=== PATIENT | male | born 1945 | race Caucasian/White ===

== ENCOUNTER → 2017-08-03 14:21 | Outpatient (CLI) | payer MEDICARE, OTHER, SELFPAY ==
[2017-08-03 15:30] LABS: Absolute Neutrophil Count 2.5 X10^3/uL (2.0-7.7); Basophil# 0.05 X10^3/uL; Basophil% 1.2 % (0-1); Eosinophil# 0.18 X10^3/uL; Eosinophils% 4.2 % (0-5); Hematocrit 42.7 % (40-54); Hemoglobin 15.3 g/dl (13.0-16.5); Lymphocyte % 27.8 % (19-41); Mean Corp Hgb Conc 35.8 g/gl (32-36); Mean Corpuscular Hgb 36.3 pg (27.0-32.0); Mean Corpuscular Volume 101.4 fL (80-94); Mean Platelet Vol. 11.6 fl (6.2-12.0); Monocyte# 0.39 X10^3/uL; Neutrophil # 2.49 X10^3/uL (2.7-7.7); Neutrophil % 57.6 % (47-70); POSITIVE COUNT NO; POSITIVE DIFFERENTIAL NO; POSITIVE MORPHOLOGY NO; Platelet Count 93 K/mm3 (150-450); Protein, Urine (Random) 135.6 mg/dL (<11.9); Protein:Creat Ratio 775 mg/g CRE (0-200); RBC Distribution Width SD 55.2 fl (35.1-43.9); Red Blood Count 4.21 M/mm3 (4.6-6.2); White Blood Count 4.3 K/mm3 (4.4-11.0)
[2017-08-03 15:36] LABS: Albumin, Serum 4.1 g/dL (3.2-5.0); BUN 21 mg/dL (7-18); BUN/Creat Ratio 15.2 RATIO (10-20); Calcium,Total 8.9 mg/dL (8.5-10.1); Chloride 104 mmol/L (98-107); Creatinine, Serum 1.38 mg/dL (0.70-1.30); EST Glomerular Filtration Rate 54 mL/min (>60); Est Glom Filt Rate - Afr Amer 65 mL/min (>60); Glucose 87 mg/dL (74-106); Magnesium 2.1 mg/dL (1.6-2.6); Phosphorus 3.9 mg/dL (2.5-4.9); Potassium 3.4 mmol/L (3.5-5.1); Sodium Level 144 mmol/L (136-145)
[2017-08-04 08:52] LABS: PTHIN 70.4 pg/mL (18.4-80.1)
[2017-08-04 08:53] LABS: Vitamin D,25 Hydroxy 26.4 ng/mL (19.95-100.01)
== END ==
PROVIDERS: Family Provider Family Medicine; PCP Family Medicine; Visit Provider Internal Medicine Nephrology
DX: N18.3 Chronic kidney disease, stage 3 (moderate) (principal); E83.42 Hypomagnesemia; E55.9 Vitamin D deficiency, unspecified; Z13.0 Encounter for screening for diseases of the blood and blood-forming organs and certain disorders involving the immune mechanism
CPT/HCPCS: 36415; 80069; 82306; 82570; 83735; 83970; 84156; 85025

== ENCOUNTER → 2018-01-20 08:11 | Outpatient (CLI) | payer MEDICARE, OTHER, SELFPAY ==
[2018-01-20 08:47] LABS: Hematocrit 40.4 % (40-54); Hemoglobin 13.9 g/dl (13.0-16.5); Mean Corp Hgb Conc 34.4 g/gl (32-36); Mean Corpuscular Hgb 35.3 pg (27.0-32.0); Mean Corpuscular Volume 102.5 fL (80-94); Mean Platelet Vol. 11.6 fl (6.2-12.0); Platelet Count 74 K/mm3 (150-450); RBC Distribution Width CV 14.4 % (11.6-14.6); RBC Distribution Width SD 53.5 fl (35.1-43.9); Red Blood Count 3.94 M/mm3 (4.6-6.2); White Blood Count 3.7 K/mm3 (4.4-11.0)
[2018-01-20 08:48] LABS: Scan Indicated on CBC? Y/N NO
[2018-01-20 09:17] LABS: Albumin, Serum 3.7 g/dL (3.2-5.0); BUN 18 mg/dL (7-18); BUN/Creat Ratio 13.5 RATIO (10-20); Calcium,Total 8.9 mg/dL (8.5-10.1); Chloride 105 mmol/L (98-107); Cholesterol 172 mg/dL (200); Creatinine, Serum 1.33 mg/dL (0.70-1.30); EST Glomerular Filtration Rate 56 mL/min (>60); Est Glom Filt Rate - Afr Amer 68 mL/min (>60); Glucose 91 mg/dL (74-106); High Density Lipoprotein 36 mg/dL; Magnesium 2.2 mg/dL (1.6-2.6); PSA,Total - Annual Screen 0.11 ng/mL (0.00-4.00); Phosphorus 3.1 mg/dL (2.5-4.9); Potassium 3.3 mmol/L (3.5-5.1); Sodium Level 142 mmol/L (136-145); Triglycerides 119 mg/dL; Very Low Density Lipoprotein 24 mg/dL (5-40)
[2018-01-20 09:28] LABS: Microalbumin:Creatinine Ratio 277.4 mg/g CRE (<30 mg/g CRE)
[2018-01-21 09:51] LABS: PTHIN 66.5 pg/mL (18.4-80.1)
[2018-01-21 10:10] LABS: Vitamin D,25 Hydroxy 44.1 ng/mL (29.95-100.01)
== END ==
PROVIDERS: Family Provider Family Medicine; PCP Family Medicine; Visit Provider Internal Medicine Nephrology
DX: E83.42 Hypomagnesemia (principal); E55.9 Vitamin D deficiency, unspecified; I12.9 Hypertensive chronic kidney disease with stage 1 through stage 4 chronic kidney disease, or unspecified chronic kidney disease; N18.3 Chronic kidney disease, stage 3 (moderate); E79.0 Hyperuricemia without signs of inflammatory arthritis and tophaceous disease; Z12.5 Encounter for screening for malignant neoplasm of prostate; Z13.0 Encounter for screening for diseases of the blood and blood-forming organs and certain disorders involving the immune mechanism
CPT/HCPCS: 36415; 80061; 80069; 82043; 82306; 82570; 83735; 83970; 84153; 85027; G0103

== ENCOUNTER → 2018-07-25 08:31 | Outpatient (CLI) | payer MEDICARE, OTHER, SELFPAY ==
[2018-04-11 13:14] VITALS: BMI 34.1
[2018-07-25 09:41] LABS: Hematocrit 45.1 % (40-54); Hemoglobin 15.4 g/dl (13.0-16.5); Mean Corp Hgb Conc 34.1 g/gl (32-36); Mean Corpuscular Hgb 35.3 pg (27.0-32.0); Mean Corpuscular Volume 103.4 fL (80-94); Platelet Count 67 K/mm3 (150-450); RBC Distribution Width CV 14.3 % (11.6-14.6); Red Blood Count 4.36 M/mm3 (4.6-6.2); Scan Indicated on CBC? Y/N NO; White Blood Count 3.8 K/mm3 (4.4-11.0)
[2018-07-25 09:46] LABS: Protein, Urine (Random) 130.7 mg/dL (<11.9); Protein:Creat Ratio 1580 mg/g CRE (0-200)
[2018-07-25 09:56] LABS: Albumin, Serum 3.9 g/dL (3.2-5.0); BUN 20 mg/dL (7-18); Calcium,Total 8.8 mg/dL (8.5-10.1); Chloride 105 mmol/L (98-107); Creatinine, Serum 1.43 mg/dL (0.70-1.30); EST Glomerular Filtration Rate 52 mL/min (>60); Est Glom Filt Rate - Afr Amer 62 mL/min (>60); Glucose 196 mg/dL (74-106); Phosphorus 2.6 mg/dL (2.5-4.9); Potassium 3.1 mmol/L (3.5-5.1); Sodium Level 143 mmol/L (136-145)
[2018-07-25 10:09] LABS: PTHIN 73.6 pg/mL (18.4-80.1); Vitamin D,25 Hydroxy 40.1 ng/mL (29.95-100.01)
== END ==
PROVIDERS: Family Provider Family Medicine; PCP Family Medicine; Referring Provider Internal Medicine Nephrology; Visit Provider Internal Medicine Nephrology
DX: N18.3 Chronic kidney disease, stage 3 (moderate) (principal); E55.9 Vitamin D deficiency, unspecified; Z13.0 Encounter for screening for diseases of the blood and blood-forming organs and certain disorders involving the immune mechanism
CPT/HCPCS: 36415; 80069; 82306; 82570; 83970; 84156; 85027

== ENCOUNTER → 2019-01-19 | Outpatient (CLI) | payer MEDICARE, OTHER, SELFPAY ==
[2018-10-10 12:56] VITALS: BMI 34.8
[2019-01-19 07:26] LABS: Hematocrit 40.9 % (40-54); Hemoglobin 14.8 g/dL (13.0-16.5); Mean Corp Hgb Conc 36.2 g/dL (32-36); Mean Corpuscular Volume 102.3 fL (80-94); Mean Platelet Vol. 11.7 fl (6.2-12.0); Platelet Count 70 K/mm3 (150-450); RBC Distribution Width CV 13.9 % (11.6-14.6); White Blood Count 4.1 K/mm3 (4.4-11.0)
[2019-01-19 07:28] LABS: Protein, Urine (Random) 87.3 mg/dL (<11.9); Protein:Creat Ratio 766 mg/g CRE (0-200)
[2019-01-19 07:43] LABS: Albumin, Serum 3.9 g/dL (3.2-5.0); BUN 16 mg/dL (7-18); BUN/Creat Ratio 12.9 RATIO (10-20); Calcium,Total 8.7 mg/dL (8.5-10.1); Chloride 105 mmol/L (98-107); Creatinine, Serum 1.24 mg/dL (0.70-1.30); EST Glomerular Filtration Rate 61 mL/min (>60); Est Glom Filt Rate - Afr Amer 73 mL/min (>60); Glucose 105 mg/dL (74-106); Potassium 3.1 mmol/L (3.5-5.1); Sodium Level 140 mmol/L (136-145)
[2019-01-19 08:45] LABS: PTHIN 99.1 pg/mL (18.4-80.1); Vitamin D,25 Hydroxy 38.2 ng/mL (29.95-100.01)
== END | disposition home or self-care (01) ==
LOC: LAB 06:34
PROVIDERS: Family Provider Family Medicine; PCP Family Medicine; Referring Provider Internal Medicine Nephrology; Visit Provider Internal Medicine Nephrology
DX: N18.3 Chronic kidney disease, stage 3 (moderate) (principal)
CPT/HCPCS: 36415; 80069; 82306; 82570; 83970; 84156; 85027

== ENCOUNTER 2019-06-02 21:16 | Emergency (ER) | payer MEDICARE, OTHER, SELFPAY ==
[2019-04-03 14:01] VITALS: BMI 34.0
[2019-06-02 21:17] VITALS: BP 204/101; PULSE 95; RESP 20; TEMP 36.2; O2SAT 97; BMI 33.7
[2019-06-02 22:12] VITALS: BP 204/101; PULSE 95; RESP 20; TEMP 36.2; O2SAT 97
[2019-06-02 22:14] LABS: Absolute Lymphocyte Count 0.53 X10^3/uL (0.83-4.51); Absolute Neutrophil Count 5.5 X10^3/uL (2.0-7.7); Basophil# 0.04 X10^3/uL; Basophil% 0.6 % (0-1); Eosinophil# 0.08 X10^3/uL; Eosinophils% 1.2 % (0-5); Hematocrit 40.1 % (40-54); Hemoglobin 14.1 g/dL (13.0-16.5); Lymphocyte # 0.53 X10^3/ul (4.0); Lymphocyte % 7.9 % (19-41); Mean Corp Hgb Conc 35.2 g/dL (32-36); Mean Corpuscular Hgb 34.9 pg (27.0-32.0); Mean Corpuscular Volume 99.3 fL (80-94); Mean Platelet Vol. 10.8 fl (6.2-12.0); Monocyte# 0.49 X10^3/uL; Monocyte% 7.3 % (0-10); NRBC Flagged by Analyzer 0 % (0-5); Neutrophil # 5.51 X10^3/uL (2.7-7.7); Neutrophil % 82.1 % (47-70); POSITIVE DIFFERENTIAL YES; Platelet Count 100 K/mm3 (150-450); RBC Distribution Width CV 13.4 % (11.6-14.6); RBC Distribution Width SD 49.1 fl (35.1-43.9); Red Blood Count 4.04 M/mm3 (4.6-6.2); White Blood Count 6.7 K/mm3 (4.4-11.0)
[2019-06-02 22:31] LABS: Differential Indicated SCAN CRITERIA MET
[2019-06-02 22:44] VITALS: BP 143/79; PULSE 81; RESP 18; O2SAT 97
[2019-06-02 22:51] LABS: Differential Comment SCANNED; Erythrocyte Sedimentation Rate 20 mm/hr (0-20)
--- NOTE | 2019-06-02 22:52 | ED.VISSUMM ---
- ER Visit Summary Date of Service: 06/02/19 Chief Complaint: Left knee injury/swelling History of Present Illness: The patient is a 73 M who sustained a left knee injury about a month ago. He had pain and swelling on the anterior portion of the knee. He followed up with [facility] a couple of weeks ago and was given prednisone but it did not help. He followed up with him earlier this week and was placed on antibiotics for presumed prepatellar bursitis. He states the swelling increased today so he came in to get it checked. He has pain is worse with walking. He denies any fevers. He is currently on doxycycline and clindamycin. He had a total knee replacement performed 9 years ago on that side. Physical Examination: Vital signs are reviewed. Left leg exam reveals some erythema noted to the anterior knee. He has full range of motion of the knee with pain at the extremes. There is a line that was drawn on the knee that was demarcated at [facility]. The erythema does not extend beyond this. There is some inferior fluctuance noted around this area. Test Results: White blood cell count 6.7. CRP 24 Emergency Department Course and Treatment: Patient's white count is normal. He has good range of motion. I doubt that this is an intra-articular infection. He likely has a prepatellar bursitis. I did anesthetize the area with 1% lidocaine after scrubbing it with chlorhexidine. I then used an 18-gauge needle and aspirated the inferior portion and had return of some clear serous fluid. This was then mixed with blood. He believes the swelling is now improved since he has been here. I feel he can continue the antibiotics he was given. He will continue to ice this at home. He will call [facility] on Wednesday Treatment Plan: [] Disposition: Discharge Impression: Left prepatellar bursitis This note was generated with ZEFR dictation software. It may contain incorrect words, spelling, and punctuation that were not noted in review of the chart prior to signing ED Disposition - Plan for ED Patient: Referrals: Brad Forrest DO [Primary Care Provider] -
--- NOTE | 2019-06-02 22:55 | ED.DEP ---
ED Disposition - Plan for ED Patient: Disposition: Home or Assisted Living Instructions: Bursitis Referrals: Brad Forrest DO [Primary Care Provider] -
[2019-06-02 23:30] VITALS: BP 139/84; PULSE 74; RESP 16; O2SAT 94
== END 2019-06-02 23:31 | disposition home or self-care (01) ==
PROVIDERS: Emergency Provider Emergency Medicine; Family Provider Family Medicine; PCP Family Medicine
DX: M70.42 Prepatellar bursitis, left knee (principal); Z96.652 Presence of left artificial knee joint
CPT/HCPCS: 20610; 85025; 85652; 86140; 99283

== ENCOUNTER 2019-06-12 08:56 | Emergency (ER) | payer MEDICARE, OTHER, SELFPAY ==
[2019-06-12 08:57] VITALS: BP 171/86; PULSE 60; RESP 17; TEMP 36.8; O2SAT 94; BMI 32.5
--- NOTE | 2019-06-12 09:16 | EKG12_ITS ---
Test Reason : N/V Blood Pressure : / mmHG Vent. Rate : 055 BPM Atrial Rate : 055 BPM P-R Int : 148 ms QRS Dur : 110 ms QT Int : 468 ms P-R-T Axes : 015 -22 -27 degrees QTc Int : 447 ms Sinus bradycardia Incomplete right bundle branch block Minimal voltage criteria for LVH, may be normal variant Nonspecific ST abnormality Abnormal ECG Confirmed by LORI RODRÍGUEZ, LACI ([id number]), associate editor KENTON MAXWELL ([id number]) on 06/14/2019 11:55:22 AM Referred By: FREDO Confirmed By:LACI SANDOVAL MD
--- NOTE | 2019-06-12 09:18 | ED.VIS.GEN ---
History of Present Illness Chief Complaint: Abd Pain Informant: Patient Onset: Yesterday Context: Gradual Onset Timing: Intermittent Narrative: Patient is a 73-year-old man with history of Gout, BPH and hypertension who is currently on both doxycycline and clindamycin for concern for left prepatellar bursitis presenting with increased urinary frequency and abdominal discomfort. Patient states he is been on antibiotics for 20 days now. He is on a second course of it. He notes that last night his stomach started to feel upset. He had nausea and dry heaves. He also notes since yesterday he has been urinating every 15 minutes or so. He denies any painful urination and he feels like he is emptying his bladder completely. He states his stomach feels slightly upset and cramping. He denies any sharp pains. He denies associated chest pain, shortness of breath, fever or chills. He also feels lightheaded which he says is been going on since yesterday. He denies any increased thirst. He does note that he has had loose stools since being on antibiotics and whenever he has to pass gas he tends to pass a small amount of stool as well. He denies any black or bloody stools. He denies any other complaints at this time. Patient follows with [facility] for his knee. He does have a history of bilateral TKA. Past Medical History - Allergies and Home Meds Allergies/Adverse Reactions: Allergies No Known Allergies Allergy (Verified 06/12/19 08:57) Primary Care Physician: Brad Forrest DO [Primary Care Provider] - Past Medical History: - - Gout, HTN, BPH Surgical History: arthroscopy, knee Smoking Status: Smoker, status unknown Review of Systems General: Reports: - - lightheaded. Denies: Chills, Fever, Malaise, Sweats Eyes: Denies: Visual changes - bilaterally, Diplopia ENT: Denies: Rhinorrhea, Sore throat Cardiovascular: Denies: Chest pain, Palpitations Respiratory: Denies: Dyspnea, Cough, Dyspnea on exertion Gastrointestinal: Reports: Abdominal pain, Nausea, Diarrhea. Denies: Vomiting, Melena, Hematochezia Genitourinary: Reports: Frequency. Denies: Dysuria, Hematuria Musculoskeletal: Reports: Swelling - left knee. Denies: Back pain, Extremity Pain Skin: Reports: Rash - left knee , Wounds - draining wound left knee from recent aspiration, draining stopped 2 days ago Neurological: Denies: Headache, Weakness, Numbness Physical Exam Vital Signs/Narrative: Vital Signs Temp Pulse Resp BP Pulse Ox 06/12/19 08:57 98.2 F 60 17 171/86 H 94 Inital Vital Signs reviewed: Yes General: Well nourished, Well developed, No Acute Distress Head: Normocephalic, Atraumatic Eyes: Perrl, EOMI ENT: Moist mucous membranes, No rhinorrhea, TM's clear Neck: Supple, Nontender Cardiovascular: Regular rate, Regular rhythm, No murmurs Respiratory: No distress, CTA bilaterally, Chest nontender Abdomen: Soft, Nontender, Nondistended, Normal bowel sounds Back: Nontender, Normal Inspection. Negative for: CVA tenderness Extremities: Nontender, No edema Skin: Normal color, - - Erythema and warmth over left knee, inferior aspect, mild associated swelling consistent with a prepatellar bursitis Neurological: Alert, Oriented x3, Cranial nerves II-XII grossly intact, Normal Strength, Normal Sensation Psychological: Normal affect, Normal Mood Diagnostic/Tx/Re-eval Laboratory Data 06/12/19 06/12/19 06/12/19 09:10 09:10 10:45 WBC 4.5 RBC 3.79 L Hgb 13.2 Hct 37.1 L MCV 97.9 H MCH 34.8 H MCHC 35.6 RDW Std Deviation 47.9 H RDW Coeff of Naomie 13.7 Plt Count 79 L MPV 9.6 Immature Gran % (Auto) 0.700 Neut % (Auto) 84.8 H Lymph % (Auto) 7.3 L [place] % (Auto) 6.6 Eos % (Auto) 0.4 Baso % (Auto) 0.2 Absolute Neuts (auto) 3.8 Absolute Lymphs (auto) 0.33 L Nucleated RBC % 0 Platelet Estimate MOD DEC Sodium 138 Potassium 3.1 L Chloride 102 Carbon Dioxide 31.0 Anion Gap 5 BUN 14 Creatinine 1.30 Estim Creat Clear Calc 50.61 Est GFR (MDRD) Af Amer 69 Est GFR (MDRD) Non-Af 57 L BUN/Creatinine Ratio 10.8 Glucose 115 H Calcium 8.9 Total Bilirubin 1.10 H AST 27 ALT 32 Alkaline Phosphatase 109 Troponin I < 0.015 C-React Prot Ext Range 11.10 H Total Protein 6.9 Albumin 3.5 Globulin 3.4 Albumin/Globulin Ratio 1.0 Lipase 115 Urine Color Yellow Urine Clarity Clear Urine pH 7.0 Ur Specific [place] 1.010 Urine Protein 30 H Urine Glucose (UA) Normal Urine Ketones Negative Urine Occult Blood 10 H Urine Nitrite Negative Urine Bilirubin Negative Urine Urobilinogen Normal Ur Leukocyte Esterase Negative Urine RBC 0 SEEN Urine WBC 0 SEEN Ur Squamous Epith Cells 0 SEEN Urine Bacteria RARE Urine Mucus 0 SEEN - Rhythm Strip Rhythm Strip: Sinus Rhythm Rate: 55 Ectopy: None - EKG Initial EKG Interpretation: Sinus Bradycardia, - - Sinus bradycardia at a rate of 55 Incomplete right bundle branch block QRS 110 QTc 447 Left axis deviation T wave inversions in 3 and aVF Compared to prior EKG on 10/27/2012 patient now has a right bundle branch block but T wave inversions are unchanged - Medical Decision Making Patient is evaluated for abdominal discomfort, urinary frequency and nausea. He appears nontoxic in no acute distress. His lab work is significant for thrombocytopenia which appears to be chronic as well as hyperkalemia which is also chronic. Patient's abdomen is soft and nontender. He does not have a significant leukocytosis and abdominal exam is benign. He is well-appearing. I do not suspect an acute abdomen or obstruction. I do not think imaging of his abdomen is indicated at this time. His CRP is still elevated but it is downtrending. He does not look like he has a septic joint of his knee but he does still have some associated bursitis. Patient is following with orthopedics for that. While he is in the emergency room he does go to the bathroom multiple times. He denies any urinary symptoms associated with this frequency. I did check a postvoid residual volume which showed 127 mL's of fluid. Likely patient has some mild urinary retention which is causing this symptom. Patient is offered a Kaur catheter but declines. He will be referred to urology for outpatient follow-up of this. He is given prescription for Zofran for his nausea. He might have some mild gastric irritation from his prolonged antibiotic use. With a normal white blood cell count I do a lower suspicion for C. difficile however I did send off a stool sample while he is in the emergency room. Patient is counseled on signs and symptoms requiring return to the emergency room. Patient verbalizes agreement and understand this plan. Patient discharged home in stable and improved condition. ED Disposition - Plan for ED Patient: Disposition: Home or Assisted Living Diagnosis: Thrombocytopenia, Urinary frequency, Hypokalemia, Diarrhea Instructions: ABDOMINAL PAIN, Unknown Cause, (Female), VOMITING AND DIARRHEA, Nonspecific (Adult), URINARY RETENTION, Male Prescriptions: Ondansetron [Zofran Odt] 4 mg PO Q8H PRN PRN #10 tab PRN Reason: Nausea Prescription Printed Referrals: Brda Forrest DO [Primary Care Provider] - Héctor Moody MD [STAFF PHYSICIAN] - Additional Instructions: You have been prescribed Zofran to help with your nausea and abdominal discomfort. You may also take an [id number] Pepcid as this might help. Do not take any Imodium for your diarrhea until your stool culture comes back. He may take Pepto-Bismol as this might help with your diarrhea. You have been referred to a urologist for further evaluation of your urinary frequency. Your potassium is mildly low as well as your platelets but this appears to be chronic. Please follow-up with your primary care doctor for this. Return to the emergency room if you have any worsening symptoms. Continue to take the antibiotics as instructed by your orthopedist.
[2019-06-12 09:51] LABS: Absolute Lymphocyte Count 0.33 X10^3/uL (0.83-4.51); Absolute Neutrophil Count 3.8 X10^3/uL (2.0-7.7); Basophil# 0.01 X10^3/uL; Basophil% 0.2 % (0-1); Eosinophil# 0.02 X10^3/uL; Eosinophils% 0.4 % (0-5); Hematocrit 37.1 % (40-54); Hemoglobin 13.2 g/dL (13.0-16.5); Lymphocyte # 0.33 X10^3/ul (4.0); Lymphocyte % 7.3 % (19-41); Mean Corp Hgb Conc 35.6 g/dL (32-36); Mean Corpuscular Hgb 34.8 pg (27.0-32.0); Mean Corpuscular Volume 97.9 fL (80-94); Mean Platelet Vol. 9.6 fl (6.2-12.0); Monocyte% 6.6 % (0-10); NRBC Flagged by Analyzer 0 % (0-5); Neutrophil # 3.84 X10^3/uL (2.7-7.7); Neutrophil % 84.8 % (47-70); POSITIVE COUNT YES; POSITIVE DIFFERENTIAL YES; Platelet Count 79 K/mm3 (150-450); RBC Distribution Width CV 13.7 % (11.6-14.6); RBC Distribution Width SD 47.9 fl (35.1-43.9); Red Blood Count 3.79 M/mm3 (4.6-6.2); White Blood Count 4.5 K/mm3 (4.4-11.0)
[2019-06-12 09:53] LABS: Differential Indicated SCAN CRITERIA MET
[2019-06-12] MEDS: Ondansetron 4 MG/2 ML Vial IV (10:00)
[2019-06-12] MEDS: 0.9% Normal Saline 1,000 ML 1000 ML IV (10:00)
[2019-06-12 10:11] LABS: Platelet Estimate MOD DEC (ADEQ)
[2019-06-12 10:38] LABS: AST(SGOT) 27 U/L (15-37); Alanine Aminotransfer ALT/SGPT 32 U/L (16-61); Albumin, Serum 3.5 g/dL (3.2-5.0); Alkaline Phosphatase 109 U/L (45-117); Anion Gap 5 (5-15); BUN 14 mg/dL (7-18); BUN/Creat Ratio 10.8 RATIO (10-20); Calcium,Total 8.9 mg/dL (8.5-10.1); Chloride 102 mmol/L (98-107); EST Glomerular Filtration Rate 57 mL/min (>60); Est Glom Filt Rate - Afr Amer 69 mL/min (>60); Estimated Creatinine Clearance 50.61 ml/min; Globulin 3.4 g/dL (2.2-4.2); Glucose 115 mg/dL (74-106); Lipase 115 U/L (73-393); Potassium 3.1 mmol/L (3.5-5.1); Protein, Total 6.9 g/dL (6.4-8.2); Sodium Level 138 mmol/L (136-145)
[2019-06-12 10:52] LABS: Mucous, Urine 0 SEEN /hpf (<or=2+); Red Blood Cells-Urine 0 SEEN /hpf (0-5); Squamous Epithelial Cells - UA 0 SEEN /hpf (0-5); White Blood Cells 0 SEEN /hpf (0-5)
[2019-06-12 10:53] LABS: Color, Urine Yellow (Yellow); Glucose, Dipstick Normal (Normal); Ketone-Dipstick Negative (Negative); Leukocyte Esterase-Dipstick Negative /ul (Negative); Nitrite-Dipstick Negative (Negative); Occult Blood-Urine 10 /ul (Negative); Protein-Dipstick 30 mg/dl (Negative); Urine Bilirubin Dipstick Negative (Negative); Urine Clarity Clear (Clear); Urine Urobilinogen Normal (Normal)
[2019-06-12 10:59] LABS: Bacteria RARE /hpf (None Seen)
== END 2019-06-12 12:19 | disposition home or self-care (01) ==
PROVIDERS: Emergency Provider Emergency Medicine; Family Provider Family Medicine; PCP Family Medicine
DX: R19.7 Diarrhea, unspecified (principal); R35.0 Frequency of micturition; E87.6 Hypokalemia; D69.6 Thrombocytopenia, unspecified; I10 Essential (primary) hypertension; Z79.2 Long term (current) use of antibiotics
CPT/HCPCS: 80053; 81001; 83690; 84484; 85025; 86140; 87506; 93005; 96361; 96374; 99283; J7030; A4216; J2405

== ENCOUNTER → 2019-06-19 09:34 | Outpatient (CLI) | payer MEDICARE, OTHER, SELFPAY ==
[2019-06-12 08:57] VITALS: BMI 32.5
[2019-07-14 10:12] LABS: PSA,Total- Diagnostic 0.17 ng/mL (0.0-4.0)
== END ==
PROVIDERS: Family Provider Family Medicine; PCP Family Medicine
DX: N40.1 Benign prostatic hyperplasia with lower urinary tract symptoms (principal)
CPT/HCPCS: 84153; G0103

== ENCOUNTER → 2019-06-30 09:46 | Outpatient (CLI) | payer MEDICARE, OTHER, SELFPAY ==
[2019-06-12 08:57] VITALS: BMI 32.5
[2019-06-30 10:40] LABS: Absolute Lymphocyte Count 1.13 X10^3/uL (0.83-4.51); Absolute Neutrophil Count 2.9 X10^3/uL (2.0-7.7); Basophil# 0.04 X10^3/uL; Basophil% 0.9 % (0-1); Eosinophil# 0.14 X10^3/uL; Eosinophils% 3.1 % (0-5); Hematocrit 36.6 % (40-54); Hemoglobin 12.6 g/dL (13.0-16.5); Lymphocyte # 1.13 X10^3/ul (4.0); Lymphocyte % 24.6 % (19-41); Mean Corp Hgb Conc 34.4 g/dL (32-36); Mean Corpuscular Hgb 34.2 pg (27.0-32.0); Mean Corpuscular Volume 99.5 fL (80-94); Mean Platelet Vol. 11.1 fl (6.2-12.0); Monocyte# 0.37 X10^3/uL; Monocyte% 8.1 % (0-10); NRBC Flagged by Analyzer 0 % (0-5); Neutrophil # 2.87 X10^3/uL (2.7-7.7); Neutrophil % 62.4 % (47-70); POSITIVE COUNT YES; Platelet Count 97 K/mm3 (150-450); RBC Distribution Width CV 14.6 % (11.6-14.6); RBC Distribution Width SD 52.2 fl (35.1-43.9); Red Blood Count 3.68 M/mm3 (4.6-6.2); White Blood Count 4.6 K/mm3 (4.4-11.0)
[2019-06-30 11:08] LABS: Albumin, Serum 3.6 g/dL (3.2-5.0); BUN 13 mg/dL (7-18); BUN/Creat Ratio 10.7 RATIO (10-20); Calcium,Total 8.7 mg/dL (8.5-10.1); Chloride 102 mmol/L (98-107); Creatinine, Serum 1.22 mg/dL (0.70-1.30); EST Glomerular Filtration Rate 62 mL/min (>60); Est Glom Filt Rate - Afr Amer 75 mL/min (>60); Glucose 64 mg/dL (74-106); Phosphorus 3.4 mg/dL (2.5-4.9); Sodium Level 139 mmol/L (136-145)
== END ==
PROVIDERS: Family Provider Family Medicine; PCP Family Medicine; Referring Provider Internal Medicine Rheumatology; Visit Provider Internal Medicine Rheumatology
DX: D64.9 Anemia, unspecified (principal); R79.89 Other specified abnormal findings of blood chemistry
CPT/HCPCS: 36415; 80069; 85025

== ENCOUNTER → 2019-08-07 | Outpatient (CLI) | payer MEDICARE, OTHER, SELFPAY ==
[2019-08-07 15:21] LABS: Absolute Lymphocyte Count 1.05 X10^3/uL (0.83-4.51); Absolute Neutrophil Count 3.7 X10^3/uL (2.0-7.7); Basophil# 0.03 X10^3/uL; Basophil% 0.6 % (0-1); Eosinophil# 0.12 X10^3/uL; Eosinophils% 2.3 % (0-5); Hematocrit 43.4 % (40-54); Hemoglobin 15.1 g/dL (13.0-16.5); Lymphocyte # 1.05 X10^3/ul (4.0); Lymphocyte % 19.9 % (19-41); Mean Corp Hgb Conc 34.8 g/dL (32-36); Mean Corpuscular Hgb 34.8 pg (27.0-32.0); Mean Platelet Vol. 10.6 fl (6.2-12.0); Monocyte# 0.41 X10^3/uL; Monocyte% 7.8 % (0-10); NRBC Flagged by Analyzer 0 % (0-5); Neutrophil # 3.65 X10^3/uL (2.7-7.7); POSITIVE COUNT YES; Platelet Count 86 K/mm3 (150-450); RBC Distribution Width CV 15.4 % (11.6-14.6); RBC Distribution Width SD 55.4 fl (35.1-43.9); Red Blood Count 4.34 M/mm3 (4.6-6.2); White Blood Count 5.3 K/mm3 (4.4-11.0)
[2019-08-07 15:26] LABS: Differential Indicated SCAN CRITERIA MET
[2019-08-07 16:11] LABS: Vitamin B12 295 pg/mL (211-911)
[2019-08-07 16:36] LABS: Ferritin 144 ng/mL (26-388); Iron 225 ug/dL (65-175); LDH 279 U/L (87-241)
[2019-08-07 16:39] LABS: Differential Comment SCANNED; Platelet Estimate MOD DEC (ADEQ)
== END | disposition home or self-care (01) ==
LOC: LAB 14:36
PROVIDERS: PCP Family Medicine; Referring Provider Family Medicine; Visit Provider Family Medicine
DX: D64.9 Anemia, unspecified (principal)
CPT/HCPCS: 36415; 82607; 82728; 82746; 83540; 83615; 85025

== ENCOUNTER → 2020-01-18 | Outpatient (CLI) | payer MEDICARE, OTHER, SELFPAY ==
[2020-01-18 08:40] LABS: Hemoglobin 13.8 g/dL (13.0-16.5); Mean Corp Hgb Conc 35.4 g/dL (32-36); Mean Corpuscular Hgb 35.6 pg (27.0-32.0); Mean Corpuscular Volume 100.5 fL (80-94); Mean Platelet Vol. 11.7 fl (6.2-12.0); POSITIVE COUNT YES; Platelet Count 71 K/mm3 (150-450); RBC Distribution Width CV 14.2 % (11.6-14.6); RBC Distribution Width SD 51.7 fl (35.1-43.9); Red Blood Count 3.88 M/mm3 (4.6-6.2)
[2020-01-18 08:50] LABS: Protein, Urine (Random) 81.9 mg/dL (<11.9); Protein:Creat Ratio 565 mg/g CRE (0-200)
[2020-01-18 09:07] LABS: Albumin, Serum 3.8 g/dL (3.2-5.0); BUN 22 mg/dL (7-18); BUN/Creat Ratio 17.6 RATIO (10-20); Calcium,Total 8.8 mg/dL (8.5-10.1); Chloride 108 mmol/L (98-107); Creatinine, Serum 1.25 mg/dL (0.70-1.30); EST Glomerular Filtration Rate 60 mL/min (>60); Est Glom Filt Rate - Afr Amer 73 mL/min (>60); Glucose 123 mg/dL (74-106); Phosphorus 2.7 mg/dL (2.5-4.9); Sodium Level 141 mmol/L (136-145)
[2020-01-18 09:31] LABS: PTHIN 64.7 pg/mL (18.4-80.1)
[2020-01-18 09:37] LABS: Vitamin D,25 Hydroxy 64.4 ng/mL
== END | disposition home or self-care (01) ==
LOC: LAB 08:06
PROVIDERS: PCP Family Medicine; Referring Provider Internal Medicine Nephrology; Visit Provider Internal Medicine Nephrology
DX: E55.9 Vitamin D deficiency, unspecified (principal); N18.3 Chronic kidney disease, stage 3 (moderate); Z13.0 Encounter for screening for diseases of the blood and blood-forming organs and certain disorders involving the immune mechanism
CPT/HCPCS: 36415; 80069; 82306; 82570; 83970; 84156; 85027

== ENCOUNTER → 2020-06-19 14:49 | Outpatient (CLI) | payer MEDICARE, OTHER, SELFPAY | PROVIDERS: PCP Family Medicine; Visit Provider Internal Medicine Rheumatology | DX: R74.8 Abnormal levels of other serum enzymes (principal) ==

== ENCOUNTER → 2020-07-22 10:23 | Outpatient (CLI) | payer MEDICARE, OTHER, SELFPAY ==
[2020-07-01 14:14] VITALS: BMI 34.7
[2020-07-22 10:51] LABS: Protein, Urine (Random) 148.6 mg/dL (<11.9); Protein:Creat Ratio 2141 mg/g CRE (0-200)
[2020-07-22 11:16] LABS: Anion Gap 6 (5-15); BUN 18 mg/dL (7-18); BUN/Creat Ratio 13.5 RATIO (10-20); Calcium,Total 8.9 mg/dL (8.5-10.1); Chloride 106 mmol/L (98-107); Creatinine, Serum 1.33 mg/dL (0.70-1.30); EST Glomerular Filtration Rate 56 mL/min (>60); Est Glom Filt Rate - Afr Amer 67 mL/min (>60); Glucose 107 mg/dL (74-106); Potassium 3.2 mmol/L (3.5-5.1); Sodium Level 143 mmol/L (136-145)
[2020-12-31 14:04] VITALS: BMI 34.9
== END ==
PROVIDERS: PCP Family Medicine; Referring Provider Internal Medicine Nephrology; Visit Provider Internal Medicine Nephrology
DX: N18.30 Chronic kidney disease, stage 3 unspecified (principal)
CPT/HCPCS: 36415; 80048; 82570; 84156

== ENCOUNTER 2020-09-06 17:00 | Outpatient (RCR) | payer MEDICARE, OTHER, SELFPAY ==
[2020-07-01 14:14] VITALS: BMI 34.7
[2020-09-06] MEDS: COVID-19 VACC, MRNA(PFIZER)/PF 30 MCG/0.3 ML SYRINGE IM (14:15)
[2020-09-27] MEDS: COVID-19 VACC, MRNA(PFIZER)/PF 30 MCG/0.3 ML SYRINGE IM (14:05)
== END 2020-12-03 23:59 ==
LOC: IMMUN 17:00
PROVIDERS: PCP Family Medicine; Visit Provider Family Medicine
DX: Z23 Encounter for immunization (principal)
CPT/HCPCS: 0001A; 0002A; 91300

== ENCOUNTER → 2020-10-17 09:47 | Outpatient (CLI) | payer MEDICARE, OTHER, SELFPAY ==
[2020-07-01 14:14] VITALS: BMI 34.7
[2020-10-17 11:06] LABS: Hematocrit 45.5 % (40-54); Hemoglobin 15.5 g/dL (13.0-16.5); Mean Corp Hgb Conc 34.1 g/dL (32-36); Mean Corpuscular Hgb 34.6 pg (27.0-32.0); Mean Corpuscular Volume 101.6 fL (80-94); Mean Platelet Vol. 12.6 fl (6.2-12.0); POSITIVE COUNT YES; Platelet Count 66 K/mm3 (150-450); RBC Distribution Width CV 14.5 % (11.6-14.6); RBC Distribution Width SD 54.2 fl (35.1-43.9); Red Blood Count 4.48 M/mm3 (4.6-6.2)
[2020-10-17 11:07] LABS: Scan Indicated on CBC? Y/N YES- FLAGS NOTED
[2020-10-17 11:15] LABS: Protein, Urine (Random) 64.5 mg/dL (<11.9); Protein:Creat Ratio 603 mg/g CRE (0-200)
[2020-10-17 11:30] LABS: PTHIN 48.9 pg/mL (18.4-80.1)
[2020-10-17 11:31] LABS: Vitamin D,25 Hydroxy 43.4 ng/mL
[2020-10-17 11:37] LABS: Albumin, Serum 3.9 g/dL (3.2-5.0); BUN 29 mg/dL (7-18); BUN/Creat Ratio 17.7 RATIO (10-20); Calcium,Total 9.2 mg/dL (8.5-10.1); Chloride 107 mmol/L (98-107); Creatinine, Serum 1.64 mg/dL (0.70-1.30); EST Glomerular Filtration Rate 44 mL/min (>60); Est Glom Filt Rate - Afr Amer 53 mL/min (>60); Glucose 81 mg/dL (74-106); Phosphorus 3.2 mg/dL (2.5-4.9); Potassium 4.1 mmol/L (3.5-5.1); Sodium Level 141 mmol/L (136-145)
== END ==
PROVIDERS: PCP Family Medicine; Referring Provider Internal Medicine Nephrology; Visit Provider Internal Medicine Nephrology
DX: E55.9 Vitamin D deficiency, unspecified (principal); N18.31 Chronic kidney disease, stage 3a; Z13.0 Encounter for screening for diseases of the blood and blood-forming organs and certain disorders involving the immune mechanism
CPT/HCPCS: 36415; 80069; 82306; 82570; 83970; 84156; 85027

== ENCOUNTER → 2021-02-18 14:18 | Outpatient (CLI) | payer MEDICARE, OTHER, SELFPAY ==
[2020-12-31 14:04] VITALS: BMI 34.9
--- NOTE | 2021-02-18 14:21 | BI_ITS ---
MAMMOGRAPHY - BILATERAL DIAGNOSTIC REASON FOR EXAM: Male, 75 years old. Tender right breast lump. The patient is on SPIRONOLACTONE. PERTINENT HISTORY: TECHNIQUE: Digital bilateral breast dana (3D mammographic acquisition) in the CC and MLO projections. 2-D mediolateral oblique (MLO) and craniocaudad (CC) views of both breasts were obtained. CAD: Full Field Digital Mammography with Computer Added Detection was performed. COMPARISON: None. Baseline examination. FINDINGS: Breast Composition: The breasts are almost entirely fatty. The palpable abnormality corresponds to a 1.7 cm x 1.3 cm irregular nodular density in the retroareolar region of the right breast. Correlation with ultrasound is recommended. No other significant abnormalities are identified. BI/DIAG MAMM W/CAD, BILAT IMPRESSION: The palpable abnormality corresponds to a 1.7 cm x 1.3 cm irregular nodular density in the retroareolar region of the right breast. Correlation with ultrasound is recommended. ASSESSMENT CATEGORY: BIRADS Category 0: Incomplete. Need additional imaging evaluation. A letter regarding these results will be sent to the patient by the facility within 30 days. Approximately 10% of breast cancers are not detected by mammography. A normal mammogram should not delay biopsy of a clinically suspicious abnormality. Electronically Signed: Dylan Florez MD at 15:23 EDT , Service support ,
--- NOTE | 2021-02-18 14:21 | US_ITS ---
STUDY: ULTRASOUND BREAST - RIGHT REASON FOR EXAM: Male, 75 years old. Palpable lump in the right breast. TECHNIQUE: Axial and longitudinal images of the RIGHT breast were performed with a high resolution ultrasound transducer. # OF IMAGES: 41 COMPARISON: Comparison is made with prior mammogram done earlier today. FINDINGS: RIGHT Breast: The palpable abnormality corresponds to a 1.7 cm x 2.3 cm x 0.9 cm spiculated hypoechoic nodular density. Biopsy is recommended. US/Breast Limited Unilateral IMPRESSION: The palpable abnormality corresponds to a 1.7 cm x 2.3 cm x 0.9 cm spiculated hypoechoic nodular density. Biopsy recommended. ASSESSMENT CATEGORY: BIRADS Category 4: Suspicious - Biopsy Should Be Considered. A letter regarding these results will be sent to the patient by the facility within 30 days. Electronically Signed: Dylan Florez MD at 12:11 EDT , Service support ,
== END ==
PROVIDERS: PCP Family Medicine; Referring Provider Family Medicine; Visit Provider Family Medicine
DX: R92.8 Other abnormal and inconclusive findings on diagnostic imaging of breast (principal); N63.10 Unspecified lump in the right breast, unspecified quadrant
CPT/HCPCS: 76642; 77062; 77066; G0279

== ENCOUNTER → 2021-03-05 | Outpatient (CLI) | payer MEDICARE, OTHER, SELFPAY ==
--- NOTE | 2021-03-05 | BRBX_PTH ---
PATIENT: ANTONIO MARADIAGA LOC: [facility] U#:[id number] AGE/SX: 75/M ROOM: RE03/05/[address]: Dr. Chon Woods MD : 1945 BED: DIS: 03/05/2021 SPEC #: [id number] RECD: 03/05/21 09:40 STATUS: ALONDRA REMichelle #: [id number] LAY: 03/05/21 00:[address]: Chon Woods DEPT: SURGICAL PATHOLOGY RECD BY: Adi Anders ENTERED: 03/05/21 09:40 SP TYPE: BREAST BX OTHR DR: Dr. Brad Forrest, DO Tissues: Right breast, NOS Procedures: Surgery Specimen Level IV HEADER OPERATION: Right breast biopsy PRE-OP DIAGNOSIS: Abnormal breast US, right TISSUE SUBMITTED: Right breast tissue MICROSCOPIC DIAGNOSIS Right breast, core biopsy: Consistent with gynecomastia. AM:am 03/06/21 MICROSCOPIC DESCRIPTION Slides are reviewed. GROSS DESCRIPTION Received in fixative is one container labeled with the patient name and designated right breast. The specimen consists of multiple elongated fragments of soft tissue measuring in aggregate 1.0 x .02 x .01cm. The specimen is totally submitted in one cassette. / AM:am 03/05/21 TC:5 CPT:61174
== END | disposition home or self-care (01) ==
LOC: LABSPEC 09:08
PROVIDERS: PCP Family Medicine; Visit Provider Surgery
DX: R92.8 Other abnormal and inconclusive findings on diagnostic imaging of breast (principal)
CPT/HCPCS: 88305

== ENCOUNTER → 2021-03-10 09:00 | Outpatient (CLI) | payer MEDICARE, OTHER, SELFPAY | PROVIDERS: PCP Family Medicine; Visit Provider Family Medicine | DX: R69 Illness, unspecified (principal) ==

== ENCOUNTER → 2021-03-26 20:00 | Outpatient (CLI) | payer MEDICARE, OTHER, SELFPAY | PROVIDERS: PCP Family Medicine; Visit Provider Family Medicine | DX: G47.10 Hypersomnia, unspecified (principal); G47.33 Obstructive sleep apnea (adult) (pediatric) | CPT/HCPCS: 95811 ==

== ENCOUNTER → 2021-04-17 09:37 | Outpatient (CLI) | payer MEDICARE, OTHER, SELFPAY ==
[2021-04-17 12:19] LABS: Protein, Urine (Random) 55.2 mg/dL (<11.9); Protein:Creat Ratio 272 mg/g CRE (0-200)
[2021-04-17 12:46] LABS: Anion Gap 8 (5-15); BUN 30 mg/dL (7-18); Calcium,Total 9.4 mg/dL (8.5-10.1); Chloride 107 mmol/L (98-107); Creatinine, Serum 1.88 mg/dL (0.70-1.30); EST Glomerular Filtration Rate 37 mL/min (>60); Est Glom Filt Rate - Afr Amer 45 mL/min (>60); Glucose 145 mg/dL (74-106); Potassium 4.2 mmol/L (3.5-5.1); Sodium Level 140 mmol/L (136-145)
== END ==
PROVIDERS: PCP Family Medicine; Referring Provider Internal Medicine Nephrology; Visit Provider Internal Medicine Nephrology
DX: N18.31 Chronic kidney disease, stage 3a (principal)
CPT/HCPCS: 36415; 80048; 82570; 84156

== ENCOUNTER 2021-07-23 09:26 | Outpatient (CLI) | payer MEDICARE, OTHER, SELFPAY ==
[2021-07-23 10:01] LABS: Hematocrit 40.2 % (40-54); Hemoglobin 13.7 g/dL (13.0-16.5); Mean Corp Hgb Conc 34.1 g/dL (32-36); Mean Corpuscular Hgb 35.5 pg (27.0-32.0); Mean Corpuscular Volume 104.1 fL (80-94); Mean Platelet Vol. 11.6 fl (6.2-12.0); POSITIVE COUNT YES; Platelet Count 84 K/mm3 (150-450); RBC Distribution Width CV 14.6 % (11.6-14.6); Red Blood Count 3.86 M/mm3 (4.6-6.2); White Blood Count 5.7 K/mm3 (4.4-11.0)
[2021-07-23 10:05] LABS: ERROR RESULT FLAG YES
[2021-07-23 10:25] LABS: Albumin, Serum 3.8 g/dL (3.2-5.0); BUN 28 mg/dL (7-18); BUN/Creat Ratio 14.6 RATIO (10-20); Calcium,Total 8.9 mg/dL (8.5-10.1); Chloride 107 mmol/L (98-107); Creatinine, Serum 1.92 mg/dL (0.70-1.30); EST Glomerular Filtration Rate 36 mL/min (>60); Est Glom Filt Rate - Afr Amer 44 mL/min (>60); Glucose 88 mg/dL (74-106); Phosphorus 3.3 mg/dL (2.5-4.9); Potassium 4.3 mmol/L (3.5-5.1); Sodium Level 139 mmol/L (136-145)
[2021-07-23 10:33] LABS: PTHIN 81.8 pg/mL (18.4-80.1)
[2021-07-23 10:39] LABS: Vitamin D,25 Hydroxy 63.6 ng/mL
[2021-07-23 11:12] LABS: Protein, Urine (Random) 31.7 mg/dL (<11.9); Protein:Creat Ratio 164 mg/g CRE (0-200)
== END 2021-07-23 23:59 | disposition short-term general hospital (02) ==
LOC: LAB 09:28
PROVIDERS: PCP Family Medicine; Referring Provider Nurse Practitioner Adult Health; Visit Provider Nurse Practitioner Adult Health
DX: N18.31 Chronic kidney disease, stage 3a (principal); E55.9 Vitamin D deficiency, unspecified
CPT/HCPCS: 36415; 80069; 82306; 82570; 83970; 84156; 85027

== ENCOUNTER 2021-08-06 10:51 | Inpatient (IN) | payer MEDICARE, OTHER, SELFPAY ==
[2021-08-06 10:52] VITALS: BP 106/43; PULSE 104; RESP 18; TEMP 36.6; O2SAT 98; BMI 34.8
[2021-08-06 11:53] LABS: Absolute Lymphocyte Count 0.39 X10^3/uL (0.83-4.51); Absolute Neutrophil Count 2.9 X10^3/uL (2.0-7.7); Basophil# 0.01 X10^3/uL; Basophil% 0.3 % (0-1); Hematocrit 41.5 % (40-54); Hemoglobin 14.9 g/dL (13.0-16.5); Lymphocyte # 0.39 X10^3/ul (0.83-4.51); Lymphocyte % 10.9 % (19-41); Mean Corp Hgb Conc 35.9 g/dL (32-36); Mean Corpuscular Hgb 36.7 pg (27.0-32.0); Mean Corpuscular Volume 102.2 fL (80-94); Mean Platelet Vol. 13.5 fl (6.2-12.0); Monocyte# 0.27 X10^3/uL; Monocyte% 7.5 % (0-10); NRBC Flagged by Analyzer 0 % (0-5); Neutrophil # 2.88 X10^3/uL (2.7-7.7); Neutrophil % 80.5 % (47-70); POSITIVE COUNT YES; POSITIVE DIFFERENTIAL YES; Platelet Count 55 K/mm3 (150-450); RBC Distribution Width CV 14.1 % (11.6-14.6); RBC Distribution Width SD 53.6 fl (35.1-43.9); Red Blood Count 4.06 M/mm3 (4.6-6.2); White Blood Count 3.6 K/mm3 (4.4-11.0)
[2021-08-06 11:55] LABS: Differential Indicated SCAN CRITERIA MET
[2021-08-06 12:16] LABS: Platelet Estimate MKD DEC (ADEQ)
[2021-08-06] MEDS: Ondansetron 4 MG/2 ML Vial IV (12:21)
[2021-08-06] MEDS: Famotidine 200 MG/20 ML MDV 20 MG in 0.9% Normal Saline (Pres. free 8 ML 300 MG IV (12:21)
[2021-08-06 12:23] VITALS: BP 154/93; PULSE 96; RESP 20; TEMP 36.2; O2SAT 96
[2021-08-06 12:35] LABS: ALB/GLOB Ratio 0.9 RATIO (0.9-2.4); AST(SGOT) 41 U/L (15-37); Alanine Aminotransfer ALT/SGPT 27 U/L (16-61); Albumin, Serum 3.5 g/dL (3.2-5.0); Alkaline Phosphatase 89 U/L (45-117); Anion Gap 7 (5-15); BUN 72 mg/dL (7-18); BUN/Creat Ratio 23.1 RATIO (10-20); Calcium,Total 8.7 mg/dL (8.5-10.1); Chloride 107 mmol/L (98-107); Creatinine, Serum 3.12 mg/dL (0.70-1.30); EST Glomerular Filtration Rate 21 mL/min (>60); Est Glom Filt Rate - Afr Amer 25 mL/min (>60); Estimated Creatinine Clearance 20.14 ml/min; Globulin 3.7 g/dL (2.2-4.2); Glucose 123 mg/dL (74-106); Potassium 4.5 mmol/L (3.5-5.1); Protein, Total 7.2 g/dL (6.4-8.2); Sodium Level 137 mmol/L (136-145)
--- NOTE | 2021-08-06 12:51 | HP.PCM.HOS_ITS ---
HPI - General General Date of Admission: 08/06/21 HPI Narrative ANTONIO MARADIAGA, is a 76 M with an extensive PMH as outlined who presents via the ED on 08/06/21 with a complaint of abnormal labs. He has chronic thrombocytopenia and splenomegaly for many years, and follows hematology for th is. He is 2 weeks out from covid infection. He has been very weak at home, and hasnt eaten or drank anything in 2 weeks. He denied nausea, but admitted to [facility]. He denied fever, chills, nausea or vomiting or diarrhea. REview of systems was otherwise negative. Vitals in the ED were blood pressure 150/93 with pulse rate of 96, respiratory rate of 20 and temperature of 97.2 Fahrenheit. He was saturating at 96% on room air. CBC showed hemoglobin of 14.9 and WBC of 3.6 with platelets of 55. He does have chronic number cytopenia as mentioned. Chemistry showed creatinine of 3.12 with BUN of 72. Baseline creatinine is around 1.6-1.7. He has been admitted to be managed for debility and weakness due to dehydration and CONCHIS on CKD likely due to dehydration and decreased intake post Covid. [facility] Medical History (Updated 08/06/21 @ 14:41 by Rach Montgomery) BPH (benign prostatic hyperplasia) COVID CPAP (continuous positive airway pressure) dependence Facial basal cell cancer HTN (hypertension) Sleep apnea Splenomegaly Home Medications allopurinol 100 mg PO BID 01/11/17 [History Last Taken 08/05/21] amlodipine 5 mg PO DAILY 01/11/17 [History Last Taken 08/05/21] atenolol 50 mg PO DAILY 01/11/17 [History Last Taken 08/05/21] clonidine HCl 0.1 mg PO 4X/DAY 01/11/17 [History Last Taken 08/05/21] dicyclomine 10 mg PO DAILY PRN 01/11/17 [History Last Taken 08/05/21] diphenoxylate-atropine [Lomotil 2.5-0.025 mg Tablet] 1 ea PO DAILY PRN 01/11/17 [History Last Taken 08/05/21] finasteride 5 mg PO DAILY 01/11/17 [History Last Taken 08/05/21] folic acid 1 mg PO DAILY 01/11/17 [History Last Taken 08/05/21] gabapentin [Neurontin] 300 mg PO DAILY 01/11/17 [History Last Taken 08/05/21] hydrochlorothiazide 12.5 mg PO DAILY 01/11/17 [History Last Taken 08/05/21] lisinopril 40 mg PO BID 01/11/17 [History Last Taken 08/05/21] loratadine [Claritin] 10 mg PO DAILY 01/11/17 [History Last Taken 08/05/21] methotrexate sodium 15 mg PO Q7D 01/11/17 [History Last Taken 08/03/21] terazosin 10 mg PO DAILY MDD urinary 01/11/17 [History Last Taken 08/05/21] cholecalciferol (vitamin D3) [Vitamin D3] 2,000 unit PO DAILY 07/12/17 [History Last Taken 08/05/21] spironolactone 25 mg PO DAILY 08/06/21 [History Last Taken 08/05/21] Allergy/AdvReac Type Severity Reaction Status Date / Time No Known Allergies Allergy Verified 08/06/21 10:55 Family History Father Heart disease Surgical History History of ear surgery S/P carpal tunnel release S/P Mohs surgery for basal cell carcinoma Status post bilateral knee replacements Social History Smoking Status: Never smoker alcohol intake: never ROS Constitutional Constitutional: Reports anorexia, change in weight, fatigue, malaise and weakness; Denies chills or fever(s) Eyes Eyes: Denies change in vision ENT HEENT: Reports hearing loss; Denies abnormal hearing, dysphagia or ear pain Cardiovascular Cardiovascular: Denies chest pain, dyspnea on exertion, edema, lightheadedness, orthopnea, palpitations, paroxysmal nocturnal dyspnea or rapid heart rate Respiratory/Chest Respiratory/Chest: Denies cough, dyspnea, productive cough, shortness of breath at rest or shortness of breath with exertion Gastrointestinal Gastrointestinal: Denies abdominal pain, constipation, diarrhea, dyspepsia, melena, nausea or vomiting Genitourinary Genitourinary: Denies burning urination, dysuria or urinary frequency Musculoskeletal Musculoskeletal: Denies back pain, joint stiffness, joint swelling or myalgias Neurologic Neurologic: Denies confusion, dizziness, focal weakness, numbness, seizures, syncope or tingling Psychiatric Psychiatric: Denies anxiety Hematologic/Lymphatic Hematologic/Lymphatic: Denies anemia Allergic/Immunologic Allergic/Immunologic: Denies asthma Vital Signs Vital Signs Vital Signs: 08/06/21 10:52 08/06/21 11:34 08/06/21 12:23 Temperature 98 F 97.2 F L Temperature Source Temporal Temporal Pulse Rate 104 H 96 Respiratory Rate 18 20 H Respiratory Effort Normal Non-Labored Respiratory Pattern Tachypnea Blood Pressure 106/43 L 154/93 H Blood Pressure Mean 64 113 Pulse Ox 98 96 Oxygen Delivery Method Room Air Room Air Weight Weight: 236 lb Body Mass Index (BMI) 34.8 Physical Exam Const alert, oriented x3 and no apparent distress General Appearance: cooperative HEENT normocephalic, head/scalp atraumatic and hearing grossly normal bilaterally HEENT Narrative: dry oral mucosa. Very hard of hearing Eyes PERRL, EOMs intact bilaterally and conjunctivae normal Neck no lymphadenopathy, supple and no JVD Resp normal respiratory effort, no retractions, no use of accessory muscles and clear to auscultation bilaterally Cardio regular rate, regular rhythm, S1 normal heart sound, S2 normal heart sound and no murmurs GI normal to inspection, nondistended, normoactive bowel sounds, soft to palpation, non-tender and non-distended Extremity normal to inspection, full ROM and no clubbing, cyanosis or edema Peripheral Pulses: Yes pulses 2+ throughout Skin no rashes or lesions noted Neuro oriented x3, CN's II-XII intact bilaterally and moves all extremities Sensorium / Orientation: awake and alert Psych affect normal Results Lab / Micro Data Result Diagrams: 08/07/21 05:03 08/07/21 05:03 Labs: Laboratory Results - last 24 hr 08/06/21 11:30: WBC 3.6 L, RBC 4.06 L, Hgb 14.9, Hct 41.5, MCV 102.2 H, MCH 36.7 H, MCHC 35.9, RDW Std Deviation 53.6 H, RDW Coeff of Naomie 14.1, Plt Count 55 L, MPV 13.5 H, Immature Gran % (Auto) 0.800, Neut % (Auto) 80.5 H, Lymph % (Auto) 10.9 L, [place] % (Auto) 7.5, Eos % (Auto) 0.0, Baso % (Auto) 0.3, Absolute Neuts (auto) 2.9, Absolute Lymphs (auto) 0.39 L, Nucleated RBC % 0, Diff Path Review October foll, Platelet Estimate MKD 08/06/21 11:30: Sodium 137, Potassium 4.5, Chloride 107, Carbon Dioxide 23.0, Anion Gap 7, BUN 72 H, Creatinine 3.12 H, Estim Creat Clear Calc 20.14, Est GFR (MDRD) Af Amer 25 L, Est GFR (MDRD) Non-Af 21 L, BUN/Creatinine Ratio 23.1 H, Glucose 123 H, Calcium 8.7, Total Bilirubin 0.60, AST 41 H, ALT 27, Alkaline Phosphatase 89, Total Protein 7.2, Albumin 3.5, Globulin 3.7, Albumin/Globulin Ratio 0.9 Assessment & Plan Assessment/Plan (1) CONCHIS (acute kidney injury): (2) Dehydration: PLAN: #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 He has not been eating or drinking since he recovered from covid ~ 2 weeks ago * baseline Cr is ~ 1.6-1.7 * hydrate gently with IVF * check urine for electrolytes to check FeNa/FeUrea * I believe this is a prerenal CONCHIS due to dehydration. * Hold all nephrotoxic medications. * #Debility likely due to covid and decreased intake * Patient says he has not been able to eat or drink too much since he had Covid. He was diangnosed wi covid about 10 days prior to admission * Repeat PCR test done was positive. * Consult PT OT. * Fall precautions. * #COVID 19 infection * patient no room air. Denies any cough. Largely asymptomatic apart from weakness and lethargy. * hold off on decadron as he is on room air. * #Hypertension: * On amlodipine and atenolol. * Hold lisinopril and hydrochlorothiazide as well as spironolactone on account of CONCHIS on CKD. * #Chronic thrombocytopenia and splenomegaly: Follows up with oncology on outpatient basis. On methotrexate #BPH: On Flomax DVT prophylaxis: Lovenox renally dosed Code status: * Patient and daughter were counseled about CODE STATUS. * Patient does not want to be intubated or have CPR if needed but would want everything else done for him. Patient therefore elects to be DNR CCA no intubation * Total face to face time: 17 mins Charges/Coding Visit Charges OBSV E&M: 38481 Initial observation care L3 Procedures Hospitalists Procedures: 99771 Advncd Care Plan 30 Min
[2021-08-06 12:56] VITALS: BP 154/93; PULSE 96; RESP 20; TEMP 36.2; O2SAT 96
--- NOTE | 2021-08-06 12:59 | NURSING ---
MED SURG OBS KORAM DEHYDRATION
--- NOTE | 2021-08-06 13:26 | EDS_ITS ---
HPI HPI - GI History of Present Illness Chief Complaint: Abn Labs Narrative Narrative: 76-year-old male presenting with increased creatinine. Apparently he is 2 weeks after his initial symptoms of Covid and tested positive a week ago. He is not complaining of cough, fever, chills but is still having nausea. The patient himself actually states he is not nauseous but he does admit to dry heaving when he eats. This has caused him not to eat and drink as much and he has steadily increased his creatinine from a baseline of 1.9-2.9. Patient was sent to the ED for IV fluids. He is not having chest pain or shortness of breath. He denies urinary complaints. He did state that he had diarrhea which had resolved. [facility] Medical History BPH (benign prostatic hyperplasia) COVID Facial basal cell cancer HTN (hypertension) Splenomegaly Home Medications allopurinol 100 mg PO BID 01/11/17 [History Last Taken Unknown] amlodipine 5 mg PO DAILY 01/11/17 [History Last Taken Unknown] atenolol 50 mg PO DAILY 01/11/17 [History Last Taken Unknown] clonidine HCl 0.1 mg PO 4X/DAY 01/11/17 [History Last Taken Unknown] dicyclomine 10 mg PO DAILY PRN 01/11/17 [History Last Taken Unknown] diphenoxylate-atropine [Lomotil 2.5-0.025 mg Tablet] 1 ea PO DAILY PRN 01/11/17 [History Last Taken Unknown] finasteride 5 mg PO DAILY 01/11/17 [History Last Taken Unknown] folic acid 1 mg PO DAILY 01/11/17 [History Last Taken Unknown] gabapentin [Neurontin] 300 mg PO DAILY 01/11/17 [History Last Taken Unknown] hydrochlorothiazide 12.5 mg PO DAILY 01/11/17 [History Last Taken Unknown] lisinopril 40 mg PO BID 01/11/17 [History Last Taken Unknown] loratadine [Claritin] 10 mg PO DAILY 01/11/17 [History Last Taken Unknown] methotrexate sodium 15 mg PO Q7D 01/11/17 [History Last Taken Unknown] terazosin 10 mg PO DAILY 01/11/17 [History Last Taken Unknown] cholecalciferol (vitamin D3) [Vitamin D3] 2,000 unit PO DAILY 07/12/17 [History Last Taken Unknown] spironolactone 25 mg PO DAILY 08/06/21 [History Last Taken Unknown] Allergy/AdvReac Type Severity Reaction Status Date / Time No Known Allergies Allergy Verified 08/06/21 10:55 Family History Father Heart disease Surgical History History of ear surgery S/P carpal tunnel release S/P Mohs surgery for basal cell carcinoma Status post bilateral knee replacements Social History Smoking Status: Never smoker alcohol intake: never ROS ROS ED Constitutional Constitutional ED: Denies chills or fever(s) ENT ENT ED: Denies rhinorrhea or sore throat Cardiovascular Cardiovascular: Denies chest pain or palpitations Respiratory/Chest Respiratory/Chest: Denies cough or dyspnea Gastrointestinal Gastrointestinal: Reports diarrhea and nausea Genitourinary Genitourinary ED: Denies dysuria or hematuria Musculoskeletal Musculoskeletal: Denies arthralgias or myalgias Integumentary Denies rash Neurologic Neurologic: Denies headache(s) or weakness EXAM Physical Exam Const Vital Signs: 08/06/21 10:52 08/06/21 11:34 08/06/21 12:23 Temperature 98 F 97.2 F L Temperature Source Temporal Temporal Pulse Rate 104 H 96 Respiratory Rate 18 20 H Respiratory Effort Normal Non-Labored Respiratory Pattern Tachypnea Blood Pressure 106/43 L 154/93 H Blood Pressure Mean 64 113 Pulse Ox 98 96 Oxygen Delivery Method Room Air Room Air 08/06/21 12:56 Temperature 97.2 F L Temperature Source Temporal Pulse Rate 96 Respiratory Rate 20 H Respiratory Effort Respiratory Pattern Blood Pressure 154/93 H Blood Pressure Mean 113 Pulse Ox 96 Oxygen Delivery Method Room Air Positive well nourished General Appearance ED: NAD; Negative for pallor HEENT Reports dry mucous membranes normocephalic and atraumatic Mouth ED: Yes dry mucous membranes Mouth: dry mucous membranes Eyes PERRL and EOMs intact bilaterally General Eye ED: Negative for pale conjunctiva or scleral icterus Resp normal respiratory effort and clear to auscultation bilaterally Cardio regular rate and regular rhythm GI non-tender and non-distended Palpation: soft Neuro CN's II-XII intact bilaterally and moves all extremities Sensorium / Orientation: alert, oriented to person, oriented to place and oriented to time Psych mental status grossly normal Skin General Skin Exam: Negative for jaundice or pallor MDM MDM MDM Narrative Medical decision making narrative: Patient's main complaint is that he dry heaves when he eats. This is caused with decreased p.o. intake to the point that now his creatinine is up to 3.12 and his GFR is 21. Patient does have chronic kidney disease but this is a significant change. He was given IV fluids. His CBC does not show any leukocytosis or anemia. Platelets are low at 55. These are usually low but this is lower than his baseline. Patient was given Zofran and Pepcid in the ED. I do believe he will need to be admitted for hydration. Discussed with hospitalist. Impression: 1. Dehydration 2. Acute kidney injury Lab Data Attestation: I reviewed the patient's lab results. Labs: Laboratory Results - last 24 hr 08/06/21 08/06/21 11:30 11:30 WBC 3.6 L RBC 4.06 L Hgb 14.9 Hct 41.5 MCV 102.2 H MCH 36.7 H MCHC 35.9 RDW Std Deviation 53.6 H RDW Coeff of Naomie 14.1 Plt Count 55 L MPV 13.5 H Immature Gran % (Auto) 0.800 Neut % (Auto) 80.5 H Lymph % (Auto) 10.9 L [place] % (Auto) 7.5 Eos % (Auto) 0.0 Baso % (Auto) 0.3 Absolute Neuts (auto) 2.9 Absolute Lymphs (auto) 0.39 L Nucleated RBC % 0 Diff Path Review May foll Platelet Estimate MKD DEC Sodium 137 Potassium 4.5 Chloride 107 Carbon Dioxide 23.0 Anion Gap 7 BUN 72 H Creatinine 3.12 H Estim Creat Clear Calc 20.14 Est GFR (MDRD) Af Amer 25 L Est GFR (MDRD) Non-Af 21 L BUN/Creatinine Ratio 23.1 H Glucose 123 H Calcium 8.7 Total Bilirubin 0.60 AST 41 H ALT 27 Alkaline Phosphatase 89 Total Protein 7.2 Albumin 3.5 Globulin 3.7 Albumin/Globulin Ratio 0.9 Discharge Plan Triage Chief Complaint: Abn Labs ED Provider: Esau Moore Dx/Rx/DC Orders Primary Care Provider: Brad Forrest
[2021-08-06 14:04] LABS: Pathologist Review Reviewed
[2021-08-06 14:28] VITALS: BMI 31.9
[2021-08-06 14:54] VITALS: BP 134/80; PULSE 89; RESP 16; TEMP 36.4; O2SAT 97
[2021-08-06] MEDS: 0.9% Normal Saline 1,000 ML 125 ML IV ×2 (15:03→22:22)
[2021-08-06] MEDS: cloNIDine HCl 0.1 MG Tablet PO ×2 (15:34→22:35)
[2021-08-06] MEDS: Doxazosin 4 MG Tablet 8 MG PO (17:52)
[2021-08-06] MEDS: Folic Acid 1 MG Tablet PO (17:52)
[2021-08-06] MEDS: amLODIPine 5 MG Tablet PO (17:53)
[2021-08-06] MEDS: Gabapentin 300 MG Capsule PO (17:53)
[2021-08-06] MEDS: Loratadine 10 MG Tablet PO (17:53)
[2021-08-06] MEDS: Enoxaparin 30 MG/0.3 ML Syringe SC (17:53)
[2021-08-06] MEDS: Atenolol 50 MG Tablet PO (17:54)
[2021-08-06] MEDS: Finasteride 5 MG Tablet PO (17:54)
[2021-08-06] MEDS: Allopurinol 100 MG Tablet PO (22:21)
[2021-08-06] MEDS: Acetaminophen 325 MG Tablet 650 MG PO (22:21)
[2021-08-06 22:49] VITALS: BP 116/80; PULSE 84; RESP 16; TEMP 36.4; O2SAT 96
[2021-08-06 23:45] VITALS: PULSE 85
[2021-08-07] VITALS (9 sets, daily range): BP systolic 117–135; BP diastolic 75–85; PULSE 78–102; RESP 16–18; TEMP 36.6–36.9; O2SAT 94–97
--- NOTE | 2021-08-07 00:20 | EKG12_ITS ---
Test Reason : Blood Pressure : / mmHG Vent. Rate : 073 BPM Atrial Rate : 063 BPM P-R Int : 000 ms QRS Dur : 152 ms QT Int : 422 ms P-R-T Axes : 000 -27 -35 degrees QTc Int : 464 ms Atrial fibrillation Right bundle branch block Abnormal ECG When compared with ECG of 12-JUN-2019 09:30, Atrial fibrillation has replaced Sinus rhythm Right bundle branch block has replaced Incomplete right bundle branch block Confirmed by KARINE RODRÍGUEZ, SHARITA ([id number]), staff editor KENTON MAXWELL ([id number]) on 08/07/2021 2:32:29 PM Referred By: STEWART Confirmed By:SHARITA MILTON MD
--- NOTE | 2021-08-07 00:50 | PCM.HOSP.N ---
Hospitalist Note Patient with appearance PAF on monitor, rate controlled, requesting EKG. Also some occasional pause appearance, all asymptomatic. If concern for lengthened pauses will plan to d/c his BB therapy. Given notable thrombocytopenia, will hold on anticoagulation, continued currently on lovenox SC 30 mg.
[2021-08-07 05:30] LABS: Absolute Lymphocyte Count 0.71 X10^3/uL (0.83-4.51); Absolute Neutrophil Count 1.8 X10^3/uL (2.0-7.7); Eosinophil# 0.02 X10^3/uL; Eosinophils% 0.7 % (0-5); Hematocrit 38.2 % (40-54); Hemoglobin 13.3 g/dL (13.0-16.5); Lymphocyte # 0.71 X10^3/ul (0.83-4.51); Lymphocyte % 25.4 % (19-41); Mean Corp Hgb Conc 34.8 g/dL (32-36); Mean Corpuscular Hgb 36.3 pg (27.0-32.0); Mean Corpuscular Volume 104.4 fL (80-94); Mean Platelet Vol. 12.9 fl (6.2-12.0); Monocyte# 0.23 X10^3/uL; Monocyte% 8.2 % (0-10); NRBC Flagged by Analyzer 0 % (0-5); Neutrophil # 1.82 X10^3/uL (2.7-7.7); POSITIVE COUNT YES; Platelet Count 50 K/mm3 (150-450); RBC Distribution Width SD 54.6 fl (35.1-43.9); Red Blood Count 3.66 M/mm3 (4.6-6.2); White Blood Count 2.8 K/mm3 (4.4-11.0)
[2021-08-07 05:53] LABS: AST(SGOT) 32 U/L (15-37); Alanine Aminotransfer ALT/SGPT 25 U/L (16-61); Albumin, Serum 3.1 g/dL (3.2-5.0); Alkaline Phosphatase 82 U/L (45-117); Anion Gap 6 (5-15); BUN 57 mg/dL (7-18); BUN/Creat Ratio 27.7 RATIO (10-20); Calcium,Total 8.1 mg/dL (8.5-10.1); Chloride 111 mmol/L (98-107); Creatinine, Serum 2.06 mg/dL (0.70-1.30); EST Glomerular Filtration Rate 34 mL/min (>60); Est Glom Filt Rate - Afr Amer 41 mL/min (>60); Estimated Creatinine Clearance 30.51 ml/min; Globulin 3.1 g/dL (2.2-4.2); Glucose 81 mg/dL (74-106); Potassium 4.1 mmol/L (3.5-5.1); Protein, Total 6.2 g/dL (6.4-8.2); Sodium Level 141 mmol/L (136-145)
[2021-08-07] MEDS: 0.9% Normal Saline 1,000 ML 125 ML IV ×2 (09:45→19:13)
[2021-08-07] MEDS: Doxazosin 4 MG Tablet 8 MG PO (09:57)
[2021-08-07] MEDS: Atenolol 50 MG Tablet PO (09:58)
[2021-08-07] MEDS: cloNIDine HCl 0.1 MG Tablet PO ×4 (09:58→21:49)
[2021-08-07] MEDS: Folic Acid 1 MG Tablet PO (09:58)
[2021-08-07] MEDS: Gabapentin 300 MG Capsule PO (09:58)
[2021-08-07] MEDS: Cholecalciferol (VIT D3) 25 MCG TABLET (1,000 UNITS) 50 MCG PO (09:58)
[2021-08-07] MEDS: amLODIPine 5 MG Tablet PO (09:58)
[2021-08-07] MEDS: Allopurinol 100 MG Tablet PO ×2 (09:58→21:49)
[2021-08-07] MEDS: Finasteride 5 MG Tablet PO (10:03)
[2021-08-07] MEDS: Loratadine 10 MG Tablet PO (10:03)
--- NOTE | 2021-08-07 12:26 | PN.HOSP_ITS ---
Subjective Subjective Patient seen and examined. He had no complaints this morning and felt well. He denied any fever, chills, cough or chest pain, nausea vomiting or diarrhea. Review of systems otherwise negative. He did test positive for Covid yesterday. His symptoms started about 10 days ago. He remains on room air. Review of systems otherwise negative. Objective Data Objective Data Vital Signs: Vital Signs Temp Pulse Resp BP Pulse Ox 98.5 F 97 18 118/78 97 08/07/21 09:55 08/07/21 09:55 08/07/21 09:55 08/07/21 09:55 08/07/21 09:55 Oxygen Flow Rate (L/min) 93 Oxygen Delivery Method Room Air Weight: 216 lb 4.8 oz Body Mass Index (BMI) 31.9 Intake & Output: Intake and Output for Last 24 Hours 08/05/21 08/06/21 08/07/21 23:59 23:59 23:59 Intake Total 1664.58 / 1664.58 1000.00 / 1000.00 Output Total 300 / 300 Balance 1664.58 / 1664.58 700.00 / 700.00 Medical Nutrition Assessment Dietitian: Malnutrition Criteria Met Start: 08/06/21 16:01 Freq: Status: Active Protocol: Document 08/06/21 16:01 MARISELA (Rec: 08/06/21 16:01 [facility] [id number]) Nutrition Malnutrition Evidence of Malnutrition Exists Yes Malnutrition (severe): Acute Illness/Injury Evidenced By Suboptimal Energy Intake ( Severe),Weight Loss (Severe) Clinical Problem Acute Disease or Injury Related Malnutrition Etiology related to acute illness and issues w/ diarrhea/dry heaves making it difficult for pt to consume adequate nutrition to meet est nutritional needs Signs/Symptoms as evidenced by <75% of usual po intake and 6% wt loss in past 2 wks Status Active Problem Recommendation Dietitian Recommendations/Changes Will liberalize diet to Regular d/t s/s of malnutrition. Will provide 8 oz ensure clear tid w/ meals for increased nutrition if consumed. Pt at risk of refeeding syndrome, will monitor electrolytes, wts as available and po intake and make additional rec as indicated. Lab / Micro Data Result Diagrams: 08/07/21 05:03 08/07/21 05:03 Labs: Laboratory Results - last 24 hr 08/06/21 11:30: Diff Path Review Reviewed 08/06/21 11:30: Sodium 137, Potassium 4.5, Chloride 107, Carbon Dioxide 23.0, Anion Gap 7, BUN 72 H, Creatinine 3.12 H, Estim Creat Clear Calc 20.14, Est GFR (MDRD) Af Amer 25 L, Est GFR (MDRD) Non-Af 21 L, BUN/Creatinine Ratio 23.1 H, Glucose 123 H, Calcium 8.7, Total Bilirubin 0.60, AST 41 H, ALT 27, Alkaline Phosphatase 89, Total Protein 7.2, Albumin 3.5, Globulin 3.7, Albumin/Globulin Ratio 0.9 08/06/21 14:10: COVID-19 (KYLE) Detected 08/07/21 05:03: WBC 2.8 L, RBC 3.66 L, Hgb 13.3, Hct 38.2 L, MCV 104.4 H, MCH 36.3 H, MCHC 34.8, RDW Std Deviation 54.6 H, RDW Coeff of Naomie 14.0, Plt Count 50 L*, MPV 12.9 H, Immature Gran % (Auto) 0.700, Neut % (Auto) 65.0, Lymph % (Auto) 25.4, [place] % (Auto) 8.2, Eos % (Auto) 0.7, Baso % (Auto) 0.0, Absolute Neuts (auto) 1.8 L, Absolute Lymphs (auto) 0.71 L, Nucleated RBC % 0 08/07/21 05:03: Sodium 141, Potassium 4.1, Chloride 111 H, Carbon Dioxide 24.0, Anion Gap 6, BUN 57 H, Creatinine 2.06 H, Estim Creat Clear Calc 30.51, Est GFR (MDRD) Af Amer 41 L, Est GFR (MDRD) Non-Af 34 L, BUN/Creatinine Ratio 27.7 H, Glucose 81, Calcium 8.1 L, Total Bilirubin 0.50, AST 32, ALT 25, Alkaline Phosphatase 82, Total Protein 6.2 L, Albumin 3.1 L, Globulin 3.1, Albumin/Globulin Ratio 1.0 Physical Exam Const alert, oriented x3 and no apparent distress General Appearance: cooperative HEENT normocephalic, head/scalp atraumatic and hearing grossly normal bilaterally Head and Scalp: normocephalic Eyes PERRL, EOMs intact bilaterally and conjunctivae normal Neck no lymphadenopathy, supple and no JVD Resp normal respiratory effort, no retractions, no use of accessory muscles and clear to auscultation bilaterally Resp Narrative: on room air. Cardio regular rate, regular rhythm, S1 normal heart sound, S2 normal heart sound and no murmurs GI normal to inspection, nondistended, normoactive bowel sounds, soft to palpation, non-tender and non-distended Extremity normal to inspection, full ROM and no clubbing, cyanosis or edema Peripheral Pulses: Yes pulses 2+ throughout Skin no rashes or lesions noted Neuro oriented x3, CN's II-XII intact bilaterally and moves all extremities Sensorium / Orientation: awake and alert Psych affect normal Assessment & Plan Assessment/Plan (1) CONCHIS (acute kidney injury): (2) Dehydration: PLAN: #Conchis on CKD stage 3B due to dehydration and decreased intake * Cr is down to 2.06. He has not been eating or drinking since he got covid ~ 2 weeks ago * baseline Cr is ~ 1.6-1.7 * continue gentle hydration with IVF * likely pre-renal due to decreased intake * #COVID 19 infection * symptoms started ~ 10 days ago, at end of June 2021. * currently asymptomatic, has been on room air throughout. * #Paroxysmal afib * patient noted to be in afib overnight. * Now appears to be in sinus rhythm. Not on anticoagulation due to thrombocy topenia. Will monitor * #Debility * likely due to covid * Patient says he has not been able to eat or drink too much since he had Covid. * PT OT on board. * Fall precautions. * #Hypertension: * On amlodipine and atenolol. * Hold lisinopril and hydrochlorothiazide as well as spironolactone on account of CONCHIS on CKD. * #Chronic thrombocytopenia and splenomegaly: Follows up with oncology on outpatient basis. On methotrexate #BPH: On Flomax DVT prophylaxis: SCDs. Platelets held o/a of thrombocytopenia Charges/Coding Visit Charges Inpatient E&M: 24126 Subs Hosp L2
--- NOTE | 2021-08-07 12:50 | CASEMGMT ---
SHELLY METCALF Assessment: Face to Face with pt for initial transition planning/care coordination assessment. RN DIXON introduced self and role at [facility], pt voices understanding and consents to assessment. Pt is A/O x4 and answers all questions appropriately at this time. Pt sitting up in bed in no distress. Pt TUNUNAK. Care providers, pharmacy, and demographics verified/updated. Admitting Dx: CONCHIS on CKD, debility PCP: Lon Specialists: Julio Cesar nephkyree; arthritis physician in [place] Preferred Pharmacy: [facility] Insurance: [facility], [employer] Prescription Benefit: yes LW/HPOA: Pt reports he has a LW/DPOA and his DPOA is his dtr, Mary Cruz. He is aware this is not on file at [facility] and he may bring in to be scanned into the chart. LNOK: Mary Cruz, dtr Living Arrangements: Pt lives alone in a ground level apt with no steps to enter. Pt reports he is I in ADL's and denies concerns at home. Transportation: Pt drives self and denies concerns with transportation. DME/HHC/SNF: Pt has a cane that he usually uses. He also has a walker that he started using recently. Pt denies hx of HHC or SNF stays. Pt states no concerns with going home at time of dc. Pt [facility] like to [facility] for therapy post hospitalization pending if he is still in isolation. Pt would be agreeable to [facility] if he cannot go to [facility]. Patient was provided a list of [facility] providers including quality and resource use data and consistent with the patient?s preferred geographic region, medical needs, and insurance network. Pt states no further concerns/needs. CM to follow. Advised pt to ask CM if any further question/concerns/needs arise, voices understanding. Pt first test positive for COVID at home. Pt was tested at [facility]. Pt has family who can provide groceries and supplies while in quarantine. Pt Goal: Home with [facility] or [facility] Plan: Home with [facility] if pt is in quarantine upon dc or [facility] if pt is out of quarantine for therapy. Pt states he has had sx for 10 days of COVID.
[2021-08-07] MEDS: Acetaminophen 325 MG Tablet 650 MG PO (21:49)
[2021-08-08] VITALS (11 sets, daily range): BP systolic 106–135; BP diastolic 60–90; PULSE 74–104; RESP 16–18; TEMP 36.3–36.9; O2SAT 95–96
[2021-08-08 07:03] LABS: Absolute Lymphocyte Count 0.78 X10^3/uL (0.83-4.51); Absolute Neutrophil Count 1.8 X10^3/uL (2.0-7.7); Basophil# 0.01 X10^3/uL; Basophil% 0.3 % (0-1); Eosinophil# 0.04 X10^3/uL; Eosinophils% 1.4 % (0-5); Hematocrit 39.5 % (40-54); Hemoglobin 13.6 g/dL (13.0-16.5); Lymphocyte # 0.78 X10^3/ul (0.83-4.51); Lymphocyte % 27.1 % (19-41); Mean Corp Hgb Conc 34.4 g/dL (32-36); Mean Corpuscular Hgb 35.9 pg (27.0-32.0); Mean Corpuscular Volume 104.2 fL (80-94); Mean Platelet Vol. 12.9 fl (6.2-12.0); Monocyte# 0.22 X10^3/uL; Monocyte% 7.6 % (0-10); NRBC Flagged by Analyzer 0 % (0-5); Neutrophil # 1.82 X10^3/uL (2.7-7.7); Neutrophil % 63.3 % (47-70); POSITIVE COUNT YES; Platelet Count 50 K/mm3 (150-450); Red Blood Count 3.79 M/mm3 (4.6-6.2); White Blood Count 2.9 K/mm3 (4.4-11.0)
[2021-08-08 07:26] LABS: ALB/GLOB Ratio 0.9 RATIO (0.9-2.4); AST(SGOT) 31 U/L (15-37); Alanine Aminotransfer ALT/SGPT 24 U/L (16-61); Alkaline Phosphatase 90 U/L (45-117); Anion Gap 5 (5-15); BUN 40 mg/dL (7-18); BUN/Creat Ratio 27.4 RATIO (10-20); Chloride 113 mmol/L (98-107); Creatinine, Serum 1.46 mg/dL (0.70-1.30); EST Glomerular Filtration Rate 50 mL/min (>60); Est Glom Filt Rate - Afr Amer 60 mL/min (>60); Estimated Creatinine Clearance 43.04 ml/min; Globulin 3.3 g/dL (2.2-4.2); Glucose 85 mg/dL (74-106); Protein, Total 6.3 g/dL (6.4-8.2); Sodium Level 140 mmol/L (136-145)
[2021-08-08] MEDS: Cholecalciferol (VIT D3) 25 MCG TABLET (1,000 UNITS) 50 MCG PO (09:56)
[2021-08-08] MEDS: Gabapentin 300 MG Capsule PO (09:57)
[2021-08-08] MEDS: cloNIDine HCl 0.1 MG Tablet PO ×3 (09:57→21:15)
[2021-08-08] MEDS: amLODIPine 5 MG Tablet PO (09:57)
[2021-08-08] MEDS: Folic Acid 1 MG Tablet PO (09:57)
[2021-08-08] MEDS: Allopurinol 100 MG Tablet PO ×2 (09:57→21:15)
[2021-08-08] MEDS: Loratadine 10 MG Tablet PO (09:57)
[2021-08-08] MEDS: Atenolol 50 MG Tablet PO (09:57)
[2021-08-08] MEDS: Doxazosin 4 MG Tablet 8 MG PO (09:57)
[2021-08-08] MEDS: Finasteride 5 MG Tablet PO (09:58)
--- NOTE | 2021-08-08 10:39 | CASEMGMT ---
Addendum entered by Brandy Marshall 08/08/21 11:05: Pt asked this RN CM to set up an appt with , hospitalist agreed. TC to Dr. Moody's office, office closed on Wednesday. Notified pt. Original Note: RN CM in to pt room to make aware to pt that he will not be in quarantine upon dc from the hospital. Green sheet on chart for outpt therapy script. Pt is aware and states he will go to [facility]. He does not want this RN CM to set up his appt.
--- NOTE | 2021-08-08 11:27 | PN.HOSP_ITS ---
Subjective Subjective Patient seen and examined. He feels better today and has no active complaints. Review of systems is otherwise negative. Platelets are down to 50 today. Objective Data Objective Data Vital Signs: Vital Signs Temp Pulse Resp BP Pulse Ox 98.2 F 104 H 18 135/84 H 96 08/08/21 09:10 08/08/21 09:10 08/08/21 09:10 08/08/21 09:10 08/08/21 09:10 Oxygen Flow Rate (L/min) 93 Oxygen Delivery Method Room Air Weight: 216 lb 4.8 oz Body Mass Index (BMI) 31.9 Intake & Output: Intake and Output for Last 24 Hours 08/06/21 08/07/21 08/08/21 23:59 23:59 23:59 Intake Total 1664.58 / 1664.58 2000.00 / 2000.00 1000 / 1000 Output Total 1700 / 1700 500 / 500 Balance 1664.58 / 1664.58 300.00 / 300.00 500 / 500 Medical Nutrition Assessment Dietitian: Malnutrition Criteria Met Start: 08/06/21 16:01 Freq: Status: Active Protocol: Document 08/06/21 16:01 MARISELA (Rec: 08/06/21 16:01 [facility] [id number]) Nutrition Malnutrition Evidence of Malnutrition Exists Yes Malnutrition (severe): Acute Illness/Injury Evidenced By Suboptimal Energy Intake ( Severe),Weight Loss (Severe) Clinical Problem Acute Disease or Injury Related Malnutrition Etiology related to acute illness and issues w/ diarrhea/dry heaves making it difficult for pt to consume adequate nutrition to meet est nutritional needs Signs/Symptoms as evidenced by <75% of usual po intake and 6% wt loss in past 2 wks Status Active Problem Recommendation Dietitian Recommendations/Changes Will liberalize diet to Regular d/t s/s of malnutrition. Will provide 8 oz ensure clear tid w/ meals for increased nutrition if consumed. Pt at risk of refeeding syndrome, will monitor electrolytes, wts as available and po intake and make additional rec as indicated. Lab / Micro Data Result Diagrams: 08/08/21 06:40 08/08/21 06:40 Labs: Laboratory Results - last 24 hr 08/08/21 06:40: WBC 2.9 L, RBC 3.79 L, Hgb 13.6, Hct 39.5 L, MCV 104.2 H, MCH 35.9 H, MCHC 34.4, RDW Std Deviation 54.0 H, RDW Coeff of Naomie 14.0, Plt Count 50 L*, MPV 12.9 H, Immature Gran % (Auto) 0.300, Neut % (Auto) 63.3, Lymph % (Auto) 27.1, [place] % (Auto) 7.6, Eos % (Auto) 1.4, Baso % (Auto) 0.3, Absolute Neuts (auto) 1.8 L, Absolute Lymphs (auto) 0.78 L, Nucleated RBC % 0 08/08/21 06:40: Sodium 140, Potassium 4.0, Chloride 113 H, Carbon Dioxide 22.0, Anion Gap 5, BUN 40 H, Creatinine 1.46 H, Estim Creat Clear Calc 43.04, Est GFR (MDRD) Af Amer 60, Est GFR (MDRD) Non-Af 50 L, BUN/Creatinine Ratio 27.4 H, Glucose 85, Calcium 8.0 L, Total Bilirubin 0.50, AST 31, ALT 24, Alkaline Phosphatase 90, Total Protein 6.3 L, Albumin 3.0 L, Globulin 3.3, Albumin/Globulin Ratio 0.9 Physical Exam Const alert, oriented x3 and no apparent distress General Appearance: cooperative Exam Limitations: no limitations HEENT normocephalic, head/scalp atraumatic and hearing grossly normal bilaterally Head and Scalp: normocephalic Mouth: dry mucous membranes Eyes PERRL, EOMs intact bilaterally and conjunctivae normal Neck no lymphadenopathy, supple and no JVD Resp normal respiratory effort, no retractions, no use of accessory muscles and clear to auscultation bilaterally Resp Narrative: on room air. Cardio regular rate, regular rhythm, S1 normal heart sound, S2 normal heart sound and no murmurs GI normal to inspection, nondistended, normoactive bowel sounds, soft to palpation, non-tender and non-distended Extremity normal to inspection, full ROM and no clubbing, cyanosis or edema Peripheral Pulses: Yes pulses 2+ throughout Skin no rashes or lesions noted Neuro oriented x3, CN's II-XII intact bilaterally and moves all extremities Sensorium / Orientation: awake and alert Psych affect normal Charges/Coding Addendum Addendum: Assessment and plan #Margie on CKD stage 3B due to dehydration and decreased intake * Cr is down to 1.46. * DC IVF and encourage oral hydration. * #Paroxysmal afib * in normal sinus rhythm. * not on anticoagulation due to thrombocytopenia * #COVID 19 infection * symptoms started ~ 10 days ago, at end of June 2021. * on room air. * has been on room air throughout. * will take out of isolation * #Debility: due to covid. PT/OT on board. Fall precautions. #Hypertension: * on amlodipine and metoprolol. * lisinopril and HCTZ as well as spironolactone due to MARGIE on CKD * #Chronic thrombocytopenia and splenomegaly * platelets are down to 50. * follow up with oncology on outpatient basis. * on methotrexate #BPH: On Flomax DVT prophylaxis: SCDs. Visit Charges Inpatient E&M: 15983 Subs Hosp L2
[2021-08-09] VITALS (12 sets, daily range): BP systolic 124–149; BP diastolic 88–98; PULSE 78–101; RESP 16–18; TEMP 36.6–37.1; O2SAT 94–97
[2021-08-09 05:47] LABS: Absolute Lymphocyte Count 0.69 X10^3/uL (0.83-4.51); Absolute Neutrophil Count 2.2 X10^3/uL (2.0-7.7); Basophil# 0.01 X10^3/uL; Basophil% 0.3 % (0-1); Eosinophil# 0.06 X10^3/uL; Eosinophils% 1.8 % (0-5); Hematocrit 39.5 % (40-54); Hemoglobin 13.9 g/dL (13.0-16.5); Lymphocyte # 0.69 X10^3/ul (0.83-4.51); Lymphocyte % 21.2 % (19-41); Mean Corp Hgb Conc 35.2 g/dL (32-36); Mean Corpuscular Hgb 35.8 pg (27.0-32.0); Mean Corpuscular Volume 101.8 fL (80-94); Mean Platelet Vol. 11.7 fl (6.2-12.0); Monocyte# 0.26 X10^3/uL; NRBC Flagged by Analyzer 0 % (0-5); Neutrophil # 2.22 X10^3/uL (2.7-7.7); Neutrophil % 68.1 % (47-70); POSITIVE COUNT YES; Platelet Count 57 K/mm3 (150-450); RBC Distribution Width SD 52.5 fl (35.1-43.9); Red Blood Count 3.88 M/mm3 (4.6-6.2); White Blood Count 3.3 K/mm3 (4.4-11.0)
[2021-08-09 05:49] LABS: Differential Indicated SCAN CRITERIA MET
[2021-08-09 06:45] LABS: Differential Comment SCANNED
[2021-08-09 07:06] LABS: AST(SGOT) 35 U/L (15-37); Alanine Aminotransfer ALT/SGPT 28 U/L (16-61); Albumin, Serum 3.3 g/dL (3.2-5.0); Alkaline Phosphatase 94 U/L (45-117); Anion Gap 7 (5-15); BUN 32 mg/dL (7-18); BUN/Creat Ratio 24.6 RATIO (10-20); Calcium,Total 8.6 mg/dL (8.5-10.1); Chloride 111 mmol/L (98-107); EST Glomerular Filtration Rate 57 mL/min (>60); Est Glom Filt Rate - Afr Amer 69 mL/min (>60); Estimated Creatinine Clearance 48.34 ml/min; Globulin 3.4 g/dL (2.2-4.2); Glucose 88 mg/dL (74-106); Potassium 3.9 mmol/L (3.5-5.1); Protein, Total 6.7 g/dL (6.4-8.2); Sodium Level 140 mmol/L (136-145)
[2021-08-09] MEDS: Doxazosin 4 MG Tablet 8 MG PO (10:14)
[2021-08-09] MEDS: cloNIDine HCl 0.1 MG Tablet PO ×4 (10:14→21:12)
[2021-08-09] MEDS: Folic Acid 1 MG Tablet PO (10:15)
[2021-08-09] MEDS: Loratadine 10 MG Tablet PO (10:15)
[2021-08-09] MEDS: amLODIPine 5 MG Tablet PO (10:15)
[2021-08-09] MEDS: Allopurinol 100 MG Tablet PO ×2 (10:16→21:12)
[2021-08-09] MEDS: Atenolol 50 MG Tablet PO (10:16)
[2021-08-09] MEDS: Finasteride 5 MG Tablet PO (10:16)
[2021-08-09] MEDS: Cholecalciferol (VIT D3) 25 MCG TABLET (1,000 UNITS) 50 MCG PO (10:16)
--- NOTE | 2021-08-09 11:02 | CT_ITS ---
STUDY: CTA CHEST REASON FOR EXAM: Male, 76 years old. Shortness of breath, concern for pulmonary embolism. RADIATION DOSAGE (If Supplied By Facility): CTDIvol = ( 16.14 ) mGy, DLP = ( 470.57 ) mGycm TECHNIQUE: The examination was performed with the intravenous administration of 100 cc of Isovue-370. Post-processing of the angiographic images was performed, with multiplanar reformation and 3D reconstruction. Individualized dose optimization techniques were used for this CT. COMPARISON: None. FINDINGS: Normal enhancement of the main pulmonary artery and right and left pulmonary arteries. Normal enhancement of the bilateral peripheral pulmonary arteries. There is no demonstrated pulmonary embolism. There is atherosclerotic calcification of the aortic arch with tortuosity. Suboptimal enhancement of the aorta. No definite aortic dissection. Cardiomegaly. No evidence of pericardial effusion. Normal mediastinum. Normal hilar regions. Normal visualized trachea and bronchi. Significant motion artifacts. Patchy infiltrates predominantly in the upper lobes. Atelectatic changes in the lower lungs. There are no pleural effusions. Normal chest wall structures. There are degenerative changes of thoracic spine. The visualized portions of the upper abdomen demonstrate splenomegaly. Partially visualized bilateral veins in the splenic hilum. CT/CTA Chest W/WO Contrast IMPRESSION: 1. No evidence of pulmonary embolism. 2. Patchy bilateral infiltrates could be due to multifocal pneumonia. 3. Limited examination due to motion. 4. Splenomegaly 5. Cardiomegaly. Electronically Signed: León Flanagan, at 13:17 EST ,
--- NOTE | 2021-08-09 16:57 | PN.HOSP_ITS ---
Subjective Subjective Patient seen and examined today. He had no active complaints. He was feeling better but he was noted to be getting tachycardic with ambulation. His heart rate goes as high as the 150s. He denies any chest pain, dizziness or lightheadedness, nausea or vomiting. Review of systems otherwise negative. Objective Data Objective Data Vital Signs: Vital Signs Temp Pulse Resp BP Pulse Ox 98.7 F 95 16 149/98 H 97 08/09/21 14:23 08/09/21 14:23 08/09/21 14:23 08/09/21 14:23 08/09/21 14:26 Oxygen Flow Rate (L/min) 93 Oxygen Delivery Method Room Air Weight: 216 lb 4.8 oz Body Mass Index (BMI) 31.9 Intake & Output: Intake and Output for Last 24 Hours 08/07/21 08/08/21 08/09/21 23:59 23:59 23:59 Intake Total 2000.00 / 2000.00 1000 / 1000 Output Total 1700 / 1700 900 / 900 100 / 100 Balance 300.00 / 300.00 100 / 100 -100 / -100 Medical Nutrition Assessment Dietitian: Malnutrition Criteria Met Start: 08/06/21 16:01 Freq: Status: Active Protocol: Document 08/06/21 16:01 MARISELA (Rec: 08/06/21 16:01 [facility] [id number]) Nutrition Malnutrition Evidence of Malnutrition Exists Yes Malnutrition (severe): Acute Illness/Injury Evidenced By Suboptimal Energy Intake ( Severe),Weight Loss (Severe) Clinical Problem Acute Disease or Injury Related Malnutrition Etiology related to acute illness and issues w/ diarrhea/dry heaves making it difficult for pt to consume adequate nutrition to meet est nutritional needs Signs/Symptoms as evidenced by <75% of usual po intake and 6% wt loss in past 2 wks Status Active Problem Recommendation Dietitian Recommendations/Changes Will liberalize diet to Regular d/t s/s of malnutrition. Will provide 8 oz ensure clear tid w/ meals for increased nutrition if consumed. Pt at risk of refeeding syndrome, will monitor electrolytes, wts as available and po intake and make additional rec as indicated. Lab / Micro Data Result Diagrams: 08/09/21 05:35 08/09/21 05:35 Labs: Laboratory Results - last 24 hr 08/09/21 05:35: WBC 3.3 L, RBC 3.88 L, Hgb 13.9, Hct 39.5 L, MCV 101.8 H, MCH 35.8 H, MCHC 35.2, RDW Std Deviation 52.5 H, RDW Coeff of Naomie 14.0, Plt Count 57 L, MPV 11.7, Immature Gran % (Auto) 0.600, Neut % (Auto) 68.1, Lymph % (Auto) 21.2, Bartholomew % (Auto) 8.0, Eos % (Auto) 1.8, Baso % (Auto) 0.3, Absolute Neuts (auto) 2.2, Absolute Lymphs (auto) 0.69 L, Nucleated RBC % 0, Differential Comment SCANNED 08/09/21 05:35: Sodium 140, Potassium 3.9, Chloride 111 H, Carbon Dioxide 22.0, Anion Gap 7, BUN 32 H, Creatinine 1.30, Estim Creat Clear Calc 48.34, Est GFR (MDRD) Af Amer 69, Est GFR (MDRD) Non-Af 57 L, BUN/Creatinine Ratio 24.6 H, Glucose 88, Calcium 8.6, Total Bilirubin 0.70, AST 35, ALT 28, Alkaline Phosph atase 94, Total Protein 6.7, Albumin 3.3, Globulin 3.4, Albumin/Globulin Ratio 1.0 08/09/21 10:28: D-Dimer Quant (PE/DVT) 8.70 H* Radiography Diagnostic Testing: Radiology Impression Chest CTA 08/09/21 11:02 IMPRESSION: 1. No evidence of pulmonary embolism. 2. Patchy bilateral infiltrates could be due to multifocal pneumonia. 3. Limited examination due to motion. 4. Splenomegaly 5. Cardiomegaly. Electronically Signed: León Flanagan, at 13:17 EST , Physical Exam Const alert, oriented x3 and no apparent distress General Appearance: cooperative Exam Limitations: no limitations HEENT normocephalic, head/scalp atraumatic and hearing grossly normal bilaterally Head and Scalp: normocephalic Eyes PERRL, EOMs intact bilaterally and conjunctivae normal Neck no lymphadenopathy, supple and no JVD Resp normal respiratory effort, no retractions, no use of accessory muscles and clear to auscultation bilaterally Resp Narrative: on room air. Cardio regular rate, regular rhythm, S1 normal heart sound, S2 normal heart sound and no murmurs Cardio Narrative: tachycardia with ambulation GI normal to inspection, nondistended, normoactive bowel sounds, soft to palpation, non-tender and non-distended Extremity normal to inspection, full ROM and no clubbing, cyanosis or edema Peripheral Pulses: Yes pulses 2+ throughout Skin no rashes or lesions noted Neuro oriented x3, CN's II-XII intact bilaterally and moves all extremities Sensorium / Orientation: awake and alert Psych affect normal Assessment & Plan Assessment/Plan (1) CONCHIS (acute kidney injury): (2) Dehydration: PLAN: #Conchis on CKD stage 3B due to dehydration and decreased intake * resolved. CR is down to 1.3 today * #Debility likely due to covid and decreased intake * PT/OT on board. Fall precautions * Consult PT OT. * Fall precautions. * #COVID 19 infection * patient no room air. Denies any cough. Largely asymptomatic apart from weakness and lethargy. * hold off on decadron as he is on room air. * #Elevated D dimer * D dimer was 8.7 today. CTA of the chest was negative for PE * Likely due to Covid. * Unable to give anticoagulation such as Eliquis on account of chronic thrombocytopenia as this would increase his risk of bleeding. Patient however is at increased risk of hypercoagulability in light of elevated D-dimer, but due to his chronic thrombocytopenia with platelets being down to 57, patient cannot be anticoagulated. * #Sinus tachycardia * Patient noted to get very tachycardic with ambulation. At rest his heart rate is in the 80s and 90s but with ambulation his heart rate goes up into the 130s to 140s. On atenolol which he is receiving. * Will check orthostatics to see if dehydration is contributing to this. * #Hypertension: * On amlodipine and atenolol. * Lisinopril and hydrochlorothiazide as well as spironolactone resumed as CONCHIS on CKD has resolved. * #Chronic thrombocytopenia and splenomegaly: * Follows up with oncology on outpatient basis. On methotrexate * Platelets today of 57. #BPH: On Flomax DVT prophylaxis: SCDs. Lovenox discontinued o/a of worsening thrombocytopenia Code status: * DNRCCA no intubation Charges/Coding Visit Charges Inpatient E&M: 62044 Subs Hosp L2
[2021-08-09] MEDS: Gabapentin 300 MG Capsule PO (21:10)
[2021-08-09] MEDS: Lisinopril 40 MG Tablet PO (21:12)
[2021-08-09] MEDS: 0.9% Saline Lock 10 ML Syringe IV (21:22)
[2021-08-10] VITALS (11 sets, daily range): BP systolic 118–150; BP diastolic 73–96; PULSE 80–106; RESP 16–18; TEMP 36.6–36.9; O2SAT 94–97
[2021-08-10 06:19] LABS: Absolute Lymphocyte Count 0.58 X10^3/uL (0.83-4.51); Absolute Neutrophil Count 2.5 X10^3/uL (2.0-7.7); Basophil# 0.02 X10^3/uL; Basophil% 0.6 % (0-1); Eosinophil# 0.07 X10^3/uL; Eosinophils% 1.9 % (0-5); Hematocrit 40.2 % (40-54); Hemoglobin 14.2 g/dL (13.0-16.5); Lymphocyte # 0.58 X10^3/ul (0.83-4.51); Lymphocyte % 16.2 % (19-41); Mean Corp Hgb Conc 35.3 g/dL (32-36); Mean Corpuscular Hgb 35.9 pg (27.0-32.0); Mean Corpuscular Volume 101.8 fL (80-94); Mean Platelet Vol. 11.9 fl (6.2-12.0); Monocyte% 11.1 % (0-10); NRBC Flagged by Analyzer 0 % (0-5); Neutrophil # 2.49 X10^3/uL (2.7-7.7); Neutrophil % 69.4 % (47-70); POSITIVE COUNT YES; POSITIVE DIFFERENTIAL YES; Platelet Count 70 K/mm3 (150-450); RBC Distribution Width CV 13.8 % (11.6-14.6); RBC Distribution Width SD 52.4 fl (35.1-43.9); Red Blood Count 3.95 M/mm3 (4.6-6.2); White Blood Count 3.6 K/mm3 (4.4-11.0)
[2021-08-10 06:21] LABS: Differential Indicated SCAN CRITERIA MET
[2021-08-10 06:54] LABS: ALB/GLOB Ratio 0.9 RATIO (0.9-2.4); AST(SGOT) 35 U/L (15-37); Alanine Aminotransfer ALT/SGPT 30 U/L (16-61); Albumin, Serum 3.2 g/dL (3.2-5.0); Alkaline Phosphatase 91 U/L (45-117); Anion Gap 7 (5-15); BUN 26 mg/dL (7-18); Calcium,Total 8.7 mg/dL (8.5-10.1); Chloride 113 mmol/L (98-107); EST Glomerular Filtration Rate 57 mL/min (>60); Est Glom Filt Rate - Afr Amer 69 mL/min (>60); Estimated Creatinine Clearance 48.34 ml/min; Globulin 3.5 g/dL (2.2-4.2); Glucose 88 mg/dL (74-106); Protein, Total 6.7 g/dL (6.4-8.2); Sodium Level 142 mmol/L (136-145)
[2021-08-10] MEDS: cloNIDine HCl 0.1 MG Tablet PO ×4 (09:59→20:12)
[2021-08-10] MEDS: Doxazosin 4 MG Tablet 8 MG PO (09:59)
[2021-08-10] MEDS: Spironolactone 25 MG Tablet PO (09:59)
[2021-08-10] MEDS: Folic Acid 1 MG Tablet PO (10:00)
[2021-08-10] MEDS: Loratadine 10 MG Tablet PO (10:00)
[2021-08-10] MEDS: Methotrexate 2.5 MG Tablet 15 MG PO (10:01)
[2021-08-10] MEDS: hydroCHLOROthiazide 12.5mg 12.5 MG PO (10:01)
[2021-08-10] MEDS: Finasteride 5 MG Tablet PO (10:02)
[2021-08-10] MEDS: amLODIPine 5 MG Tablet PO (10:02)
[2021-08-10] MEDS: Atenolol 50 MG Tablet PO (10:03)
[2021-08-10] MEDS: Cholecalciferol (VIT D3) 25 MCG TABLET (1,000 UNITS) 50 MCG PO (10:03)
[2021-08-10] MEDS: Lisinopril 40 MG Tablet PO ×2 (10:03→20:13)
[2021-08-10] MEDS: Allopurinol 100 MG Tablet PO ×2 (10:04→20:12)
--- NOTE | 2021-08-10 10:52 | PN.HOSP_ITS ---
Subjective Subjective Patient seen and examined. He has no active complaints today but does admit to feeling weak and tired. His heart rate is better controlled but he is noted to still get a bit tachycardic when he gets up. Patient states he feels too weak to go home and is interested in short-term placement. He has otherwise remained hemodynamically stable. Objective Data Objective Data Vital Signs: Vital Signs Temp Pulse Resp BP Pulse Ox 98.0 F 106 H 16 118/73 96 08/10/21 07:56 08/10/21 08:36 08/10/21 07:56 08/10/21 07:56 08/10/21 07:56 Oxygen Flow Rate (L/min) 93 Oxygen Delivery Method Room Air Weight: 216 lb 4.8 oz Body Mass Index (BMI) 31.9 Intake & Output: Intake and Output for Last 24 Hours 08/08/21 08/09/21 08/10/21 23:59 23:59 23:59 Intake Total 1000 / 1000 375 / 375 Output Total 900 / 900 100 / 550 700 / 700 Balance 100 / 100 -100 / -550 -325 / -325 Medical Nutrition Assessment Dietitian: Malnutrition Criteria Met Start: 08/06/21 16:01 Freq: Status: Active Protocol: Document 08/06/21 16:01 MARISELA (Rec: 08/06/21 16:01 [facility] [id number]) Nutrition Malnutrition Evidence of Malnutrition Exists Yes Malnutrition (severe): Acute Illness/Injury Evidenced By Suboptimal Energy Intake ( Severe),Weight Loss (Severe) Clinical Problem Acute Disease or Injury Related Malnutrition Etiology related to acute illness and issues w/ diarrhea/dry heaves making it difficult for pt to consume adequate nutrition to meet est nutritional needs Signs/Symptoms as evidenced by <75% of usual po intake and 6% wt loss in past 2 wks Status Active Problem Recommendation Dietitian Recommendations/Changes Will liberalize diet to Regular d/t s/s of malnutrition. Will provide 8 oz ensure clear tid w/ meals for increased nutrition if consumed. Pt at risk of refeeding syndrome, will monitor electrolytes, wts as available and po intake and make additional rec as indicated. Lab / Micro Data Result Diagrams: 08/10/21 05:57 08/10/21 05:57 Labs: Laboratory Results - last 24 hr 08/09/21 10:28: D-Dimer Quant (PE/DVT) 8.70 H* 08/10/21 05:57: WBC 3.6 L, RBC 3.95 L, Hgb 14.2, Hct 40.2, MCV 101.8 H, MCH 35.9 H, MCHC 35.3, RDW Std Deviation 52.4 H, RDW Coeff of Naomie 13.8, Plt Count 70 L, MPV 11.9, Immature Gran % (Auto) 0.800, Neut % (Auto) 69.4, Lymph % (Auto) 16.2 L, [place] % (Auto) 11.1 H, Eos % (Auto) 1.9, Baso % (Auto) 0.6, Absolute Neuts (auto) 2.5, Absolute Lymphs (auto) 0.58 L, Nucleated RBC % 0, Diff Path Review October08/10/21 05:57: Sodium 142, Potassium 4.0, Chloride 113 H, Carbon Dioxide 22.0, Anion Gap 7, BUN 26 H, Creatinine 1.30, Estim Creat Clear Calc 48.34, Est GFR (MDRD) Af Amer 69, Est GFR (MDRD) Non-Af 57 L, BUN/Creatinine Ratio 20.0, Glucose 88, Calcium 8.7, Total Bilirubin 1.00, AST 35, ALT 30, Alkaline Phosphatase 91, Total Protein 6.7, Albumin 3.2, Globulin 3.5, Albumin/Globulin Ratio 0.9 Radiography Diagnostic Testing: Radiology Impression Chest CTA 08/09/21 11:02 IMPRESSION: 1. No evidence of pulmonary embolism. 2. Patchy bilateral infiltrates could be due to multifocal pneumonia. 3. Limited examination due to motion. 4. Splenomegaly 5. Cardiomegaly. Electronically Signed: León Flanagan, at 13:17 EST , Physical Exam Const alert, oriented x3 and no apparent distress General Appearance: cooperative Exam Limitations: no limitations HEENT normocephalic, head/scalp atraumatic and hearing grossly normal bilaterally Head and Scalp: normocephalic Eyes PERRL, EOMs intact bilaterally and conjunctivae normal Neck no lymphadenopathy, supple and no JVD Resp normal respiratory effort, no retractions, no use of accessory muscles and clear to auscultation bilaterally Resp Narrative: on room air. Cardio regular rhythm, S1 normal heart sound, S2 normal heart sound and no murmurs Cardio Narrative: mildly tachycardic GI normal to inspection, nondistended, normoactive bowel sounds, soft to palpation, non-tender and non-distended Extremity normal to inspection, full ROM and no clubbing, cyanosis or edema Peripheral Pulses: Yes pulses 2+ throughout Skin no rashes or lesions noted Neuro oriented x3, CN's II-XII intact bilaterally and moves all extremities Sensorium / Orientation: awake and alert Psych affect normal Assessment & Plan Assessment/Plan (1) CONCHIS (acute kidney injury): (2) Dehydration: PLAN: #Conchis on CKD stage 3B due to dehydration and decreased intake * resolved. CR is still 1.3 today * #Debility likely due to covid and decreased intake * PT/OT on board. Fall precautions * Patient feels to weak to go home and is interested in acute rehab. * #COVID 19 infection * symptoms started ~ Jul 28. Now out of isolation as he has remained on room air throughout admission. * #Elevated D dimer * D dimer was 8.7. CTA of the chest was negative for PE * Likely due to Covid. * Unable to give anticoagulation such as Eliquis on account of chronic thromboc ytopenia as this would increase his risk of bleeding. Patient however is at increased risk of hypercoagulability in light of elevated D-dimer, but due to his chronic thrombocytopenia with platelets being down to 57, patient cannot be anticoagulated. * #Sinus tachycardia * improving. Orthostatics was negative * on atenolol 50mg daily. * continue monitoring. * #Hypertension: * On amlodipine and atenolol. * Lisinopril and hydrochlorothiazide as well as spironolactone resumed as CONCHIS on CKD has resolved. * #Chronic thrombocytopenia and splenomegaly: * Follows up with oncology on outpatient basis. On methotrexate * Platelets today are 70. #BPH: On Flomax DVT prophylaxis: SCDs. Lovenox discontinued o/a of worsening thrombocytopenia Code status: * DNRCCA no intubation Charges/Coding Visit Charges Inpatient E&M: 18789 Subs Hosp L2
[2021-08-10] MEDS: Dicyclomine 10 MG Capsule PO (14:07)
[2021-08-10] MEDS: Gabapentin 300 MG Capsule PO (20:12)
--- NOTE | 2021-08-10 20:22 | NURSING ---
Patient was a little aggravated that staff wake him right after he falls asleep. Completed his assessment and vitals then offered to give him his bedtime meds early so we would'nt have to wake him in 2 hours. He took his meds, asked if he had any other needs, he declined any needs at this time.
[2021-08-11] VITALS (11 sets, daily range): BP systolic 124–151; BP diastolic 77–110; PULSE 86–120; RESP 16–18; TEMP 36.2–36.7; O2SAT 94–96
[2021-08-11 06:14] LABS: Absolute Neutrophil Count 3.3 X10^3/uL (2.0-7.7); Basophil# 0.02 X10^3/uL; Basophil% 0.4 % (0-1); Eosinophil# 0.09 X10^3/uL; Hematocrit 42.3 % (40-54); Hemoglobin 14.7 g/dL (13.0-16.5); Lymphocyte % 17.5 % (19-41); Mean Corp Hgb Conc 34.8 g/dL (32-36); Mean Corpuscular Volume 100.7 fL (80-94); Mean Platelet Vol. 12.5 fl (6.2-12.0); Monocyte# 0.36 X10^3/uL; Monocyte% 7.9 % (0-10); NRBC Flagged by Analyzer 0 % (0-5); Neutrophil # 3.26 X10^3/uL (2.7-7.7); Neutrophil % 71.5 % (47-70); POSITIVE COUNT YES; Platelet Count 82 K/mm3 (150-450); White Blood Count 4.6 K/mm3 (4.4-11.0)
[2021-08-11 06:35] LABS: AST(SGOT) 34 U/L (15-37); Alanine Aminotransfer ALT/SGPT 32 U/L (16-61); Albumin, Serum 3.4 g/dL (3.2-5.0); Alkaline Phosphatase 94 U/L (45-117); Anion Gap 6 (5-15); BUN 36 mg/dL (7-18); BUN/Creat Ratio 22.4 RATIO (10-20); Chloride 112 mmol/L (98-107); Creatinine, Serum 1.61 mg/dL (0.70-1.30); EST Glomerular Filtration Rate 45 mL/min (>60); Est Glom Filt Rate - Afr Amer 54 mL/min (>60); Estimated Creatinine Clearance 39.03 ml/min; Globulin 3.5 g/dL (2.2-4.2); Glucose 92 mg/dL (74-106); Potassium 4.1 mmol/L (3.5-5.1); Protein, Total 6.9 g/dL (6.4-8.2); Sodium Level 141 mmol/L (136-145)
[2021-08-11] MEDS: Cholecalciferol (VIT D3) 25 MCG TABLET (1,000 UNITS) 50 MCG PO (09:31)
[2021-08-11] MEDS: Lisinopril 40 MG Tablet PO ×2 (09:31→20:30)
[2021-08-11] MEDS: Allopurinol 100 MG Tablet PO ×2 (09:31→20:30)
[2021-08-11] MEDS: Doxazosin 4 MG Tablet 8 MG PO (09:31)
[2021-08-11] MEDS: cloNIDine HCl 0.1 MG Tablet PO ×4 (09:31→20:30)
[2021-08-11] MEDS: Loratadine 10 MG Tablet PO (09:31)
[2021-08-11] MEDS: Folic Acid 1 MG Tablet PO (09:33)
[2021-08-11] MEDS: Spironolactone 25 MG Tablet PO (09:33)
[2021-08-11] MEDS: Atenolol 50 MG Tablet PO (09:34)
[2021-08-11] MEDS: hydroCHLOROthiazide 12.5mg 12.5 MG PO (09:34)
[2021-08-11] MEDS: Finasteride 5 MG Tablet PO (09:34)
[2021-08-11] MEDS: amLODIPine 5 MG Tablet PO (09:34)
--- NOTE | 2021-08-11 10:44 | CASEMGMT ---
Social Work Note SW reviewed chart. Per note yesterday, pt was interested in acute rehab. SW in to speak with pt and pt's daughter Mary. SW spoke with pt and Mary about SNF. Pt and Mary states that they do not want SNF and would prefer for pt to return home with [facility]. SW informed pt that he already has outpatient therapy arranged. Pt states that now he would like [facility]. Mary and pt reviewed HHC list. Preferred provider is [facility] and would like Custodial, PT/OT. ETTA updated RN CM. Angela Parkinson CABLE ASSEMBLER AND SWAGER, PIPE COVERER AND INSULATOR
--- NOTE | 2021-08-11 10:48 | CASEMGMT ---
Noted in progress note from yesterday that pt is interested in s/t inpatient rehab. FIELD ACCOUNT MANAGER made RN DIXON aware that pt is requesting [facility] instead. Pt has chosen [facility]. HELEN Spain at [facility], left message with referral. Will await acceptance.
--- NOTE | 2021-08-11 12:07 | ECHOCS_ITS ---
Reason For Study: Chest Pain Procedure This was a 2D Doppler, Color Flow transthoracic echocardiogram. The study was technically difficult. Contrast injection was performed. Exam performed portable in patient room. Left Ventricle Normal LV size. Moderate concentric left ventricular hypertrophy. Left ventricular systolic function is normal. The estimated ejection fraction is 65 %. Unable to assess diastolic dysfunction. No regional wall motion abnormalities noted. Right Ventricle Normal RV size. Normal systolic function. Atria The left atrium is moderately enlarged. The right atrium is mildly enlarged. No doppler evidence for ASD. Mitral Valve There is mild mitral annular calcification. Extension of the mitral annular calcification on the base of the posterior mitral valve leaflet. Mild (1+) mitral valve insufficiency. Tricuspid Valve Normal tricuspid valve. Mild to moderate (1-2+) tricuspid valve insufficiency. Right ventricular systolic pressure estimated to be 27 mmHg. Aortic Valve Trisinus/trileaflet aortic valve. Mild diffuse aortic valve thickening. Mild focal aortic valve calcification. Pulmonic Valve The pulmonic valve is not well visualized. Trivial pulmonic valve insufficiency. Great Vessels Borderline enlarged aortic root. Pericardium/Pleural No pericardial effusion. Medication Diluted definity 4ml given slow IV push to enhance endocardial definition. MMode/2D Measurements & Calculations LVIDd: 4.6 cm IVSd: 1.7 cm Ao root diam: 3.9 cm LVIDs: 2.7 cm LVPWd: 1.7 cm LA dimension: 4.9 cm RVDd: 3.4 cm FS: 40.6 % LAV(MOD-bp): 91.0 ml LA A4 area: 27.9 cm2 RA A4 area: 20.3 cm2 LAV(MOD-bp) Indexed: 42.6 ml/m2 LAV(MOD-sp2): 80.2 ml LAV(MOD-sp4): 90.6 ml Doppler Measurements & Calculations MV E max noelle: 98.9 cm/sec Ao V2 max: 104.5 cm/sec LV V1 max: 99.4 cm/sec Ao max P.4 mmHg LV V1 max P.0 mmHg PA V2 max: 80.3 cm/sec TR max noelle: 245.0 cm/sec TR max P.0 mmHg ECHO/Echo Complete W/ Contrast Interpretation Summary The study was technically difficult. Contrast injection was performed. Left ventricular systolic function is normal. The estimated ejection fraction is 65 %. Moderate concentric left ventricular hypertrophy. The left atrium is moderately enlarged. The right atrium is mildly enlarged. There is mild mitral annular calcification. Extension of the mitral annular calcification on the base of the posterior mitr al valve leaflet. Mild (1+) mitral valve insufficiency. Mild to moderate (1-2+) tricuspid valve insufficiency. Mild diffuse aortic valve thickening. Mild focal aortic valve calcification. Trivial pulmonic valve insufficiency. Borderline enlarged aortic root. Right ventricular systolic pressure estimated to be 27 mmHg. Unable to assess diastolic dysfunction. Ordering Physician: Akin Meza Referring Physician: Brad Forrest Performed By: Jerod Brar RCS
[2021-08-11] MEDS: Pantoprazole Sodium 40 MG Tablet PO (12:58)
[2021-08-11 14:02] LABS: Pathologist Review Reviewed
--- NOTE | 2021-08-11 14:35 | PN.HOSP_ITS ---
Subjective Subjective Does not have an appetite and is complaining about the food. Since hilda Covid, has altered smell and taste. Objective Data Objective Data Vital Signs: Vital Signs Temp Pulse Resp BP Pulse Ox 36.4 C L 96 16 134/92 H 96 08/11/21 12:28 08/11/21 12:35 08/11/21 12:28 08/11/21 12:28 08/11/21 12:28 Oxygen Flow Rate (L/min) 93 Oxygen Delivery Method Room Air Weight: 98.112 kg Body Mass Index (BMI) 31.9 Intake & Output: Intake and Output for Last 24 Hours 08/09/21 08/10/21 08/11/21 23:59 23:59 23:59 Intake Total 375 / 375 200 / 200 Output Total 100 / 550 700 / 700 100 / 100 Balance -100 / -550 -325 / -325 100 / 100 Medical Nutrition Assessment Dietitian: Malnutrition Criteria Met Start: 08/06/21 16:01 Freq: Status: Active Protocol: Document 08/06/21 16:01 MARISELA (Rec: 08/06/21 16:01 MARISELA [id number]) Nutrition Malnutrition Evidence of Malnutrition Exists Yes Malnutrition (severe): Acute Illness/Injury Evidenced By Suboptimal Energy Intake ( Severe),Weight Loss (Severe) Clinical Problem Acute Disease or Injury Related Malnutrition Etiology related to acute illness and issues w/ diarrhea/dry heaves making it difficult for pt to consume adequate nutrition to meet est nutritional needs Signs/Symptoms as evidenced by <75% of usual po intake and 6% wt loss in past 2 wks Status Active Problem Recommendation Dietitian Recommendations/Changes Will liberalize diet to Regular d/t s/s of malnutrition. Will provide 8 oz ensure clear tid w/ meals for increased nutrition if consumed. Pt at risk of refeeding syndrome, will monitor electrolytes, wts as available and po intake and make additional rec as indicated. Lab / Micro Data Result Diagrams: 08/11/21 05:45 08/11/21 05:45 Labs: Laboratory Results - last 24 hr 08/10/21 05:57: Diff Path Review Reviewed 08/11/21 05:45: WBC 4.6, RBC 4.20 L, Hgb 14.7, Hct 42.3, MCV 100.7 H, MCH 35.0 H , MCHC 34.8, RDW Std Deviation 52.0 H, RDW Coeff of Naomie 14.0, Plt Count 82 L, MPV 12.5 H, Immature Gran % (Auto) 0.700, Neut % (Auto) 71.5 H, Lymph % (Auto) 17.5 L, [place] % (Auto) 7.9, Eos % (Auto) 2.0, Baso % (Auto) 0.4, Absolute Neuts (auto) 3.3, Absolute Lymphs (auto) 0.80 L, Nucleated RBC % 0 08/11/21 05:45: Sodium 141, Potassium 4.1, Chloride 112 H, Carbon Dioxide 23.0, Anion Gap 6, BUN 36 H, Creatinine 1.61 H, Estim Creat Clear Calc 39.03, Est GFR (MDRD) Af Amer 54 L, Est GFR (MDRD) Non-Af 45 L, BUN/Creatinine Ratio 22.4 H, Glucose 92, Calcium 9.0, Total Bilirubin 1.00, AST 34, ALT 32, Alkaline Phosphatase 94, Total Protein 6.9, Albumin 3.4, Globulin 3.5, Albumin/Globulin Ratio 1.0 Physical Exam Const alert and no apparent distress Resp normal respiratory effort, no retractions, no use of accessory muscles and clear to auscultation bilaterally Cardio regular rate, regular rhythm, S1 normal heart sound and S2 normal heart sound GI normal to inspection, nondistended, normoactive bowel sounds, soft to palpation, non-tender and non-distended Extremity normal to inspection Assessment & Plan Assessment/Plan (1) CONCHIS (acute kidney injury): (2) Dehydration: PLAN: 1. 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 2. Debility likely due to covid and decreased intake * PT/OT on board. Fall precautions * Plan is for home with home care. 3. COVID 19 infection * symptoms started ~ Jul 28. Now out of isolation as he has remained on room air throughout admission. 4. Elevated D dimer * D dimer was 8.7. CTA of the chest was negative for PE * Likely due to Covid. * Unable to give anticoagulation such as Eliquis on account of chronic thrombocytopenia as this would increase his risk of bleeding. Patient however is at increased risk of hypercoagulability in light of elevated D-dimer, but due to his chronic thrombocytopenia with platelets being down to 57, patient cannot be anticoagulated. 6. Sinus tachycardia * improving. Orthostatics was negative * on atenolol 50mg daily. * continue monitoring. * cardiomegaly noted on CT, check echo 7. Hypertension: * stable * On amlodipine and atenolol. * Lisinopril and hydrochlorothiazide as well as spironolactone resumed as CONCHIS on CKD has resolved. 8. Chronic thrombocytopenia and splenomegaly: * Follows up with oncology on outpatient basis. On methotrexate * Platelets today are 70. 9. BPH: On Flomax 10. DVT prophylaxis: SCDs. Lovenox discontinued o/a of worsening t hrombocytopenia 11. Code status: * DNRCCA no intubation 12. Splenomegaly * unclear significance * incidental finding Discussed with the patient's daughter at bedside. Greater than 35 minutes of which greater than 50% time was reviewing patient's data with him including labs and CAT scans. Discussed his lack of smell and taste with Pauline and explained that that may improve with time. Charges/Coding Visit Charges Inpatient E&M: 52733 Subs Hosp L3
[2021-08-11] MEDS: Gabapentin 300 MG Capsule PO (20:30)
[2021-08-12] VITALS (12 sets, daily range): BP systolic 107–135; BP diastolic 75–94; PULSE 60–102; RESP 16–18; TEMP 36.4–36.8; O2SAT 94–98
--- NOTE | 2021-08-12 09:29 | EKG12_ITS ---
Test Reason : AFIB Blood Pressure : / mmHG Vent. Rate : 105 BPM Atrial Rate : 113 BPM P-R Int : 000 ms QRS Dur : 152 ms QT Int : 388 ms P-R-T Axes : 000 -32 -33 degrees QTc Int : 512 ms Atrial fibrillation Left axis deviation Right bundle branch block Abnormal ECG Confirmed by LORI RODRÍGUEZ, LACI ([id number]), sound editor KENTON MAXWELL ([id number]) on 08/13/2021 12:46:38 PM Referred By: ANG Confirmed By:LACI SANDOVAL MD
[2021-08-12] MEDS: Loratadine 10 MG Tablet PO (09:32)
[2021-08-12] MEDS: Folic Acid 1 MG Tablet PO (09:32)
[2021-08-12] MEDS: hydroCHLOROthiazide 12.5mg 12.5 MG PO (09:32)
[2021-08-12] MEDS: cloNIDine HCl 0.1 MG Tablet PO ×3 (09:32→21:16)
[2021-08-12] MEDS: Spironolactone 25 MG Tablet PO (09:32)
[2021-08-12] MEDS: Doxazosin 4 MG Tablet 8 MG PO (09:32)
[2021-08-12] MEDS: amLODIPine 5 MG Tablet PO (09:33)
[2021-08-12] MEDS: Lisinopril 40 MG Tablet PO ×2 (09:33→21:17)
[2021-08-12] MEDS: Finasteride 5 MG Tablet PO (09:33)
[2021-08-12] MEDS: Cholecalciferol (VIT D3) 25 MCG TABLET (1,000 UNITS) 50 MCG PO (09:33)
[2021-08-12] MEDS: Pantoprazole Sodium 40 MG Tablet PO (09:33)
[2021-08-12] MEDS: Atenolol 50 MG Tablet PO (09:33)
[2021-08-12] MEDS: Allopurinol 100 MG Tablet PO ×2 (09:33→21:18)
[2021-08-12 11:58] LABS: Color, Urine Amber (Yellow); Glucose, Dipstick Normal (Normal); Ketone-Dipstick Negative (Negative); Leukocyte Esterase-Dipstick 25 /ul (Negative); Nitrite-Dipstick Negative (Negative); Occult Blood-Urine 250 /ul (Negative); Protein-Dipstick 100 mg/dl (Negative); Urine Bilirubin Dipstick Negative (Negative); Urine Clarity Sl. Cloudy (Clear); Urine Urobilinogen 1 mg/dl (Normal)
[2021-08-12 12:03] LABS: Bacteria 1+ /hpf (None Seen); Mucous, Urine RARE /hpf (<or=2+); Red Blood Cells-Urine 10-25 SEEN /hpf (0-5); Squamous Epithelial Cells - UA 0-5 SEEN /hpf (0-5); White Blood Cells 0-5 SEEN /hpf (0-5)
--- NOTE | 2021-08-12 14:24 | PN.HOSP_ITS ---
Subjective Subjective Feels well. Tachycardia (afib with RVR) with rates into the 160s. Objective Data Objective Data Vital Signs: Vital Signs Temp Pulse Resp BP Pulse Ox 36.7 C 91 18 107/75 98 08/12/21 14:02 08/12/21 14:02 08/12/21 14:02 08/12/21 14:02 08/12/21 14:02 Oxygen Flow Rate (L/min) 93 Oxygen Delivery Method Room Air Weight: 98.112 kg Body Mass Index (BMI) 31.9 Intake & Output: Intake and Output for Last 24 Hours 08/10/21 08/11/21 08/12/21 23:59 23:59 23:59 Intake Total 375 / 375 910 / 910 Output Total 700 / 700 400 / 400 350 / 350 Balance -325 / -325 510 / 510 -350 / -350 Medical Nutrition Assessment Dietitian: Malnutrition Criteria Met Start: 08/06/21 16:01 Freq: Status: Active Protocol: Document 08/06/21 16:01 MARISELA (Rec: 08/06/21 16:01 MARISELA [id number]) Nutrition Malnutrition Evidence of Malnutrition Exists Yes Malnutrition (severe): Acute Illness/Injury Evidenced By Suboptimal Energy Intake ( Severe),Weight Loss (Severe) Clinical Problem Acute Disease or Injury Related Malnutrition Etiology related to acute illness and issues w/ diarrhea/dry heaves making it difficult for pt to consume adequate nutrition to meet est nutritional needs Signs/Symptoms as evidenced by <75% of usual po intake and 6% wt loss in past 2 wks Status Active Problem Recommendation Dietitian Recommendations/Changes Will liberalize diet to Regular d/t s/s of malnutrition. Will provide 8 oz ensure clear tid w/ meals for increased nutrition if consumed. Pt at risk of refeeding syndrome, will monitor electrolytes, wts as available and po intake and make additional rec as indicated. Lab / Micro Data Result Diagrams: 08/11/21 05:45 08/11/21 05:45 Labs: Laboratory Results - last 24 hr 08/06/21 11:24: Urine Color Zari, Urine Clarity Sl. Cloudy, Urine pH 5.0, Ur Specific [place] 1.020, Urine Protein 100 H, Urine Glucose (UA) Normal, Urine Ketones Negative, Urine Occult Blood 250 H, Urine Nitrite Negative, Urine Bilirubin Negative, Urine Urobilinogen 1 H, Ur Leukocyte Esterase 25 H, Urine RBC 10-25 SEEN, Urine WBC 0-5 SEEN, Ur Squamous Epith Cells 0-5 SEEN, Urine Bacteria 1+, Urine Mucus RARE Radiography Diagnostic Testing: Radiology Impression Echocardiogram 08/11/21 12:07 Interpretation Summary The study was technically difficult. Contrast injection was performed. Left ventricular systolic function is normal. The estimated ejection fraction is 65 %. Moderate concentric left ventricular hypertrophy. The left atrium is moderately enlarged. The right atrium is mildly enlarged. There is mild mitral annular calcification. Extension of the mitral annular calcification on the base of the posterior mitral valve leaflet. Mild (1+) mitral valve insufficiency. Mild to moderate (1-2+) tricuspid valve insufficiency. Mild diffuse aortic valve thickening. Mild focal aortic valve calcification. Trivial pulmonic valve insufficiency. Borderline enlarged aortic root. Right ventricular systolic pressure estimated to be 27 mmHg. Unable to assess diastolic dysfunction. _ Ordering Physician: Akin Meza Referring Physician: Brad Forrest Performed By: Jerod Brar RCS Physical Exam Const alert and no apparent distress Resp normal respiratory effort, no retractions, no use of accessory muscles and clear to auscultation bilaterally Cardio regular rate, regular rhythm, S1 normal heart sound and S2 normal heart sound GI normal to inspection, nondistended, normoactive bowel sounds, soft to palpation, non-tender and non-distended Extremity normal to inspection Assessment & Plan Assessment/Plan (1) CONCHIS (acute kidney injury): (2) Dehydration: PLAN: 1. 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 2. Debility likely due to covid and decreased intake * PT/OT on board. Fall precautions * Plan is for home with home care. 3. COVID 19 infection * symptoms started ~ Jul 28. Now out of isolation as he has remained on room air throughout admission. 4. Elevated D dimer * D dimer was 8.7. CTA of the chest was negative for PE * Likely due to Covid. * Unable to give anticoagulation such as Eliquis on account of chronic thrombocytopenia as this would increase his risk of bleeding. Patient however is at increased risk of hypercoagulability in light of elevated D-dimer, but due to his chronic thrombocytopenia with platelets being down to 57, patient cannot be anticoagulated. 6. Afib with RVR * change atenolol 50 to metoprolol tartrate 50 BID on monitor 7. Hypertension: * stable * On amlodipine and atenolol. * Lisinopril and hydrochlorothiazide as well as spironolactone resumed as CONCHIS on CKD has resolved. 8. Chronic thrombocytopenia and splenomegaly: * Follows up with oncology on outpatient basis. On methotrexate * Platelets today are 70. 9. BPH: On Flomax 10. DVT prophylaxis: SCDs. Lovenox discontinued o/a of worsening thrombocytopenia 11. Code status: * DNRCCA no intubation Charges/Coding Visit Charges Inpatient E&M: 14637 Subs Hosp L2
[2021-08-12] MEDS: Gabapentin 300 MG Capsule PO (21:16)
[2021-08-12] MEDS: Metoprolol Tartrate 50 MG Tablet PO (21:17)
[2021-08-13] VITALS (7 sets, daily range): BP systolic 117–135; BP diastolic 74–107; PULSE 61–104; RESP 16; TEMP 36.6–37; O2SAT 96–97
--- NOTE | 2021-08-13 08:46 | PCM.DC ---
Discharge Instructions Diet Discharge Diet: No restrictions (trial what food you can tolerate.) Dressing / Incision Call your doctor if you observe: Fever of 101 or Higher, Shortness of breath and - (fast heart rate.) Follow Up Care Test Results: Test results from this visit will be discussed in further detail at your follow-up appointment, if applicable. Discharge Plan Admission Admit Date/Time: 08/06/21 13:11 Primary Reason for Your Visit: acute kidney injury Attending Provider: Akin Meza Primary Care Provider: Brad Forrest Discharge Orders/Prescriptions Prescriptions: New metoprolol tartrate 50 mg Tablet 50 mg PO BID Qty: 60 RF: 0 pantoprazole 40 mg Tablet,Delayed Release (Dr/Ec) 40 mg PO DAILY Qty: 30 RF: 0 amlodipine 5 mg Tablet 10 mg PO DAILY 30 Days Qty: 60 RF: 0 Continued clonidine HCl 0.1 MG tablet 0.1 mg PO 4X/DAY RF: 0 diphenoxylate-atropine [Lomotil] 1 EACH tablet 1 ea PO DAILY PRN (Reason: Diarrhea) RF: 0 allopurinol 100 MG tablet 100 mg PO BID RF: 0 methotrexate sodium 2.5 MG tablet 15 mg PO Q7D RF: 0 gabapentin [Neurontin] 300 MG capsule 300 mg PO DAILY RF: 0 folic acid 1 MG tablet 1 mg PO DAILY RF: 0 hydrochlorothiazide 25 MG tablet 12.5 mg PO DAILY RF: 0 terazosin 10 MG capsule 10 mg PO DAILY MDD urinary RF: 0 dicyclomine 10 MG capsule 10 mg PO DAILY PRN (Reason: Irritable Bowel Syndrome) RF: 0 finasteride 5 MG tablet 5 mg PO DAILY RF: 0 loratadine [Allergy Relief (loratadine)] 10 MG tablet 10 mg PO DAILY RF: 0 cholecalciferol (vitamin D3) [Vitamin D3] 2,000 UNIT capsule 2,000 unit PO DAILY RF: 0 spironolactone 25 mg Tablet 25 mg PO DAILY RF: 0 Changed lisinopril 40 MG tablet 40 mg PO DAILY Qty: 0 RF: 0 Discontinued atenolol 100 MG tablet 50 mg PO DAILY RF: 0 amlodipine 5 MG tablet 5 mg PO DAILY RF: 0 Referrals / Follow Up: Brad Forrest DO [Primary Care Provider] - Disposition Disposition (needs filled in before D/C Order can be placed): Home Health Service
--- NOTE | 2021-08-13 08:54 | PCM.DC.SUM ---
Providers Date of Admission: 08/06/21 Primary Care Physician: Dr. Brad Forrest DO Reason For Visit: CONCHIS ON CKD, DEBILITY Diagnosis Discharge Diagnosis (1) CONCHIS (acute kidney injury): Status: Acute Code(s): N17.9 - Acute kidney failure, unspecified (2) Dehydration: Status: Acute Code(s): E86.0 - Dehydration Medications at Discharge Home Medications allopurinol 100 mg PO BID 01/11/17 clonidine HCl 0.1 mg PO 4X/DAY 01/11/17 dicyclomine 10 mg PO DAILY PRN 01/11/17 diphenoxylate-atropine [Lomotil] 1 ea PO DAILY PRN 01/11/17 finasteride 5 mg PO DAILY 01/11/17 folic acid 1 mg PO DAILY 01/11/17 gabapentin [Neurontin] 300 mg PO DAILY 01/11/17 hydrochlorothiazide 12.5 mg PO DAILY 01/11/17 loratadine [Allergy Relief (loratadine)] 10 mg PO DAILY 01/11/17 methotrexate sodium 15 mg PO Q7D 01/11/17 terazosin 10 mg PO DAILY MDD urinary 01/11/17 cholecalciferol (vitamin D3) [Vitamin D3] 2,000 unit PO DAILY 07/12/17 spironolactone 25 mg PO DAILY 08/06/21 amlodipine 10 mg PO DAILY 30 Days #60 tab 08/13/21 lisinopril 40 mg PO DAILY #0 tab 08/13/21 metoprolol tartrate 50 mg PO BID #60 tab 08/13/21 pantoprazole 40 mg PO DAILY #30 tab 08/13/21 Hospital Course Operations None Procedures None Summary of Care Provided Minutes Spent on Discharge: 32 Hospital Course: Is a 36-year-old male presents with abnormal labs. Patient has chronic thrombocytopenia and splenomegaly. Patient recently had Covid 19 but had been vaccinated previously. Since hilda Covid, he has had anosmia and dysgeusia. Light foods he just cannot tolerate is because it does not taste good. Patient presented here with a creatinine of 3.12. Likely due to dehydration and patient did receive IV fluids and his kidney function normalized. It was discussed with the patient that he needs to eat more and he is reluctant to try any food given the change in his smell and taste since hilda Covid. Explained to him that if this can be matter time how his smell and taste will improve. Is expected that would improve but it may not return to normal. This was explained to he and his daughter. Patient also did develop A. fib with RVR. Discontinued his atenolol and changed him over to metoprolol tartrate which has helped his heart rate. Being that he has chronic thrombocytopenia, he is not a candidate for anticoagulation given bleeding risk associated with the anticoagulants and his thrombocytopenia. Patient was not interested in a nursing home facility instead he will be discharged home with home care. Patient does have hypertension and is on numerous medications. I have change his lisinopril from 40 mg twice daily to daily and increased his amlodipine from 5 to 10 mg daily. Physical Exam Const alert and no apparent distress Resp normal respiratory effort, no retractions and no use of accessory muscles Cardio regular rate, regular rhythm, S1 normal heart sound and S2 normal heart sound GI normal to inspection, nondistended, normoactive bowel sounds and soft to palpation Extremity normal to inspection Neuro Sensorium / Orientation: awake and alert Medical Records Data Medical Nutrition Assessment Dietitian: Malnutrition Criteria Met Start: 08/06/21 16:01 Freq: Status: Active Protocol: Document 08/06/21 16:01 [facility] (Rec: 08/06/21 16:01 [facility] [id number]) Nutrition Malnutrition Evidence of Malnutrition Exists Yes Malnutrition (severe): Acute Illness/Injury Evidenced By Suboptimal Energy Intake ( Severe),Weight Loss (Severe) Clinical Problem Acute Disease or Injury Related Malnutrition Etiology related to acute illness and issues w/ diarrhea/dry heaves making it difficult for pt to consume adequate nutrition to meet est nutritional needs Signs/Symptoms as evidenced by <75% of usual po intake and 6% wt loss in past 2 wks Status Active Problem Recommendation Dietitian Recommendations/Changes Will liberalize diet to Regular d/t s/s of malnutrition. Will provide 8 oz ensure clear tid w/ meals for increased nutrition if consumed. Pt at risk of refeeding syndrome, will monitor electrolytes, wts as available and po intake and make additional rec as indicated. Weight / BMI Weight Weight: 98.112 kg Body Mass Index (BMI) 31.9 ABG / Lab / Microbiology Data Result Diagrams: 08/11/21 05:45 08/11/21 05:45 Laboratory: Laboratory Results - last 24 hr 08/06/21 11:24: Urine Color Zari, Urine Clarity Sl. Cloudy, Urine pH 5.0, Ur Specific [place] 1.020, Urine Protein 100 H, Urine Glucose (UA) Normal, Urine Ketones Negative, Urine Occult Blood 250 H, Urine Nitrite Negative, Urine Bilirubin Negative, Urine Urobilinogen 1 H, Ur Leukocyte Esterase 25 H, Urine RBC 10-25 SEEN, Urine WBC 0-5 SEEN, Ur Squamous Epith Cells 0-5 SEEN, Urine Bacteria 1+, Urine Mucus RARE D/C Instructions Discharge Diet: No restrictions (trial what food you can tolerate.) Call your doctor if you observe: Fever of 101 or Higher, Shortness of breath and - (fast heart rate.) Meaningful Use Info Meaningful Use Diagnoses (Choose all that apply): None applicable Discharge Plan Admission Admit Date/Time: 08/06/21 13:11 Primary Reason for Your Visit: acute kidney injury Attending Provider: Akin Meza Primary Care Provider: Brad Forrest Discharge Orders/Prescriptions Prescriptions: New metoprolol tartrate 50 mg Tablet 50 mg PO BID Qty: 60 RF: 0 pantoprazole 40 mg Tablet,Delayed Release (Dr/Ec) 40 mg PO DAILY Qty: 30 RF: 0 amlodipine 5 mg Tablet 10 mg PO DAILY 30 Days Qty: 60 RF: 0 Continued clonidine HCl 0.1 MG tablet 0.1 mg PO 4X/DAY RF: 0 diphenoxylate-atropine [Lomotil] 1 EACH tablet 1 ea PO DAILY PRN (Reason: Diarrhea) RF: 0 allopurinol 100 MG tablet 100 mg PO BID RF: 0 methotrexate sodium 2.5 MG tablet 15 mg PO Q7D RF: 0 gabapentin [Neurontin] 300 MG capsule 300 mg PO DAILY RF: 0 folic acid 1 MG tablet 1 mg PO DAILY RF: 0 hydrochlorothiazide 25 MG tablet 12.5 mg PO DAILY RF: 0 terazosin 10 MG capsule 10 mg PO DAILY MDD urinary RF: 0 dicyclomine 10 MG capsule 10 mg PO DAILY PRN (Reason: Irritable Bowel Syndrome) RF: 0 finasteride 5 MG tablet 5 mg PO DAILY RF: 0 loratadine [Allergy Relief (loratadine)] 10 MG tablet 10 mg PO DAILY RF: 0 cholecalciferol (vitamin D3) [Vitamin D3] 2,000 UNIT capsule 2,000 unit PO DAILY RF: 0 spironolactone 25 mg Tablet 25 mg PO DAILY RF: 0 Changed lisinopril 40 MG tablet 40 mg PO DAILY Qty: 0 RF: 0 Discontinued atenolol 100 MG tablet 50 mg PO DAILY RF: 0 amlodipine 5 MG tablet 5 mg PO DAILY RF: 0 Referrals / Follow Up: Brad Forrest DO [Primary Care Provider] - Disposition Disposition (needs filled in before D/C Order can be placed): Home Health Service Charges/Coding Visit Charges Inpatient E&M: 25453 Disch Hosp
[2021-08-13] MEDS: cloNIDine HCl 0.1 MG Tablet PO (08:58)
[2021-08-13] MEDS: Doxazosin 4 MG Tablet 8 MG PO (08:58)
[2021-08-13] MEDS: hydroCHLOROthiazide 12.5mg 12.5 MG PO ×2 (08:58)
[2021-08-13] MEDS: Allopurinol 100 MG Tablet PO (08:59)
[2021-08-13] MEDS: amLODIPine 5 MG Tablet PO (08:59)
[2021-08-13] MEDS: Folic Acid 1 MG Tablet PO (08:59)
[2021-08-13] MEDS: Cholecalciferol (VIT D3) 25 MCG TABLET (1,000 UNITS) 50 MCG PO (08:59)
[2021-08-13] MEDS: Pantoprazole Sodium 40 MG Tablet PO (08:59)
[2021-08-13] MEDS: Metoprolol Tartrate 50 MG Tablet PO (08:59)
[2021-08-13] MEDS: Lisinopril 40 MG Tablet PO (09:00)
[2021-08-13] MEDS: Loratadine 10 MG Tablet PO (09:00)
[2021-08-13] MEDS: Finasteride 5 MG Tablet PO (09:00)
[2021-08-13] MEDS: Spironolactone 25 MG Tablet PO (09:01)
--- NOTE | 2021-08-13 09:23 | CASEMGMT ---
Notified Judit at [facility] that pt is dc'ing today.
== END 2021-08-13 10:40 | disposition home health service (06) | DRG 640 ==
LOC: ED 13:06 → MS3 13:17
PROVIDERS: Admitting Provider Student in an Organized Health Care Education/Training Program; Emergency Provider Student in an Organized Health Care Education/Training Program; PCP Family Medicine
DX: E86.0 Dehydration (principal); E43 Unspecified severe protein-calorie malnutrition; U07.1 COVID-19; N17.9 Acute kidney failure, unspecified; D69.6 Thrombocytopenia, unspecified; I48.0 Paroxysmal atrial fibrillation; N18.32 Chronic kidney disease, stage 3b; I12.9 Hypertensive chronic kidney disease with stage 1 through stage 4 chronic kidney disease, or unspecified chronic kidney disease; N40.0 Benign prostatic hyperplasia without lower urinary tract symptoms; R16.1 Splenomegaly, not elsewhere classified; R53.81 Other malaise; R79.1 Abnormal coagulation profile; Z66 Do not resuscitate; Z68.34 Body mass index [BMI] 34.0-34.9, adult; Z79.899 Other long term (current) drug therapy
CPT/HCPCS: 36415; 71275; 80053; 81001; 85025; 85379; 87635; 93005; 93306; 97110; 97116; 97162; 97166; 97530; 97533; 97535; 99284; J7030; J7040; Q9957; Q9967; A4216; C8929; J2405; J3490; J8610; U0003; U0005

== ENCOUNTER 2021-08-15 11:30 | Inpatient (IN) | payer MEDICARE, OTHER, SELFPAY ==
[2021-08-15] VITALS (17 sets, daily range): BP systolic 74–110; BP diastolic 53–80; PULSE 48–96; RESP 16–24; TEMP 36.1–36.9; O2SAT 92–996; BMI 30.3; BMI 32.1
--- NOTE | 2021-08-15 11:32 | CT_ITS ---
STUDY: CT HEAD STROKE PROTOCOL W/O CONTRAST INJECTION REASON FOR EXAM: Male, 76 years old. Neuro deficit, acute, stroke suspected RADIATION DOSAGE (If Supplied By Facility): CTDIvol = ( 44.99 ) mGy, DLP = ( 796.11 ) mGycm TECHNIQUE: Transaxial CT imaging of the brain was performed without administration of intravenous contrast material. Individualized dose optimization techniques were used for this CT. COMPARISON: No relevant priors. FINDINGS: Normal soft tissue structures. Normal calvarium. There is mild cerebral atrophy with widening of the extra-axial spaces and ventricular dilatation. There are areas of decreased attenuation within the white matter tracts of the supratentorial brain, consistent with microvascular disease changes. Tiny old lacunae in the right basal ganglia. Normal brainstem. Normal cerebellum. There is no intracranial hemorrhage. There are no findings of an acute ischemic infarction. Atherosclerotic calcification of the vertebral arteries and cavernous portions of the internal carotid arteries bilaterally. Partial opacification of the maxillary sinuses. CT/STROKE Brain/Head without Cont IMPRESSION: Chronic involutional changes of the brain. 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 N.B. : The above Results were Read Back by Dylan Florez MD to Akin Collins and understanding confirmed on 08/15/2021 11:49:56 (ET). Electronically Signed: Dylan Florez MD at 11:51 EST ,
--- NOTE | 2021-08-15 11:32 | EKG12_ITS ---
Test Reason : STROKE-ALERT Blood Pressure : / mmHG Vent. Rate : 093 BPM Atrial Rate : 092 BPM P-R Int : 000 ms QRS Dur : 152 ms QT Int : 406 ms P-R-T Axes : 000 -21 -27 degrees QTc Int : 504 ms Atrial fibrillation Right bundle branch block Abnormal ECG Confirmed by IRAIDA RODRÍGUEZ, YAHAIRA ([id number]), medical editor KENTON MAXWELL ([id number]) on 08/18/2021 1:12:44 PM Referred By: JENNI Confirmed By:FEDERICO KHOURY MD
[2021-08-15] MEDS: 0.9% Normal Saline 1,000 ML 1000 ML IV (11:33)
--- NOTE | 2021-08-15 11:33 | CT_ITS ---
We are attempting to reach an attending provider to discuss findings. An addendum with communication details will be sent when the communication is complete. STUDY: CTA HEAD AND NECK WITH CONTRAST REASON FOR EXAM: Male, 76 years old. Neuro deficit, acute, stroke suspected RADIATION DOSAGE (If Supplied By Facility): CTDIvol = ( 34.51 ) mGy, DLP = ( 763.26 ) mGycm TECHNIQUE: CT angiography was performed with a multi-detector CT scanner. Data acquisition was obtained from the skull base through the vertex following intravenous administration of IV 100mL [id number]-300. MIP images were reconstructed from the axial data set. Post-processing of the angiographic images was performed, with multiplanar reformation and 3D reconstruction. Individualized dose optimization techniques were used for this CT. COMPARISON: No relevant priors. FINDINGS: Normal bilateral petrous carotid arteries. There is calcified plaque formation of the right cavernous carotid artery, without a cross-sectional luminal stenosis. There is calcified plaque formation of the left cavernous carotid artery, without a cross-sectional luminal stenosis. Normal right A1 segments of the anterior cerebral artery. Normal left A1 segments of the anterior cerebral artery. Normal intact anterior communicating artery (ACOM). Normal bilateral A2 segments of the anterior cerebral arteries. Normal right M1 and M2 segments of the middle cerebral arteries, with a normal M1 bifurcation. Normal left M1 and M2 segments of the middle cerebral arteries, with a normal M1 bifurcation. Normal right posterior communicating artery (PCOM). Normal left posterior communicating artery (PCOM). Normal bilateral vertebral arteries. Normal basilar artery with a normal basilar bifurcation. The visualized bilateral superior cerebellar (SCA) arteries are normal. Normal bilateral P1, P2 and visualized P3 segments of the posterior cerebral arteries. There is no demonstrated aneurysm of the [place] of [place]. There is no demonstrated abnormality of the visualized brain. AORTIC ARCH: There is atherosclerotic calcific plaque formation of the aortic arch and great vessels arising from the aortic arch, without a hemodynamically significant stenosis. There is a normal origin of the brachiocephalic, left common carotid, and left subclavian arteries. RIGHT CAROTID ARTERIES: Normal right common carotid artery (CCA). Normal right common carotid bulb. There is extensive atherosclerotic plaque formation of the origin of the right internal carotid artery with an estimated stenosis of greater than 70%. Normal visualized cervical portion of the right internal carotid artery. Normal origin of the right external carotid artery (ECA). LEFT CAROTID ARTERIES: Normal left common carotid artery (CCA). Normal left common carotid bulb. There is extensive atherosclerotic plaque formation of the origin of the left internal carotid artery with an estimated stenosis of greater than 70%. Normal visualized cervical portion of the left internal carotid artery. Normal origin of the left external carotid artery (ECA). VERTEBRAL ARTERIES: There is enhancement within the bilateral vertebral arteries with a small left vertebral artery, and a dominant right vertebral artery. CT/STROKE CTA Head AND Neck W/Con IMPRESSION: Calcified plaques at the origin of both internal carotid arteries causing greater than 70% luminal narrowing. Electronically Signed: Dylan Florez MD at 11:59 EST ,
--- NOTE | 2021-08-15 11:38 | NURSING ---
FAXED FACESHEET TO [facility]
--- NOTE | 2021-08-15 11:40 | ED.VIS.STROK ---
HPI History of Present Illness Chief Complaint: Neuro S/Sx Informant: patient and EMS Onset/Context/Timing Onset: Today Context: Sudden Onset Quality and Location: Positive for Left Facial Droop, Left Arm Weakness and Left Leg Weakness Onset: 1 hour prior to arrival Current Severity: Gone Associated Symptoms Associated Symptoms: Negative for Headache, Nausea, Vomiting and Chest Pain Narrative Narrative: Patient presents with left facial weakness as well as left sided weakness that began approximately 1 hour prior to arrival. EMS noted that the patient had a left facial droop and weakness of his left upper and left lower extremity. Currently, patient denies any weakness. Patient denies any paresthesias. Patient denies any headaches. Patient denies any difficulty speaking. [facility] Medical History (Updated 08/15/21 @ 15:26 by Rach Montgomery) BPH (benign prostatic hyperplasia) COVID CPAP (continuous positive airway pressure) dependence Facial basal cell cancer GERD (gastroesophageal reflux disease) HTN (hypertension) IBS (irritable bowel syndrome) Kidney disease Sleep apnea Splenomegaly Wears hearing aid in both ears Home Medications allopurinol 200 mg PO DAILY 01/11/17 [History Last Taken 08/15/21] clonidine HCl 0.1 mg PO TID 01/11/17 [History Last Taken 08/15/21] finasteride 5 mg PO DAILY 01/11/17 [History Last Taken 08/15/21] folic acid 1 mg PO DAILY 01/11/17 [History Last Taken 08/15/21] gabapentin [Neurontin] 300 mg PO DAILY 01/11/17 [History Last Taken 08/14/21] hydrochlorothiazide 12.5 mg PO DAILY 01/11/17 [History Last Taken 08/15/21] loratadine [Allergy Relief (loratadine)] 10 mg PO DAILY PRN 01/11/17 [History Last Taken 08/05/21] methotrexate sodium 15 mg PO BETANCOURT 01/11/17 [History Last Taken 08/10/21] terazosin 10 mg PO DAILY MDD urinary 01/11/17 [History Last Taken 08/15/21] cholecalciferol (vitamin D3) [Vitamin D3] 2,000 unit PO DAILY 07/12/17 [History Last Taken 08/15/21] spironolactone 25 mg PO DAILY 08/06/21 [History Last Taken 08/15/21] amlodipine 10 mg PO DAILY 30 Days #60 tab 08/13/21 [Rx Last Taken 08/15/21] metoprolol tartrate 50 mg PO BID #60 tab 08/13/21 [Rx Last Taken 08/15/21] pantoprazole 40 mg PO DAILY #30 tab 08/13/21 [Rx Last Taken 08/15/21] lisinopril 40 mg PO BID 08/15/21 [History Last Taken 08/15/21] Allergy/AdvReac Type Severity Reaction Status Date / Time No Known Allergies Allergy Verified 08/15/21 11:47 Family History Father Heart disease Surgical History History of ear surgery S/P carpal tunnel release S/P Mohs surgery for basal cell carcinoma Status post bilateral knee replacements Social History Smoking Status: Never smoker alcohol intake: never ROS ROS ED Constitutional Constitutional ED: Denies chills or fever(s) Eyes Eyes: Denies blurry vision or change in vision ENT ENT ED: Denies rhinorrhea or sore throat Cardiovascular Cardiovascular: Denies chest pain or palpitations Respiratory/Chest Respiratory/Chest: Denies cough or dyspnea Gastrointestinal Gastrointestinal: Denies nausea or vomiting Genitourinary Genitourinary ED: Denies dysuria or hematuria Musculoskeletal Musculoskeletal: Denies back pain or neck pain Integumentary Denies abscess or rash Neurologic Neurologic: Denies headache(s) Allergic/Immunologic Allergic/Immunologic ED: Denies mouth swelling or urticaria EXAM Physical Exam Const Vital Signs: 08/15/21 11:32 08/15/21 11:33 08/15/21 11:40 Temperature 96.9 F L Temperature Source Temporal Pulse Rate 85 48 L 85 Respiratory Rate 19 H 18 19 H Blood Pressure 74/56 L 103/53 L 74/56 L Blood Pressure Mean 62 69 62 Pulse Ox 94 95 Oxygen Delivery Method Nasal Cannula Room Air Oxygen Flow Rate (L/min) 2 08/15/21 11:58 08/15/21 12:02 08/15/21 12:30 Temperature Temperature Source Pulse Rate 85 85 Respiratory Rate 24 H 16 Blood Pressure 81/60 L 103/59 L Blood Pressure Mean 67 73 Pulse Ox 92 94 96 Oxygen Delivery Method Room Air Nasal Cannula Room Air Oxygen Flow Rate (L/min) 2 08/15/21 12:37 08/15/21 13:00 08/15/21 13:30 Temperature Temperature Source Pulse Rate 85 80 78 Respiratory Rate 16 18 18 Blood Pressure 103/59 L 106/76 100/71 Blood Pressure Mean 73 86 80 Pulse Ox 96 96 96 Oxygen Delivery Method Nasal Cannula Nasal Cannula Nasal Cannula Oxygen Flow Rate (L/min) 2 Positive well nourished and well developed General Appearance ED: well developed HEENT Reports moist mucous membranes Neck supple and no JVD Resp normal respiratory effort and clear to auscultation bilaterally Cardio regular rate and regular rhythm Rhythm: abnormal rhythm irregularly irregular GI normal to inspection, nondistended, normoactive bowel sounds and non-tender Palpation: soft Extremity normal to inspection General Extremety ED: Negative for edema or tenderness General Extremity: Negative for edema Neuro oriented x3, CN's II-XII intact bilaterally and no sensory deficits noted Sensorium / Orientation: alert Motor Exam: strength 5/5 throughout Psych mental status grossly normal Skin no rashes or lesions noted STROKE Vital Signs/Narrative: Vital Signs Temp Pulse Resp BP Pulse Ox 08/15/21 13:30 78 18 100/71 96 08/15/21 13:00 80 18 106/76 96 08/15/21 12:37 85 16 103/59 L 96 08/15/21 12:30 85 16 103/59 L 96 08/15/21 12:02 85 24 H 81/60 L 94 08/15/21 11:58 92 08/15/21 11:40 96.9 F L 85 19 H 74/56 L 95 08/15/21 11:33 48 L 18 103/53 L 08/15/21 11:32 85 19 H 74/56 L 94 MDM MDM MDM Narrative Medical decision making narrative: Stroke alert was called prehospital. Patient had no neuro deficits on my examination. CT scan of the brain was obtained. There is no acute intracranial abnormality noted. This was interpreted by the radiologist and reviewed by myself. CTA of the head and neck was obtained. There is narrowing of both internal carotid arteries with greater than 70% narrowing. EKG was obtained. On my interpretation it shows atrial fibrillation with a rate of 93. There is right bundle branch block pattern noted. There are no acute ST or T wave changes. QRS interval was slightly prolonged at 152. QTC was slightly prolonged at 504. [place] was -21. There are no prior EKGs available for comparison. Portable chest x-ray was obtained. There is 1 view. On my interpretation, there are mild patchy infiltrates in the lateral aspect of the left lung. Radiologist also interpreted the x-rays and agrees. CBC was within normal limits. PT was INR and PTT were normal. Basic metabolic profile showed an elevated BUN of 60 and creatinine of 3.87. High-sensitivity troponin was normal at 19. Patient was hypotensive on arrival. Patient was given IV fluids. Patient was given a second liter of IV fluids. Stroke neurologist, Dr. Stevens evaluated the patient remotely. She felt the patient had a TIA and his current NIH was only 2. Because of this, she recommended admission here for MRI and further evaluation. With the narrowing of the internal carotid arteries, I called her back and discussed this with her. She also discussed this with Dr. Corbin. They recommended keeping the patient here for MRI. If the MRI does show evidence of a stroke, the patient would need to be transferred to [facility] for urgent revascularization. If the MRI is negative, the patient can be further evaluated as an outpatient not emergently. Case was discussed with the hospitalist. He will admit the patient to his service. Patient understood and was agreeable with the plan. All questions were answered. Lab Data Attestation: I reviewed the patient's lab results. Labs: Laboratory Results - last 24 hr 08/15/21 08/15/21 08/15/21 11:43 11:43 11:43 WBC 6.8 RBC 4.01 L Hgb 14.4 Hct 40.8 MCV 101.7 H MCH 35.9 H MCHC 35.3 RDW Std Deviation 52.0 H RDW Coeff of Naomie 14.0 Plt Count 107 L MPV 12.7 H Immature Gran % (Auto) 1.000 H Neut % (Auto) 63.1 Lymph % (Auto) 22.0 Walsh % (Auto) 10.9 H Eos % (Auto) 2.1 Baso % (Auto) 0.9 Absolute Neuts (auto) 4.3 Absolute Lymphs (auto) 1.50 Nucleated RBC % 0 PT 15.4 H INR 1.3 APTT 37.1 H Sodium 137 Potassium 4.1 Chloride 105 Carbon Dioxide 24.0 Anion Gap 8 BUN 60 H Creatinine 3.87 H Estim Creat Clear Calc 17.82 Est GFR (MDRD) Af Amer 20 L Est GFR (MDRD) Non-Af 16 L BUN/Creatinine Ratio 15.5 Glucose 160 H Calcium 9.0 Troponin I High Sens 19 Radiography Diagnostic Testing: Clinical Impression(s) from Imaging Studies Brain CT 08/15/21 11:32 IMPRESSION: Chronic involutional changes of the brain. 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 N.B. : The above Results were Read Back by Dylan Florez MD to Akin Collins and understanding confirmed on 08/15/2021 11:49:56 (ET). Electronically Signed: Dylan Florez MD at 11:51 EST , ADDENDUM: 08/15/21 1158 IMPRESSION: Chronic involutional changes of the brain. 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 N.B. : The above Results were Read Back by Dylan Florez MD to Akin Collins and understanding confirmed on 08/15/2021 11:49:56 (ET). Electronically Signed: Dylan Florez MD at 11:51 EST , Head/Neck CTA 08/15/21 11:33 IMPRESSION: Calcified plaques at the origin of both internal carotid arteries causing greater than 70% luminal narrowing. Electronically Signed: Dylan Florez MD at 11:59 EST , ADDENDUM: 08/15/21 1212 IMPRESSION: Calcified plaques at the origin of both internal carotid arteries causing greater than 70% luminal narrowing. N.B. : The above Results were Read Back by Dylan Florez MD to Akin Collins and understanding confirmed on 08/15/2021 12:06:00 (ET). Electronically Signed: Dylan Florez MD at 11:59 EST , Chest X-Ray 08/15/21 12:15 IMPRESSION: Mild patchy infiltrates in the peripheral lateral aspect of the left hemithorax. Electronically Signed: Dylan Florez MD at 12:32 EST , EKG Initial EKG: Attestation: I personally reviewed and interpreted this EKG as follows: Interpretation: No Acute Injury Pattern, Atrial Fibrillation (93) and RBBB Prior EKG tracings: not available for review Treatment and Re-Evaluation Vital Sign Attestation:: Vital signs prior to admission are reviewed. They are stable. Stroke Documentation Questions Stroke Team Activated: Yes Reviewed Inclusion/Exclusion criteria: Yes IV Alteplase (t-PA) Administered: No Discharge Plan Dx/Rx/DC Orders Clinical Impression: Brain TIA Disposition Disposition: Acute Care [facility] Discharge Date/Time: 08/15/21 15:00
[2021-08-15 11:49] LABS: Absolute Neutrophil Count 4.3 X10^3/uL (2.0-7.7); Basophil# 0.06 X10^3/uL; Basophil% 0.9 % (0-1); Eosinophil# 0.14 X10^3/uL; Eosinophils% 2.1 % (0-5); Hematocrit 40.8 % (40-54); Hemoglobin 14.4 g/dL (13.0-16.5); Mean Corp Hgb Conc 35.3 g/dL (32-36); Mean Corpuscular Hgb 35.9 pg (27.0-32.0); Mean Corpuscular Volume 101.7 fL (80-94); Mean Platelet Vol. 12.7 fl (6.2-12.0); Monocyte# 0.74 X10^3/uL; Monocyte% 10.9 % (0-10); NRBC Flagged by Analyzer 0 % (0-5); Neutrophil # 4.31 X10^3/uL (2.7-7.7); Neutrophil % 63.1 % (47-70); Platelet Count 107 K/mm3 (150-450); Red Blood Count 4.01 M/mm3 (4.6-6.2); White Blood Count 6.8 K/mm3 (4.4-11.0)
[2021-08-15 11:58] LABS: International Normalized Ratio 1.3; Partial Thromboplast Time 37.1 Seconds (24.1-36.2); Prothrombin Time (Protime)PT. 15.4 SECONDS (11.7-14.9)
[2021-08-15 12:11] LABS: Anion Gap 8 (5-15); BUN 60 mg/dL (7-18); BUN/Creat Ratio 15.5 RATIO (10-20); Chloride 105 mmol/L (98-107); Creatinine, Serum 3.87 mg/dL (0.70-1.30); EST Glomerular Filtration Rate 16 mL/min (>60); Est Glom Filt Rate - Afr Amer 20 mL/min (>60); Estimated Creatinine Clearance 17.82 ml/min; Glucose 160 mg/dL (74-106); Potassium 4.1 mmol/L (3.5-5.1); Sodium Level 137 mmol/L (136-145); Troponin-I HS 19 pg/mL (3.0-78.0)
--- NOTE | 2021-08-15 12:15 | RAD_ITS ---
STUDY: X-RAY CHEST REASON FOR EXAM: Male, 76 years old. Neuro deficit, acute, stroke suspected TECHNIQUE: Single AP portable view of the chest. COMPARISON: None. FINDINGS: EKG electrodes are seen. Mild increased markings at the right lung base as well as in the peripheral lateral aspect of the left lung. There is no demonstrated pleural abnormality. There is borderline cardiomegaly. Normal mediastinum and jose. Normal visualized pulmonary arteries. There is atherosclerotic calcification of the aortic arch with tortuosity. There are diffuse degenerative changes of the visualized thoracic spine. Normal visualized ribs, clavicles, and shoulders. There is no demonstrated abnormality of the visualized soft tissue structures of the upper abdomen. RAD/Chest 1 View IMPRESSION: Mild patchy infiltrates in the peripheral lateral aspect of the left hemithorax. Electronically Signed: Dylan Florez MD at 12:32 EST ,
--- NOTE | 2021-08-15 13:14 | NURSING ---
DR SHOEMAKER FOR DR SAMUEL
--- NOTE | 2021-08-15 13:48 | NURSING ---
PCU OBS KKOTSONIS TIA
[2021-08-15] MEDS: 0.9% Normal Saline 1,000 ML 999 ML IV (14:23)
--- NOTE | 2021-08-15 14:24 | ED.RN ---
DYSPHAGIA SCREENING NOT DONE IN THE ED PER DR ORDER PT IS NPO
--- NOTE | 2021-08-15 15:18 | MRI_ITS ---
"EXAM: MR HEAD WITHOUT INTRAVENOUS CONTRAST CLINICAL INDICATION: CVA TECHNIQUE: Multiplanar and multisequence MR images of the brain were obtained without intravenous contrast. This report was created using [employer] report generation technology. COMPARISON: CT head done earlier FINDINGS: BRAIN AND EXTRA-AXIAL SPACES: Microvascular ischemic changes. No intra- or extra-axial hemorrhage. No intracranial mass or mass effect. Posterior fossa structures are unremarkable. Ventricles are appropriate for age. No hydrocephalus. Basal cisterns are patent. SELLA: Unremarkable. Normal sella turcica, pituitary gland, infundibular stalk, optic chiasm and hypothalamus. AUDITORY SYSTEM: Unremarkable. The internal auditory canals are patent. BONES/JOINTS: Unremarkable. No discrete lytic or blastic abnormalities. SINUSES: Ethmoid and maxillary sinus disease. MASTOID AIR CELLS: Unremarkable as visualized. Clear. ORBITS: Unremarkable as visualized. Both globes, extraocular muscles, optic nerves and retrobulbar fat appear unremarkable. VASCULATURE: Unremarkable as visualized. Normal flow voids in the major intracranial circulation. MRI/Brain without Contrast IMPRESSION: No acute findings in the head/brain. Electronically Signed: Mikal Rod MD at 20:50 EST , "
--- NOTE | 2021-08-15 16:24 | PCM.HP.STD ---
HPI - General General Date of Admission: 08/15/21 HPI Narrative ANTONIO MARADIAGA, is a 76 M who presents from home with generalized weakness. Neither him nor his daughter report any type of focal neurological signs. He did have some lethargy and slurred speech after the home health nurse had left this morning. The daughter states that he was sitting in his chair and sort of slumped forward a little bit currently is speech is normal he is very hard of hearing even with his hearing aids in. According to the daughter since his previous discharge he has not been very active and has not been drinking very much. He is eating a little bit but ever since has had COVID he has become weaker and does not have much of an appetite secondary to his lack of sense of smell and taste. [facility] Medical History (Updated 08/15/21 @ 15:26 by Rach Montgomery) BPH (benign prostatic hyperplasia) COVID CPAP (continuous positive airway pressure) dependence Facial basal cell cancer GERD (gastroesophageal reflux disease) HTN (hypertension) IBS (irritable bowel syndrome) Kidney disease Sleep apnea Splenomegaly Wears hearing aid in both ears Home Medications allopurinol 200 mg PO DAILY 01/11/17 [History Last Taken 08/15/21] clonidine HCl 0.1 mg PO TID 01/11/17 [History Last Taken 08/15/21] finasteride 5 mg PO DAILY 01/11/17 [History Last Taken 08/15/21] folic acid 1 mg PO DAILY 01/11/17 [History Last Taken 08/15/21] gabapentin [Neurontin] 300 mg PO DAILY 01/11/17 [History Last Taken 08/14/21] hydrochlorothiazide 12.5 mg PO DAILY 01/11/17 [History Last Taken 08/15/21] loratadine [Allergy Relief (loratadine)] 10 mg PO DAILY PRN 01/11/17 [History Last Taken 08/05/21] methotrexate sodium 15 mg PO BETANCOURT 01/11/17 [History Last Taken 08/10/21] terazosin 10 mg PO DAILY MDD urinary 01/11/17 [History Last Taken 08/15/21] cholecalciferol (vitamin D3) [Vitamin D3] 2,000 unit PO DAILY 07/12/17 [History Last Taken 08/15/21] spironolactone 25 mg PO DAILY 08/06/21 [History Last Taken 08/15/21] amlodipine 10 mg PO DAILY 30 Days #60 tab 08/13/21 [Rx Last Taken 08/15/21] metoprolol tartrate 50 mg PO BID #60 tab 08/13/21 [Rx Last Taken 08/15/21] pantoprazole 40 mg PO DAILY #30 tab 08/13/21 [Rx Last Taken 08/15/21] lisinopril 40 mg PO BID 08/15/21 [History Last Taken 08/15/21] Allergy/AdvReac Type Severity Reaction Status Date / Time No Known Allergies Allergy Verified 08/15/21 11:47 Family History Father Heart disease Surgical History History of ear surgery S/P carpal tunnel release S/P Mohs surgery for basal cell carcinoma Status post bilateral knee replacements Social History Smoking Status: Never smoker alcohol intake: never ROS Constitutional Constitutional: Reports weakness; Denies chills, fatigue, fever(s) or malaise Eyes Eyes: Denies blurry vision ENT HEENT: Denies headache(s) or nasal discharge Cardiovascular Cardiovascular: Denies chest pain, dyspnea on exertion or syncope Respiratory/Chest Respiratory/Chest: Denies cough, shortness of breath at rest or shortness of breath with exertion Gastrointestinal Gastrointestinal: Denies constipation, diarrhea, nausea or vomiting Genitourinary Genitourinary: Denies dysuria Neurologic Neurologic: Denies focal weakness, numbness or tremor(s) Psychiatric Psychiatric: Denies anxiety or depression Vital Signs Vital Signs Vital Signs: 08/15/21 11:32 08/15/21 11:33 08/15/21 11:40 Temperature 96.9 F L Temperature Source Temporal Pulse Rate 85 48 L 85 Respiratory Rate 19 H 18 19 H Blood Pressure 74/56 L 103/53 L 74/56 L Blood Pressure Mean 62 69 62 Blood Pressure Source Blood Pressure Position Blood Pressure Location Pulse Ox 94 95 Oxygen Delivery Method Nasal Cannula Room Air Oxygen Flow Rate (L/min) 2 08/15/21 11:58 08/15/21 12:02 08/15/21 12:30 Temperature Temperature Source Pulse Rate 85 85 Respiratory Rate 24 H 16 Blood Pressure 81/60 L 103/59 L Blood Pressure Mean 67 73 Blood Pressure Source Blood Pressure Position Blood Pressure Location Pulse Ox 92 94 96 Oxygen Delivery Method Room Air Nasal Cannula Room Air Oxygen Flow Rate (L/min) 2 08/15/21 12:37 08/15/21 13:00 08/15/21 13:30 Temperature Temperature Source Pulse Rate 85 80 78 Respiratory Rate 16 18 18 Blood Pressure 103/59 L 106/76 100/71 Blood Pressure Mean 73 86 80 Blood Pressure Source Blood Pressure Position Blood Pressure Location Pulse Ox 96 96 96 Oxygen Delivery Method Nasal Cannula Nasal Cannula Nasal Cannula Oxygen Flow Rate (L/min) 2 08/15/21 14:00 08/15/21 14:14 08/15/21 14:30 Temperature 97.9 F Temperature Source Temporal Pulse Rate 79 76 76 Respiratory Rate 18 18 18 Blood Pressure 104/80 104/80 103/79 Blood Pressure Mean 88 88 87 Blood Pressure Source Blood Pressure Position Blood Pressure Location Pulse Ox 96 98 96 Oxygen Delivery Method Room Air Nasal Cannula Nasal Cannula Oxygen Flow Rate (L/min) 2 08/15/21 15:34 08/15/21 15:47 Temperature 97.9 F Temperature Source Oral Pulse Rate 86 88 Respiratory Rate 16 Blood Pressure 110/64 Blood Pressure Mean 79 Blood Pressure Source Monitor Blood Pressure Position Supine Blood Pressure Location Left Arm Pulse Ox 94 Oxygen Delivery Method Room Air Oxygen Flow Rate (L/min) Weight Weight: 217 lb 11.2 oz Body Mass Index (BMI) 32.1 Physical Exam Const alert, oriented x3 and no apparent distress General Appearance: cooperative HEENT normocephalic Mouth: dry mucous membranes Eyes PERRL, EOMs intact bilaterally and conjunctivae normal Neck supple and no JVD Resp normal respiratory effort, no retractions, no use of accessory muscles and clear to auscultation bilaterally Auscultation: Negative for crackles, rales, rhonchi or wheezes Cardio regular rate, regular rhythm, S1 normal heart sound, S2 normal heart sound and no murmurs GI soft to palpation, non-tender and non-distended; Negative for hepatosplenomegaly Extremity no clubbing, cyanosis or edema Skin no rashes or lesions noted Neuro no focal motor deficits and no sensory deficits noted Neuro Narrative: Generalized lower extremity weakness Psych affect normal Appearance: appropriate Results Lab / Micro Data Result Diagrams: 08/15/21 11:43 08/15/21 11:43 Labs: Laboratory Results - last 24 hr 08/15/21 11:43: WBC 6.8, RBC 4.01 L, Hgb 14.4, Hct 40.8, MCV 101.7 H, MCH 35.9 H, MCHC 35.3, RDW Std Deviation 52.0 H, RDW Coeff of Naomie 14.0, Plt Count 107 L, MPV 12.7 H, Immature Gran % (Auto) 1.000 H, Neut % (Auto) 63.1, Lymph % (Auto) 22.0, Clinch % (Auto) 10.9 H, Eos % (Auto) 2.1, Baso % (Auto) 0.9, Absolute Neuts (auto) 4.3, Absolute Lymphs (auto) 1.50, Nucleated RBC % 0 08/15/21 11:43: PT 15.4 H, INR 1.3, APTT 37.1 H 08/15/21 11:43: Sodium 137, Potassium 4.1, Chloride 105, Carbon Dioxide 24.0, Anion Gap 8, BUN 60 H, Creatinine 3.87 H, Estim Creat Clear Calc 17.82, Est GFR (MDRD) Af Amer 20 L, Est GFR (MDRD) Non-Af 16 L, BUN/Creatinine Ratio 15.5, Glucose 160 H, Calcium 9.0, Troponin I High Sens [address] 08/15/21 11:32 IMPRESSION: Chronic involutional changes of the brain. 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 N.B. : The above Results were Read Back by Dylan Florez MD to Akin Collins and understanding confirmed on 08/15/2021 11:49:56 (ET). Electronically Signed: Dylan Florez MD at 11:51 EST , ADDENDUM: 08/15/21 9882 IMPRESSION: Chronic involutional changes of the brain. 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 N.B. : The above Results were Read Back by Dylan Florez MD to Akin Collins and understanding confirmed on 08/15/2021 11:49:56 (ET). Electronically Signed: Dylan Florez MD at 11:51 EST , Head/Neck CTA 08/15/21 11:33 IMPRESSION: Calcified plaques at the origin of both internal carotid arteries causing greater than 70% luminal narrowing. Electronically Signed: Dylan Florez MD at 11:59 EST , ADDENDUM: 08/15/21 1212 IMPRESSION: Calcified plaques at the origin of both internal carotid arteries causing greater than 70% luminal narrowing. N.B. : The above Results were Read Back by Dylan Florez MD to Akin Collins and understanding confirmed on 08/15/2021 12:06:00 (ET). Electronically Signed: Dylan Florez MD at 11:59 EST , Chest X-Ray 08/15/21 12:15 IMPRESSION: Mild patchy infiltrates in the peripheral lateral aspect of the left hemithorax. Electronically Signed: Dylan Florez MD at 12:32 EST , Assessment & Plan Assessment/Plan (1) Brain TIA: (2) CONCHIS (acute kidney injury): PLAN: 1. Possible TIA versus generalized debility with CONCHIS/HTN ?His neurological symptoms are likely related to his acute renal failure. On his previous discharge she was discharged with a creatinine 1.67 however he is on admission in the admission of his daughter has not been drinking very much and he has resumed taking his hydrochlorothiazide, lisinopril, Aldactone all of which likely contributed to his worsening renal function ?We will obtain an MRI, he did just have an echo 4 days ago with an EF of 65% and moderate concentric left ventricular hypertrophy with an RVSP of 27 mmHg ?We will hold all of his home blood pressure medications and allow him as of hypertension ?CTA of the head and neck demonstrated bilateral internal carotid artery stenosis of greater than 70% if the MRI is positive will facilitate transfer to [facility] if the MRI is negative then he can follow-up as an outpatient ?PT/OT for evaluation and placement 2. Recent COVID-[address]/chronic thrombocytopenia ?D-dimer was elevated to 8.7 however he did not qualify for Eliquis secondary to his chronic thrombocytopenia ?We will continue to monitor his platelet count ?Can continue with his methotrexate, he does follow with heme-onc as an outpatient 3. GERD ?Stable ?Continue 4. BPH ?Stable Continue with finasteride and Terazosin DVT: SCDs Charges/Coding Visit Charges OBSV E&M: 98294 Initial observation care L3
[2021-08-15] MEDS: 0.9% Normal Saline 1,000 ML 100 ML IV (16:44)
[2021-08-15] MEDS: Atorvastatin Calcium 80 MG Tablet PO (20:31)
[2021-08-16] VITALS (22 sets, daily range): BP systolic 121–149; BP diastolic 51–102; PULSE 75–187; RESP 18–24; TEMP 36.6–36.7; O2SAT 91–96; BMI 32.1
--- NOTE | 2021-08-16 01:40 | EKG12_ITS ---
Test Reason : TACYCARIDA Blood Pressure : / mmHG Vent. Rate : 113 BPM Atrial Rate : 056 BPM P-R Int : 000 ms QRS Dur : 142 ms QT Int : 370 ms P-R-T Axes : 000 -27 -17 degrees QTc Int : 507 ms Atrial fibrillation Right bundle branch block Abnormal ECG Confirmed by LORI RODRÍGUEZ, LACI ([id number]), newspaper or periodical editor KENTON MAXWELL ([id number]) on 08/20/2021 1:07:46 PM Referred By: Confirmed By:LACI SANDOVAL MD
[2021-08-16] MEDS: Metoprolol Tartrate 50 MG Tablet PO ×3 (03:07→20:57)
[2021-08-16] MEDS: 0.9% Normal Saline 1,000 ML 100 ML IV ×3 (03:10→21:01)
[2021-08-16 06:43] LABS: Absolute Lymphocyte Count 0.88 X10^3/uL (0.83-4.51); Absolute Neutrophil Count 3.3 X10^3/uL (2.0-7.7); Basophil# 0.03 X10^3/uL; Basophil% 0.6 % (0-1); Eosinophil# 0.14 X10^3/uL; Eosinophils% 2.9 % (0-5); Hematocrit 37.4 % (40-54); Hemoglobin 13.7 g/dL (13.0-16.5); Lymphocyte # 0.88 X10^3/ul (0.83-4.51); Mean Corp Hgb Conc 36.6 g/dL (32-36); Mean Corpuscular Hgb 36.2 pg (27.0-32.0); Mean Corpuscular Volume 98.9 fL (80-94); Mean Platelet Vol. 12.7 fl (6.2-12.0); Monocyte# 0.54 X10^3/uL; NRBC Flagged by Analyzer 0 % (0-5); Neutrophil # 3.26 X10^3/uL (2.7-7.7); Neutrophil % 66.5 % (47-70); POSITIVE COUNT YES; Platelet Count 73 K/mm3 (150-450); Red Blood Count 3.78 M/mm3 (4.6-6.2); White Blood Count 4.9 K/mm3 (4.4-11.0)
[2021-08-16 07:08] LABS: Anion Gap 7 (5-15); BUN 48 mg/dL (7-18); BUN/Creat Ratio 21.9 RATIO (10-20); Calcium,Total 8.4 mg/dL (8.5-10.1); Chloride 110 mmol/L (98-107); Cholesterol 131 mg/dL (200); Creatinine, Serum 2.19 mg/dL (0.70-1.30); EST Glomerular Filtration Rate 31 mL/min (>60); Est Glom Filt Rate - Afr Amer 38 mL/min (>60); Glucose 93 mg/dL (74-106); High Density Lipoprotein 31 mg/dL; Potassium 3.8 mmol/L (3.5-5.1); Sodium Level 138 mmol/L (136-145); Triglycerides 173 mg/dL; Very Low Density Lipoprotein 35 mg/dL (5-40)
[2021-08-16] MEDS: Finasteride 5 MG Tablet PO (09:09)
[2021-08-16] MEDS: Allopurinol 100 MG Tablet 200 MG PO (09:09)
[2021-08-16] MEDS: Pantoprazole Sodium 40 MG Tablet PO (09:09)
[2021-08-16] MEDS: Aspirin 81 MG TAB.CHEW PO (09:09)
[2021-08-16] MEDS: Loratadine 10 MG Tablet PO (09:10)
[2021-08-16] MEDS: Folic Acid 1 MG Tablet PO (09:10)
[2021-08-16] MEDS: Doxazosin 4 MG Tablet 8 MG PO (09:10)
--- NOTE | 2021-08-16 10:10 | PN.HOSP_ITS ---
Subjective Subjective Feels much better, creatinine is improved and his MRI of his brain was negative Objective Data Objective Data Vital Signs: Vital Signs Temp Pulse Resp BP Pulse Ox 98.1 F 75 18 136/86 H 92 08/16/21 09:02 08/16/21 09:09 08/16/21 09:02 08/16/21 09:02 08/16/21 09:02 Oxygen Flow Rate (L/min) 2 Oxygen Delivery Method Room Air Weight: 217 lb 11.2 oz Body Mass Index (BMI) 32.1 Intake & Output: Intake and Output for Last 24 Hours 08/15/21 08/16/21 08/17/21 03:59 03:59 03:59 Intake Total 3750 / 3750 Balance 3750 / 3750 Lab / Micro Data Result Diagrams: 08/16/21 06:20 08/16/21 06:20 Labs: Laboratory Results - last 24 hr 08/15/21 11:43: WBC 6.8, RBC 4.01 L, Hgb 14.4, Hct 40.8, MCV 101.7 H, MCH 35.9 H , MCHC 35.3, RDW Std Deviation 52.0 H, RDW Coeff of Naomie 14.0, Plt Count 107 L, MPV 12.7 H, Immature Gran % (Auto) 1.000 H, Neut % (Auto) 63.1, Lymph % (Auto) 22.0, [place] % (Auto) 10.9 H, Eos % (Auto) 2.1, Baso % (Auto) 0.9, Absolute Neuts (auto) 4.3, Absolute Lymphs (auto) 1.50, Nucleated RBC % 0 08/15/21 11:43: PT 15.4 H, INR 1.3, APTT 37.1 H 08/15/21 11:43: Sodium 137, Potassium 4.1, Chloride 105, Carbon Dioxide 24.0, Anion Gap 8, BUN 60 H, Creatinine 3.87 H, Estim Creat Clear Calc 17.82, Est GFR (MDRD) Af Amer 20 L, Est GFR (MDRD) Non-Af 16 L, BUN/Creatinine Ratio 15.5, Glucose 160 H, Calcium 9.0, Troponin I High Sens 19 08/16/21 06:20: WBC 4.9, RBC 3.78 L, Hgb 13.7, Hct 37.4 L, MCV 98.9 H, MCH 36.2 H, MCHC 36.6 H, RDW Std Deviation 50.0 H, RDW Coeff of Naomie 14.0, Plt Count 73 L, MPV 12.7 H, Immature Gran % (Auto) 1.000 H, Neut % (Auto) 66.5, Lymph % (Auto) 18.0 L, [place] % (Auto) 11.0 H, Eos % (Auto) 2.9, Baso % (Auto) 0.6, Absolute Neuts (auto) 3.3, Absolute Lymphs (auto) 0.88, Nucleated RBC % 0 08/16/21 06:20: Sodium 138, Potassium 3.8, Chloride 110 H, Carbon Dioxide 21.0, Anion Gap 7, BUN 48 H, Creatinine 2.19 H, Estim Creat Clear Calc 28.70, Est GFR (MDRD) Af Amer 38 L, Est GFR (MDRD) Non-Af 31 L, BUN/Creatinine Ratio 21.9 H, Glucose 93, Calcium 8.4 L, Triglycerides 173, Cholesterol 131, LDL Cholesterol 65, VLDL Cholesterol 35, HDL Cholesterol 31 L Radiography Diagnostic Testing: Radiology Impression Brain CT 08/15/21 11:32 IMPRESSION: Chronic involutional changes of the brain. 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 N.B. : The above Results were Read Back by Dylan Florez MD to Akin Collins and understanding confirmed on 08/15/2021 11:49:56 (ET). Electronically Signed: Dylan Florez MD at 11:51 EST , ADDENDUM: 08/15/21 1158 IMPRESSION: Chronic involutional changes of the brain. 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 N.B. : The above Results were Read Back by Dylan Florez MD to Akin Collins and understanding confirmed on 08/15/2021 11:49:56 (ET). Electronically Signed: Dylan Florez MD at 11:51 EST , Head/Neck CTA 08/15/21 11:33 IMPRESSION: Calcified plaques at the origin of both internal carotid arteries causing greater than 70% luminal narrowing. Electronically Signed: Dylan Florez MD at 11:59 EST , ADDENDUM: 08/15/21 1212 IMPRESSION: Calcified plaques at the origin of both internal carotid arteries causing greater than 70% luminal narrowing. N.B. : The above Results were Read Back by Dylan Florez MD to Akin Collins and understanding confirmed on 08/15/2021 12:06:00 (ET). Electronically Signed: Dylan Florez MD at 11:59 EST , Chest X-Ray 08/15/21 12:15 IMPRESSION: Mild patchy infiltrates in the peripheral lateral aspect of the left hemithorax. Electronically Signed: Dylan Florez MD at 12:32 EST , Brain MRI 08/15/21 15:18 IMPRESSION: No acute findings in the head/brain. Electronically Signed: Mikal Rod MD at 20:50 EST , Physical Exam Const alert, oriented x3 and no apparent distress General Appearance: cooperative HEENT normocephalic Eyes PERRL, EOMs intact bilaterally and conjunctivae normal Neck supple and no JVD Resp normal respiratory effort, no retractions, no use of accessory muscles and clear to auscultation bilaterally Auscultation: Negative for crackles, rales, rhonchi or wheezes Cardio regular rate, regular rhythm, S1 normal heart sound, S2 normal heart sound and no murmurs GI soft to palpation, non-tender and non-distended; Negative for hepatosplenomegaly Extremity no clubbing, cyanosis or edema Skin no rashes or lesions noted Neuro no focal motor deficits and no sensory deficits noted Neuro Narrative: Generalized lower extremity weakness Psych affect normal Appearance: appropriate Assessment & Plan Assessment/Plan (1) Brain TIA: (2) CONCHIS (acute kidney injury): PLAN: 1. Possible TIA versus generalized debility with CONCHIS/HTN ?His neurological symptoms are likely related to his acute renal failure. On his previous discharge she was discharged with a creatinine 1.67 however he is on admission in the admission of his daughter has not been drinking very much and he has resumed taking his hydrochlorothiazide, lisinopril, Aldactone all of which likely contributed to his worsening renal function ?Is negative, he did just have an echo 4 days ago with an EF of 65% and moderate concentric left ventricular hypertrophy with an RVSP of 27 mmHg ?Restarted his metoprolol secondary to tachycardia we will hold off his other blood pressure meds until his creatinine normalizes ?CTA of the head and neck demonstrated bilateral internal carotid artery stenosis of greater than 70%, since the MRI is negative for stroke will not transfer to [facility] ?PT/OT for evaluation and placement, will likely need discharge to SNF given his weakness 2. Recent COVID-[address]/chronic thrombocytopenia ?D-dimer was elevated to 8.7 however he did not qualify for Eliquis secondary to his chronic thrombocytopenia ?We will continue to monitor his platelet count ?Can continue with his methotrexate, he does follow with heme-onc as an outpatient 3. GERD ?Stable ?Continue 4. BPH ?Stable Continue with finasteride and Terazosin DVT: SCDs Charges/Coding Visit Charges OBSV E&M: 29995 Subsequent observation care L2
[2021-08-16] MEDS: 0.9% Saline Lock 10 ML Syringe IV (14:43)
[2021-08-16] MEDS: Ondansetron 4 MG/2 ML Vial IV (14:43)
--- NOTE | 2021-08-16 16:01 | CM.ED ---
SW Note Referral Source: RN CM Referral Reason: Discharge planning SW met with patient. Provided him with SNF information. Patient said that his first choice is [facility] and second choice is TCU at [facility]. Patient apologized as he was unable to continue as he said that his stomach was hurting. Plan: [facility] or TCU at discharge Masha GASTELUM
--- NOTE | 2021-08-16 16:36 | EKG12_ITS ---
Test Reason : CHANGE IN RHYTHM Blood Pressure : / mmHG Vent. Rate : 096 BPM Atrial Rate : 100 BPM P-R Int : 000 ms QRS Dur : 152 ms QT Int : 388 ms P-R-T Axes : 000 -26 -13 degrees QTc Int : 490 ms Atrial fibrillation Right bundle branch block Abnormal ECG Confirmed by LORI RODRÍGUEZ, LACI ([id number]), health editor KENTON MAXWELL ([id number]) on 08/20/2021 1:08:02 PM Referred By: DR SHOEMAKER Confirmed By:LACI SANDOVAL MD
[2021-08-16] MEDS: Metoprolol Tartrate 5 MG/5 ML Vial IV (17:11)
--- NOTE | 2021-08-16 17:18 | CASEMGMT ---
RN CM Chart review: patient was admitted for CONCHIS on CKD and debility. See RN CM assessment from 08/07/21. Patient was discharged to home with [facility] setup. Patient returned to [facility] ED on 08/15/21 for positive for Left Facial Droop, Left Arm Weakness and Left Leg Weakness. Patient had MRI of brain, negative for acute CVA. Patient also in CONCHIS with Cr at 3.87 and BUN at 60 per H&P. Patient having increased weakness and unable to care for self at home. Patient requesting SNF placement. SW updated regarding SNF request. CM will continue to follow this patient and plan for a safe discharge.
[2021-08-16] MEDS: proCHLORPERazine 10 MG/2 ML Vial 5 MG IV (20:36)
[2021-08-16] MEDS: Atorvastatin Calcium 80 MG Tablet PO (21:01)
[2021-08-16 21:36] LABS: Magnesium 1.7 mg/dL (1.6-2.6)
[2021-08-16] MEDS: dilTIAZem 25 MG/5 ML Vial 10 MG IV BOLUS (22:55)
--- NOTE | 2021-08-16 22:55 | NURSING ---
Assumed care of pt at this time. Started on cardizem gtt and changed to stepdown status.
[2021-08-16] MEDS: guaiFENesin 1,200 MG Tablet 1200 MG PO (23:10)
[2021-08-17] VITALS (25 sets, daily range): BP systolic 127–165; BP diastolic 74–104; PULSE 83–112; RESP 13–24; TEMP 36.6–36.9; O2SAT 92–97; BMI 32.1
[2021-08-17] MEDS: Magnesium Hydroxide 30 ML UDC PO (00:22)
--- NOTE | 2021-08-17 02:31 | PCM.PN.BLA ---
Progress Note Patient heart rate elevated during the night; goes high to 170s. EKG shows A. fib with RVR Blood pressure remains stable Started on Cardizem bolus and drip Patient not on anticoagulation on account of chronic thrombocytopenia
[2021-08-17] MEDS: 0.9% Normal Saline 1,000 ML 100 ML IV (06:32)
[2021-08-17 07:16] LABS: Anion Gap 8 (5-15); BUN 32 mg/dL (7-18); BUN/Creat Ratio 21.3 RATIO (10-20); Calcium,Total 8.6 mg/dL (8.5-10.1); Chloride 110 mmol/L (98-107); EST Glomerular Filtration Rate 48 mL/min (>60); Est Glom Filt Rate - Afr Amer 59 mL/min (>60); Glucose 108 mg/dL (74-106); Potassium 3.8 mmol/L (3.5-5.1); Sodium Level 138 mmol/L (136-145)
[2021-08-17] MEDS: Folic Acid 1 MG Tablet PO (08:00)
[2021-08-17] MEDS: Aspirin 81 MG TAB.CHEW PO (08:00)
[2021-08-17] MEDS: Doxazosin 4 MG Tablet 8 MG PO (08:00)
[2021-08-17] MEDS: Finasteride 5 MG Tablet PO (08:01)
[2021-08-17] MEDS: Pantoprazole Sodium 40 MG Tablet PO (08:01)
[2021-08-17] MEDS: Menthol/Lanolin/Calamine/Znox 113 GM Tube 1 APPLIC TOPICAL ×2 (08:01→21:01)
[2021-08-17] MEDS: Allopurinol 100 MG Tablet 200 MG PO (08:01)
[2021-08-17] MEDS: Metoprolol Tartrate 100 MG Tablet PO ×2 (08:10→19:49)
--- NOTE | 2021-08-17 10:24 | PCM.PN.HOSP ---
Subjective Subjective Doing well, prescription placed had to be placed on a Cardizem drip for his A. fib Objective Data Objective Data Vital Signs: Vital Signs Temp Pulse Resp BP Pulse Ox 98.0 F 96 18 151/74 H 96 08/17/21 06:00 08/17/21 08:10 08/17/21 07:27 08/17/21 08:10 08/17/21 07:49 Oxygen Flow Rate (L/min) 2 Oxygen Delivery Method Room Air Weight: 217 lb 11.198 oz Body Mass Index (BMI) 32.1 Intake & Output: Intake and Output for Last 24 Hours 08/16/21 08/17/21 08/18/21 03:59 03:59 03:59 Intake Total 3750 / 3750 2621.66 / 2631.66 996.17 / 996.17 Output Total 900 / 900 400 / 400 Balance 3750 / 3750 1721.66 / 1731.66 596.17 / 596.17 Medical Nutrition Assessment Dietitian: Malnutrition Criteria Met Start: 08/16/21 14:51 Freq: Status: Active Protocol: Document 08/16/21 14:51 RMA (Rec: 08/16/21 14:51 RMA [id number]) Nutrition Malnutrition Evidence of Malnutrition Exists Yes Malnutrition (severe): Acute Illness/Injury Evidenced By Suboptimal Energy Intake ( Severe),Weight Loss (Severe) Clinical Problem Acute Disease or Injury Related Malnutrition Etiology Severe protein-calorie malnutrition in the context of acute recent illness related to inadequate oral intake Signs/Symptoms as evidenced by 5% wt loss x past 2 weeks, pt refuses oral nutrition supplementation and PO meeting less than 50-75% estimated nutrition needs Status Active Problem Recommendation Dietitian Recommendations/Changes Will liberalize diet to Regular/no added salt given signs and symptoms of malnutrition & pt resistant to oral nutrition supplements. Lab / Micro Data Result Diagrams: 08/16/21 06:20 08/17/21 04:55 Labs: Laboratory Results - last 24 hr 08/16/21 21:18: Magnesium 1.7 08/17/21 04:55: Sodium 138, Potassium 3.8, Chloride 110 H, Carbon Dioxide 20.0 L, Anion Gap 8, BUN 32 H, Creatinine 1.50 H, Estim Creat Clear Calc 41.90, Est GFR (MDRD) Af Amer 59 L, Est GFR (MDRD) Non-Af 48 L, BUN/Creatinine Ratio 21.3 H, Glucose 108 H, Calcium 8.6 Physical Exam Const alert, oriented x3 and no apparent distress General Appearance: cooperative HEENT normocephalic Eyes PERRL, EOMs intact bilaterally and conjunctivae normal Neck supple and no JVD Resp normal respiratory effort, no retractions, no use of accessory muscles and clear to auscultation bilaterally Auscultation: Negative for crackles, rales, rhonchi or wheezes Cardio regular rate, regular rhythm, S1 normal heart sound, S2 normal heart sound and no murmurs GI soft to palpation, non-tender and non-distended; Negative for hepatosplenomegaly Extremity no clubbing, cyanosis or edema Skin no rashes or lesions noted Neuro no focal motor deficits and no sensory deficits noted Neuro Narrative: Generalized lower extremity weakness Psych affect normal Appearance: appropriate Assessment & Plan Assessment/Plan (1) Brain TIA: (2) CONCHIS (acute kidney injury): PLAN: 1. Possible TIA versus generalized debility with CONCHIS/HTN/A. fib ?His neurological symptoms are likely related to his acute renal failure. On his previous discharge she was discharged with a creatinine 1.67 however he is on admission in the admission of his daughter has not been drinking very much and he has resumed taking his hydrochlorothiazide, lisinopril, Aldactone all of which likely contributed to his worsening renal function ?Is negative, he did just have an echo 4 days ago with an EF of 65% and moderate concentric left ventricular hypertrophy with an RVSP of 27 mmHg ?EKG overnight with his tachycardia demonstrated A. fib with RVR started on Cardizem drip however the heart rate has now resolved with metoprolol was increased to 100 mg p.o. twice daily ?He does have a chronic thrombocytopenia, his current platelets are 73 therefore we will hold off on any anticoagulation for his A. fib and recommended he follow-up with cardiology as an outpatient ?CTA of the head and neck demonstrated bilateral internal carotid artery stenosis of greater than 70%, since the MRI is negative for stroke will not transfer to [facility] ?PT/OT for evaluation and placement, will likely need discharge to SNF given his weakness 2. Recent COVID-[address]/chronic thrombocytopenia ?D-dimer was elevated to 8.7 however he did not qualify for Eliquis secondary to his chronic thrombocytopenia ?We will continue to monitor his platelet count ?Can continue with his methotrexate, he does follow with heme-onc as an outpatient 3. GERD ?Stable ?Continue 4. BPH ?Stable Continue with finasteride and Terazosin DVT: SCDs Charges/Coding Visit Charges Inpatient E&M: 80830 Subs Hosp L2
[2021-08-17] MEDS: 0.9% Normal Saline 1,000 ML 75 ML IV (18:48)
[2021-08-17] MEDS: Acetaminophen 325 MG Tablet 650 MG PO (19:49)
[2021-08-17] MEDS: Atorvastatin Calcium 80 MG Tablet PO (21:01)
[2021-08-18] VITALS (14 sets, daily range): BP systolic 132–162; BP diastolic 89–103; PULSE 86–128; RESP 18–20; TEMP 36.4–37; O2SAT 94–97; BMI 32.1
[2021-08-18] MEDS: Metoprolol Tartrate 5 MG/5 ML Vial IV ×2 (05:09→06:27)
[2021-08-18] MEDS: 0.9% Normal Saline 1,000 ML 75 ML IV ×2 (06:33→20:54)
[2021-08-18 06:51] LABS: Absolute Lymphocyte Count 0.55 X10^3/uL (0.83-4.51); Absolute Neutrophil Count 5.9 X10^3/uL (2.0-7.7); Basophil# 0.04 X10^3/uL; Basophil% 0.5 % (0-1); Eosinophil# 0.07 X10^3/uL; Hematocrit 37.7 % (40-54); Hemoglobin 13.6 g/dL (13.0-16.5); Lymphocyte # 0.55 X10^3/ul (0.83-4.51); Lymphocyte % 7.5 % (19-41); Mean Corp Hgb Conc 36.1 g/dL (32-36); Mean Corpuscular Hgb 35.4 pg (27.0-32.0); Mean Corpuscular Volume 98.2 fL (80-94); Mean Platelet Vol. 12.9 fl (6.2-12.0); Monocyte# 0.63 X10^3/uL; Monocyte% 8.6 % (0-10); NRBC Flagged by Analyzer 0 % (0-5); Neutrophil # 5.94 X10^3/uL (2.7-7.7); Neutrophil % 81.3 % (47-70); POSITIVE COUNT YES; POSITIVE DIFFERENTIAL YES; Platelet Count 77 K/mm3 (150-450); RBC Distribution Width CV 14.1 % (11.6-14.6); RBC Distribution Width SD 50.5 fl (35.1-43.9); Red Blood Count 3.84 M/mm3 (4.6-6.2); White Blood Count 7.3 K/mm3 (4.4-11.0)
[2021-08-18 06:57] LABS: Differential Indicated SCAN CRITERIA MET
[2021-08-18 07:10] LABS: Anion Gap 8 (5-15); BUN 21 mg/dL (7-18); BUN/Creat Ratio 18.1 RATIO (10-20); Calcium,Total 8.7 mg/dL (8.5-10.1); Chloride 107 mmol/L (98-107); Creatinine, Serum 1.16 mg/dL (0.70-1.30); EST Glomerular Filtration Rate 65 mL/min (>60); Est Glom Filt Rate - Afr Amer 79 mL/min (>60); Estimated Creatinine Clearance 54.18 ml/min; Glucose 107 mg/dL (74-106); Potassium 3.8 mmol/L (3.5-5.1); Sodium Level 136 mmol/L (136-145)
[2021-08-18 07:16] LABS: Platelet Estimate MOD DEC (ADEQ)
--- NOTE | 2021-08-18 08:50 | CASEMGMT ---
Per MAID HOUSEKEEPER patient was asking to talk to SW as he remembers talking to a SW on Wednesday. However, he was not feeling well and does not know what he said. SW met with patient. Introduced self and role at [facility]. SW asked patient if he still feels like he needs to go to a halfway for short term rehab. Patient stated, no. Patient said he told the SW he was not feeling well and maybe he would feel better the beginning of the week. SW asked patient if he feels like he needs to go to somewhere for rehab or if he feels okay to go home when ready. He wants to go home. He was not sure if he wanted home health or not. SW told him that SW and SHELLY METCALF will continue to follow and check back in with him. Ángela Agudelo MANAGER ELIGIBILITY MAMADOU
[2021-08-18] MEDS: Metoprolol Tartrate 100 MG Tablet PO ×2 (09:11→20:50)
[2021-08-18] MEDS: Folic Acid 1 MG Tablet PO (09:11)
[2021-08-18] MEDS: Doxazosin 4 MG Tablet 8 MG PO (09:11)
[2021-08-18] MEDS: Loratadine 10 MG Tablet PO (09:11)
[2021-08-18] MEDS: Aspirin 81 MG TAB.CHEW PO (09:11)
[2021-08-18] MEDS: Allopurinol 100 MG Tablet 200 MG PO (09:12)
[2021-08-18] MEDS: Finasteride 5 MG Tablet PO (09:12)
[2021-08-18] MEDS: Pantoprazole Sodium 40 MG Tablet PO (09:12)
--- NOTE | 2021-08-18 09:12 | CASEMGMT ---
Addendum entered by Angela Oswald 08/18/21 09:29: Per Masha BRAVO, pt's daughter at bedside and wants to speak with CM regarding SNF for pt. This RN CM to room and pt now does not remember telling SW that he wanted to go home. Pt with some confusion at this time and is A/O x2 at this time(person, place). Pt is getting timing confused and references SW conversation from Wednesday and this RN CM tried to re-direct to SW today. Daughter states pt has had intermittent confusion since COVID. Daughter states when pt was not confused earlier in this visit, they had agreed for pt to have rehab at SNF prior to return home and they would like to continue with this plan. Pt does states agreement to this RN CM at this time. Janet QUILES aware, voices understanding. Soraya BRAVO CM Original Note: Per Janet QUILES, pt wants to go home at discharge. Pt is already active with [facility] for SN, PT and SUE order placed. CM to follow for any further discharge planning/needs. Soraya BRAVO CM
[2021-08-18] MEDS: Menthol/Lanolin/Calamine/Znox 113 GM Tube 1 APPLIC TOPICAL ×2 (09:17→21:00)
--- NOTE | 2021-08-18 09:39 | CASEMGMT ---
Patient and his daughter agree to [facility] referral. SW called [facility] and left a message regarding referral and also faxed information. Ángela Agudelo SCARFING MACHINE OPERATOR MAMADOU
[2021-08-18 11:29] LABS: D-Dimer Quantitative (DVT/PE) 7.66 FEU/ug/m (0.27-0.49)
--- NOTE | 2021-08-18 11:34 | CT_ITS ---
STUDY: CTA CHEST REASON FOR EXAM: Male, 76 years old. Elevated D-dimer RADIATION DOSAGE (If Supplied By Facility): CTDIvol = ( 16.18 ) mGy, DLP = ( 488.66 ) mGycm TECHNIQUE: The examination was performed with the intravenous administration of 100 CC ISOVUE 370. Post-processing of the angiographic images was performed, with multiplanar reformation and 3D reconstruction. Individualized dose optimization techniques were used for this CT. COMPARISON: Comparison is made with prior study dated 08/09/2021. FINDINGS: There are small nonocclusive intraluminal filling defects in branches of the right upper lobe pulmonary artery in keeping with pulmonary emboli. Small intraluminal filling defects are also seen in branches of the left upper lobe pulmonary arterial branches. Normal thoracic aorta and visualized great vessels. There is no demonstrated aortic dissection. There are calcifications of the coronary arteries. Small pericardial effusion. Cardiomegaly. Normal mediastinum. Normal hilar regions. Normal visualized trachea and bronchi. Small bilateral pleural effusions slightly worse on the right side with bibasilar pulmonary infiltrates worse in the right lower lung Normal chest wall structures. There are degenerative changes of thoracic spine. Splenomegaly. CT/CTA Chest W/WO Contrast IMPRESSION: Bilateral pulmonary embolism as described. Small bilateral effusions worse on the right side with bibasilar atelectasis and/or infiltrates. Electronically Signed: Dylan Florez MD at 12:51 EST ,
--- NOTE | 2021-08-18 11:45 | CASEMGMT ---
Pt's Eliquis e-scribed to [facility] and call to [facility] at this time. Per tech, pt has no co-pay for Eliquis at this time. Soraya BRAVO CM
--- NOTE | 2021-08-18 13:11 | PN.HOSP_ITS ---
Documented by User: Sven BRIAN 08/18/21 13:27 Subjective Subjective Patient is a 76-year-old male comfortably resting in bed, alert and orient x3. Patient denies development of any new symptoms overnight. Does not appear in acute distress. Objective Data Objective Data Vital Signs: Vital Signs Temp Pulse Resp BP Pulse Ox 97.7 F L 86 20 H 132/91 H 95 08/18/21 10:47 08/18/21 10:47 08/18/21 10:47 08/18/21 10:47 08/18/21 10:47 Oxygen Flow Rate (L/min) 2 Oxygen Delivery Method Room Air Weight: 217 lb 11.198 oz Body Mass Index (BMI) 32.1 Intake & Output: Intake and Output for Last 24 Hours 08/16/21 08/17/21 08/18/21 23:59 23:59 23:59 Intake Total 3889.33 / 3891.66 2728.50 / 2728.50 1221.25 / 1221.25 Output Total 700 / 700 975 / 975 550 / 550 Balance 3189.33 / 3191.66 1753.50 / 1753.50 671.25 / 671.25 Medical Nutrition Assessment Dietitian: Malnutrition Criteria Met Start: 08/16/21 14:51 Freq: Status: Active Protocol: Document 08/16/21 14:51 RMA (Rec: 08/16/21 14:51 RMA [id number]) Nutrition Malnutrition Evidence of Malnutrition Exists Yes Malnutrition (severe): Acute Illness/Injury Evidenced By Suboptimal Energy Intake ( Severe),Weight Loss (Severe) Clinical Problem Acute Disease or Injury Related Malnutrition Etiology Severe protein-calorie malnutrition in the context of acute recent illness related to inadequate oral intake Signs/Symptoms as evidenced by 5% wt loss x past 2 weeks, pt refuses oral nutrition supplementation and PO meeting less than 50-75% estimated nutrition needs Status Active Problem Recommendation Dietitian Recommendations/Changes Will liberalize diet to Regular/no added salt given signs and symptoms of malnutrition & pt resistant to oral nutrition supplements. Lab / Micro Data Result Diagrams: 08/18/21 06:16 08/18/21 06:16 Labs: Laboratory Results - last 24 hr 08/18/21 06:16: WBC 7.3, RBC 3.84 L, Hgb 13.6, Hct 37.7 L, MCV 98.2 H, MCH 35.4 H, MCHC 36.1 H, RDW Std Deviation 50.5 H, RDW Coeff of Naomie 14.1, Plt Count 77 L, MPV 12.9 H, Immature Gran % (Auto) 1.100 H, Neut % (Auto) 81.3 H, Lymph % (Auto) 7.5 L, [place] % (Auto) 8.6, Eos % (Auto) 1.0, Baso % (Auto) 0.5, Absolute Neuts (auto) 5.9, Absolute Lymphs (auto) 0.55 L, Nucleated RBC % 0, Platelet Estimate MOD 08/18/21 06:16: Sodium 136, Potassium 3.8, Chloride 107, Carbon Dioxide 21.0, Anion Gap 8, BUN 21 H, Creatinine 1.16, Estim Creat Clear Calc 54.18, Est GFR (MDRD) Af Amer 79, Est GFR (MDRD) Non-Af 65, BUN/Creatinine Ratio 18.1, Glucose 107 H, Calcium 8.7 08/18/21 10:40: D-Dimer Quant (PE/DVT) 7.66 H* Radiography Diagnostic Testing: Radiology Impression Chest CTA 08/18/21 11:34 IMPRESSION: Bilateral pulmonary embolism as described. Small bilateral effusions worse on the right side with bibasilar atelectasis and/or infiltrates. Electronically Signed: Dylan Florez MD at 12:51 EST Reading Location ID and State: [address] [place] [address] , Service support , Physical Exam Const alert, oriented x3 and no apparent distress HEENT head/scalp atraumatic and moist oral mucous membranes Head and Scalp: normocephalic Eyes PERRL and conjunctivae normal Neck no lymphadenopathy, supple and no JVD Resp normal respiratory effort, no retractions and no use of accessory muscles Cardio regular rhythm and no JVD Rate: tachycardic GI normal to inspection, nondistended, normoactive bowel sounds Extremity normal to inspection Skin no rashes or lesions noted Neuro CN's II-XII intact bilaterally Psych affect normal Assessment & Plan Assessment/Plan (1) Bilateral pulmonary embolism: (2) Brain TIA: (3) CONCHIS (acute kidney injury): PLAN: Day 3 Discharge planning: Current plan is to discharge to SNF when medically ready. 1) strokelike symptoms with generalized weakness Stroke ruled out, MRI is negative for acute stroke. Possibly TIA. CTA of the head/neck demonstrates bilateral ICA stenosis of greater than 70%. Continue aspirin and statin therapy, will discharge to SNF for ongoing weakness. 2) bilateral PE CT?A demonstrated bilateral PEs. Imaging pursued given overnight tachycardia as well as recent history of COVID-19 infection. Patient's respiratory status not compromised, patient is not tachypneic and he is currently satting 95% on room air. Will initiate Eliquis 10 mg p.o. twice daily for 7 days, then continue to 5 mg p.o. twice daily thereafter, will need to monitor for bleed given patient's history of thrombocytopenia. 3) recent COVID-19 infection Patient was diagnosed with COVID-19 on 08/06/2021, although did not require steroids or antiviral treatment as he was on room air. Patient has been vaccinated against COVID-19. Likely contributes #2. 4) chronic thrombocytopenia Follows with heme-onc as an outpatient, complicates #2. 5) GERD Continue PPI. 6) BPH Continue finasteride and Terazosin. DVT prophylaxis -therapeutic Eliquis. Patient seen by Sven Madison PA-C, under the supervision of Dr. Romero. Time spent on patient care: 12 minutes. Documented by User: Dr. Minor Romero MD 08/18/21 14:48 Objective Data Lab / Micro Data Result Diagrams: 08/18/21 06:16 08/18/21 06:16 Assessment & Plan Addt'l Comments This patient was seen in conjunction with Sven Madison PA-C. I have independently interviewed and examined the patient and reviewed pertinent historical, laboratory, and other data. Please refer to Sven Madison PA-C's note for details of this patient's presentation, findings, and recommendations. I have reviewed Sven Madison PA-C's note and concur with documented findings. In brief, patient is a 76-year-old gentleman with recent COVID-19 infection who was brought to the emergency department with progressive generalized weakness as well as some expressive aphasia. Patient admitted to monitored bed for subsequent work-up. MRI obtained came back negative for acute CVA. Patient went into A. fib with RVR started on Cardizem. Repeat D-dimer came back at 7 CT obtained demonstrated bilateral pulmonary embolism subsequently started on systemic anticoagulation Physical Examination: GENERAL: cooperative HEENT: Atraumatic; EYES; Anicteric, Normal Conjunctiva NECK; supple, normal thyroid, RESPIRATORY: Diminished to auscultation CARDIOVASCULAR: Regular S1 S2, GI: soft, normoactive bowel sounds, : No Renal angle tenderness; EXTREMITIES: No edema, no clubbing, MUSCULOSKELETAL: no muscle wasting NEURO: Awake; no lateralizing signs. SKIN: No Rash PSYCH; Flat affect Assessment: 1. Acute pulmonary embolism 2. Paroxysmal A. fib 3. TIA 4. Chronic thrombocytopenia 5. Recent COVID-19 infection 6. GERD 7. Physical deconditioning 8. Obesity with BMI of 32.1 Recommendations: 1. I have discussed the results of my overview and impressions with the patient 2. Options for management were reviewed Total time spent by myself and the advanced practice practitioner evaluating patient, reviewing labs, subsequent management decisions, discussion with patient as well as other providers 45 minutes ( 25 of which was spent by myself) Charges/Coding Visit Charges Inpatient E&M: 68035 [facility] Hosp L3
[2021-08-18] MEDS: APIXABAN 5 MG TABLET 10 MG PO ×2 (14:38→21:01)
--- NOTE | 2021-08-18 15:11 | CASEMGMT ---
ETTA spoke with Cr at [facility] and they are full. ETTA spoke with [facility] in TCU and they would have a bed for patient on Wednesday. ETTA spoke with physician and he thinks patient will be here until then. ETTA let patient's daughter know that [facility] TCU will have a bed for patient on Wednesday. Plan: TCU under skilled level of care. Ángela Agudelo PHARMACY TECHNICIAN TRAINEEBilly CEDILLO
[2021-08-18] MEDS: dilTIAZem CD 120 MG Capsule PO (17:08)
[2021-08-18] MEDS: Atorvastatin Calcium 80 MG Tablet PO (21:01)
--- NOTE | 2021-08-18 22:17 | NURSING ---
08/18/21 fluids were infusing between 1952 and 2053, MAR would not let me change the time.
[2021-08-18] MEDS: Ondansetron 4 MG/2 ML Vial IV (23:40)
[2021-08-19 02:31] VITALS: BP 138/118; PULSE 101; RESP 18; TEMP 37; O2SAT 92
[2021-08-19 03:30] VITALS: PULSE 96
[2021-08-19 06:07] VITALS: BP 142/87; PULSE 108; RESP 20; TEMP 36.6; O2SAT 93
[2021-08-19 06:21] LABS: Absolute Lymphocyte Count 1.17 X10^3/uL (0.83-4.51); Absolute Neutrophil Count 5.9 X10^3/uL (2.0-7.7); Basophil# 0.05 X10^3/uL; Basophil% 0.6 % (0-1); Eosinophil# 0.13 X10^3/uL; Eosinophils% 1.6 % (0-5); Hemoglobin 14.3 g/dL (13.0-16.5); Lymphocyte # 1.17 X10^3/ul (0.83-4.51); Lymphocyte % 14.4 % (19-41); Mean Corp Hgb Conc 35.8 g/dL (32-36); Mean Corpuscular Hgb 35.6 pg (27.0-32.0); Mean Corpuscular Volume 99.5 fL (80-94); Mean Platelet Vol. 10.9 fl (6.2-12.0); Monocyte# 0.81 X10^3/uL; NRBC Flagged by Analyzer 0 % (0-5); Neutrophil # 5.87 X10^3/uL (2.7-7.7); Neutrophil % 72.4 % (47-70); POSITIVE COUNT YES; Platelet Count 84 K/mm3 (150-450); RBC Distribution Width CV 14.3 % (11.6-14.6); RBC Distribution Width SD 52.1 fl (35.1-43.9); Red Blood Count 4.02 M/mm3 (4.6-6.2); White Blood Count 8.1 K/mm3 (4.4-11.0)
[2021-08-19 06:46] LABS: BUN 17 mg/dL (7-18); BUN/Creat Ratio 15.2 RATIO (10-20); Creatinine, Serum 1.12 mg/dL (0.70-1.30); EST Glomerular Filtration Rate 68 mL/min (>60); Est Glom Filt Rate - Afr Amer 82 mL/min (>60); Estimated Creatinine Clearance 56.11 ml/min; Glucose 85 mg/dL (74-106); Sodium Level 136 mmol/L (136-145)
[2021-08-19 06:47] LABS: Anion Gap 7 (5-15); Chloride 105 mmol/L (98-107); Potassium 3.8 mmol/L (3.5-5.1)
[2021-08-19 06:56] VITALS: PULSE 99
[2021-08-19] MEDS: Folic Acid 1 MG Tablet PO (09:02)
[2021-08-19 09:03] VITALS: PULSE 126
[2021-08-19] MEDS: Pantoprazole Sodium 40 MG Tablet PO (09:03)
[2021-08-19] MEDS: APIXABAN 5 MG TABLET 10 MG PO (09:03)
[2021-08-19] MEDS: Allopurinol 100 MG Tablet 200 MG PO (09:03)
[2021-08-19] MEDS: Menthol/Lanolin/Calamine/Znox 113 GM Tube 1 APPLIC TOPICAL (09:03)
[2021-08-19] MEDS: Aspirin 81 MG TAB.CHEW PO (09:03)
[2021-08-19] MEDS: dilTIAZem CD 120 MG Capsule PO (09:03)
[2021-08-19] MEDS: Doxazosin 4 MG Tablet 8 MG PO (09:03)
[2021-08-19] MEDS: Metoprolol Tartrate 100 MG Tablet PO (09:03)
[2021-08-19] MEDS: Finasteride 5 MG Tablet PO (09:03)
--- NOTE | 2021-08-19 10:00 | CASEMGMT ---
Call to [facility] and message left for Judit that pt's plan is for TCU at discharge. Soraya BRAVO CM
[2021-08-19 12:08] VITALS: BP 117/79; PULSE 103; RESP 20; TEMP 35.6; O2SAT 94
--- NOTE | 2021-08-19 12:40 | PCM.TXEXTCAR ---
Documented by User: Sven BRIAN 08/19/21 13:01 Diet 08/16/21 14:52 Diet: Regular - No Added Salt Food consistency:: Regular Liquid Consistency:: Regular/Thin Is pt able to select menu?: No Therapies Weight Bearing: Weight bearing as tolerated Physical Therapy: Eval and Treat Occupational Therapy: Eval and Treat Speech Therapy: Eval and Treat Problem/Diagnosis (1) Bilateral pulmonary embolism: Status: Acute (2) Brain TIA: Status: Acute (3) CONCHIS (acute kidney injury): Status: Acute Allergies/Procedures Done in Hospital Allergies No Known Allergies Allergy (Verified 08/15/21 11:47) Type of Care/Length of Stay Estimated LOS: Convalescent Care Less Than 30 days Type of Care Needed: Skilled Rehab Potential: Good Prognosis: Good Additional Orders/Day of Discharge Day of Discharge: 08/19/21 Dietary and Speech Recommendations Dietitian Recommendations/Changes: Will liberalize diet to Regular/no added salt given signs and symptoms of malnutrition & pt resistant to oral nutrition supplements. Speech Linguistic Eval Summary: Fully oriented, alert and conversant. Speech is clear and intelligible - slurred speech has resolved. No aphasia, apraxia, or dysarthria. Confrontation and divergent naming WNL. Immediate memory/recall WNL. Patient denies any cognitive ling function compared to baseline. Currently on a reg/thin diet. Respiratory standards met, oxygenating on room air. Nursing denies any concerns at this time. No further skilled ST warranted at this time. Please re-consult should status change. Discharge Plan Admission Admit Date/Time: 08/16/21 12:15 Primary Reason for Your Visit: Stroke like symptoms. Attending Provider: Minor Romero Primary Care Provider: Brad Forrest Instructions Additional Instructions / Restrictions: * Eliquis: continue taking 10mg (2 tablets) twice daily for another 6 days, then take 5mg (1 tablet) twice daily thereafter. Discharge Orders/Prescriptions Prescriptions: New metoprolol tartrate 100 mg Tablet 100 mg PO BID Qty: 60 RF: 0 diltiazem HCl 120 mg Capsule,Extended Release 24hr 120 mg PO DAILY Qty: 30 RF: 0 Eliquis 5 mg Tablet 10 mg PO BID Qty: 74 RF: 0 Continued clonidine HCl 0.1 MG tablet 0.1 mg PO TID RF: 0 allopurinol 100 MG tablet 200 mg PO DAILY RF: 0 methotrexate sodium 2.5 MG tablet 15 mg PO BETANCOURT RF: 0 gabapentin [Neurontin] 300 MG capsule 300 mg PO DAILY RF: 0 folic acid 1 MG tablet 1 mg PO DAILY RF: 0 hydrochlorothiazide 25 MG tablet 12.5 mg PO DAILY RF: 0 terazosin 10 MG capsule 10 mg PO DAILY MDD urinary RF: 0 finasteride 5 MG tablet 5 mg PO DAILY RF: 0 loratadine [Allergy Relief (loratadine)] 10 MG tablet 10 mg PO DAILY PRN (Reason: ALLERGIES) RF: 0 cholecalciferol (vitamin D3) [Vitamin D3] 2,000 UNIT capsule 2,000 unit PO DAILY RF: 0 spironolactone 25 mg Tablet 25 mg PO DAILY RF: 0 pantoprazole 40 mg Tablet,Delayed Release (Dr/Ec) 40 mg PO DAILY Qty: 30 RF: 0 amlodipine 5 mg Tablet 10 mg PO DAILY 30 Days Qty: 60 RF: 0 lisinopril 40 MG tablet 40 mg PO BID RF: 0 Discontinued metoprolol tartrate 50 mg Tablet 50 mg PO BID Qty: 60 RF: 0 Referrals / Follow Up: Brad Forrest DO [Primary Care Provider] - Within 2 Weeks Disposition Disposition (needs filled in before D/C Order can be placed): [facility] Documented by User: Dr. Minor Romero MD 08/19/21 13:07 Allergies/Procedures Done in Hospital Allergies No Known Allergies Allergy (Verified 08/15/21 11:47) Discharge Plan Admission Admit Date/Time: 08/16/21 12:15 Primary Reason for Your Visit: Stroke like symptoms. Attending Provider: Minor Romero Primary Care Provider: Brad Forrest Instructions Additional Instructions / Restrictions: * Eliquis: continue taking 10mg (2 tablets) twice daily for another 6 days, then take 5mg (1 tablet) twice daily thereafter. Discharge Orders/Prescriptions Prescriptions: New metoprolol tartrate 100 mg Tablet 100 mg PO BID Qty: 60 RF: 0 diltiazem HCl 120 mg Capsule,Extended Release 24hr 120 mg PO DAILY Qty: 30 RF: 0 Eliquis 5 mg Tablet 10 mg PO BID Qty: 74 RF: 0 Continued clonidine HCl 0.1 MG tablet 0.1 mg PO TID RF: 0 allopurinol 100 MG tablet 200 mg PO DAILY RF: 0 methotrexate sodium 2.5 MG tablet 15 mg PO BETANCOURT RF: 0 gabapentin [Neurontin] 300 MG capsule 300 mg PO DAILY RF: 0 folic acid 1 MG tablet 1 mg PO DAILY RF: 0 hydrochlorothiazide 25 MG tablet 12.5 mg PO DAILY RF: 0 terazosin 10 MG capsule 10 mg PO DAILY MDD urinary RF: 0 finasteride 5 MG tablet 5 mg PO DAILY RF: 0 loratadine [Allergy Relief (loratadine)] 10 MG tablet 10 mg PO DAILY PRN (Reason: ALLERGIES) RF: 0 cholecalciferol (vitamin D3) [Vitamin D3] 2,000 UNIT capsule 2,000 unit PO DAILY RF: 0 spironolactone 25 mg Tablet 25 mg PO DAILY RF: 0 pantoprazole 40 mg Tablet,Delayed Release (Dr/Ec) 40 mg PO DAILY Qty: 30 RF: 0 amlodipine 5 mg Tablet 10 mg PO DAILY 30 Days Qty: 60 RF: 0 lisinopril 40 MG tablet 40 mg PO BID RF: 0 Discontinued metoprolol tartrate 50 mg Tablet 50 mg PO BID Qty: 60 RF: 0 Referrals / Follow Up: Brad Forrest DO [Primary Care Provider] - Within 2 Weeks Disposition Disposition (needs filled in before D/C Order can be placed): [facility]
--- NOTE | 2021-08-19 12:43 | CASEMGMT ---
Patient is ready for discharge to [facility] TCU. Plan: d/c to [facility] TCU under skilled level of care. Ángela CEDILLO
--- NOTE | 2021-08-19 13:40 | PCM.DC.SUM ---
Documented by User: Sven BRIAN 08/19/21 13:53 Providers Date of Admission: 08/16/21 Date of Discharge: 08/19/21 Primary Care Physician: Dr. Brad Forrest DO Reason For Visit: CVA Diagnosis Discharge Diagnosis (1) Bilateral pulmonary embolism: Status: Acute Code(s): I26.99 - Other pulmonary embolism without acute cor pulmonale (2) Brain TIA: Status: Acute Code(s): G45.9 - Transient cerebral ischemic attack, unspecified (3) CONCHIS (acute kidney injury): Status: Acute Code(s): N17.9 - Acute kidney failure, unspecified Medications at Discharge Home Medications allopurinol 200 mg PO DAILY 01/11/17 clonidine HCl 0.1 mg PO TID 01/11/17 finasteride 5 mg PO DAILY 01/11/17 folic acid 1 mg PO DAILY 01/11/17 gabapentin [Neurontin] 300 mg PO DAILY 01/11/17 hydrochlorothiazide 12.5 mg PO DAILY 01/11/17 loratadine [Allergy Relief (loratadine)] 10 mg PO DAILY PRN 01/11/17 methotrexate sodium 15 mg PO BETANCOURT 01/11/17 terazosin 10 mg PO DAILY MDD urinary 01/11/17 cholecalciferol (vitamin D3) [Vitamin D3] 2,000 unit PO DAILY 07/12/17 spironolactone 25 mg PO DAILY 08/06/21 amlodipine 10 mg PO DAILY 30 Days #60 tab 08/13/21 pantoprazole 40 mg PO DAILY #30 tab 08/13/21 lisinopril 40 mg PO BID 08/15/21 apixaban [Eliquis DVT-PE Treat 30D Start] 5 mg PO BID #74 tab 08/19/21 diltiazem HCl 120 mg PO DAILY #30 cap 08/19/21 metoprolol tartrate 100 mg PO BID #60 tab 08/19/21 Hospital Course Summary of Care Provided Minutes Spent on Discharge: 20 Hospital Course: Patient is a 76-year-old male who was admitted to [facility] on 08/15/2021 for evaluation and management of generalized weakness. Course and management as below. 1) strokelike symptoms with generalized weakness Stroke ruled out, MRI is negative for acute stroke. Possibly TIA. CT-A of the head/neck demonstrates bilateral ICA stenosis of greater than 70%. Discharge to TCU for ongoing skill therapy and care. 2) bilateral PE CT?A demonstrated bilateral PEs. Imaging pursued given overnight tachycardia on 08/17 as well as recent history of COVID-19 infection. Patient's respiratory status not compromised, patient is not tachypneic and he is currently satting 95% on room air. Will initiate Eliquis 10 mg p.o. twice daily for 7 days, then continue to 5 mg p.o. twice daily thereafter. 3) Atrial Fibriilation, new onset On the evening of 08/17 patient developed a tachycardia and EKG demonstrated A. fib with RVR. Patient was initiated on Cardizem bolus and drip, and then transition to metoprolol. Patient's rate still elevated into the 130s when only on metoprolol, Cardizem was added to patient's regimen and rate was controlled. We will continue metoprolol and Cardizem on discharge, patient is anticoagulated for #2. 4) recent COVID-19 infection Patient was diagnosed with COVID-19 on 08/06/2021, although did not require steroids or antiviral treatment as he was on room air. Patient has been vaccinated against COVID-19. Likely contributes #2. 5) chronic thrombocytopenia Follows with heme-onc as an outpatient, complicates #2. 6) GERD Continue PPI. 7) BPH Continue finasteride and Terazosin. Patient seen by Sven Madison PA-C, under the supervision of Dr. Romero. Medical Records Data Medical Nutrition Assessment Dietitian: Malnutrition Criteria Met Start: 08/16/21 14:51 Freq: Status: Active Protocol: Document 08/16/21 14:51 RMA (Rec: 08/16/21 14:51 RMA [id number]) Nutrition Malnutrition Evidence of Malnutrition Exists Yes Malnutrition (severe): Acute Illness/Injury Evidenced By Suboptimal Energy Intake ( Severe),Weight Loss (Severe) Clinical Problem Acute Disease or Injury Related Malnutrition Etiology Severe protein-calorie malnutrition in the context of acute recent illness related to inadequate oral intake Signs/Symptoms as evidenced by 5% wt loss x past 2 weeks, pt refuses oral nutrition supplementation and PO meeting less than 50-75% estimated nutrition needs Status Active Problem Recommendation Dietitian Recommendations/Changes Will liberalize diet to Regular/no added salt given signs and symptoms of malnutrition & pt resistant to oral nutrition supplements. Weight / BMI Weight Weight: 217 lb 11.198 oz Body Mass Index (BMI) 32.1 ABG / Lab / Microbiology Data Result Diagrams: 08/19/21 06:10 08/19/21 06:10 Laboratory: Laboratory Results - last 24 hr 08/19/21 06:10: WBC 8.1, RBC 4.02 L, Hgb 14.3, Hct 40.0, MCV 99.5 H, MCH 35.6 H, MCHC 35.8, RDW Std Deviation 52.1 H, RDW Coeff of Naomie 14.3, Plt Count 84 L, MPV 10.9, Immature Gran % (Auto) 1.000 H, Neut % (Auto) 72.4 H, Lymph % (Auto) 14.4 L, Ballard % (Auto) 10.0, Eos % (Auto) 1.6, Baso % (Auto) 0.6, Absolute Neuts (auto) 5.9, Absolute Lymphs (auto) 1.17, Nucleated RBC % 0 08/19/21 06:10: Sodium 136, Potassium 3.8, Chloride 105, Carbon Dioxide 24.0, Anion Gap 7, BUN 17, Creatinine 1.12, Estim Creat Clear Calc 56.11, Est GFR (MDRD) Af Amer 82, Est GFR (MDRD) Non-Af 68, BUN/Creatinine Ratio 15.2, Glucose 85, Calcium 9.0 Microbiology: Microbiology 08/19/21 12:45 Nasal Secretion SARS-CoV-2 Antigen (Rapid) - Final Meaningful Use Info Meaningful Use Diagnoses (Choose all that apply): VTE VTE Anticoag overlap given w/in hospital stay or rx'd at ut?: Yes Pt receive overlap for 5 days?: Yes Discharge Plan Admission Admit Date/Time: 08/16/21 12:15 Primary Reason for Your Visit: Stroke like symptoms. Attending Provider: Minor Romero Primary Care Provider: Brad Forrest Instructions Additional Instructions / Restrictions: * Eliquis: continue taking 10mg (2 tablets) twice daily for another 6 days, then take 5mg (1 tablet) twice daily thereafter. Discharge Orders/Prescriptions Prescriptions: New Eliquis DVT-PE Treat 30D Start 5 mg (74 tabs) tablets,dose pack 5 mg PO BID Qty: 74 RF: 0 diltiazem HCl 120 mg capsule,extended release 24hr 120 mg PO DAILY Qty: 30 RF: 0 metoprolol tartrate 100 mg tablet 100 mg PO BID Qty: 60 RF: 0 Continued clonidine HCl 0.1 MG tablet 0.1 mg PO TID RF: 0 allopurinol 100 MG tablet 200 mg PO DAILY RF: 0 methotrexate sodium 2.5 MG tablet 15 mg PO BETANCOURT RF: 0 gabapentin [Neurontin] 300 MG capsule 300 mg PO DAILY RF: 0 folic acid 1 MG tablet 1 mg PO DAILY RF: 0 hydrochlorothiazide 25 MG tablet 12.5 mg PO DAILY RF: 0 terazosin 10 MG capsule 10 mg PO DAILY MDD urinary RF: 0 finasteride 5 MG tablet 5 mg PO DAILY RF: 0 loratadine [Allergy Relief (loratadine)] 10 MG tablet 10 mg PO DAILY PRN (Reason: ALLERGIES) RF: 0 cholecalciferol (vitamin D3) [Vitamin D3] 2,000 UNIT capsule 2,000 unit PO DAILY RF: 0 spironolactone 25 mg Tablet 25 mg PO DAILY RF: 0 pantoprazole 40 mg Tablet,Delayed Release (Dr/Ec) 40 mg PO DAILY Qty: 30 RF: 0 amlodipine 5 mg Tablet 10 mg PO DAILY 30 Days Qty: 60 RF: 0 lisinopril 40 MG tablet 40 mg PO BID RF: 0 Discontinued metoprolol tartrate 50 mg Tablet 50 mg PO BID Qty: 60 RF: 0 Referrals / Follow Up: Brad Forrest DO [Primary Care Provider] - Within 2 Weeks Disposition Disposition (needs filled in before D/C Order can be placed): [facility] Documented by User: Dr. Minor Romero MD 08/19/21 14:25 Providers Date of Admission: 08/16/21 Reason For Visit: CVA Medications at Discharge Home Medications allopurinol 200 mg PO DAILY 01/11/17 clonidine HCl 0.1 mg PO TID 01/11/17 finasteride 5 mg PO DAILY 01/11/17 folic acid 1 mg PO DAILY 01/11/17 gabapentin [Neurontin] 300 mg PO DAILY 01/11/17 hydrochlorothiazide 12.5 mg PO DAILY 01/11/17 loratadine [Allergy Relief (loratadine)] 10 mg PO DAILY PRN 01/11/17 methotrexate sodium 15 mg PO BETANCOURT 01/11/17 terazosin 10 mg PO DAILY MDD urinary 01/11/17 cholecalciferol (vitamin D3) [Vitamin D3] 2,000 unit PO DAILY 07/12/17 spironolactone 25 mg PO DAILY 08/06/21 amlodipine 10 mg PO DAILY 30 Days #60 tab 08/13/21 pantoprazole 40 mg PO DAILY #30 tab 08/13/21 lisinopril 40 mg PO BID 08/15/21 apixaban [Eliquis DVT-PE Treat 30D Start] 5 mg PO BID #74 tab 08/19/21 diltiazem HCl 120 mg PO DAILY #30 cap 08/19/21 metoprolol tartrate 100 mg PO BID #60 tab 08/19/21 Hospital Course Operations None Summary of Care Provided Minutes Spent on Discharge: 35 Hospital Course: This patient was seen in conjunction with Sven Madison PA-C. I have independently interviewed and examined the patient and reviewed pertinent historical, laboratory, and other data. Please refer to Sven Madison PA-C's note for details of this patient's presentation, findings, and recommendations. I have reviewed Sven Madison PA-C's note and concur with documented findings. In brief, patient is a 76-year-old gentleman with recent COVID-19 infection who was brought to the emergency department with progressive generalized weakness as well as some expressive aphasia. Patient admitted to monitored bed for subsequent work-up. MRI obtained came back negative for acute CVA. Patient went into A. fib with RVR started on Cardizem. Repeat D-dimer came back at 7 CT obtained demonstrated bilateral pulmonary embolism subsequently started on systemic anticoagulation Physical Examination: GENERAL: cooperative HEENT: Atraumatic; EYES; Anicteric, Normal Conjunctiva NECK; supple, normal thyroid, RESPIRATORY: Diminished to auscultation CARDIOVASCULAR: Regular S1 S2, GI: soft, normoactive bowel sounds, : No Renal angle tenderness; EXTREMITIES: No edema, no clubbing, MUSCULOSKELETAL: no muscle wasting NEURO: Awake; no lateralizing signs. SKIN: No Rash PSYCH; Flat affect Assessment: 1. Acute pulmonary embolism 2. Paroxysmal A. fib 3. TIA 4. Chronic thrombocytopenia 5. Recent COVID-19 infection 6. GERD 7. Physical deconditioning 8. Obesity with BMI of 32.1 Hospital course; as documented above Total time spent by myself and the advanced practice practitioner evaluating patient, reviewing labs, subsequent management decisions, discussion with patient as well as other providers 35 minutes ( 20 of which was spent by myself) ABG / Lab / Microbiology Data Result Diagrams: 08/19/21 06:10 08/19/21 06:10 Discharge Plan Admission Admit Date/Time: 08/16/21 12:15 Primary Reason for Your Visit: Stroke like symptoms. Attending Provider: Minor Romero Primary Care Provider: Brad Forrest Instructions Additional Instructions / Restrictions: * Eliquis: continue taking 10mg (2 tablets) twice daily for another 6 days, then take 5mg (1 tablet) twice daily thereafter. Discharge Orders/Prescriptions Prescriptions: New Eliquis DVT-PE Treat 30D Start 5 mg (74 tabs) tablets,dose pack 5 mg PO BID Qty: 74 RF: 0 diltiazem HCl 120 mg capsule,extended release 24hr 120 mg PO DAILY Qty: 30 RF: 0 metoprolol tartrate 100 mg tablet 100 mg PO BID Qty: 60 RF: 0 Continued clonidine HCl 0.1 MG tablet 0.1 mg PO TID RF: 0 allopurinol 100 MG tablet 200 mg PO DAILY RF: 0 methotrexate sodium 2.5 MG tablet 15 mg PO BETANCOURT RF: 0 gabapentin [Neurontin] 300 MG capsule 300 mg PO DAILY RF: 0 folic acid 1 MG tablet 1 mg PO DAILY RF: 0 hydrochlorothiazide 25 MG tablet 12.5 mg PO DAILY RF: 0 terazosin 10 MG capsule 10 mg PO DAILY MDD urinary RF: 0 finasteride 5 MG tablet 5 mg PO DAILY RF: 0 loratadine [Allergy Relief (loratadine)] 10 MG tablet 10 mg PO DAILY PRN (Reason: ALLERGIES) RF: 0 cholecalciferol (vitamin D3) [Vitamin D3] 2,000 UNIT capsule 2,000 unit PO DAILY RF: 0 spironolactone 25 mg Tablet 25 mg PO DAILY RF: 0 pantoprazole 40 mg Tablet,Delayed Release (Dr/Ec) 40 mg PO DAILY Qty: 30 RF: 0 amlodipine 5 mg Tablet 10 mg PO DAILY 30 Days Qty: 60 RF: 0 lisinopril 40 MG tablet 40 mg PO BID RF: 0 Discontinued metoprolol tartrate 50 mg Tablet 50 mg PO BID Qty: 60 RF: 0 Referrals / Follow Up: Brad Forrest DO [Primary Care Provider] - Within 2 Weeks Disposition Disposition (needs filled in before D/C Order can be placed): [facility] Charges/Coding Visit Charges Inpatient E&M: 84908 Disch Hosp Hospital Course Operations None
== END 2021-08-19 14:10 | disposition skilled nursing facility (03) | DRG 640 ==
LOC: ED 13:48 → PCU 14:04
PROVIDERS: Internal Medicine; Physician Assistant; Admitting Provider Family Medicine; Emergency Provider Emergency Medicine; PCP Family Medicine; Visit Provider Internal Medicine
DX: E86.0 Dehydration (principal); I26.99 Other pulmonary embolism without acute cor pulmonale; E43 Unspecified severe protein-calorie malnutrition; N17.9 Acute kidney failure, unspecified; G45.9 Transient cerebral ischemic attack, unspecified; D69.6 Thrombocytopenia, unspecified; I48.0 Paroxysmal atrial fibrillation; I10 Essential (primary) hypertension; I45.10 Unspecified right bundle-branch block; I65.23 Occlusion and stenosis of bilateral carotid arteries; K21.9 Gastro-esophageal reflux disease without esophagitis; M48.02 Spinal stenosis, cervical region; N40.0 Benign prostatic hyperplasia without lower urinary tract symptoms; K58.9 Irritable bowel syndrome, unspecified; G47.30 Sleep apnea, unspecified; E66.9 Obesity, unspecified; Z86.16 Personal history of COVID-19; Z79.82 Long term (current) use of aspirin; Z68.32 Body mass index [BMI] 32.0-32.9, adult; Z85.828 Personal history of other malignant neoplasm of skin; Z79.899 Other long term (current) drug therapy
CPT/HCPCS: 36415; 70450; 70496; 70498; 70551; 71045; 71275; 80048; 80061; 83735; 84484; 85025; 85379; 85610; 85730; 87426; 92523; 92610; 93005; 97110; 97116; 97162; 97165; 97530; 97535; 97802; 99285; J7030; Q9967; A4216; J2405

== ENCOUNTER 2021-08-19 14:17 | Inpatient (IN) | payer MEDICARE, OTHER, SELFPAY ==
[2021-08-19 14:26] VITALS: BMI 31.4
[2021-08-19 14:48] VITALS: BP 108/69; PULSE 99; RESP 14; TEMP 36.1; O2SAT 94
[2021-08-19] MEDS: APIXABAN 5 MG TABLET 10 MG PO (18:41)
[2021-08-19 18:43] VITALS: BP 108/69; PULSE 99
[2021-08-19] MEDS: Metoprolol Tartrate 100 MG Tablet PO (18:43)
[2021-08-19] MEDS: Menthol/Lanolin/Calamine/Znox 113 GM Tube 1 APPLIC TOPICAL (18:44)
--- NOTE | 2021-08-19 19:16 | HP.PCM_ITS ---
HPI - General General Date of Admission: 08/19/21 HPI Narrative 08/15/2021 ANTONIO MARADIAGA, is a 76 Male who presents to [facility] Emergency Department with neurologic signs/symptoms. 08/15/2021 EKG showed atrial fibrillation, right bundle branch block, abnormal EKG. Left fascial weakness, left sided weakness, left upper extremity, left lower extremity. Stroke alert, CT brain negative, CTA head/neck showed bilateral carotid artery stenosis > 70%. Chest X-ray showed left lung mild infiltrates. CBC okay, INR okay, PTT okay, BUN 60, Creatinine 3.87. Normal Saline 2 liters IV given for hypotension. Stroke neurology noted TIA, recommend MRI brain, if MRI brain shows stroke, recommend transfer for urgent revascularization. 08/15/2021 Admit to Hospital. Hold blood pressure medications for acute kidney injuiry. PT/OT for SNF. Recent covid infection. 08/16/2021 Creatinine improved, MRI brain negative stroke. Neurologic signs/symptoms secondary to acute kidney injury. 08/17/2021 Heart rate 170. Cardizem bolus, drip for new onset atrial fibrillation with rapid ventricular response. No anticoagulation due to thrombocytopenia. 08/17/2021 Metoprolol 100mg bid for atrial fibrillation with rapid ventricular response. 08/18/2021 CTA chest showed bilateral pulmoary embolism. Eliquis 10mg bid x 7 days, then 5mg bid for treatment, monitor platelets. 08/19/2021 Admit to TCU with debility, here for rehabilitation, strengthening, prior to discharge home alone. [facility] Medical History BPH (benign prostatic hyperplasia) COVID CPAP (continuous positive airway pressure) dependence Facial basal cell cancer GERD (gastroesophageal reflux disease) HTN (hypertension) IBS (irritable bowel syndrome) Kidney disease Sleep apnea Splenomegaly Wears hearing aid in both ears Home Medications allopurinol 200 mg PO DAILY 01/11/17 [History Last Taken 08/15/21] clonidine HCl 0.1 mg PO TID 01/11/17 [History Last Taken 08/15/21] finasteride 5 mg PO DAILY 01/11/17 [History Last Taken 08/15/21] folic acid 1 mg PO DAILY 01/11/17 [History Last Taken 08/15/21] gabapentin [Neurontin] 300 mg PO DAILY 01/11/17 [History Last Taken 08/14/21] hydrochlorothiazide 12.5 mg PO DAILY 01/11/17 [History Last Taken 08/15/21] loratadine [Allergy Relief (loratadine)] 10 mg PO DAILY PRN 01/11/17 [History Last Taken 08/05/21] methotrexate sodium 15 mg PO BETANCOURT 01/11/17 [History Last Taken 08/10/21] terazosin 10 mg PO DAILY MDD urinary 01/11/17 [History Last Taken 08/15/21] cholecalciferol (vitamin D3) [Vitamin D3] 2,000 unit PO DAILY 07/12/17 [History Last Taken 08/15/21] spironolactone 25 mg PO DAILY 08/06/21 [History Last Taken 08/15/21] lisinopril 40 mg PO BID 08/15/21 [History Last Taken 08/15/21] amlodipine 10 mg PO DAILY 08/19/21 [History Last Taken Unknown] apixaban [Eliquis DVT-PE Treat 30D Start] 5 mg PO BID 08/19/21 [History Last Taken Unknown] diltiazem HCl 120 mg PO DAILY 08/19/21 [History Last Taken Unknown] metoprolol tartrate 100 mg PO BID 08/19/21 [History Last Taken Unknown] pantoprazole 40 mg PO DAILY 08/19/21 [History Last Taken Unknown] Allergy/AdvReac Type Severity Reaction Status Date / Time No Known Allergies Allergy Verified 08/15/21 11:47 Family History Father Heart disease Surgical History History of ear surgery S/P carpal tunnel release S/P Mohs surgery for basal cell carcinoma Status post bilateral knee replacements Social History (Updated 08/19/21 @ 19:[address] Santosh Adames MD) household members: none Smoking Status: Never smoker alcohol intake: never ROS Constitutional Constitutional: Denies chills, fever(s) or weight gain ENT HEENT: Denies headache(s), nasal congestion or nasal discharge Cardiovascular Cardiovascular: Denies chest pain or palpitations Respiratory/Chest Respiratory/Chest: Denies cough, excessive phlegm production or shortness of breath with exertion Gastrointestinal Gastrointestinal: Denies abdominal pain, nausea or vomiting Genitourinary Genitourinary: Denies dysuria Musculoskeletal Musculoskeletal: Denies joint pain or joint swelling Integumentary Integumentary: Denies rash or wounds Neurologic Neurologic: Denies focal weakness, numbness or tingling Psychiatric Psychiatric: Denies anxiety, auditory hallucinations, depression, homicidal ideation or suicidal ideation Vital Signs Vital Signs Vital Signs: 08/19/21 14:48 08/19/21 15:50 08/19/21 18:43 Temperature 97 F L Temperature Source Temporal Pulse Rate 99 99 Pulse Rhythm Irregular Pulse Strength Normal (2+) Respiratory Rate 14 Respiratory Effort Normal Non-Labored Respiratory Depth Normal Respiratory Pattern Normal Blood Pressure 108/69 108/69 Blood Pressure Mean 82 Blood Pressure Source Monitor Blood Pressure Position Semi-Fowlers Blood Pressure Location Right Arm Pulse Ox 94 Oxygen Delivery Method Room Air Room Air Weight Weight: 96.729 kg Body Mass Index (BMI) 31.4 Physical Exam Const alert and oriented x3 General Appearance: cooperative HEENT normocephalic Eyes PERRL and EOMs intact bilaterally Neck supple, no JVD and no carotid bruits Resp normal respiratory effort, normal air movement and clear to auscultation bilaterally Cardio regular rate and regular rhythm GI normal to inspection, nondistended, normoactive bowel sounds, non-tender and non-distended Extremity normal capillary refill General Extremity: Negative for edema Skin no rashes or lesions noted General Skin Exam: no breakdown Psych affect normal Appearance: appropriate Assessment & Plan Assessment/Plan (1) Debility: (2) Transient ischemic attack: (3) Acute kidney injury: (4) Bilateral carotid artery stenosis: (5) Atrial fibrillation with rapid ventricular response: (6) Bilateral pulmonary embolism: (7) COVID-19: (8) Benign prostatic hyperplasia: (9) Obstructive sleep apnea: (10) Gastroesophageal reflux disease: (11) Hypertension: (12) Gout: (13) Neuropathy: (14) Vitamin D deficiency: (15) Gastroesophageal reflux disease: (16) Thrombocytopenia: PLAN: 76 year old male with below past medical history hospitalized for transient ischemic attack, complicated by acute kidney injury, new onset atrial fibrillation with rapid ventricular response, bilateral severe carotid artery stenosis, bilateral pulmonary embolism, admitted to TCU with debility, here for rehabilitation, strengthening, prior to discharge home alone. * Debility - PT/OT. * Pain - Tylenol 1000mg q6h prn pain (1-10). * Bowel - Miralax 17gm daily, senna/colace 1 tablet bid, Dulcolax 10mg daily prn. * Adult immunization - Administer prevnar 20, fluzone, covid19 vaccine as appropriate. * DVT prophylaxis - Not necessary, on Eliquis. * Gout - Allopurinol 200mg daily. * Pulmonary embolism - Eliquis 10mg bid thru 08/24/2021, then 5mg bid. * Atrial Fibrillation - Metoprolol 100mg bid, Diltiazem 120mg daily, Eliquis 10mg bid thru 08/24/2021, then 5mg bid. * Vitamin D deficiency - D3 50mcg daily. * Hypertension - Metoprolol 100mg bid, Diltiazem 120mg daily, HCTZ 12.5mg daily, Aldactone 25mg daily, Clonidine 0.1mg tid. * BPH - Doxazosin 8mg daily, Finasteride 5mg daily. * Nutrition - Ensure Compact 118ml 4x/day. * Folate deficiency - Folic acid 1mg daily. * Neuropathy - Gabapentin 300mg daily. * Allergic rhinitis - Loratadine 10mg daily prn. * Skin irritation - Calmoseptine topical bid. * Thrombocytopenia - MTX 15mg qweek. * GERD - Pantoprazole 40mg daily.
[2021-08-19] MEDS: cloNIDine HCl 0.1 MG Tablet PO (19:57)
[2021-08-19] MEDS: Senna/Docusate Sodium 1 Tablet PO (20:18)
[2021-08-20 05:29] LABS: Absolute Neutrophil Count 3.8 X10^3/uL (2.0-7.7); Basophil# 0.03 X10^3/uL; Basophil% 0.6 % (0-1); Eosinophil# 0.18 X10^3/uL; Eosinophils% 3.3 % (0-5); Hematocrit 36.2 % (40-54); Hemoglobin 12.7 g/dL (13.0-16.5); Lymphocyte % 14.8 % (19-41); Mean Corp Hgb Conc 35.1 g/dL (32-36); Mean Corpuscular Volume 99.7 fL (80-94); Mean Platelet Vol. 12.8 fl (6.2-12.0); Monocyte# 0.52 X10^3/uL; Monocyte% 9.6 % (0-10); NRBC Flagged by Analyzer 0 % (0-5); Neutrophil # 3.83 X10^3/uL (2.7-7.7); POSITIVE COUNT YES; Platelet Count 79 K/mm3 (150-450); RBC Distribution Width CV 14.3 % (11.6-14.6); RBC Distribution Width SD 52.2 fl (35.1-43.9); Red Blood Count 3.63 M/mm3 (4.6-6.2); White Blood Count 5.4 K/mm3 (4.4-11.0)
[2021-08-20 05:48] LABS: Anion Gap 7 (5-15); BUN 24 mg/dL (7-18); BUN/Creat Ratio 19.4 RATIO (10-20); Calcium,Total 8.4 mg/dL (8.5-10.1); Chloride 106 mmol/L (98-107); Creatinine, Serum 1.24 mg/dL (0.70-1.30); EST Glomerular Filtration Rate 60 mL/min (>60); Est Glom Filt Rate - Afr Amer 73 mL/min (>60); Estimated Creatinine Clearance 50.68 ml/min; Glucose 87 mg/dL (74-106); Potassium 3.5 mmol/L (3.5-5.1); Sodium Level 136 mmol/L (136-145)
[2021-08-20 06:07] VITALS: BP 132/81; PULSE 94; RESP 18; TEMP 36.6; O2SAT 95
[2021-08-20 06:09] VITALS: PULSE 94
[2021-08-20] MEDS: Pantoprazole Sodium 40 MG Tablet PO (06:09)
[2021-08-20] MEDS: Metoprolol Tartrate 100 MG Tablet PO ×2 (06:09→17:20)
[2021-08-20] MEDS: Finasteride 5 MG Tablet PO (06:09)
[2021-08-20] MEDS: hydroCHLOROthiazide 12.5mg 12.5 MG PO (06:09)
[2021-08-20] MEDS: cloNIDine HCl 0.1 MG Tablet PO ×3 (06:09→19:49)
[2021-08-20] MEDS: Doxazosin 4 MG Tablet 8 MG PO (06:09)
[2021-08-20] MEDS: APIXABAN 5 MG TABLET 10 MG PO ×2 (06:10→17:18)
[2021-08-20] MEDS: Spironolactone 25 MG Tablet PO (06:10)
[2021-08-20] MEDS: dilTIAZem CD 120 MG Capsule PO (06:10)
[2021-08-20] MEDS: Senna/Docusate Sodium 1 Tablet PO ×2 (06:11→17:19)
[2021-08-20] MEDS: Polyethylene Glycol 3350 17 GM PACKET PO (06:11)
[2021-08-20] MEDS: Menthol/Lanolin/Calamine/Znox 113 GM Tube 1 APPLIC TOPICAL ×2 (06:14→17:19)
[2021-08-20] MEDS: Gabapentin 300 MG Capsule PO (08:29)
[2021-08-20] MEDS: Allopurinol 100 MG Tablet 200 MG PO (08:29)
[2021-08-20] MEDS: Folic Acid 1 MG Tablet PO (08:29)
[2021-08-20] MEDS: Cholecalciferol (VIT D3) 25 MCG TABLET (1,000 UNITS) 50 MCG PO (08:29)
[2021-08-20 10:00] VITALS: RESP 14
[2021-08-20] MEDS: Tuberculin,Purif.prot.deriv. 50 TU/ML Vial 0.1 ML ID (11:21)
--- NOTE | 2021-08-20 11:52 | CASEMGMT ---
Social Work Met with pt for initial psychosocial assessment. Pt dgt was present and pt is agreeable to meet with dgt in the room. SW discussed code status with pt and assisted pt in completing MOLST form. Pt confirmed DNRCC, no intubation. MOLST form communicated to physician and placed on pt chart. SW explained Medicare Benefit to pt and dgt. Pt lives at home alone and was independent prior to illness. Pt is hopeful to return home at time of discharge. ETTA will continue to follow. LEANDRA Booker
[2021-08-20 13:19] VITALS: BP 102/62; PULSE 68; RESP 18; TEMP 36.2; O2SAT 97
[2021-08-20 17:20] VITALS: BP 123/84; PULSE 88
--- NOTE | 2021-08-20 19:37 | PCA ---
Patient refused to remove hearing aides for the night.
[2021-08-21 06:28] VITALS: PULSE 95
[2021-08-21] MEDS: cloNIDine HCl 0.1 MG Tablet PO ×3 (06:28→20:42)
[2021-08-21] MEDS: Pantoprazole Sodium 40 MG Tablet PO (06:28)
[2021-08-21] MEDS: Metoprolol Tartrate 100 MG Tablet PO ×2 (06:28→17:30)
[2021-08-21] MEDS: Senna/Docusate Sodium 1 Tablet PO ×2 (06:28→17:31)
[2021-08-21] MEDS: Finasteride 5 MG Tablet PO (06:29)
[2021-08-21] MEDS: dilTIAZem CD 120 MG Capsule PO (06:29)
[2021-08-21] MEDS: Spironolactone 25 MG Tablet PO (06:29)
[2021-08-21] MEDS: Doxazosin 4 MG Tablet 8 MG PO (06:29)
[2021-08-21] MEDS: APIXABAN 5 MG TABLET 10 MG PO ×2 (06:29→17:30)
[2021-08-21] MEDS: hydroCHLOROthiazide 12.5mg 12.5 MG PO (06:29)
[2021-08-21] MEDS: Polyethylene Glycol 3350 17 GM PACKET PO (06:30)
[2021-08-21] MEDS: Menthol/Lanolin/Calamine/Znox 113 GM Tube 1 APPLIC TOPICAL ×2 (06:30→17:34)
[2021-08-21 06:34] VITALS: BP 133/81; PULSE 95; RESP 18; O2SAT 98
[2021-08-21] MEDS: Folic Acid 1 MG Tablet PO (08:16)
[2021-08-21] MEDS: Allopurinol 100 MG Tablet 200 MG PO (08:16)
[2021-08-21] MEDS: Gabapentin 300 MG Capsule PO (08:16)
[2021-08-21] MEDS: Cholecalciferol (VIT D3) 25 MCG TABLET (1,000 UNITS) 50 MCG PO (08:16)
[2021-08-21 14:00] VITALS: BP 121/84; PULSE 101; RESP 12; TEMP 36.2; O2SAT 97
--- NOTE | 2021-08-21 14:59 | PHA.CONS1_ITS ---
Progress Note - Pharmacy Subjective: TCU ADMISSION Objective: Allergies No Known Allergies Allergy (Verified 08/15/21 11:47) Current Medications Generic Name Dose Route Start Last Admin Trade Name Jhonq PRN Reason Stop Dose Admin Acetaminophen 1,000 mg 08/19/21 20:03 Acetaminophen 500 Mg Tablet PO Q6H PRN PRN Pain Score 1-10 Allopurinol 200 mg 08/20/21 08:00 08/21/21 08:16 Allopurinol 100 Mg Tablet PO 200 mg DAILY TY Administration Apixaban 10 mg 08/19/21 18:00 08/21/21 06:29 Apixaban 5 Mg Tablet PO 08/24/21 18:01 10 mg BID TY Administration Apixaban 5 mg 08/25/21 06:00 Apixaban 5 Mg Tablet PO BID [facility] Bisacodyl 10 mg 08/19/21 20:03 Bisacodyl 5 Mg Tablet PO DAILY PRN PRN Constipation Calamine/Phenol 1 applic 08/19/21 18:00 08/21/21 06:30 Menthol/Lanolin/Calamine/Znox 113 Gm Tube TOPICAL 1 dose BID TY Administration Protocol Cholecalciferol 50 mcg 08/20/21 08:00 08/21/21 08:16 Cholecalciferol (Vit D3) 25 Mcg Tablet (1,000 Units) PO 50 mcg DAILY TY Administration Clonidine 0.1 mg 08/19/21 22:00 08/21/21 14:32 Clonidine Hcl 0.1 Mg Tablet PO 0.1 mg TID TY Administration Diltiazem HCl 120 mg 08/20/21 06:00 08/21/21 06:29 Diltiazem Cd 120 Mg Capsule PO 120 mg DAILY TY Administration Doxazosin Mesylate 8 mg 08/20/21 06:00 08/21/21 06:29 Doxazosin 4 Mg Tablet PO 8 mg DAILY TY Administration Finasteride 5 mg 08/20/21 06:00 08/21/21 06:29 Finasteride 5 Mg Tablet PO 5 mg DAILY TY Administration Folic Acid 1 mg 08/20/21 08:00 08/21/21 08:16 Folic Acid 1 Mg Tablet PO 1 mg DAILYCM TY Administration Gabapentin 300 mg 08/20/21 08:00 08/21/21 08:16 Gabapentin 300 Mg Capsule PO 300 mg DAILY TY Administration Hydrochlorothiazide 12.5 mg 08/20/21 06:00 08/21/21 06:29 Hydrochlorothiazide 12.5mg PO 12.5 mg DAILY TY Administration Loratadine 10 mg 08/19/21 14:43 Loratadine 10 Mg Tablet PO DAILY PRN ALLERGIES Methotrexate 15 mg 08/24/21 10:00 Methotrexate 2.5 Mg Tablet PO BETANCOURT TY Metoprolol Tartrate 100 mg 08/19/21 18:00 08/21/21 06:28 Metoprolol Tartrate 100 Mg Tablet PO 100 mg BID TY Administration Nutritional Formula (Lactose Free) 118 ml 08/19/21 17:00 08/21/21 11:42 Ensure Compact 118 Ml Liquid PO Not Given 4X/DAY TY Pantoprazole Sodium 40 mg 08/20/21 06:00 08/21/21 06:28 Pantoprazole Sodium 40 Mg Tablet PO 40 mg DAILY TY Administration Polyethylene Glycol 17 gm 08/20/21 06:00 08/21/21 06:30 Polyethylene Glycol 3350 17 Gm Packet PO 17 gm DAILY TY Administration Senna/Docusate Sodium 1 tablet 08/19/21 21:00 08/21/21 06:28 Senna/Docusate Sodium 1 Tablet PO 1 tablet BID TY Administration Sodium Chloride 10 - 40 ml 08/19/21 19:55 0.9% Saline Lock 10 Ml Syringe IV UD PRN SALINE FLUSH Spironolactone 25 mg 08/20/21 06:00 08/21/21 06:29 Spironolactone 25 Mg Tablet PO 25 mg DAILY TY Administration Tuberculin PPD 0.1 ml 08/27/21 10:00 Tuberculin,Purif.Prot.Deriv. 50 Tu/Ml Vial ID 08/27/21 10:01 X1 ONE Problem List (Last Reviewed 08/19/21 @ 19:[address] Santosh Adames MD) Thrombocytopenia (Acute) Gastroesophageal reflux disease (Acute) Vitamin D deficiency (Acute) Neuropathy (Acute) Gout (Acute) Hypertension (Chronic) Gastroesophageal reflux disease (Acute) Obstructive sleep apnea (Acute) Benign prostatic hyperplasia (Acute) COVID-19 (Acute) Atrial fibrillation with rapid ventricular response (Acute) Bilateral carotid artery stenosis (Acute) Acute kidney injury (Acute) Transient ischemic attack (Acute) Debility (Acute) Bilateral pulmonary embolism (Acute) Vital Signs Temp Pulse Resp BP Pulse Ox 97.1 F L 101 H 12 121/84 H 97 08/21/21 14:00 08/21/21 14:00 08/21/21 14:00 08/21/21 14:00 08/21/21 14:00 Oxygen Delivery Method Room Air Weight: 96.729 kg Body Mass Index (BMI) 31.4 Sodium 136 mmol/L (136-145) 08/20/21 05:12 Potassium 3.5 mmol/L (3.5-5.1) 08/20/21 05:12 Chloride 106 mmol/L (98-107) 08/20/21 05:12 Carbon Dioxide 23.0 mmol/L (21.0-32.0) 08/20/21 05:12 Anion Gap 7 (5-15) 08/20/21 05:12 BUN 24 mg/dL (7-18) H 08/20/21 05:12 Creatinine 1.24 mg/dL (0.70-1.30) 08/20/21 05:12 Est GFR (MDRD) Af Amer 73 mL/min (>60) 08/20/21 05:12 Est GFR (MDRD) Non-Af 60 mL/min (>60) 08/20/21 05:12 BUN/Creatinine Ratio 19.4 RATIO (10-20) 08/20/21 05:12 Glucose 87 mg/dL (74-106) 08/20/21 05:12 Assessment/Plan: 1. Pain: Tylenol 1000mg PO Q6h PRN Pain 1-10. Please continue to monitor for increased/decreased constipation and/or diarrhea. 2. Bilateral PE: Eliquis 10mg PO BID thru 08/24/21 then 5mg PO BID thereafter. please continue to monitor for S/S bleeding/bruising, H/H as clinically indicated, S/S recurrent blood clot. 3. Atrial fibrillation/HTN: Clonidine 0.1mg PO TID, Diltiazem 120mg PO daily, HCTZ 12.5mg PO daily, Lopressor 100mg PO BID, Aldactone 25mg PO daily, Eliquis (see dosing above). Please continue to monitor BP (last 121/84), pulse (last 101), electrolytes S/S hypotension given multiple medications. 4. BPH: Doxazosin 8mg PO daily, Finasteride 5mg PO Daily. Please continue to monitor BP, improvement in BPH symptoms, S/S urinary retention. 5. Thrombocytopenia: Methotrexate 15mg PO every Wednesday. Please continue to monitor hepatic enzymes, H/H. Of note; patient follows with oncology on a regular basis. 6. Neuropathy: Gabapentin 300mg PO Daily. Please continue to monitor for medication effectiveness, renal function. This is Beer's criteria medication and can increase the risk o falls/fractures in patients >65, please monitor. 7. Gout: Allopurinol 200mg PO Daily. Please continue to monitor for gout flare- ups, uric acid as clinically indicated. 8. GERD: Protonix 40mg PO Daily. Please continue to monitor for GERD exacerbations. May also consider non-pharmacologic treatments as well to help decrease GERD flare-ups. 9. Allergic Rhinitis: Claritin 10mg PO daily PRN. Please continue to monitor for allergy symptoms. Could consider changing to scheduled therapy to help prevent a llergy symptoms during height of allergy season, as this medication works best when scheduled, not PRN. 10. General Wellness: Folic Acid 1mg PO Daily, Cholecalciferol 50mcg PO Daily. Please continue to monitor labs as clinically indicated. Psychotropic Medications: None Unnecessary Medications: None Bowel Regimen: Miralax 17g PO Daily, Senna/Docusate 1 tab PO BID, Dulcolax 10mg PO Daily PRN. Please continue to monitor for increased/decreased constipation and/or diarrhea. Date of Note:: 08/21/21
--- NOTE | 2021-08-21 16:03 | NURSING ---
Resident and daughter, Mary, notified of 2 residents testing positive for COVID.
[2021-08-21 17:30] VITALS: PULSE 101
[2021-08-22 02:08] VITALS: BP 148/80; PULSE 91; RESP 16; TEMP 36.2; O2SAT 99
[2021-08-22] MEDS: APIXABAN 5 MG TABLET 10 MG PO ×2 (05:32→17:00)
[2021-08-22] MEDS: Polyethylene Glycol 3350 17 GM PACKET PO (05:32)
[2021-08-22] MEDS: Doxazosin 4 MG Tablet 8 MG PO (05:32)
[2021-08-22] MEDS: Finasteride 5 MG Tablet PO (05:32)
[2021-08-22] MEDS: cloNIDine HCl 0.1 MG Tablet PO ×3 (05:32→19:54)
[2021-08-22] MEDS: hydroCHLOROthiazide 12.5mg 12.5 MG PO (05:32)
[2021-08-22] MEDS: Pantoprazole Sodium 40 MG Tablet PO (05:32)
[2021-08-22] MEDS: Senna/Docusate Sodium 1 Tablet PO ×2 (05:32→17:00)
[2021-08-22 05:33] VITALS: BP 148/80; PULSE 88
[2021-08-22] MEDS: Metoprolol Tartrate 100 MG Tablet PO ×2 (05:33→17:00)
[2021-08-22] MEDS: dilTIAZem CD 120 MG Capsule PO (05:33)
[2021-08-22] MEDS: Spironolactone 25 MG Tablet PO (05:34)
[2021-08-22] MEDS: Menthol/Lanolin/Calamine/Znox 113 GM Tube 1 APPLIC TOPICAL ×2 (05:39→16:58)
[2021-08-22] MEDS: Cholecalciferol (VIT D3) 25 MCG TABLET (1,000 UNITS) 50 MCG PO (07:52)
[2021-08-22] MEDS: Allopurinol 100 MG Tablet 200 MG PO (07:53)
[2021-08-22] MEDS: Folic Acid 1 MG Tablet PO (07:53)
[2021-08-22] MEDS: Gabapentin 300 MG Capsule PO (07:54)
[2021-08-22 14:13] VITALS: BP 111/72; PULSE 85; RESP 14; TEMP 36.3; O2SAT 95
[2021-08-22 17:00] VITALS: PULSE 85
[2021-08-23 05:00] VITALS: BP 139/86; PULSE 99
[2021-08-23] MEDS: Spironolactone 25 MG Tablet PO (05:53)
[2021-08-23] MEDS: dilTIAZem CD 120 MG Capsule PO (05:53)
[2021-08-23] MEDS: APIXABAN 5 MG TABLET 10 MG PO ×2 (05:53→17:28)
[2021-08-23] MEDS: Finasteride 5 MG Tablet PO (05:53)
[2021-08-23 05:54] VITALS: BP 139/86; PULSE 99
[2021-08-23] MEDS: Metoprolol Tartrate 100 MG Tablet PO ×2 (05:54→17:28)
[2021-08-23] MEDS: Senna/Docusate Sodium 1 Tablet PO ×2 (05:54→17:28)
[2021-08-23] MEDS: Doxazosin 4 MG Tablet 8 MG PO (05:54)
[2021-08-23] MEDS: hydroCHLOROthiazide 12.5mg 12.5 MG PO (05:54)
[2021-08-23] MEDS: cloNIDine HCl 0.1 MG Tablet PO ×3 (05:54→20:45)
[2021-08-23] MEDS: Pantoprazole Sodium 40 MG Tablet PO (05:54)
[2021-08-23] MEDS: Menthol/Lanolin/Calamine/Znox 113 GM Tube 1 APPLIC TOPICAL ×2 (05:55→17:28)
[2021-08-23] MEDS: Cholecalciferol (VIT D3) 25 MCG TABLET (1,000 UNITS) 50 MCG PO (08:46)
[2021-08-23] MEDS: Allopurinol 100 MG Tablet 200 MG PO (08:47)
[2021-08-23] MEDS: Gabapentin 300 MG Capsule PO (08:47)
[2021-08-23] MEDS: Folic Acid 1 MG Tablet PO (08:47)
[2021-08-23 10:00] VITALS: PULSE 99; RESP 18; O2SAT 98
[2021-08-23 13:41] VITALS: BP 131/82; PULSE 92; RESP 18; TEMP 36.2; O2SAT 91
[2021-08-23 17:28] VITALS: BP 129/96; PULSE 76
--- NOTE | 2021-08-23 21:48 | NURSING ---
Pt requesting medication for sleep. Unsure of medication he takes at home for sleep. Updated Dr. Adames via phone and new order received and read back for Melatonin 10 mg po at hs.
[2021-08-24 05:00] VITALS: BP 140/98; PULSE 96; RESP 18; TEMP 36.6
[2021-08-24 05:09] VITALS: BP 140/98; PULSE 96
[2021-08-24] MEDS: Metoprolol Tartrate 100 MG Tablet PO ×2 (05:09→17:21)
[2021-08-24] MEDS: Doxazosin 4 MG Tablet 8 MG PO (05:09)
[2021-08-24] MEDS: Senna/Docusate Sodium 1 Tablet PO ×2 (05:09→17:21)
[2021-08-24] MEDS: Menthol/Lanolin/Calamine/Znox 113 GM Tube 1 APPLIC TOPICAL ×2 (05:09→17:22)
[2021-08-24] MEDS: dilTIAZem CD 120 MG Capsule PO (05:09)
[2021-08-24] MEDS: APIXABAN 5 MG TABLET 10 MG PO ×2 (05:09→17:22)
[2021-08-24] MEDS: hydroCHLOROthiazide 12.5mg 12.5 MG PO (05:09)
[2021-08-24] MEDS: Finasteride 5 MG Tablet PO (05:09)
[2021-08-24] MEDS: Spironolactone 25 MG Tablet PO (05:09)
[2021-08-24] MEDS: Pantoprazole Sodium 40 MG Tablet PO (05:09)
[2021-08-24] MEDS: cloNIDine HCl 0.1 MG Tablet PO ×3 (05:09→20:36)
[2021-08-24] MEDS: Allopurinol 100 MG Tablet 200 MG PO (08:41)
[2021-08-24] MEDS: Folic Acid 1 MG Tablet PO (08:42)
[2021-08-24] MEDS: Gabapentin 300 MG Capsule PO (08:42)
[2021-08-24] MEDS: Cholecalciferol (VIT D3) 25 MCG TABLET (1,000 UNITS) 50 MCG PO (08:42)
[2021-08-24] MEDS: Methotrexate 2.5 MG Tablet 15 MG PO (10:41)
[2021-08-24 14:04] VITALS: BP 102/68; PULSE 89; RESP 18; TEMP 36.1; O2SAT 97
--- NOTE | 2021-08-24 16:29 | NURSING ---
Spoke with daughter about home CPAP machine. Reports being unable to find it in patient's home. Patient describing where she should look. Reports she will look again and bring it in in the morning.
[2021-08-24 17:21] VITALS: BP 135/84; PULSE 94
[2021-08-24] MEDS: MELATONIN 10 MG TABLET PO (20:35)
[2021-08-24 20:40] VITALS: BP 115/73; PULSE 93
[2021-08-24 20:41] VITALS: PULSE 97; RESP 16; O2SAT 84
[2021-08-25] MEDS: Doxazosin 4 MG Tablet 8 MG PO (06:12)
[2021-08-25] MEDS: Spironolactone 25 MG Tablet PO (06:12)
[2021-08-25] MEDS: Senna/Docusate Sodium 1 Tablet PO (06:12)
[2021-08-25] MEDS: hydroCHLOROthiazide 12.5mg 12.5 MG PO (06:12)
[2021-08-25] MEDS: Finasteride 5 MG Tablet PO (06:12)
[2021-08-25] MEDS: cloNIDine HCl 0.1 MG Tablet PO ×2 (06:13→22:05)
[2021-08-25] MEDS: Pantoprazole Sodium 40 MG Tablet PO (06:13)
[2021-08-25] MEDS: APIXABAN 5 MG TABLET PO ×2 (06:13→17:15)
[2021-08-25] MEDS: dilTIAZem CD 120 MG Capsule PO (06:14)
[2021-08-25] MEDS: Menthol/Lanolin/Calamine/Znox 113 GM Tube 1 APPLIC TOPICAL ×2 (06:15→17:17)
[2021-08-25 06:16] VITALS: BP 116/74; PULSE 95
[2021-08-25] MEDS: Metoprolol Tartrate 100 MG Tablet PO ×2 (06:16→17:15)
[2021-08-25] MEDS: Cholecalciferol (VIT D3) 25 MCG TABLET (1,000 UNITS) 50 MCG PO (08:11)
[2021-08-25] MEDS: Allopurinol 100 MG Tablet 200 MG PO (08:11)
[2021-08-25] MEDS: Gabapentin 300 MG Capsule PO (08:12)
[2021-08-25] MEDS: Folic Acid 1 MG Tablet PO (08:12)
[2021-08-25 12:32] VITALS: BP 102/52; PULSE 84; RESP 16; TEMP 36.4; O2SAT 100
[2021-08-25 17:15] VITALS: BP 113/80; PULSE 90
[2021-08-25] MEDS: MELATONIN 10 MG TABLET PO (22:05)
[2021-08-25 22:06] VITALS: BP 145/68; PULSE 89
[2021-08-26 05:25] VITALS: BP 135/85; PULSE 93
[2021-08-26] MEDS: APIXABAN 5 MG TABLET PO ×2 (05:25→17:17)
[2021-08-26] MEDS: cloNIDine HCl 0.1 MG Tablet PO ×2 (05:25→21:55)
[2021-08-26] MEDS: Pantoprazole Sodium 40 MG Tablet PO (05:25)
[2021-08-26] MEDS: Spironolactone 25 MG Tablet PO (05:25)
[2021-08-26] MEDS: Senna/Docusate Sodium 1 Tablet PO ×2 (05:25→17:18)
[2021-08-26] MEDS: dilTIAZem CD 120 MG Capsule PO (05:25)
[2021-08-26] MEDS: Finasteride 5 MG Tablet PO (05:25)
[2021-08-26] MEDS: Metoprolol Tartrate 100 MG Tablet PO (05:25)
[2021-08-26] MEDS: hydroCHLOROthiazide 12.5mg 12.5 MG PO (05:25)
[2021-08-26] MEDS: Doxazosin 4 MG Tablet 8 MG PO (05:26)
[2021-08-26] MEDS: Folic Acid 1 MG Tablet PO (07:51)
[2021-08-26] MEDS: Cholecalciferol (VIT D3) 25 MCG TABLET (1,000 UNITS) 50 MCG PO (07:51)
[2021-08-26] MEDS: Allopurinol 100 MG Tablet 200 MG PO (07:52)
[2021-08-26 13:15] VITALS: BP 112/48; PULSE 95; RESP 16; TEMP 36.4; O2SAT 95
[2021-08-26] MEDS: Menthol/Lanolin/Calamine/Znox 113 GM Tube 1 APPLIC TOPICAL (17:18)
[2021-08-26 18:33] VITALS: BP 100/69; PULSE 99
[2021-08-26] MEDS: MELATONIN 10 MG TABLET PO (21:55)
[2021-08-26] MEDS: Gabapentin 300 MG Capsule PO (21:57)
[2021-08-26 22:00] VITALS: PULSE 93
[2021-08-27 05:26] VITALS: BP 134/81; PULSE 90
[2021-08-27] MEDS: APIXABAN 5 MG TABLET PO ×2 (05:26→17:34)
[2021-08-27] MEDS: Senna/Docusate Sodium 1 Tablet PO ×2 (05:26→17:34)
[2021-08-27] MEDS: hydroCHLOROthiazide 12.5mg 12.5 MG PO (05:26)
[2021-08-27] MEDS: Doxazosin 4 MG Tablet 8 MG PO (05:26)
[2021-08-27] MEDS: Metoprolol Tartrate 100 MG Tablet PO ×2 (05:26→17:35)
[2021-08-27] MEDS: cloNIDine HCl 0.1 MG Tablet PO ×2 (05:26→20:21)
[2021-08-27] MEDS: Pantoprazole Sodium 40 MG Tablet PO (05:27)
[2021-08-27] MEDS: Menthol/Lanolin/Calamine/Znox 113 GM Tube 1 APPLIC TOPICAL ×2 (05:27→17:34)
[2021-08-27] MEDS: Spironolactone 25 MG Tablet PO (05:27)
[2021-08-27] MEDS: dilTIAZem CD 120 MG Capsule PO (05:27)
[2021-08-27] MEDS: Carbidopa/Levodopa 25/100 Tablet PO ×3 (05:27→17:34)
[2021-08-27] MEDS: Finasteride 5 MG Tablet PO (05:27)
[2021-08-27 05:34] LABS: Absolute Lymphocyte Count 1.39 X10^3/uL (0.83-4.51); Absolute Neutrophil Count 2.1 X10^3/uL (2.0-7.7); Basophil# 0.04 X10^3/uL; Eosinophil# 0.23 X10^3/uL; Eosinophils% 5.6 % (0-5); Hematocrit 35.5 % (40-54); Hemoglobin 12.6 g/dL (13.0-16.5); Lymphocyte # 1.39 X10^3/ul (0.83-4.51); Lymphocyte % 33.6 % (19-41); Mean Corp Hgb Conc 35.5 g/dL (32-36); Mean Corpuscular Hgb 35.8 pg (27.0-32.0); Mean Corpuscular Volume 100.9 fL (80-94); Mean Platelet Vol. 12.3 fl (6.2-12.0); Monocyte% 7.2 % (0-10); NRBC Flagged by Analyzer 0 % (0-5); Neutrophil # 2.14 X10^3/uL (2.7-7.7); Neutrophil % 51.6 % (47-70); POSITIVE COUNT YES; POSITIVE MORPHOLOGY YES; Platelet Count 77 K/mm3 (150-450); RBC Distribution Width CV 14.3 % (11.6-14.6); RBC Distribution Width SD 52.6 fl (35.1-43.9); Red Blood Count 3.52 M/mm3 (4.6-6.2); White Blood Count 4.1 K/mm3 (4.4-11.0)
[2021-08-27 05:48] LABS: Differential Indicated SCAN CRITERIA MET
[2021-08-27 05:53] LABS: Anion Gap 5 (5-15); BUN 33 mg/dL (7-18); BUN/Creat Ratio 16.5 RATIO (10-20); Calcium,Total 8.9 mg/dL (8.5-10.1); Chloride 103 mmol/L (98-107); EST Glomerular Filtration Rate 35 mL/min (>60); Est Glom Filt Rate - Afr Amer 42 mL/min (>60); Estimated Creatinine Clearance 31.42 ml/min; Glucose 103 mg/dL (74-106); Potassium 4.4 mmol/L (3.5-5.1); Sodium Level 136 mmol/L (136-145)
[2021-08-27 06:01] LABS: Differential Comment SCANNED; Reactive Lymphocyte RARE
[2021-08-27 06:02] LABS: Platelet Estimate MOD DEC (ADEQ)
[2021-08-27] MEDS: Folic Acid 1 MG Tablet PO (08:50)
[2021-08-27] MEDS: Cholecalciferol (VIT D3) 25 MCG TABLET (1,000 UNITS) 50 MCG PO (08:50)
[2021-08-27] MEDS: Allopurinol 100 MG Tablet 200 MG PO (08:50)
--- NOTE | 2021-08-27 09:45 | CASEMGMT ---
Social Work IDT met with patient and dtr for care plan meeting. Discussed patient's progress in PT/OT and nursing. ST to eval. Pt making progress. The goal is for pt to DC home alone. Dtr may need to assist more with IADLs. Dtr agreeable. Offered resources for MOW - dtr denied. Provided resources for [employer] and [employer]. SW to continue to follow for DC planning. Terese Cain, POULTRY FARM WORKER PLATING TANK OPERATOR APPRENTICE
[2021-08-27] MEDS: Tuberculin,Purif.prot.deriv. 50 TU/ML Vial 0.1 ML ID (10:47)
[2021-08-27 14:04] VITALS: BP 94/56; PULSE 95; RESP 18; TEMP 36.2; O2SAT 98
[2021-08-27 17:35] VITALS: BP 123/74; PULSE 81
[2021-08-27 20:00] VITALS: PULSE 90; O2SAT 95
[2021-08-27 20:20] VITALS: BP 99/71; PULSE 90; RESP 16; O2SAT 95
[2021-08-27] MEDS: MELATONIN 10 MG TABLET PO (20:21)
[2021-08-27] MEDS: Gabapentin 300 MG Capsule PO (20:21)
[2021-08-28 06:44] VITALS: BP 123/87; PULSE 93
[2021-08-28] MEDS: Finasteride 5 MG Tablet PO (06:44)
[2021-08-28] MEDS: cloNIDine HCl 0.1 MG Tablet PO ×3 (06:44→20:50)
[2021-08-28] MEDS: Metoprolol Tartrate 100 MG Tablet PO ×2 (06:44→17:27)
[2021-08-28] MEDS: hydroCHLOROthiazide 12.5mg 12.5 MG PO (06:44)
[2021-08-28] MEDS: APIXABAN 5 MG TABLET PO ×2 (06:44→17:26)
[2021-08-28] MEDS: Pantoprazole Sodium 40 MG Tablet PO (06:44)
[2021-08-28] MEDS: Spironolactone 25 MG Tablet PO (06:44)
[2021-08-28] MEDS: dilTIAZem CD 120 MG Capsule PO (06:44)
[2021-08-28] MEDS: Carbidopa/Levodopa 25/100 Tablet PO ×3 (06:44→17:25)
[2021-08-28] MEDS: Doxazosin 4 MG Tablet 8 MG PO (06:45)
[2021-08-28] MEDS: Senna/Docusate Sodium 1 Tablet PO ×2 (06:45→17:25)
[2021-08-28] MEDS: Menthol/Lanolin/Calamine/Znox 113 GM Tube 1 APPLIC TOPICAL ×2 (06:48→14:20)
[2021-08-28] MEDS: Cholecalciferol (VIT D3) 25 MCG TABLET (1,000 UNITS) 50 MCG PO (08:16)
[2021-08-28] MEDS: Allopurinol 100 MG Tablet 200 MG PO (08:16)
[2021-08-28] MEDS: Folic Acid 1 MG Tablet PO (08:17)
[2021-08-28 11:56] VITALS: PULSE 92; O2SAT 96
[2021-08-28 13:30] VITALS: BP 111/75; PULSE 83; RESP 16; TEMP 36.1; O2SAT 97
--- NOTE | 2021-08-28 16:10 | NURSING ---
Resident and daughter, Mary, notified of a resident on the unit testing positive for COVID.
[2021-08-28 17:27] VITALS: BP 111/75; PULSE 83
--- NOTE | 2021-08-28 17:31 | NURSING ---
Addendum entered by Angela Varela 08/28/21 17:58: STRAIGHT CATH AT THIS TIME FOR 100cc YELLOW, CLEAR URINE. R' TOLERATED WELL. Original Note: R' C/O URINARY URGENCY/FREQUENCY. DR COHEN NOTIFIED- UA C+S.
[2021-08-28 18:11] LABS: Bacteria 0 SEEN /hpf (None Seen); Mucous, Urine 0 SEEN /hpf (<or=2+); Red Blood Cells-Urine 0 SEEN /hpf (0-5); Squamous Epithelial Cells - UA 0 SEEN /hpf (0-5); White Blood Cells 0 SEEN /hpf (0-5)
[2021-08-28 18:16] LABS: Color, Urine Yellow (Yellow); Glucose, Dipstick Normal (Normal); Ketone-Dipstick Negative (Negative); Leukocyte Esterase-Dipstick Negative /ul (Negative); Nitrite-Dipstick Negative (Negative); Occult Blood-Urine Negative /ul (Negative); Protein-Dipstick 15 mg/dl (Negative); Specific Gravity, Urine 1.015 (1.002-1.030); Urine Bilirubin Dipstick Negative (Negative); Urine Clarity Clear (Clear); Urine Urobilinogen Normal (Normal)
[2021-08-28] MEDS: Gabapentin 300 MG Capsule PO (20:50)
[2021-08-28] MEDS: MELATONIN 10 MG TABLET PO (20:50)
[2021-08-28 22:21] VITALS: BP 123/86; PULSE 82
[2021-08-29] MEDS: hydroCHLOROthiazide 12.5mg 12.5 MG PO (05:23)
[2021-08-29 05:25] VITALS: BP 115/75; PULSE 85
[2021-08-29] MEDS: dilTIAZem CD 120 MG Capsule PO (05:25)
[2021-08-29] MEDS: Spironolactone 25 MG Tablet PO (05:25)
[2021-08-29] MEDS: cloNIDine HCl 0.1 MG Tablet PO ×3 (05:25→20:34)
[2021-08-29] MEDS: Pantoprazole Sodium 40 MG Tablet PO (05:25)
[2021-08-29] MEDS: Senna/Docusate Sodium 1 Tablet PO ×2 (05:25→16:49)
[2021-08-29] MEDS: Carbidopa/Levodopa 25/100 Tablet PO ×3 (05:25→16:49)
[2021-08-29] MEDS: APIXABAN 5 MG TABLET PO ×2 (05:25→16:49)
[2021-08-29] MEDS: Metoprolol Tartrate 100 MG Tablet PO ×2 (05:25→16:49)
[2021-08-29] MEDS: Doxazosin 4 MG Tablet 8 MG PO (05:26)
[2021-08-29] MEDS: Finasteride 5 MG Tablet PO (05:26)
[2021-08-29] MEDS: Menthol/Lanolin/Calamine/Znox 113 GM Tube 1 APPLIC TOPICAL ×2 (05:28→16:50)
[2021-08-29] MEDS: Cholecalciferol (VIT D3) 25 MCG TABLET (1,000 UNITS) 50 MCG PO (07:55)
[2021-08-29] MEDS: Folic Acid 1 MG Tablet PO (07:55)
[2021-08-29] MEDS: Allopurinol 100 MG Tablet 200 MG PO (07:55)
[2021-08-29 13:44] VITALS: BP 113/72; PULSE 82; RESP 17; TEMP 36.4; O2SAT 98
[2021-08-29 16:49] VITALS: BP 100/70; PULSE 89
--- NOTE | 2021-08-29 17:27 | NURSING ---
PER HARMONY/ THERAPY, PT DAUGHTER CAN WALK PT IN ROOM AND IN HALLWAY.
[2021-08-29 20:30] VITALS: BP 103/71; PULSE 81; RESP 17; TEMP 36.4; O2SAT 95
[2021-08-29] MEDS: MELATONIN 10 MG TABLET PO (20:34)
[2021-08-29] MEDS: Gabapentin 300 MG Capsule PO (20:34)
[2021-08-30 05:13] VITALS: BP 134/82; PULSE 86; RESP 16; TEMP 36.3; O2SAT 96
[2021-08-30] MEDS: dilTIAZem CD 120 MG Capsule PO (05:17)
[2021-08-30] MEDS: Carbidopa/Levodopa 25/100 Tablet PO ×3 (05:17→17:55)
[2021-08-30] MEDS: APIXABAN 5 MG TABLET PO ×2 (05:17→17:55)
[2021-08-30] MEDS: cloNIDine HCl 0.1 MG Tablet PO ×3 (05:17→21:37)
[2021-08-30 05:18] VITALS: PULSE 86
[2021-08-30] MEDS: Finasteride 5 MG Tablet PO (05:18)
[2021-08-30] MEDS: hydroCHLOROthiazide 12.5mg 12.5 MG PO (05:18)
[2021-08-30] MEDS: Doxazosin 4 MG Tablet 8 MG PO (05:18)
[2021-08-30] MEDS: Metoprolol Tartrate 100 MG Tablet PO ×2 (05:18→17:55)
[2021-08-30] MEDS: Pantoprazole Sodium 40 MG Tablet PO (05:18)
[2021-08-30] MEDS: Spironolactone 25 MG Tablet PO (05:19)
[2021-08-30] MEDS: Menthol/Lanolin/Calamine/Znox 113 GM Tube 1 APPLIC TOPICAL ×2 (05:19→17:56)
[2021-08-30 07:05] VITALS: BP 118/78; PULSE 92; RESP 16; TEMP 36.3; O2SAT 92
--- NOTE | 2021-08-30 07:55 | NURSING ---
Addendum entered by Terra Sherman 08/30/21 11:41: Charge nurse updated that pt had u/a drawn on 08/28/21. This nurse was instructed to obtain another urine d/t fall, urine obtained by clean catch specimen and sent to lab. Original Note: At approx 0705 ACUPRESSURIST called staff to pt's room. Upon entry pt observed sitting on the floor with his feet out in front of him and arms at his side. Pt immediately assessed by this nurse, redness noted to right upper back but skin intact. When asked if pt hit his head he stated he did bump it when he fell, no swelling/injury noted to scalp. No other injuries noted, PERRLA, VS WNL, ROM WNL, pt denies pain, no internal/external rotation of vikram hips, neuro checks WNL. When pt was questioned as to what he was doing he stated I was trying to use the urinal. Floor noted to be clean, dry, and free from clutter, call light was in reach but not ringing. Pt had on nonskid footwear, pressure alarm on and functional but not ringing and walker was noted by the alarm. Pt had turned off alarm, education was provided on importance in asking for assistance. Pt assisted into recliner chair x2 assist and a gait belt. Dr. Adames updated N.O. neurochecks per policy, CT of head without contrast, u/a C&S for frequent urination and increased incontinence, and continue to monitor pt. Pt aware of new orders.
[2021-08-30] MEDS: Folic Acid 1 MG Tablet PO (08:14)
[2021-08-30] MEDS: Allopurinol 100 MG Tablet 200 MG PO (08:14)
[2021-08-30] MEDS: Cholecalciferol (VIT D3) 25 MCG TABLET (1,000 UNITS) 50 MCG PO (08:15)
--- NOTE | 2021-08-30 09:44 | NURSING ---
Pt reporting lower back pain stating that he thinks it may be sore from the fall. Pt reports not noticing any pain until he laid flat for his CT today and also stated that he had some pain in his lower back upon standing. Dr. Adames updated and N.O. for xray of lumbar spine
--- NOTE | 2021-08-30 09:50 | RAD_ITS ---
STUDY: X-RAY - LUMBAR SPINE REASON FOR EXAM: Male, 76 years old. Pain TECHNIQUE: 3 view(s) of the lumbar spine were obtained. COMPARISON: None FINDINGS: Normal lumbar lordosis. There is no substantial scoliosis. There is a normal alignment of the vertebrae. There is generalized demineralization of the vertebral bodies. There is multi-level degenerative disc disease with multi-level disc space narrowing. There is disc space narrowing especially at the level of L5-S1. There is a narrowed appearance of the intervertebral foramen. The soft tissue structures are unremarkable. RAD/Lumbar Spine 2 or 3 Views IMPRESSION: Multilevel degenerative disc disease, most significant L5-S1. No visualized acute fracture. Electronically Signed: Tawnya Rios MD at 10:51 EST ,
[2021-08-30 11:25] LABS: Bacteria 0 SEEN /hpf (None Seen); Mucous, Urine 0 SEEN /hpf (<or=2+); Red Blood Cells-Urine 0 SEEN /hpf (0-5); Squamous Epithelial Cells - UA 0 SEEN /hpf (0-5)
[2021-08-30 11:27] LABS: Color, Urine Yellow (Yellow); Glucose, Dipstick Normal (Normal); Ketone-Dipstick Negative (Negative); Leukocyte Esterase-Dipstick 25 /ul (Negative); Nitrite-Dipstick Negative (Negative); Occult Blood-Urine Negative /ul (Negative); Protein-Dipstick 30 mg/dl (Negative); Specific Gravity, Urine 1.015 (1.002-1.030); Urine Bilirubin Dipstick Negative (Negative); Urine Clarity Clear (Clear); Urine Urobilinogen Normal (Normal)
[2021-08-30 11:38] LABS: Hyaline Cast 0-5 SEEN /lpf (0-5); White Blood Cells 0-5 SEEN /hpf (0-5)
[2021-08-30 13:36] VITALS: BP 116/67; PULSE 91; RESP 18; TEMP 36.7; O2SAT 95
[2021-08-30 17:55] VITALS: BP 129/75; PULSE 98
[2021-08-30] MEDS: Senna/Docusate Sodium 1 Tablet PO (17:55)
[2021-08-30] MEDS: MELATONIN 10 MG TABLET PO (21:37)
[2021-08-30] MEDS: Gabapentin 300 MG Capsule PO (21:37)
[2021-08-31] MEDS: Spironolactone 25 MG Tablet PO (05:55)
[2021-08-31] MEDS: Carbidopa/Levodopa 25/100 Tablet PO ×3 (05:55→16:38)
[2021-08-31] MEDS: dilTIAZem CD 120 MG Capsule PO (05:56)
[2021-08-31] MEDS: Doxazosin 4 MG Tablet 8 MG PO (05:56)
[2021-08-31 05:57] VITALS: BP 118/75; PULSE 92
[2021-08-31] MEDS: cloNIDine HCl 0.1 MG Tablet PO ×2 (05:57→21:29)
[2021-08-31] MEDS: hydroCHLOROthiazide 12.5mg 12.5 MG PO (05:57)
[2021-08-31] MEDS: Metoprolol Tartrate 100 MG Tablet PO ×2 (05:57→16:38)
[2021-08-31] MEDS: APIXABAN 5 MG TABLET PO ×2 (05:57→16:38)
[2021-08-31] MEDS: Pantoprazole Sodium 40 MG Tablet PO (05:59)
[2021-08-31] MEDS: Finasteride 5 MG Tablet PO (05:59)
[2021-08-31] MEDS: Senna/Docusate Sodium 1 Tablet PO ×2 (05:59→16:39)
[2021-08-31] MEDS: Polyethylene Glycol 3350 17 GM PACKET PO (05:59)
[2021-08-31] MEDS: Allopurinol 100 MG Tablet 200 MG PO (07:54)
[2021-08-31] MEDS: Cholecalciferol (VIT D3) 25 MCG TABLET (1,000 UNITS) 50 MCG PO (07:54)
[2021-08-31] MEDS: Folic Acid 1 MG Tablet PO (07:54)
[2021-08-31] MEDS: Acetaminophen 500 MG Tablet 1000 MG PO ×2 (07:56→21:32)
[2021-08-31] MEDS: Methotrexate 2.5 MG Tablet 15 MG PO (10:59)
[2021-08-31 12:25] VITALS: BP 98/66; PULSE 87; RESP 18; TEMP 36.7; O2SAT 93
[2021-08-31 16:36] VITALS: BP 109/63; PULSE 83; RESP 18
[2021-08-31 16:38] VITALS: BP 109/63; PULSE 83
[2021-08-31] MEDS: Menthol/Lanolin/Calamine/Znox 113 GM Tube 1 APPLIC TOPICAL (16:40)
[2021-08-31 19:56] VITALS: PULSE 63; RESP 18; O2SAT 93
[2021-08-31] MEDS: Gabapentin 300 MG Capsule PO (21:30)
[2021-08-31] MEDS: MELATONIN 10 MG TABLET PO (21:30)
[2021-09-01 05:50] VITALS: BP 118/68; PULSE 85
[2021-09-01] MEDS: Spironolactone 25 MG Tablet PO (05:51)
[2021-09-01] MEDS: Senna/Docusate Sodium 1 Tablet PO ×2 (05:51→17:51)
[2021-09-01] MEDS: Pantoprazole Sodium 40 MG Tablet PO (05:51)
[2021-09-01] MEDS: Carbidopa/Levodopa 25/100 Tablet PO ×3 (05:51→17:51)
[2021-09-01] MEDS: Polyethylene Glycol 3350 17 GM PACKET PO (05:52)
[2021-09-01] MEDS: Finasteride 5 MG Tablet PO (05:52)
[2021-09-01] MEDS: APIXABAN 5 MG TABLET PO ×2 (05:52→17:51)
[2021-09-01] MEDS: cloNIDine HCl 0.1 MG Tablet PO ×2 (05:52→20:22)
[2021-09-01] MEDS: hydroCHLOROthiazide 12.5mg 12.5 MG PO (05:52)
[2021-09-01 05:53] VITALS: PULSE 85
[2021-09-01] MEDS: dilTIAZem CD 120 MG Capsule PO (05:53)
[2021-09-01] MEDS: Metoprolol Tartrate 100 MG Tablet PO ×2 (05:53→17:50)
[2021-09-01] MEDS: Menthol/Lanolin/Calamine/Znox 113 GM Tube 1 APPLIC TOPICAL ×2 (05:53→17:51)
[2021-09-01] MEDS: Doxazosin 4 MG Tablet 8 MG PO (05:54)
[2021-09-01] MEDS: Acetaminophen 500 MG Tablet 1000 MG PO ×2 (08:20→17:53)
[2021-09-01] MEDS: Folic Acid 1 MG Tablet PO (08:20)
[2021-09-01] MEDS: Allopurinol 100 MG Tablet 200 MG PO (08:20)
[2021-09-01] MEDS: Cholecalciferol (VIT D3) 25 MCG TABLET (1,000 UNITS) 50 MCG PO (08:21)
--- NOTE | 2021-09-01 10:04 | MDS.RN ---
Information for the mds was obtained from review of the clinical record, interview of resident, staff, and direct observation of resient's care.
[2021-09-01 12:38] VITALS: BP 77/51; PULSE 76; RESP 18; TEMP 36.2; O2SAT 97
[2021-09-01 17:50] VITALS: BP 102/75; PULSE 89
[2021-09-01] MEDS: Bisacodyl 5 MG Tablet 10 MG PO (17:50)
[2021-09-01] MEDS: Gabapentin 300 MG Capsule PO (20:22)
[2021-09-01] MEDS: MELATONIN 10 MG TABLET PO (20:22)
[2021-09-01 20:23] VITALS: BP 126/76; PULSE 77
[2021-09-02] MEDS: Doxazosin 4 MG Tablet 8 MG PO (05:28)
[2021-09-02] MEDS: APIXABAN 5 MG TABLET PO ×2 (05:29→17:19)
[2021-09-02] MEDS: hydroCHLOROthiazide 12.5mg 12.5 MG PO (05:29)
[2021-09-02] MEDS: Senna/Docusate Sodium 1 Tablet PO (05:29)
[2021-09-02] MEDS: Spironolactone 25 MG Tablet PO (05:29)
[2021-09-02] MEDS: Pantoprazole Sodium 40 MG Tablet PO (05:29)
[2021-09-02] MEDS: Carbidopa/Levodopa 25/100 Tablet PO ×3 (05:29→17:18)
[2021-09-02] MEDS: Finasteride 5 MG Tablet PO (05:29)
[2021-09-02 05:30] VITALS: BP 108/64; PULSE 90
[2021-09-02] MEDS: Metoprolol Tartrate 100 MG Tablet PO ×2 (05:30→17:19)
[2021-09-02] MEDS: dilTIAZem CD 120 MG Capsule PO (05:30)
[2021-09-02] MEDS: Polyethylene Glycol 3350 17 GM PACKET PO (05:30)
[2021-09-02] MEDS: Bisacodyl 5 MG Tablet 10 MG PO (05:35)
[2021-09-02 06:24] VITALS: BP 118/83; PULSE 83
[2021-09-02] MEDS: cloNIDine HCl 0.1 MG Tablet PO ×3 (06:26→21:46)
[2021-09-02] MEDS: Folic Acid 1 MG Tablet PO (07:43)
[2021-09-02] MEDS: Cholecalciferol (VIT D3) 25 MCG TABLET (1,000 UNITS) 50 MCG PO (07:43)
[2021-09-02] MEDS: Allopurinol 100 MG Tablet 200 MG PO (07:43)
[2021-09-02] MEDS: Magnesium Citrate 300 ML PO (08:35)
[2021-09-02] MEDS: Acetaminophen 500 MG Tablet 1000 MG PO ×2 (09:24→17:17)
[2021-09-02 14:33] VITALS: BP 100/67; PULSE 83; RESP 18; TEMP 36.3; O2SAT 96
[2021-09-02] MEDS: Menthol/Lanolin/Calamine/Znox 113 GM Tube 1 APPLIC TOPICAL (17:18)
[2021-09-02 17:19] VITALS: BP 104/75; PULSE 91
[2021-09-02] MEDS: MELATONIN 10 MG TABLET PO (21:46)
[2021-09-02] MEDS: Gabapentin 300 MG Capsule PO (21:46)
[2021-09-02 23:48] VITALS: PULSE 84; RESP 16; O2SAT 94
--- NOTE | 2021-09-03 01:10 | NURSING ---
Patient with noted redness, bumps on buttocks. Calmoseptine applied to areas. Will continue to monitor.
[2021-09-03 05:37] LABS: Absolute Lymphocyte Count 1.33 X10^3/uL (0.83-4.51); Absolute Neutrophil Count 2.9 X10^3/uL (2.0-7.7); Basophil# 0.03 X10^3/uL; Basophil% 0.6 % (0-1); Eosinophil# 0.26 X10^3/uL; Eosinophils% 5.5 % (0-5); Hematocrit 37.8 % (40-54); Hemoglobin 13.2 g/dL (13.0-16.5); Lymphocyte # 1.33 X10^3/ul (0.83-4.51); Lymphocyte % 27.9 % (19-41); Mean Corp Hgb Conc 34.9 g/dL (32-36); Mean Corpuscular Hgb 35.4 pg (27.0-32.0); Mean Corpuscular Volume 101.3 fL (80-94); Mean Platelet Vol. 12.4 fl (6.2-12.0); Monocyte# 0.19 X10^3/uL; NRBC Flagged by Analyzer 0 % (0-5); Neutrophil # 2.92 X10^3/uL (2.7-7.7); Neutrophil % 61.4 % (47-70); POSITIVE COUNT YES; Platelet Count 75 K/mm3 (150-450); RBC Distribution Width CV 14.6 % (11.6-14.6); RBC Distribution Width SD 53.9 fl (35.1-43.9); Red Blood Count 3.73 M/mm3 (4.6-6.2); White Blood Count 4.8 K/mm3 (4.4-11.0)
[2021-09-03 05:58] LABS: Anion Gap 6 (5-15); BUN 45 mg/dL (7-18); BUN/Creat Ratio 18.8 RATIO (10-20); Calcium,Total 9.1 mg/dL (8.5-10.1); Chloride 102 mmol/L (98-107); EST Glomerular Filtration Rate 28 mL/min (>60); Est Glom Filt Rate - Afr Amer 34 mL/min (>60); Estimated Creatinine Clearance 26.19 ml/min; Glucose 97 mg/dL (74-106); Potassium 4.7 mmol/L (3.5-5.1); Sodium Level 135 mmol/L (136-145)
[2021-09-03 06:15] VITALS: BP 144/80; PULSE 89
[2021-09-03] MEDS: Metoprolol Tartrate 100 MG Tablet PO ×2 (06:15→17:54)
[2021-09-03] MEDS: Doxazosin 4 MG Tablet 8 MG PO (06:16)
[2021-09-03] MEDS: Carbidopa/Levodopa 25/100 Tablet PO ×3 (06:16→17:54)
[2021-09-03] MEDS: dilTIAZem CD 120 MG Capsule PO (06:17)
[2021-09-03] MEDS: hydroCHLOROthiazide 12.5mg 12.5 MG PO (06:17)
[2021-09-03] MEDS: cloNIDine HCl 0.1 MG Tablet PO ×3 (06:17→20:19)
[2021-09-03] MEDS: Finasteride 5 MG Tablet PO (06:17)
[2021-09-03] MEDS: APIXABAN 5 MG TABLET PO ×2 (06:17→17:54)
[2021-09-03] MEDS: Pantoprazole Sodium 40 MG Tablet PO (06:17)
[2021-09-03] MEDS: Spironolactone 25 MG Tablet PO (06:18)
--- NOTE | 2021-09-03 06:25 | NURSING ---
Patient did not wear C-pap at HS, stated he wanted to see what would happen. SpO2 at 96% this AM. Patient denies any shortness of breath. Some expiratory wheezing noted. Will continue to monitor.
[2021-09-03] MEDS: 0.9% Normal Saline 1,000 ML 100 ML IV ×2 (08:09→18:12)
[2021-09-03] MEDS: Cholecalciferol (VIT D3) 25 MCG TABLET (1,000 UNITS) 50 MCG PO (08:12)
[2021-09-03] MEDS: Folic Acid 1 MG Tablet PO (08:12)
[2021-09-03] MEDS: Allopurinol 100 MG Tablet 200 MG PO (08:13)
[2021-09-03 14:44] VITALS: BP 107/73; PULSE 82; RESP 18; TEMP 36.2; O2SAT 96
--- NOTE | 2021-09-03 15:10 | NURSING ---
Creatinine 2.4 today N.O. 0.9% NS IV 100cc/hr, recheck BMP tomorrow, D/c hydrochlorothiazide and Aldactone.
--- NOTE | 2021-09-03 15:48 | CASEMGMT ---
Social Work Spoke with pt and dtr in room to follow up on DC plans and progress. Therapy would like to continue working with pt. Pt would like to try adlib status prior to returning home since he will be home alone. Encouraged dtr to set up LifeAlert prior to DC. Will continue to collaborate with IDT and pt/dtr to set DC date. Terese Cain, AIR BRAKE OPERATOR TEST TECH
[2021-09-03] MEDS: Senna/Docusate Sodium 1 Tablet PO (17:53)
[2021-09-03 17:54] VITALS: BP 129/85; PULSE 87
[2021-09-03] MEDS: Menthol/Lanolin/Calamine/Znox 113 GM Tube 1 APPLIC TOPICAL (17:54)
[2021-09-03] MEDS: Gabapentin 300 MG Capsule PO (20:20)
[2021-09-03] MEDS: MELATONIN 10 MG TABLET PO (20:20)
[2021-09-04] MEDS: 0.9% Normal Saline 1,000 ML 100 ML IV ×2 (04:28→14:37)
[2021-09-04] MEDS: Carbidopa/Levodopa 25/100 Tablet PO ×3 (04:30→17:39)
[2021-09-04] MEDS: Finasteride 5 MG Tablet PO (04:30)
[2021-09-04] MEDS: APIXABAN 5 MG TABLET PO ×2 (04:30→17:38)
[2021-09-04] MEDS: dilTIAZem CD 120 MG Capsule PO (04:30)
[2021-09-04] MEDS: Doxazosin 4 MG Tablet 8 MG PO (04:30)
[2021-09-04] MEDS: Pantoprazole Sodium 40 MG Tablet PO (04:30)
[2021-09-04 04:31] VITALS: BP 131/83; PULSE 87
[2021-09-04] MEDS: Metoprolol Tartrate 100 MG Tablet PO ×2 (04:31→17:38)
[2021-09-04] MEDS: Menthol/Lanolin/Calamine/Znox 113 GM Tube 1 APPLIC TOPICAL ×2 (04:31→17:39)
[2021-09-04] MEDS: cloNIDine HCl 0.1 MG Tablet PO ×2 (04:31→19:39)
[2021-09-04] MEDS: Senna/Docusate Sodium 1 Tablet PO ×2 (04:34→17:39)
[2021-09-04 06:26] LABS: Anion Gap 4 (5-15); BUN 39 mg/dL (7-18); BUN/Creat Ratio 21.3 RATIO (10-20); Calcium,Total 9.2 mg/dL (8.5-10.1); Chloride 105 mmol/L (98-107); Creatinine, Serum 1.83 mg/dL (0.70-1.30); EST Glomerular Filtration Rate 38 mL/min (>60); Est Glom Filt Rate - Afr Amer 47 mL/min (>60); Estimated Creatinine Clearance 34.34 ml/min; Glucose 87 mg/dL (74-106); Potassium 4.8 mmol/L (3.5-5.1); Sodium Level 135 mmol/L (136-145)
[2021-09-04] MEDS: Folic Acid 1 MG Tablet PO (07:48)
[2021-09-04] MEDS: Allopurinol 100 MG Tablet 200 MG PO (07:48)
[2021-09-04] MEDS: Cholecalciferol (VIT D3) 25 MCG TABLET (1,000 UNITS) 50 MCG PO (07:48)
[2021-09-04] MEDS: Acetaminophen 500 MG Tablet 1000 MG PO (09:51)
[2021-09-04 14:12] VITALS: BP 103/54; PULSE 73; RESP 16; TEMP 36.3; O2SAT 97
[2021-09-04 17:38] VITALS: BP 116/84; PULSE 86
[2021-09-04] MEDS: MELATONIN 10 MG TABLET PO (19:39)
[2021-09-04] MEDS: Gabapentin 300 MG Capsule PO (19:39)
[2021-09-04 20:10] VITALS: PULSE 88; O2SAT 96
[2021-09-05] MEDS: 0.9% Normal Saline 1,000 ML 100 ML IV ×2 (01:32→13:41)
[2021-09-05] MEDS: Carbidopa/Levodopa 25/100 Tablet PO ×3 (05:50→17:36)
[2021-09-05] MEDS: cloNIDine HCl 0.1 MG Tablet PO ×3 (05:50→20:20)
[2021-09-05] MEDS: Doxazosin 4 MG Tablet 8 MG PO (05:50)
[2021-09-05 05:51] VITALS: BP 129/77; PULSE 82
[2021-09-05] MEDS: Metoprolol Tartrate 100 MG Tablet PO ×2 (05:51→17:38)
[2021-09-05] MEDS: Senna/Docusate Sodium 1 Tablet PO ×2 (05:51→17:38)
[2021-09-05] MEDS: Menthol/Lanolin/Calamine/Znox 113 GM Tube 1 APPLIC TOPICAL ×2 (05:51→17:36)
[2021-09-05] MEDS: Pantoprazole Sodium 40 MG Tablet PO (05:51)
[2021-09-05] MEDS: dilTIAZem CD 120 MG Capsule PO (05:51)
[2021-09-05] MEDS: APIXABAN 5 MG TABLET PO ×2 (05:51→17:37)
[2021-09-05] MEDS: Finasteride 5 MG Tablet PO (05:53)
[2021-09-05 06:28] LABS: Anion Gap 4 (5-15); BUN 31 mg/dL (7-18); BUN/Creat Ratio 19.4 RATIO (10-20); Calcium,Total 8.9 mg/dL (8.5-10.1); Chloride 107 mmol/L (98-107); EST Glomerular Filtration Rate 45 mL/min (>60); Est Glom Filt Rate - Afr Amer 54 mL/min (>60); Estimated Creatinine Clearance 39.28 ml/min; Glucose 87 mg/dL (74-106); Potassium 4.9 mmol/L (3.5-5.1); Sodium Level 138 mmol/L (136-145)
[2021-09-05] MEDS: 0.9% Saline Lock 10 ML Syringe IV (09:12)
[2021-09-05] MEDS: Cholecalciferol (VIT D3) 25 MCG TABLET (1,000 UNITS) 50 MCG PO (09:12)
[2021-09-05] MEDS: Folic Acid 1 MG Tablet PO (09:13)
[2021-09-05] MEDS: Allopurinol 100 MG Tablet 200 MG PO (09:13)
[2021-09-05 10:40] VITALS: PULSE 67; RESP 18; O2SAT 96
[2021-09-05 13:36] VITALS: BP 110/70; PULSE 67; RESP 18; TEMP 36.3; O2SAT 96
[2021-09-05 17:38] VITALS: BP 110/70; PULSE 67
--- NOTE | 2021-09-05 17:41 | NURSING ---
THIS NURSE WALKED INTO PT ROOM AND SEEN PT RIGHT LOWER ARM BLEEDING. ASKED PT WHAT HAPPENED PT STATED HE DIDNT KNOW AND THOUGHT HE MIGHT HAVE HIT THE NIGHT STAND WHILE REACHING BACK AND STATED HE DIDNT FEEL ANY THING. CLEANED SMALL AREA AND APPLIED STERI STRIP. RN AWARE
[2021-09-05] MEDS: Gabapentin 300 MG Capsule PO (20:19)
[2021-09-05] MEDS: MELATONIN 10 MG TABLET PO (20:20)
[2021-09-06] MEDS: 0.9% Normal Saline 1,000 ML 100 ML IV ×3 (00:24→22:29)
[2021-09-06] MEDS: dilTIAZem CD 120 MG Capsule PO (06:48)
[2021-09-06] MEDS: Pantoprazole Sodium 40 MG Tablet PO (06:48)
[2021-09-06] MEDS: Finasteride 5 MG Tablet PO (06:49)
[2021-09-06] MEDS: Menthol/Lanolin/Calamine/Znox 113 GM Tube 1 APPLIC TOPICAL ×2 (06:49→17:10)
[2021-09-06] MEDS: APIXABAN 5 MG TABLET PO ×2 (06:49→17:10)
[2021-09-06] MEDS: Carbidopa/Levodopa 25/100 Tablet PO ×3 (06:49→17:09)
[2021-09-06] MEDS: Senna/Docusate Sodium 1 Tablet PO ×2 (06:49→17:09)
[2021-09-06] MEDS: cloNIDine HCl 0.1 MG Tablet PO ×3 (06:49→20:52)
[2021-09-06] MEDS: Doxazosin 4 MG Tablet 8 MG PO (06:50)
[2021-09-06 06:51] VITALS: BP 141/100; PULSE 90
[2021-09-06] MEDS: Metoprolol Tartrate 100 MG Tablet PO ×2 (06:51→17:10)
[2021-09-06 07:52] LABS: Anion Gap 3 (5-15); BUN 26 mg/dL (7-18); BUN/Creat Ratio 16.1 RATIO (10-20); Calcium,Total 9.1 mg/dL (8.5-10.1); Chloride 110 mmol/L (98-107); Creatinine, Serum 1.61 mg/dL (0.70-1.30); EST Glomerular Filtration Rate 45 mL/min (>60); Est Glom Filt Rate - Afr Amer 54 mL/min (>60); Estimated Creatinine Clearance 39.03 ml/min; Glucose 90 mg/dL (74-106); Potassium 4.4 mmol/L (3.5-5.1); Sodium Level 139 mmol/L (136-145)
[2021-09-06] MEDS: Allopurinol 100 MG Tablet 200 MG PO (08:41)
[2021-09-06] MEDS: Cholecalciferol (VIT D3) 25 MCG TABLET (1,000 UNITS) 50 MCG PO (08:41)
[2021-09-06] MEDS: Folic Acid 1 MG Tablet PO (08:41)
[2021-09-06 14:22] VITALS: BP 137/77; PULSE 91; RESP 16; TEMP 36.9; O2SAT 99
[2021-09-06 17:10] VITALS: BP 149/87; PULSE 86
[2021-09-06] MEDS: MELATONIN 10 MG TABLET PO (20:52)
[2021-09-06] MEDS: Gabapentin 300 MG Capsule PO (20:53)
[2021-09-06 20:55] VITALS: BP 128/86; PULSE 78
[2021-09-07] MEDS: APIXABAN 5 MG TABLET PO ×2 (05:58→17:37)
[2021-09-07] MEDS: Pantoprazole Sodium 40 MG Tablet PO (05:58)
[2021-09-07] MEDS: Carbidopa/Levodopa 25/100 Tablet PO ×3 (05:58→17:36)
[2021-09-07] MEDS: Finasteride 5 MG Tablet PO (06:00)
[2021-09-07] MEDS: dilTIAZem CD 120 MG Capsule PO (06:00)
[2021-09-07 06:02] VITALS: BP 160/103; PULSE 93
[2021-09-07] MEDS: cloNIDine HCl 0.1 MG Tablet PO ×3 (06:02→20:21)
[2021-09-07] MEDS: Metoprolol Tartrate 100 MG Tablet PO ×2 (06:02→17:37)
[2021-09-07] MEDS: Doxazosin 4 MG Tablet 8 MG PO (06:03)
[2021-09-07] MEDS: Menthol/Lanolin/Calamine/Znox 113 GM Tube 1 APPLIC TOPICAL ×2 (06:06→17:36)
[2021-09-07] MEDS: Folic Acid 1 MG Tablet PO (09:36)
[2021-09-07] MEDS: Cholecalciferol (VIT D3) 25 MCG TABLET (1,000 UNITS) 50 MCG PO (09:36)
[2021-09-07] MEDS: Allopurinol 100 MG Tablet 200 MG PO (09:37)
[2021-09-07] MEDS: 0.9% Normal Saline 1,000 ML 100 ML IV (13:17)
[2021-09-07 15:29] VITALS: BP 133/78; PULSE 93; RESP 18; TEMP 35.9; O2SAT 97
[2021-09-07 17:37] VITALS: BP 133/78; PULSE 93
[2021-09-07] MEDS: Senna/Docusate Sodium 1 Tablet PO (17:37)
[2021-09-07] MEDS: Gabapentin 300 MG Capsule PO (20:21)
[2021-09-07] MEDS: MELATONIN 10 MG TABLET PO (20:21)
[2021-09-08] MEDS: 0.9% Normal Saline 1,000 ML 100 ML IV (01:10)
[2021-09-08 05:50] VITALS: BP 155/92; PULSE 79
[2021-09-08] MEDS: Pantoprazole Sodium 40 MG Tablet PO (05:50)
[2021-09-08] MEDS: Finasteride 5 MG Tablet PO (05:50)
[2021-09-08] MEDS: Doxazosin 4 MG Tablet 8 MG PO (05:50)
[2021-09-08] MEDS: Carbidopa/Levodopa 25/100 Tablet PO ×3 (05:50→17:42)
[2021-09-08] MEDS: Metoprolol Tartrate 100 MG Tablet PO ×2 (05:50→17:43)
[2021-09-08] MEDS: Menthol/Lanolin/Calamine/Znox 113 GM Tube 1 APPLIC TOPICAL ×2 (05:51→17:44)
[2021-09-08] MEDS: Senna/Docusate Sodium 1 Tablet PO ×2 (05:51→17:42)
[2021-09-08] MEDS: cloNIDine HCl 0.1 MG Tablet PO ×3 (05:51→20:32)
[2021-09-08] MEDS: dilTIAZem CD 120 MG Capsule PO (05:51)
[2021-09-08] MEDS: APIXABAN 5 MG TABLET PO ×2 (05:51→17:42)
[2021-09-08] MEDS: Folic Acid 1 MG Tablet PO (07:54)
[2021-09-08] MEDS: Cholecalciferol (VIT D3) 25 MCG TABLET (1,000 UNITS) 50 MCG PO (07:54)
[2021-09-08] MEDS: Allopurinol 100 MG Tablet 200 MG PO (07:54)
[2021-09-08 15:17] VITALS: BP 130/76; PULSE 90; RESP 18; TEMP 36.3; O2SAT 98
[2021-09-08 17:43] VITALS: BP 156/96; PULSE 89
[2021-09-08] MEDS: MELATONIN 10 MG TABLET PO (20:32)
[2021-09-08] MEDS: Gabapentin 300 MG Capsule PO (20:32)
[2021-09-09 05:59] VITALS: BP 168/109; PULSE 90
[2021-09-09] MEDS: dilTIAZem CD 120 MG Capsule PO (05:59)
[2021-09-09] MEDS: Doxazosin 4 MG Tablet 8 MG PO (05:59)
[2021-09-09] MEDS: Metoprolol Tartrate 100 MG Tablet PO ×2 (05:59→17:10)
[2021-09-09] MEDS: APIXABAN 5 MG TABLET PO ×2 (05:59→17:10)
[2021-09-09] MEDS: cloNIDine HCl 0.1 MG Tablet PO ×3 (05:59→22:05)
[2021-09-09] MEDS: Carbidopa/Levodopa 25/100 Tablet PO ×3 (06:00→17:09)
[2021-09-09] MEDS: Finasteride 5 MG Tablet PO (06:00)
[2021-09-09] MEDS: Senna/Docusate Sodium 1 Tablet PO ×2 (06:00→17:11)
[2021-09-09] MEDS: Pantoprazole Sodium 40 MG Tablet PO (06:00)
[2021-09-09] MEDS: Menthol/Lanolin/Calamine/Znox 113 GM Tube 1 APPLIC TOPICAL ×2 (06:06→17:09)
[2021-09-09 06:44] LABS: Anion Gap 5 (5-15); BUN 19 mg/dL (7-18); Chloride 108 mmol/L (98-107); Creatinine, Serum 1.36 mg/dL (0.70-1.30); EST Glomerular Filtration Rate 54 mL/min (>60); Est Glom Filt Rate - Afr Amer 66 mL/min (>60); Estimated Creatinine Clearance 46.21 ml/min; Glucose 93 mg/dL (74-106); Potassium 3.9 mmol/L (3.5-5.1); Sodium Level 140 mmol/L (136-145)
[2021-09-09] MEDS: Folic Acid 1 MG Tablet PO (08:24)
[2021-09-09] MEDS: Cholecalciferol (VIT D3) 25 MCG TABLET (1,000 UNITS) 50 MCG PO (08:25)
[2021-09-09] MEDS: Allopurinol 100 MG Tablet 200 MG PO (08:25)
[2021-09-09 14:00] VITALS: PULSE 60; RESP 18; O2SAT 97
[2021-09-09 14:12] VITALS: BP 109/69; PULSE 96; RESP 16; TEMP 36.2; O2SAT 96
[2021-09-09 17:10] VITALS: BP 109/69; PULSE 96
[2021-09-09] MEDS: MELATONIN 10 MG TABLET PO (22:05)
[2021-09-09] MEDS: Gabapentin 300 MG Capsule PO (22:05)
[2021-09-09 22:07] VITALS: BP 142/94; PULSE 85
[2021-09-10 05:29] LABS: Absolute Lymphocyte Count 1.49 X10^3/uL (0.83-4.51); Absolute Neutrophil Count 2.2 X10^3/uL (2.0-7.7); Basophil# 0.03 X10^3/uL; Basophil% 0.7 % (0-1); Eosinophil# 0.19 X10^3/uL; Eosinophils% 4.3 % (0-5); Hematocrit 35.1 % (40-54); Hemoglobin 12.2 g/dL (13.0-16.5); Lymphocyte # 1.49 X10^3/ul (0.83-4.51); Mean Corp Hgb Conc 34.8 g/dL (32-36); Mean Corpuscular Hgb 35.2 pg (27.0-32.0); Mean Corpuscular Volume 101.2 fL (80-94); Mean Platelet Vol. 11.2 fl (6.2-12.0); Monocyte# 0.48 X10^3/uL; NRBC Flagged by Analyzer 0.5 % (0-5); Neutrophil # 2.17 X10^3/uL (2.7-7.7); Neutrophil % 49.5 % (47-70); POSITIVE COUNT YES; Platelet Count 67 K/mm3 (150-450); RBC Distribution Width CV 15.5 % (11.6-14.6); RBC Distribution Width SD 55.7 fl (35.1-43.9); Red Blood Count 3.47 M/mm3 (4.6-6.2); White Blood Count 4.4 K/mm3 (4.4-11.0)
[2021-09-10 05:53] LABS: Anion Gap 4 (5-15); BUN 21 mg/dL (7-18); BUN/Creat Ratio 14.5 RATIO (10-20); Calcium,Total 9.1 mg/dL (8.5-10.1); Chloride 108 mmol/L (98-107); Creatinine, Serum 1.45 mg/dL (0.70-1.30); EST Glomerular Filtration Rate 50 mL/min (>60); Est Glom Filt Rate - Afr Amer 61 mL/min (>60); Estimated Creatinine Clearance 43.34 ml/min; Glucose 87 mg/dL (74-106); Potassium 4.2 mmol/L (3.5-5.1); Sodium Level 139 mmol/L (136-145)
[2021-09-10 06:10] VITALS: BP 144/96; PULSE 63; RESP 16; TEMP 36.3; O2SAT 97
[2021-09-10 06:12] VITALS: PULSE 63
[2021-09-10] MEDS: Metoprolol Tartrate 100 MG Tablet PO ×2 (06:12→16:54)
[2021-09-10] MEDS: Pantoprazole Sodium 40 MG Tablet PO (06:12)
[2021-09-10] MEDS: Carbidopa/Levodopa 25/100 Tablet PO ×3 (06:12→16:52)
[2021-09-10] MEDS: Senna/Docusate Sodium 1 Tablet PO ×2 (06:12→16:54)
[2021-09-10] MEDS: APIXABAN 5 MG TABLET PO ×2 (06:12→16:54)
[2021-09-10] MEDS: dilTIAZem CD 120 MG Capsule PO (06:12)
[2021-09-10] MEDS: cloNIDine HCl 0.1 MG Tablet PO ×3 (06:12→21:17)
[2021-09-10] MEDS: Finasteride 5 MG Tablet PO (06:13)
[2021-09-10] MEDS: Doxazosin 4 MG Tablet 8 MG PO (06:13)
[2021-09-10] MEDS: Menthol/Lanolin/Calamine/Znox 113 GM Tube 1 APPLIC TOPICAL ×2 (06:14→16:52)
[2021-09-10] MEDS: Folic Acid 1 MG Tablet PO (08:11)
[2021-09-10] MEDS: Cholecalciferol (VIT D3) 25 MCG TABLET (1,000 UNITS) 50 MCG PO (08:11)
[2021-09-10] MEDS: Allopurinol 100 MG Tablet 200 MG PO (08:11)
--- NOTE | 2021-09-10 15:22 | CASEMGMT ---
Social Work IDT set DC for 09/17. Spoke with pt and dtr - both agreeable. Pt chose HHC vs outpatient therapy. [facility] prior. Referral to [facility] PT/OT. No DME needs. Dtr to transport. Plan: DC home alone 09/17, [facility] PT/OT NAS[facility] GarciaW
[2021-09-10 15:35] VITALS: BP 144/96; PULSE 63; RESP 16; TEMP 36.3; O2SAT 97
[2021-09-10 16:54] VITALS: BP 144/96; PULSE 63
[2021-09-10 21:01] VITALS: PULSE 81; RESP 16; O2SAT 95
[2021-09-10] MEDS: MELATONIN 10 MG TABLET PO (21:17)
[2021-09-10] MEDS: Gabapentin 300 MG Capsule PO (21:17)
[2021-09-11 06:41] VITALS: BP 149/96; PULSE 91
[2021-09-11] MEDS: Doxazosin 4 MG Tablet 8 MG PO (06:41)
[2021-09-11] MEDS: Metoprolol Tartrate 100 MG Tablet PO ×2 (06:41→16:57)
[2021-09-11] MEDS: Senna/Docusate Sodium 1 Tablet PO (06:41)
[2021-09-11] MEDS: cloNIDine HCl 0.1 MG Tablet PO ×3 (06:41→22:33)
[2021-09-11] MEDS: APIXABAN 5 MG TABLET PO ×2 (06:41→16:56)
[2021-09-11] MEDS: Pantoprazole Sodium 40 MG Tablet PO (06:41)
[2021-09-11] MEDS: Finasteride 5 MG Tablet PO (06:41)
[2021-09-11] MEDS: dilTIAZem CD 120 MG Capsule PO (06:41)
[2021-09-11] MEDS: Carbidopa/Levodopa 25/100 Tablet PO ×3 (06:41→16:56)
[2021-09-11] MEDS: Menthol/Lanolin/Calamine/Znox 113 GM Tube 1 APPLIC TOPICAL ×2 (06:46→16:58)
[2021-09-11] MEDS: Folic Acid 1 MG Tablet PO (08:30)
[2021-09-11] MEDS: Cholecalciferol (VIT D3) 25 MCG TABLET (1,000 UNITS) 50 MCG PO (08:30)
[2021-09-11] MEDS: Allopurinol 100 MG Tablet 200 MG PO (08:30)
--- NOTE | 2021-09-11 14:40 | NURSING ---
Pt BP has been trending up, message left for Dr. Adames
[2021-09-11 15:18] VITALS: BP 131/76; PULSE 93; RESP 18; TEMP 36.4; O2SAT 96
[2021-09-11 16:57] VITALS: BP 126/66; PULSE 84
--- NOTE | 2021-09-11 19:36 | DS.PCM_ITS ---
Providers Date of Admission: 08/19/21 Primary Care Physician: Dr. Brad Forrest DO Reason For Visit: CVA Diagnosis Discharge Diagnosis (1) Debility: Status: Acute Code(s): R53.81 - Other malaise (2) Transient ischemic attack: Status: Acute Code(s): G45.9 - Transient cerebral ischemic attack, unspecified (3) Acute kidney injury: Status: Acute Code(s): N17.9 - Acute kidney failure, unspecified (4) Bilateral carotid artery stenosis: Status: Acute Code(s): I65.23 - Occlusion and stenosis of bilateral carotid arteries (5) Atrial fibrillation with rapid ventricular response: Status: Acute Code(s): I48.91 - Unspecified atrial fibrillation (6) Bilateral pulmonary embolism: Status: Acute Code(s): I26.99 - Other pulmonary embolism without acute cor pulmonale (7) COVID-19: Status: Acute Code(s): U07.1 - COVID-19 (8) Benign prostatic hyperplasia: Status: Acute Code(s): N40.0 - Benign prostatic hyperplasia without lower urinary tract symptoms (9) Obstructive sleep apnea: Status: Acute Code(s): G47.33 - Obstructive sleep apnea (adult) (pediatric) (10) Gastroesophageal reflux disease: Status: Acute Code(s): K21.9 - Gastro-esophageal reflux disease without esophagitis (11) Hypertension: Status: Chronic Code(s): I10 - Essential (primary) hypertension (12) Gout: Status: Acute Code(s): M10.9 - Gout, unspecified (13) Neuropathy: Status: Acute Code(s): G62.9 - Polyneuropathy, unspecified (14) Vitamin D deficiency: Status: Acute Code(s): E55.9 - Vitamin D deficiency, unspecified (15) Gastroesophageal reflux disease: Status: Acute Code(s): K21.9 - Gastro-esophageal reflux disease without esophagitis (16) Thrombocytopenia: Status: Acute Code(s): D69.6 - Thrombocytopenia, unspecified Medications at Discharge Home Medications allopurinol 200 mg PO DAILY 01/11/17 clonidine HCl 0.1 mg PO TID 01/11/17 finasteride 5 mg PO DAILY 01/11/17 folic acid 1 mg PO DAILY 01/11/17 gabapentin [Neurontin] 300 mg PO DAILY 01/11/17 loratadine [Allergy Relief (loratadine)] 10 mg PO DAILY PRN 01/11/17 terazosin 10 mg PO DAILY MDD urinary 01/11/17 cholecalciferol (vitamin D3) [Vitamin D3] 2,000 unit PO DAILY 07/12/17 pantoprazole 40 mg PO DAILY 08/19/21 apixaban [Eliquis] 5 mg PO BID 30 Days #60 tab 09/11/21 carbidopa-levodopa 2 tab PO TIDAC 30 Days #180 tab 09/11/21 diltiazem HCl 120 mg PO DAILY 30 Days #30 cap 09/11/21 metoprolol tartrate 100 mg PO BID 30 Days #60 tab 09/11/21 oxybutynin chloride 5 mg PO QHS 30 Days #30 tab 09/11/21 Hospital Course Operations None Procedures None Summary of Care Provided Minutes Spent on Discharge: 35 Hospital Course: 76 year old male with below past medical history hospitalized for transient ischemic attack, complicated by acute kidney injury, new onset atrial fibrillation with rapid ventricular response, bilateral severe carotid artery stenosis, bilateral pulmonary embolism, admitted to TCU with debility, here for rehabilitation, strengthening, prior to discharge home alone. 09/11/2021 Increase Sinemet 25/100mg to 2 tablets tid for better control of Parkinson Disease. 09/11/2021 Add Oxybutynin 5mg at bedtime for nighttime nocturia. Discharge home alone 09/17/2021, [facility] PT/OT. Physical Exam Const alert General Appearance: cooperative HEENT normocephalic Eyes PERRL and EOMs intact bilaterally Neck supple, no JVD and no carotid bruits Resp normal respiratory effort, normal air movement and clear to auscultation bilaterally Cardio regular rate and regular rhythm GI normal to inspection, nondistended, normoactive bowel sounds, non-tender and non-distended Extremity normal capillary refill General Extremity: Negative for edema Skin no rashes or lesions noted General Skin Exam: no breakdown Psych affect normal Appearance: appropriate Medical Records Data Medical Nutrition Assessment Dietitian: Malnutrition Criteria Met Start: 08/20/21 12:44 Freq: Status: Active Protocol: Document 09/03/21 16:52 MARISELA (Rec: 09/03/21 16:52 MARISELA [id number]) Nutrition Malnutrition Evidence of Malnutrition Exists Yes Evidenced By Suboptimal Energy Intake ( Severe),Weight Loss (Severe) Clinical Problem Acute Disease or Injury Related Malnutrition Etiology related to recent diagnosis of covid 19, lost sense of taste and smell and inability to consume adequate nutrition to meet est nutritional needs Signs/Symptoms as evidenced by <50% po intake of meals and 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 Status Active Problem Recommendation Dietitian Recommendations/Changes Will continue diet as ordered, with small portions per res request. Rec revisit need for ONS if po intake worsens and/or additional sig wt loss. Weight / BMI Weight Weight: 97.25 kg Body Mass Index (BMI) 31.4 ABG / Lab / Microbiology Data Result Diagrams: 09/10/21 05:13 09/10/21 05:13 Microbiology: Microbiology 08/30/21 11:00 Urine, Clean Catch Urine Culture - Final Mixed Gram Pos & Gram Neg Org 08/28/21 17:50 Urine, Catheterized Urine Culture - Final Culture exhibits no growth. D/C Instructions Discharge Diet: No restrictions Discharge Activity: Return to Normal Activity Weight Bearing Status: Weight bearing as tolerated Call your doctor if you observe: Fever of 101 or Higher, Inability to urinate, Inability to have a bowel movement, Shortness of breath, Dizziness, Fainting spells, Swelling in the ankles, Chest pain and Uncontrolled pain Additional Instructions: Discharge home alone 09/17/2021, [facility] PT/OT. Meaningful Use Info Meaningful Use Diagnoses (Choose all that apply): None applicable Discharge Plan Admission Admit Date/Time: 08/19/21 14:17 Primary Reason for Your Visit: Debility. Attending Provider: Santosh Adames Chi Primary Care Provider: Brad Forrest Instructions Additional Instructions / Restrictions: Discharge home alone 09/17/2021, [facility] PT/OT. Discharge Orders/Prescriptions Prescriptions: New carbidopa-levodopa 25-100 mg Tablet 2 tab PO TIDAC 30 Days Qty: 180 RF: 0 oxybutynin chloride 5 mg Tablet 5 mg PO QHS 30 Days Qty: 30 RF: 0 Eliquis 5 mg Tablet 5 mg PO BID 30 Days Qty: 60 RF: 0 Continued clonidine HCl 0.1 MG tablet 0.1 mg PO TID RF: 0 allopurinol 100 MG tablet 200 mg PO DAILY RF: 0 gabapentin [Neurontin] 300 MG capsule 300 mg PO DAILY RF: 0 folic acid 1 MG tablet 1 mg PO DAILY RF: 0 terazosin 10 MG capsule 10 mg PO DAILY MDD urinary RF: 0 finasteride 5 MG tablet 5 mg PO DAILY RF: 0 loratadine [Allergy Relief (loratadine)] 10 MG tablet 10 mg PO DAILY PRN (Reason: ALLERGIES) RF: 0 cholecalciferol (vitamin D3) [Vitamin D3] 2,000 UNIT capsule 2,000 unit PO DAILY RF: 0 pantoprazole 40 mg tablet,delayed release (DR/EC) 40 mg PO DAILY RF: 0 metoprolol tartrate 100 mg tablet 100 mg PO BID 30 Days Qty: 60 RF: 0 diltiazem HCl 120 mg capsule,extended release 24hr 120 mg PO DAILY 30 Days Qty: 30 RF: 0 Discontinued methotrexate sodium 2.5 MG tablet 15 mg PO BETANCOURT RF: 0 hydrochlorothiazide 25 MG tablet 12.5 mg PO DAILY RF: 0 spironolactone 25 mg Tablet 25 mg PO DAILY RF: 0 lisinopril 40 MG tablet 40 mg PO BID RF: 0 amlodipine 5 mg tablet 10 mg PO DAILY RF: 0 Eliquis DVT-PE Treat 30D Start 5 mg (74 tabs) tablets,dose pack 5 mg PO BID RF: 0 Referrals / Follow Up: Brad Forrest DO [Primary Care Provider] - Disposition Disposition (needs filled in before D/C Order can be placed): Home Health Service
[2021-09-11] MEDS: MELATONIN 10 MG TABLET PO (22:33)
[2021-09-11] MEDS: Gabapentin 300 MG Capsule PO (22:33)
[2021-09-11] MEDS: Oxybutynin 5 MG Tablet PO (23:21)
[2021-09-12 06:26] VITALS: BP 161/108
[2021-09-12] MEDS: dilTIAZem CD 120 MG Capsule PO ×2 (06:29→08:57)
[2021-09-12] MEDS: Doxazosin 4 MG Tablet 8 MG PO (06:29)
[2021-09-12] MEDS: cloNIDine HCl 0.1 MG Tablet PO (06:29)
[2021-09-12 06:30] VITALS: BP 161/108; PULSE 91
[2021-09-12] MEDS: APIXABAN 5 MG TABLET PO ×2 (06:30→17:20)
[2021-09-12] MEDS: Metoprolol Tartrate 100 MG Tablet PO ×2 (06:30→17:22)
[2021-09-12] MEDS: Pantoprazole Sodium 40 MG Tablet PO (06:30)
[2021-09-12] MEDS: Finasteride 5 MG Tablet PO (06:30)
[2021-09-12] MEDS: Senna/Docusate Sodium 1 Tablet PO ×2 (06:31→17:20)
[2021-09-12] MEDS: Carbidopa/Levodopa 25/100 Tablet PO ×3 (06:31→17:20)
[2021-09-12] MEDS: Menthol/Lanolin/Calamine/Znox 113 GM Tube 1 APPLIC TOPICAL ×2 (06:33→17:21)
[2021-09-12] MEDS: Folic Acid 1 MG Tablet PO (08:57)
[2021-09-12] MEDS: Cholecalciferol (VIT D3) 25 MCG TABLET (1,000 UNITS) 50 MCG PO (08:57)
[2021-09-12] MEDS: Allopurinol 100 MG Tablet 200 MG PO (08:58)
[2021-09-12 12:55] VITALS: BP 116/71; PULSE 93; RESP 16; TEMP 36.5; O2SAT 100
[2021-09-12] MEDS: cloNIDine HCl 0.2 MG Tablet PO ×2 (12:57→20:49)
[2021-09-12 17:22] VITALS: BP 134/74; PULSE 93
[2021-09-12] MEDS: Oxybutynin 5 MG Tablet PO (20:49)
[2021-09-12] MEDS: MELATONIN 10 MG TABLET PO (20:49)
[2021-09-12] MEDS: Gabapentin 300 MG Capsule PO (20:49)
[2021-09-12 21:00] VITALS: PULSE 58; RESP 16
[2021-09-13] VITALS (8 sets, daily range): BP systolic 96–140; BP diastolic 57–93; PULSE 62–83; RESP 16; TEMP 36.3–36.7; O2SAT 97–100
[2021-09-13] MEDS: Carbidopa/Levodopa 25/100 Tablet PO ×3 (05:00→18:09)
[2021-09-13] MEDS: Polyethylene Glycol 3350 17 GM PACKET PO (05:00)
[2021-09-13] MEDS: dilTIAZem CD 240 MG Capsule PO (05:01)
[2021-09-13] MEDS: Senna/Docusate Sodium 1 Tablet PO ×2 (05:01→18:14)
[2021-09-13] MEDS: Pantoprazole Sodium 40 MG Tablet PO (05:01)
[2021-09-13] MEDS: Finasteride 5 MG Tablet PO (05:01)
[2021-09-13] MEDS: APIXABAN 5 MG TABLET PO ×2 (05:01→18:11)
[2021-09-13] MEDS: Doxazosin 4 MG Tablet 8 MG PO (05:01)
[2021-09-13] MEDS: cloNIDine HCl 0.2 MG Tablet PO ×3 (05:03→21:33)
[2021-09-13] MEDS: Menthol/Lanolin/Calamine/Znox 113 GM Tube 1 APPLIC TOPICAL ×2 (05:03→18:10)
[2021-09-13] MEDS: Metoprolol Tartrate 100 MG Tablet PO ×2 (05:06→18:14)
[2021-09-13] MEDS: Allopurinol 100 MG Tablet 200 MG PO (08:57)
[2021-09-13] MEDS: Cholecalciferol (VIT D3) 25 MCG TABLET (1,000 UNITS) 50 MCG PO (08:57)
[2021-09-13] MEDS: Folic Acid 1 MG Tablet PO (08:57)
--- NOTE | 2021-09-13 09:49 | NURSING ---
Patient requested to only have left leg wrapped
[2021-09-13] MEDS: MELATONIN 10 MG TABLET PO (21:32)
[2021-09-13] MEDS: Oxybutynin 5 MG Tablet PO (21:33)
[2021-09-13] MEDS: Gabapentin 300 MG Capsule PO (21:33)
[2021-09-14] MEDS: Polyethylene Glycol 3350 17 GM PACKET PO (05:25)
[2021-09-14] MEDS: APIXABAN 5 MG TABLET PO ×2 (05:25→17:13)
[2021-09-14] MEDS: Doxazosin 4 MG Tablet 8 MG PO (05:26)
[2021-09-14] MEDS: cloNIDine HCl 0.2 MG Tablet PO ×3 (05:26→20:10)
[2021-09-14] MEDS: Senna/Docusate Sodium 1 Tablet PO (05:26)
[2021-09-14] MEDS: Carbidopa/Levodopa 25/100 Tablet PO ×3 (05:27→17:13)
[2021-09-14] MEDS: Pantoprazole Sodium 40 MG Tablet PO (05:27)
[2021-09-14 05:28] VITALS: BP 133/98; PULSE 77
[2021-09-14] MEDS: Finasteride 5 MG Tablet PO (05:28)
[2021-09-14] MEDS: dilTIAZem CD 240 MG Capsule PO (05:28)
[2021-09-14] MEDS: Metoprolol Tartrate 100 MG Tablet PO ×2 (05:28→17:13)
[2021-09-14] MEDS: Menthol/Lanolin/Calamine/Znox 113 GM Tube 1 APPLIC TOPICAL ×2 (05:34→17:08)
[2021-09-14 07:35] VITALS: O2SAT 94
[2021-09-14] MEDS: Allopurinol 100 MG Tablet 200 MG PO (08:41)
[2021-09-14] MEDS: Cholecalciferol (VIT D3) 25 MCG TABLET (1,000 UNITS) 50 MCG PO (08:42)
[2021-09-14] MEDS: Folic Acid 1 MG Tablet PO (08:42)
[2021-09-14 15:42] VITALS: BP 97/57; PULSE 83; RESP 20; TEMP 36.5; O2SAT 95
[2021-09-14 17:13] VITALS: BP 110/60; PULSE 79
[2021-09-14] MEDS: Gabapentin 300 MG Capsule PO (20:11)
[2021-09-14] MEDS: Oxybutynin 5 MG Tablet PO (20:12)
[2021-09-14] MEDS: MELATONIN 10 MG TABLET PO (20:12)
[2021-09-15 04:32] VITALS: PULSE 77
[2021-09-15] MEDS: Carbidopa/Levodopa 25/100 Tablet PO ×3 (05:23→16:58)
[2021-09-15] MEDS: Polyethylene Glycol 3350 17 GM PACKET PO (05:23)
[2021-09-15] MEDS: dilTIAZem CD 240 MG Capsule PO (05:23)
[2021-09-15] MEDS: cloNIDine HCl 0.2 MG Tablet PO ×2 (05:23→20:27)
[2021-09-15] MEDS: Senna/Docusate Sodium 1 Tablet PO ×2 (05:23→16:59)
[2021-09-15] MEDS: Doxazosin 4 MG Tablet 8 MG PO (05:23)
[2021-09-15 05:24] VITALS: BP 140/101; PULSE 84
[2021-09-15] MEDS: Pantoprazole Sodium 40 MG Tablet PO (05:24)
[2021-09-15] MEDS: APIXABAN 5 MG TABLET PO ×2 (05:24→16:58)
[2021-09-15] MEDS: Finasteride 5 MG Tablet PO (05:24)
[2021-09-15] MEDS: Metoprolol Tartrate 100 MG Tablet PO ×2 (05:24→18:39)
[2021-09-15] MEDS: Menthol/Lanolin/Calamine/Znox 113 GM Tube 1 APPLIC TOPICAL ×2 (05:24→17:00)
[2021-09-15] MEDS: Allopurinol 100 MG Tablet 200 MG PO (08:01)
[2021-09-15] MEDS: Cholecalciferol (VIT D3) 25 MCG TABLET (1,000 UNITS) 50 MCG PO (08:01)
[2021-09-15] MEDS: Folic Acid 1 MG Tablet PO (08:01)
[2021-09-15 14:20] VITALS: BP 98/68; PULSE 77; RESP 18; TEMP 36.4; O2SAT 98
[2021-09-15 17:00] VITALS: BP 112/65; PULSE 82
[2021-09-15 18:31] VITALS: BP 108/69
[2021-09-15 18:39] VITALS: PULSE 82
[2021-09-15] MEDS: Gabapentin 300 MG Capsule PO (20:27)
[2021-09-15] MEDS: MELATONIN 10 MG TABLET PO (20:28)
[2021-09-15] MEDS: Oxybutynin 5 MG Tablet PO (20:28)
[2021-09-16 04:49] VITALS: BP 141/89; PULSE 74
[2021-09-16] MEDS: Menthol/Lanolin/Calamine/Znox 113 GM Tube 1 APPLIC TOPICAL ×2 (04:49→17:47)
[2021-09-16] MEDS: Metoprolol Tartrate 100 MG Tablet PO ×2 (04:49→17:05)
[2021-09-16] MEDS: APIXABAN 5 MG TABLET PO ×2 (04:49→17:04)
[2021-09-16] MEDS: Carbidopa/Levodopa 25/100 Tablet PO ×3 (04:49→17:04)
[2021-09-16] MEDS: Pantoprazole Sodium 40 MG Tablet PO (04:49)
[2021-09-16] MEDS: dilTIAZem CD 240 MG Capsule PO (04:49)
[2021-09-16] MEDS: Doxazosin 4 MG Tablet 8 MG PO (04:49)
[2021-09-16] MEDS: Senna/Docusate Sodium 1 Tablet PO ×2 (04:49→17:06)
[2021-09-16] MEDS: cloNIDine HCl 0.2 MG Tablet PO ×3 (04:49→20:04)
[2021-09-16] MEDS: Finasteride 5 MG Tablet PO (04:50)
[2021-09-16] MEDS: Polyethylene Glycol 3350 17 GM PACKET PO (04:50)
[2021-09-16] MEDS: Folic Acid 1 MG Tablet PO (08:18)
[2021-09-16] MEDS: Allopurinol 100 MG Tablet 200 MG PO (08:18)
[2021-09-16] MEDS: Cholecalciferol (VIT D3) 25 MCG TABLET (1,000 UNITS) 50 MCG PO (08:19)
[2021-09-16 13:29] VITALS: BP 100/57; PULSE 93; RESP 18; TEMP 36.6; O2SAT 97
[2021-09-16 17:05] VITALS: BP 100/57; PULSE 93
[2021-09-16] MEDS: Gabapentin 300 MG Capsule PO (20:02)
[2021-09-16] MEDS: Oxybutynin 5 MG Tablet PO (20:03)
[2021-09-16] MEDS: MELATONIN 10 MG TABLET PO (20:03)
[2021-09-17 05:27] VITALS: BP 136/93; PULSE 83
[2021-09-17] MEDS: dilTIAZem CD 240 MG Capsule PO (05:27)
[2021-09-17] MEDS: Pantoprazole Sodium 40 MG Tablet PO (05:27)
[2021-09-17] MEDS: Doxazosin 4 MG Tablet 8 MG PO (05:27)
[2021-09-17] MEDS: Metoprolol Tartrate 100 MG Tablet PO (05:27)
[2021-09-17] MEDS: Carbidopa/Levodopa 25/100 Tablet PO ×2 (05:27→11:21)
[2021-09-17] MEDS: cloNIDine HCl 0.2 MG Tablet PO (05:27)
[2021-09-17] MEDS: APIXABAN 5 MG TABLET PO (05:28)
[2021-09-17] MEDS: Senna/Docusate Sodium 1 Tablet PO (05:28)
[2021-09-17] MEDS: Finasteride 5 MG Tablet PO (05:28)
[2021-09-17] MEDS: Menthol/Lanolin/Calamine/Znox 113 GM Tube 1 APPLIC TOPICAL (05:31)
[2021-09-17 05:45] LABS: Absolute Lymphocyte Count 1.93 X10^3/uL (0.83-4.51); Absolute Neutrophil Count 1.8 X10^3/uL (2.0-7.7); Basophil# 0.02 X10^3/uL; Basophil% 0.5 % (0-1); Eosinophil# 0.24 X10^3/uL; Eosinophils% 5.5 % (0-5); Hematocrit 34.5 % (40-54); Hemoglobin 12.2 g/dL (13.0-16.5); Lymphocyte # 1.93 X10^3/ul (0.83-4.51); Lymphocyte % 44.2 % (19-41); Mean Corp Hgb Conc 35.4 g/dL (32-36); Mean Corpuscular Hgb 36.1 pg (27.0-32.0); Mean Corpuscular Volume 102.1 fL (80-94); Mean Platelet Vol. 12.5 fl (6.2-12.0); Monocyte# 0.37 X10^3/uL; Monocyte% 8.5 % (0-10); NRBC Flagged by Analyzer 0 % (0-5); Neutrophil # 1.79 X10^3/uL (2.7-7.7); Neutrophil % 40.8 % (47-70); POSITIVE COUNT YES; Platelet Count 76 K/mm3 (150-450); RBC Distribution Width CV 15.9 % (11.6-14.6); RBC Distribution Width SD 59.6 fl (35.1-43.9); Red Blood Count 3.38 M/mm3 (4.6-6.2); White Blood Count 4.4 K/mm3 (4.4-11.0)
[2021-09-17 06:05] LABS: Anion Gap 2 (5-15); BUN 22 mg/dL (7-18); BUN/Creat Ratio 15.7 RATIO (10-20); Calcium,Total 8.8 mg/dL (8.5-10.1); Chloride 107 mmol/L (98-107); EST Glomerular Filtration Rate 52 mL/min (>60); Est Glom Filt Rate - Afr Amer 63 mL/min (>60); Estimated Creatinine Clearance 44.89 ml/min; Glucose 95 mg/dL (74-106); Potassium 4.5 mmol/L (3.5-5.1); Sodium Level 139 mmol/L (136-145)
[2021-09-17] MEDS: Allopurinol 100 MG Tablet 200 MG PO (07:44)
[2021-09-17] MEDS: Cholecalciferol (VIT D3) 25 MCG TABLET (1,000 UNITS) 50 MCG PO (07:44)
[2021-09-17] MEDS: Folic Acid 1 MG Tablet PO (07:44)
[2021-09-17 12:04] VITALS: BP 101/78; PULSE 88; RESP 16; TEMP 36.6; O2SAT 95
== END 2021-09-17 11:45 | disposition home health service (06) | DRG 176 ==
PROVIDERS: Admitting Provider Family Medicine Geriatric Medicine; PCP Family Medicine; Visit Provider Family Medicine Geriatric Medicine
DX: I26.99 Other pulmonary embolism without acute cor pulmonale (principal); D69.6 Thrombocytopenia, unspecified; G20 Parkinson's disease; I48.91 Unspecified atrial fibrillation; G62.9 Polyneuropathy, unspecified; E53.8 Deficiency of other specified B group vitamins; E55.9 Vitamin D deficiency, unspecified; K21.9 Gastro-esophageal reflux disease without esophagitis; G47.33 Obstructive sleep apnea (adult) (pediatric); N40.0 Benign prostatic hyperplasia without lower urinary tract symptoms; M10.9 Gout, unspecified; I10 Essential (primary) hypertension; M48.02 Spinal stenosis, cervical region; I65.23 Occlusion and stenosis of bilateral carotid arteries; Z79.899 Other long term (current) drug therapy; Z79.01 Long term (current) use of anticoagulants; Z86.73 Personal history of transient ischemic attack (TIA), and cerebral infarction without residual deficits; R29.898 Other symptoms and signs involving the musculoskeletal system; R29.810 Facial weakness; Z86.16 Personal history of COVID-19; R35.1 Nocturia
CPT/HCPCS: 36415; 72100; 80048; 81001; 85025; 87086; 87088; 92507; 92523; 97110; 97112; 97116; 97162; 97166; 97530; 97535; 97802; J7030; A4216; J8610

== ENCOUNTER 2021-08-30 07:54 | Outpatient (CLI) | payer MEDICARE, OTHER, SELFPAY ==
--- NOTE | 2021-08-30 08:15 | CT_ITS ---
STUDY: CT BRAIN WITHOUT CONTRAST REASON FOR EXAM: Male, 76 years old. FALL RADIATION DOSAGE (If Supplied By Facility): CTDIvol = ( 44.99 ) mGy, DLP = ( 779.24 ) mGycm TECHNIQUE: Transaxial CT imaging of the brain was performed without administration of intravenous contrast material. Individualized dose optimization techniques were used for this CT. COMPARISON: August 15, 2021 MRI brain FINDINGS: Normal soft tissue structures. Normal calvarium. There is mild cerebral atrophy with widening of the extra-axial spaces and ventricular dilatation. There are areas of decreased attenuation within the white matter tracts of the supratentorial brain, consistent with microvascular disease changes. There are stable foci of low attenuation within the right greater than left basal ganglia compatible with lacunar infarcts similar to the prior study. Normal brainstem. There is mild cerebellar atrophy. There is no intracranial hemorrhage. There are no findings of an acute ischemic infarction. Normal visualized paranasal sinuses. CT/Brain/Head without Contrast IMPRESSION: Atrophy. No evidence of acute hemorrhage infarct or edema. Electronically Signed: Tawnya Rios MD at 8:48 EST Reading Location ID and State: [facility] [place] Tel , Service support ,
== END 2021-08-30 23:59 | disposition home or self-care (01) ==
PROVIDERS: PCP Family Medicine; Referring Provider Family Medicine Geriatric Medicine; Visit Provider Family Medicine Geriatric Medicine
DX: S09.90XA Unspecified injury of head, initial encounter (principal)
CPT/HCPCS: 70450

== ENCOUNTER 2021-10-27 00:14 | Inpatient (IN) | payer MEDICARE, OTHER, SELFPAY ==
[2021-10-27] VITALS (14 sets, daily range): BP systolic 134–164; BP diastolic 75–107; PULSE 75–107; RESP 16–20; TEMP 36.2–36.9; O2SAT 92–96; BMI 39.0; BMI 35.8
--- NOTE | 2021-10-27 00:32 | EKG12_ITS ---
Test Reason : EDEMA Blood Pressure : / mmHG Vent. Rate : 089 BPM Atrial Rate : 117 BPM P-R Int : 000 ms QRS Dur : 148 ms QT Int : 408 ms P-R-T Axes : 000 -07 -22 degrees QTc Int : 496 ms Atrial fibrillation with premature ventricular or aberrantly conducted complexes Right bundle branch block Abnormal ECG Confirmed by KARINE RODRÍGUEZ, SHARITA ([id number]), mapping editor KENTON MAXWELL ([id number]) on 10/27/2021 1:27:27 PM Referred By: BOB Confirmed By:SHARITA MILTON MD
--- NOTE | 2021-10-27 00:32 | RAD_ITS ---
STUDY: X-RAY CHEST REASON FOR EXAM: Male, 76 years old. sob TECHNIQUE: AP portable upright COMPARISON: None. FINDINGS: There is infiltrate at the left lower lobe with air bronchograms. There is infiltrate with atelectasis at the right lung base. There is no demonstrated pleural abnormality. There is mild cardiomegaly. Normal mediastinum and jose. Normal visualized pulmonary arteries. Normal visualized aortic arch and descending thoracic aorta. Normal visualized thoracic spine. Normal visualized ribs, clavicles, and shoulders. There is no demonstrated abnormality of the visualized soft tissue structures of the upper abdomen. RAD/Chest 1 View (Portable) IMPRESSION: Bilateral basilar infiltrates. Electronically Signed: Chester Busby MD at 1:38 EDT ,
--- NOTE | 2021-10-27 00:33 | CT_ITS ---
STUDY: CT ABDOMEN AND PELVIS WITHOUT CONTRAST REASON FOR EXAM: Male, 76 years old. flank injury -- hx ckd RADIATION DOSAGE (If Supplied By Facility): CTDIvol = ( 17.82 ) mGy, DLP = ( 957.17 ) mGycm TECHNIQUE: Transaxial images were obtained from the dome of the diaphragm to the symphysis pubis without oral contrast, and without intravenous contrast. Sagittal and coronal images were reconstructed. Individualized dose optimization techniques were used for this CT. COMPARISON: None. FINDINGS: There is a right pleural effusion.. The visualized portions of the heart are within normal limits. Normal liver. Normal gallbladder and extrahepatic biliary system There is splenomegaly.. Normal pancreas. Normal bilateral adrenal glands. The kidneys are decreased in size measuring 7.5 and 7.3 cm in length.. Normal visualized stomach. Normal small intestine. There is diverticulosis of the descending colon.. The appendix is visualized and appears normal. Normal abdominal aorta. Normal inferior vena cava. Normal retroperitoneum. Normal urinary bladder. Normal abdominal wall. There is compression of the body of L2 . CT/Abdomen/Pelvis without Cont IMPRESSION: There is right pleural effusion. The kidneys are small in size. There is splenomegaly. Electronically Signed: Chester Busby MD at 1:36 EDT ,
[2021-10-27 00:47] LABS: Absolute Lymphocyte Count 1.08 X10^3/uL (0.83-4.51); Absolute Neutrophil Count 2.3 X10^3/uL (2.0-7.7); Basophil# 0.04 X10^3/uL; Eosinophil# 0.11 X10^3/uL; Eosinophils% 2.8 % (0-5); Hematocrit 38.7 % (40-54); Hemoglobin 12.7 g/dL (13.0-16.5); Lymphocyte # 1.08 X10^3/ul (0.83-4.51); Lymphocyte % 27.8 % (19-41); Mean Corp Hgb Conc 32.8 g/dL (32-36); Mean Corpuscular Hgb 34.7 pg (27.0-32.0); Mean Corpuscular Volume 105.7 fL (80-94); Monocyte# 0.38 X10^3/uL; Monocyte% 9.8 % (0-10); NRBC Flagged by Analyzer 0 % (0-5); Neutrophil # 2.25 X10^3/uL (2.7-7.7); Neutrophil % 58.1 % (47-70); POSITIVE COUNT YES; Platelet Count 70 K/mm3 (150-450); RBC Distribution Width CV 15.9 % (11.6-14.6); RBC Distribution Width SD 61.6 fl (35.1-43.9); Red Blood Count 3.66 M/mm3 (4.6-6.2); White Blood Count 3.9 K/mm3 (4.4-11.0)
--- NOTE | 2021-10-27 00:47 | EDS_ITS ---
HPI History of Present Illness Chief Complaint: Edema Informant: patient and family Narrative Narrative: Presents here with daughter for worsening leg swelling now up to his abdomen over the past 2 weeks. History of atrial fibrillation on warfarin. Denies any heart failure history. 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 PCP started on triamterene this past with no improvement. This evening reports orthopnea. No cough or chest pains. No home oxygen. ? The walker states this past Wednesday fell over his walker onto his left side reporting bruising. He is able to ambulate. He has history of CKD. Denies any urinary symptoms. Daughter reports COVID back in June. States been going downhill since. Prior similar symptoms: No PFSH PFSH Medical History BPH (benign prostatic hyperplasia) Breast mass in male COVID CPAP (continuous positive airway pressure) dependence Facial basal cell cancer GERD (gastroesophageal reflux disease) HTN (hypertension) IBS (irritable bowel syndrome) Kidney disease Sleep apnea Splenomegaly Thrombocythemia Wears hearing aid in both ears Home Medications allopurinol 100 mg PO DAILY 01/11/17 [History Last Taken 08/15/21] clonidine HCl 0.1 mg PO TID 01/11/17 [History Last Taken 08/15/21] finasteride 5 mg PO DAILY 01/11/17 [History Last Taken 08/15/21] gabapentin [Neurontin] 300 mg PO QHS 01/11/17 [History Last Taken 08/14/21] loratadine [Allergy Relief (loratadine)] 10 mg PO DAILY PRN 01/11/17 [History Last Taken 08/05/21] terazosin 10 mg PO DAILY MDD urinary 01/11/17 [History Last Taken 08/15/21] cholecalciferol (vitamin D3) [Vitamin D3] 2,000 unit PO DAILY 07/12/17 [History Last Taken 08/15/21] pantoprazole 40 mg PO DAILY 08/19/21 [History Last Taken Unknown] diltiazem HCl 120 mg PO DAILY 30 Days #30 cap 09/11/21 [Rx Last Taken Unknown] metoprolol tartrate 100 mg PO BID 30 Days #60 tab 09/11/21 [Rx Last Taken Unknown] carbidopa-levodopa 2 tab PO TIDAC 10/27/21 [History Last Taken Unknown] oxybutynin chloride 5 mg PO QHS 10/27/21 [History Last Taken Unknown] warfarin 5 mg PO DAILY 10/27/21 [History Last Taken Unknown] Allergy/AdvReac Type Severity Reaction Status Date / Time No Known Allergies Allergy Verified 10/27/21 00:19 Family History Father Heart disease Surgical History History of ear surgery S/P carpal tunnel release S/P Mohs surgery for basal cell carcinoma Status post bilateral knee replacements Social History household members: none Smoking Status: Never smoker alcohol intake: never ROS ROS ED Constitutional Constitutional ED: Denies chills, fever(s) or sweats Eyes Eyes: Denies change in vision ENT ENT ED: Denies dysphagia or sore throat Cardiovascular Cardiovascular: Reports orthopnea; Denies chest pain, leg edema, palpitations or racing heartbeat Respiratory/Chest Respiratory/Chest: Reports dyspnea and orthopnea; Denies cough or dyspnea on exertion Gastrointestinal Gastrointestinal: Denies abdominal pain, diarrhea, nausea or vomiting Genitourinary Genitourinary ED: Denies dysuria, hematuria or urinary frequency Musculoskeletal Musculoskeletal: Denies back pain, extremity pain or neck pain Integumentary Denies rash or wounds Neurologic Neurologic: Denies headache(s), paresthesias or weakness EXAM Physical Exam Const Vital Signs: 10/27/21 00:15 10/27/21 01:00 Temperature 97.3 F L Temperature Source Temporal Pulse Rate 82 Respiratory Rate 16 Respiratory Effort Short of Breath Respiratory Pattern Normal Blood Pressure 148/93 H Blood Pressure Mean 111 Pulse Ox 96 Oxygen Delivery Method Room Air Positive well nourished and well developed General Appearance ED: well developed and NAD HEENT Reports moist mucous membranes normocephalic and atraumatic Eyes PERRL, EOMs intact bilaterally and conjunctivae normal General Eye ED: Yes normal appearance of both eyes Neck no lymphadenopathy and supple General: Negative for tenderness Chest Wall Chest: Negative for tenderness Resp normal respiratory effort and normal air movement Effort and Inspection: symmetric chest movement; Negative for respiratory distress Cardio regular rate and no murmurs Rhythm: abnormal rhythm Peripheral Pulses: pulses 2+ throughout GI normal to inspection, nondistended, normoactive bowel sounds and non-tender Palpation: Negative for guarding or rebound tenderness present Back/Spine no thoracic nor lumbar tenderness Back/Spine Narrative: Ecchymosis noted lower left lateral abdomen and flank. Skin intact. Extremity normal to inspection Extremity Narrative: 3+ lower extremity edema bilaterally. General Extremety ED: Yes edema; Negative for tenderness General Extremity: edema Neuro oriented x3 and no sensory deficits noted Sensorium / Orientation: awake and alert Skin no rashes or lesions noted and no wounds MDM MDM MDM Narrative Medical decision making narrative: Patient vital stable, is not requiring any oxygen. However worsening edema failing outpatient therapy. Reporting cur rently orthopnea symptoms. CHF work-up initiated. Additional CT scan of the flank ordered due to his injury. No IV contrast due to his CKD history. We will plan to admit. Chest x-ray reviewed by myself read by radiology had concerning for bilateral infiltrates, however patient has no coughing symptoms. Her on CT abdomen pelvis noted more concerns of right pleural effusion. Also noted splenomegaly and ascites. Also noted in the body of the read there is compression of the body of L2. Patient has been ambulating, not complaining of significant back pain. Patient's labs hemoglobin 12.7 white cell 3.9 INR therapeutic at 2.2, creatinine 1.6 slightly elevated from previous. Troponin 21. BNP 411. With right pleural effusion anasarca concerning for CHF he is given 40 of IV Lasix. I discussed with hospitalist service for admission. Lab Data Attestation: I reviewed the patient's lab results. Labs: Laboratory Results - last 24 hr 10/27/21 10/27/21 10/27/21 00:25 00:25 00:25 WBC 3.9 L RBC 3.66 L Hgb 12.7 L Hct 38.7 L MCV 105.7 H MCH 34.7 H MCHC 32.8 RDW Std Deviation 61.6 H RDW Coeff of Naomie 15.9 H Plt Count 70 L Immature Gran % (Auto) 0.500 Neut % (Auto) 58.1 Lymph % (Auto) 27.8 Becker % (Auto) 9.8 Eos % (Auto) 2.8 Baso % (Auto) 1.0 Absolute Neuts (auto) 2.3 Absolute Lymphs (auto) 1.08 Nucleated RBC % 0 PT 24.0 H INR 2.2 APTT 37.5 H Sodium 142 Potassium 3.4 L Chloride 109 H Carbon Dioxide 27.0 Anion Gap 6 BUN 20 H Creatinine 1.60 H Estim Creat Clear Calc 39.28 Est GFR (MDRD) Af Amer 54 L Est GFR (MDRD) Non-Af 45 L BUN/Creatinine Ratio 12.5 Glucose 99 Calcium 8.5 Magnesium Troponin I High Sens 21 B-Natriuretic Peptide 10/27/21 10/27/21 00:25 00:25 WBC RBC Hgb Hct MCV MCH MCHC RDW Std Deviation RDW Coeff of Naomie Plt Count Immature Gran % (Auto) Neut % (Auto) Lymph % (Auto) Becker % (Auto) Eos % (Auto) Baso % (Auto) Absolute Neuts (auto) Absolute Lymphs (auto) Nucleated RBC % PT INR APTT Sodium Potassium Chloride Carbon Dioxide Anion Gap BUN Creatinine Estim Creat Clear Calc Est GFR (MDRD) Af Amer Est GFR (MDRD) Non-Af BUN/Creatinine Ratio Glucose Calcium Magnesium 1.7 Troponin I High Sens B-Natriuretic Peptide 411.3 H Radiography Chest X-Ray - ED: 1 View, Read by ED Physician and Read by Radiologist Diagnostic Testing: Clinical Impression(s) from Imaging Studies Chest X-Ray 10/27/21 00:32 IMPRESSION: Bilateral basilar infiltrates. Electronically Signed: Chester Busby MD at 1:38 EDT Reading Location ID and State: [facility] / [place] Tel , Service support , Abdomen/Pelvis CT 10/27/21 00:33 IMPRESSION: There is right pleural effusion. The kidneys are small in size. There is splenomegaly. Electronically Signed: Chester Busby MD at 1:36 EDT , EKG Initial EKG: Attestation: I personally reviewed and interpreted this EKG as follows: Comments: Rate controlled atrial fibrillation 89, no ST changes. Right bundle branch block. Discharge Plan Dx/Rx/DC Orders Clinical Impression: Acute exacerbation of CHF (congestive heart failure), Anasarca, Renal insufficiency, Contusion of flank, Compression fracture of L2, Chronic a-fib, Adequate anticoagulation on anticoagulant therapy Disposition Disposition: Acute Care Hospital [facility] Discharge Date/Time: 10/27/21 02:21
[2021-10-27 00:53] LABS: International Normalized Ratio 2.2
[2021-10-27 00:54] LABS: Partial Thromboplast Time 37.5 Seconds (24.1-36.2)
[2021-10-27 01:05] LABS: Anion Gap 6 (5-15); BUN 20 mg/dL (7-18); BUN/Creat Ratio 12.5 RATIO (10-20); Calcium,Total 8.5 mg/dL (8.5-10.1); Chloride 109 mmol/L (98-107); EST Glomerular Filtration Rate 45 mL/min (>60); Est Glom Filt Rate - Afr Amer 54 mL/min (>60); Estimated Creatinine Clearance 39.28 ml/min; Glucose 99 mg/dL (74-106); Potassium 3.4 mmol/L (3.5-5.1); Sodium Level 142 mmol/L (136-145); Troponin-I HS 21 pg/mL (3.0-78.0)
[2021-10-27 01:08] LABS: BNP,B-Type NATRIURETIC PEPTIDE 411.3 pg/mL (0-100)
--- NOTE | 2021-10-27 01:30 | HP.PCM_ITS ---
Documented by User: CHERRI Medina 10/27/21 01:54 HPI - General General Date of Admission: 10/27/21 Date of Service: 10/27/21 Chief Complaint: Shortness of breath, bilateral lower extremity edema HPI Narrative ANTONIO MARADIAGA, is a 76 M who presents with complaints of dyspnea, orthopnea, bilateral lower extremity swelling. Patient's daughter reports over the past 2 weeks his leg swelling has become worse and is now swollen up to his abdomen. Patient states that he had COVID in June and since then he has been having more problems. Patient states that he was here in July and underwent a complete cardiac work-up which showed no heart failure at that time. Patient states that he is not having any cough or chest pain. Patient states that he is currently on Eliquis for A. fib but does not follow with a licensed customs broker. Patient's daughter also reports that patient fell a couple days ago and his left side is bruised as a result. Patient has no difficulty ambulating. Patient reports a medical history that includes hypertension, atrial fibrillation, BPH, obstructive sleep apnea, GERD, neuropathy, gout. [facility] Medical History BPH (benign prostatic hyperplasia) Breast mass in male COVID CPAP (continuous positive airway pressure) dependence Facial basal cell cancer GERD (gastroesophageal reflux disease) HTN (hypertension) IBS (irritable bowel syndrome) Kidney disease Sleep apnea Splenomegaly Thrombocythemia Wears hearing aid in both ears Home Medications allopurinol 100 mg PO DAILY 01/11/17 [History Last Taken 08/15/21] clonidine HCl 0.1 mg PO TID 01/11/17 [History Last Taken 08/15/21] finasteride 5 mg PO DAILY 01/11/17 [History Last Taken 08/15/21] gabapentin [Neurontin] 300 mg PO QHS 01/11/17 [History Last Taken 08/14/21] loratadine [Allergy Relief (loratadine)] 10 mg PO DAILY PRN 01/11/17 [History Last Taken 08/05/21] terazosin 10 mg PO DAILY MDD urinary 01/11/17 [History Last Taken 08/15/21] cholecalciferol (vitamin D3) [Vitamin D3] 2,000 unit PO DAILY 07/12/17 [History Last Taken 08/15/21] pantoprazole 40 mg PO DAILY 08/19/21 [History Last Taken Unknown] diltiazem HCl 120 mg PO DAILY 30 Days #30 cap 09/11/21 [Rx Last Taken Unknown] metoprolol tartrate 100 mg PO BID 30 Days #60 tab 09/11/21 [Rx Last Taken Unknown] carbidopa-levodopa 2 tab PO TIDAC 10/27/21 [History Last Taken Unknown] oxybutynin chloride 5 mg PO QHS 10/27/21 [History Last Taken Unknown] warfarin 5 mg PO DAILY 10/27/21 [History Last Taken Unknown] Allergy/AdvReac Type Severity Reaction Status Date / Time No Known Allergies Allergy Verified 10/27/21 00:19 Family History Father Heart disease Surgical History History of ear surgery S/P carpal tunnel release S/P Mohs surgery for basal cell carcinoma Status post bilateral knee replacements Social History household members: none Smoking Status: Never smoker alcohol intake: never ROS Constitutional Constitutional: Denies anorexia, chills, fatigue, fever(s), malaise or weakness Cardiovascular Cardiovascular: Reports edema; Denies chest pain, palpitations or syncope Respiratory/Chest Respiratory/Chest: Reports dyspnea; Denies cough, shortness of breath at rest, shortness of breath with exertion or wheezing Gastrointestinal Gastrointestinal: Denies abdominal pain, constipation, diarrhea, nausea or vomiting Genitourinary Genitourinary: Denies dysuria Musculoskeletal Musculoskeletal: Denies back pain, extremity pain, joint pain or joint stiffness Integumentary Integumentary: Denies dry skin or jaundice Neurologic Neurologic: Denies abnormal gait, abnormal speech, confusion or dizziness Psychiatric Psychiatric: Denies anxiety or depression Endocrine Endocrinology: Denies change in body appearance Hematologic/Lymphatic Hematologic/Lymphatic: Denies anemia, easy bleeding or easy bruising Vital Signs Vital Signs Vital Signs: 10/27/21 00:15 Temperature 97.3 F L Temperature Source Temporal Pulse Rate 82 Respiratory Rate 16 Blood Pressure 148/93 H Blood Pressure Mean 111 Pulse Ox 96 Oxygen Delivery Method Room Air Weight Weight: 264 lb 5.348 oz Body Mass Index (BMI) 39.0 Physical Exam Const alert, oriented x3 and no apparent distress General Appearance: cooperative HEENT normocephalic and head/scalp atraumatic General Ear: hearing grossly impaired bilateral (Hearing aids) Eyes conjunctivae normal and no scleral icterus Neck no lymphadenopathy and supple General: trachea midline Resp normal respiratory effort and normal air movement Effort and Inspection: able to speak in complete sentences and symmetric chest movement Auscultation: diminished lung sounds Cardio regular rate, regular rhythm, S1 normal heart sound, S2 normal heart sound and peripheral pulses 2+ throughout GI normal to inspection, nondistended, normoactive bowel sounds, soft to palpation and non-tender Extremity normal capillary refill General Extremity: edema bilateral lower extremity Details: severe and no tenderness to palpation of joints or extremities Skin General Skin Exam: turgor normal Lesions: no lesions Rashes: no rashes Neuro no focal motor deficits and no sensory deficits noted Motor Exam: Negative for general weakness Psych thought process normal, cooperative and affect normal Appearance: appropriate Results Lab / Micro Data Result Diagrams: 10/27/21 00:25 10/27/21 00:25 Labs: Laboratory Results - last 24 hr 10/27/21 00:25: WBC 3.9 L, RBC 3.66 L, Hgb 12.7 L, Hct 38.7 L, MCV 105.7 H, MCH 34.7 H, MCHC 32.8, RDW Std Deviation 61.6 H, RDW Coeff of Naomie 15.9 H, Plt Count 70 L, Immature Gran % (Auto) 0.500, Neut % (Auto) 58.1, Lymph % (Auto) 27.8, [place] % (Auto) 9.8, Eos % (Auto) 2.8, Baso % (Auto) 1.0, Absolute Neuts (auto) 2.3, Absolute Lymphs (auto) 1.08, Nucleated RBC % 0 10/27/21 00:25: PT 24.0 H, INR 2.2, APTT 37.5 H 10/27/21 00:25: Sodium 142, Potassium 3.4 L, Chloride 109 H, Carbon Dioxide 27.0, Anion Gap 6, BUN 20 H, Creatinine 1.60 H, Estim Creat Clear Calc 39.28, Est GFR (MDRD) Af Amer 54 L, Est GFR (MDRD) Non-Af 45 L, BUN/Creatinine Ratio 12.5, Glucose 99, Calcium 8.5, Troponin I High Sens 21 10/27/21 00:25: B-Natriuretic Peptide 411.3 H Micro: Microbiology 10/27/21 00:40 Nasal Secretion SARS-CoV-2 Antigen (Rapid) - Final Assessment & Plan Assessment/Plan (1) Bilateral lower extremity edema: (2) Hypokalemia: PLAN: 1. Bilateral lower extremity edema -Admit to PCU for continuous cardiac monitoring -Echocardiogram from 08/11/2021 demonstrates EF 65% with left ventricular systolic function normal -BNP elevated at 411.3 -Lasix 40 mg IV every 8 hours ordered -Rusty wraps to bilateral lower extremities -Elevate extremities -Trend cardiac enzymes -Cardiac diet -Daily weights with intake and output -Encourage incentive spirometry -PT and OT to eval and treat -Oxygen per protocol -CBC BMP and EKG ordered daily 2. Hypokalemia -Patient mildly hypokalemic at 3.4 -Will order potassium chloride 40 mEq p.o. x1 -BMP ordered for a.m. -Magnesium level ordered 3. Hypertension -We will continue patient's home medication regimen once verified -Vital signs per protocol, currently stable -As needed hydralazine IV ordered 4. BPH -Continue patient's finasteride, oxybutynin, terazosin once verified 5. Atrial fibrillation -Continue patient's Eliquis as well as metoprolol -EKG every morning 6. Peripheral neuropathy -Continue patient's home medication regimen once verified DVT prophylaxis-not indicated patient currently anticoagulated on Eliquis This patient was seen by Isadora Cosme, DARRION-C under the supervision of Dr. Magana. 32 minutes spent in clinical coordination of patient's plan of care. Documented by User: Dr. Jose Magana MD 10/27/21 02:23 HPI - General General Date of Admission: 10/27/21 [facility] Medical History BPH (benign prostatic hyperplasia) Breast mass in male COVID CPAP (continuous positive airway pressure) dependence Facial basal cell cancer GERD (gastroesophageal reflux disease) HTN (hypertension) IBS (irritable bowel syndrome) Kidney disease Sleep apnea Splenomegaly Thrombocythemia Wears hearing aid in both ears Home Medications allopurinol 100 mg PO DAILY 01/11/17 [History Last Taken 08/15/21] clonidine HCl 0.1 mg PO TID 01/11/17 [History Last Taken 08/15/21] finasteride 5 mg PO DAILY 01/11/17 [History Last Taken 08/15/21] gabapentin [Neurontin] 300 mg PO QHS 01/11/17 [History Last Taken 08/14/21] loratadine [Allergy Relief (loratadine)] 10 mg PO DAILY PRN 01/11/17 [History Last Taken 08/05/21] terazosin 10 mg PO DAILY MDD urinary 01/11/17 [History Last Taken 08/15/21] cholecalciferol (vitamin D3) [Vitamin D3] 2,000 unit PO DAILY 07/12/17 [History Last Taken 08/15/21] pantoprazole 40 mg PO DAILY 08/19/21 [History Last Taken Unknown] diltiazem HCl 120 mg PO DAILY 30 Days #30 cap 09/11/21 [Rx Last Taken Unknown] metoprolol tartrate 100 mg PO BID 30 Days #60 tab 09/11/21 [Rx Last Taken Unknown] carbidopa-levodopa 2 tab PO TIDAC 10/27/21 [History Last Taken Unknown] oxybutynin chloride 5 mg PO QHS 10/27/21 [History Last Taken Unknown] warfarin 5 mg PO DAILY 10/27/21 [History Last Taken Unknown] Allergy/AdvReac Type Severity Reaction Status Date / Time No Known Allergies Allergy Verified 10/27/21 00:19 Family History Father Heart disease Surgical History History of ear surgery S/P carpal tunnel release S/P Mohs surgery for basal cell carcinoma Status post bilateral knee replacements Social History household members: none Smoking Status: Never smoker alcohol intake: never Results Lab / Micro Data Result Diagrams: 10/27/21 00:25 10/27/21 00:25 Charges/Coding Addendum Addendum: Patient was seen and examined independently. I agree with assessment and plan by ROSARIO MedinaC Patient is a 76-year-old male with a significant history of heart failure with preserved ejection fraction; Parkinson disease on carbidopa levodopa; BPH on finasteride and terazosin; GERD; A. fib on Coumadin who presents to the emergency department with 1 week history of progressively worsening swelling of his bilateral legs. Associated with symptoms is weakness and fatigue. Reportedly patient fell about a week ago and had bruise on his left back. Further, patient of presentation he had shortness of breath. He reports orthopnea. He denies proximal nocturnal dyspnea. He has a good appetite. Reportedly his PCP started him on triamterene recently. Physical exam: General: Well-nourished, well-developed. Head: Normocephalic, atraumatic, no tenderness Eyes: Vision is grossly intact. EOMI ENT, no trauma, moist mucous membranes, no rhinorrhea Neck: Nontender, full range of motion, no spinal tenderness, deformities, step- off CVS: Regular rate and rhythm. S1-S2 present. No murmur, gallop or rub. Respiratory : Left base with Rales. Right base diminished. chest wall nontender, no wheezing Abdomen: Soft, nontender, nondistended, normal bowel sounds, no masses : Deferred Back: Nontender, no CVA tenderness, no midline spinal tenderness, deformities, step-offs Extremities: Nontender full range of motion, no trauma Skin: Left lower back with ecchymosis. Normal color. Neuro: Alert, oriented, cranial nerves II through XII grossly intact. Psychiatry: Normal mood. Normal affect. Not depressed. Not anxious. Acute Exacerbation of heart failure with preserved ejection fraction Place on monitored bed on PCU Weight on admission to the floor; and then daily Strict I&O's CXR independently reviewed confirms bilateral infiltrate EKG independently reviewed confirms atrial fibrillation Emergency department labs reviewed showed BNP of 411.3. Abdomen/pelvis CT visualized and independent reviewed showed bilateral pleural effusion; and small kidneys; splenomegaly and ascites. Review of old records shows echocardiogram that was done on 08/11/2021. Echocardiogram showed estimated ejection fraction of 65%. Unable to assess diastolic dysfunction. Mild mitral valve insufficiency. Mild to moderate tricuspid valve insufficiency. Right ventricle systolic pressure was 27 mmHg. Mild focal aortic valve calcification. Trivial pulmonary valve insufficiency. Diuresis with Lasix IV. Supplement potassium. Rusty wrap to bilateral lower extremities Fluid restriction of 1500 mls daily Cardiac diet CONCHIS on CKD stage IIIa His baseline creatinine is about 1.28. Creatinine presentation was 1.60. Like secondary cardiorenal syndrome. Lasix as above. Atrial fibrillation Labs reviewed showed INR of 2.2. Trend INR. Home dose Coumadin continued. Cardizem metoprolol continued. Hypertension Blood pressure is not within goal Cardizem and metoprolol continued. Trend blood pressure and adjust blood pressure medications. DVT prophylaxis: Not indicated since patient is tehrapeutic on Coumadin Time spent in seen patient and coordinating care is 40 minutes. Visit Charges Inpatient E&M: 19196 Init Hosp L3
[2021-10-27] MEDS: Furosemide 40 MG/4 ML Vial IV ×3 (01:57→18:40)
[2021-10-27 02:03] LABS: Magnesium 1.7 mg/dL (1.6-2.6)
[2021-10-27] MEDS: Potassium Chloride Oral Tablet 20 MEQ 40 MEQ PO (02:58)
[2021-10-27 03:04] LABS: Troponin-I HS 21 pg/mL (3.0-78.0)
--- NOTE | 2021-10-27 05:55 | EKG12_ITS ---
Test Reason : AM EKG Blood Pressure : / mmHG Vent. Rate : 103 BPM Atrial Rate : 144 BPM P-R Int : 000 ms QRS Dur : 144 ms QT Int : 404 ms P-R-T Axes : 000 003 -38 degrees QTc Int : 529 ms Atrial fibrillation with premature ventricular or aberrantly conducted complexes Right bundle branch block Abnormal ECG When compared with ECG of 27-OCT-2021 00:44, MANUAL COMPARISON REQUIRED, DATA IS UNCONFIRMED Confirmed by KARINE RODRÍGUEZ, SHARITA ([id number]), index editor KENTON MAXWELL ([id number]) on 10/28/2021 8:22:08 AM Referred By: WILIAN Confirmed By:SHARITA MILTON MD
[2021-10-27 06:24] LABS: Absolute Lymphocyte Count 1.05 X10^3/uL (0.83-4.51); Basophil# 0.03 X10^3/uL; Basophil% 0.9 % (0-1); Eosinophil# 0.11 X10^3/uL; Eosinophils% 3.1 % (0-5); Hematocrit 40.3 % (40-54); Hemoglobin 13.2 g/dL (13.0-16.5); Lymphocyte # 1.05 X10^3/ul (0.83-4.51); Lymphocyte % 29.8 % (19-41); Mean Corp Hgb Conc 32.8 g/dL (32-36); Mean Corpuscular Hgb 34.5 pg (27.0-32.0); Mean Corpuscular Volume 105.2 fL (80-94); Monocyte% 8.5 % (0-10); NRBC Flagged by Analyzer 0 % (0-5); Neutrophil # 2.01 X10^3/uL (2.7-7.7); Neutrophil % 57.1 % (47-70); POSITIVE COUNT YES; Platelet Count 64 K/mm3 (150-450); RBC Distribution Width CV 15.9 % (11.6-14.6); RBC Distribution Width SD 61.8 fl (35.1-43.9); Red Blood Count 3.83 M/mm3 (4.6-6.2); White Blood Count 3.5 K/mm3 (4.4-11.0)
[2021-10-27] MEDS: cloNIDine HCl 0.1 MG Tablet PO ×3 (06:39→21:13)
[2021-10-27 06:42] LABS: International Normalized Ratio 2.2; Prothrombin Time (Protime)PT. 23.8 SECONDS (11.7-14.9)
[2021-10-27] MEDS: 0.9% Saline Lock 10 ML Syringe IV (06:50)
[2021-10-27] MEDS: Carbidopa/Levodopa 25/100 Tablet PO ×3 (06:56→15:13)
[2021-10-27 07:02] LABS: Anion Gap 6 (5-15); BUN 20 mg/dL (7-18); BUN/Creat Ratio 13.3 RATIO (10-20); Calcium,Total 8.6 mg/dL (8.5-10.1); Chloride 107 mmol/L (98-107); EST Glomerular Filtration Rate 48 mL/min (>60); Est Glom Filt Rate - Afr Amer 59 mL/min (>60); Glucose 92 mg/dL (74-106); Potassium 3.5 mmol/L (3.5-5.1); Sodium Level 142 mmol/L (136-145); Troponin-I HS 17 pg/mL (3.0-78.0)
--- NOTE | 2021-10-27 09:46 | VDLE_ITS ---
Reason For Study: swelling RIGHT LEFT GSV is normal. GSV is normal. CFV is compressible, spontaneous, phasic, CFV is compressible, spontaneous, phasic, competent and demonstrates normal competent, and demonstrates normal augmentation. augmentation. FV is compressible, spontaneous, phasic, LT PerV is compressible. competent and demonstrates normal Prox and mid FV are compressible. Distal FV, augmentation. POP V, T/P Trunk, PTV, and Gastroc V are POP V is compressible, spontaneous, phasic, dilated and noncompressible. competent and demonstrates normal augmentation. T/P Trunk is compressible. PTV is compressible. RT PerV is compressible. Procedure This is a venous duplex using B-mode, color flow and spectral Doppler. Exam performed portable in patient room. The exam was diagnostic. A preliminary report was called and/or faxed to the pt's RN and pharmacist in charge owner. VL/Venous Duplex US - Elver Extrem Interpretation Summary There is no evidence of right lower extremity deep vein thrombosis. Acute deep venous thrombosis distal left femoral, popliteal, tibioperoneal trunk, posterior tibial, and shahida rocnemius veins Patent and compressible bilateral great saphenous veins Ordering Physician: Erasto Hilario Performed By: Filemon Brewer RVT
[2021-10-27] MEDS: Cholecalciferol (VIT D3) 25 MCG TABLET (1,000 UNITS) 50 MCG PO (10:04)
[2021-10-27] MEDS: Metoprolol Tartrate 100 MG Tablet PO ×2 (10:05→21:15)
[2021-10-27] MEDS: Pantoprazole Sodium 40 MG Tablet PO (10:05)
[2021-10-27] MEDS: Finasteride 5 MG Tablet PO (10:05)
[2021-10-27] MEDS: Allopurinol 100 MG Tablet PO (10:05)
[2021-10-27] MEDS: dilTIAZem CD 120 MG Capsule PO (10:05)
--- NOTE | 2021-10-27 11:15 | PCM.PN.HOSP ---
Subjective Subjective The patient was last admitted in July 2021 for bilateral lower extremity edema. It seems patient has chronic diastolic heart failure. Patient also had fall at home with his left thigh falling on the arm of the chair. He has bruise on posterior aspect of left thigh. This time admitted with shortness of breath increased lower extremity edema, thigh level for more than 2 weeks. Objective Data Objective Data Vital Signs: Vital Signs Temp Pulse Resp BP Pulse Ox 97.1 F L 101 H 18 154/84 H 92 10/27/21 09:56 10/27/21 10:05 10/27/21 09:56 10/27/21 10:05 10/27/21 09:56 Oxygen Delivery Method Room Air Weight: 242 lb 11.663 oz Body Mass Index (BMI) 35.8 Intake & Output: Intake and Output for Last 24 Hours 10/25/21 10/26/21 10/27/21 23:59 23:59 23:59 Intake Total 180 / 180 Output Total 1750 / 1750 Balance -1570 / -1570 Lab / Micro Data Result Diagrams: 10/27/21 06:13 10/27/21 06:13 Labs: Laboratory Results - last 24 hr 10/27/21 00:25: WBC 3.9 L, RBC 3.66 L, Hgb 12.7 L, Hct 38.7 L, MCV 105.7 H, MCH 34.7 H, MCHC 32.8, RDW Std Deviation 61.6 H, RDW Coeff of Naomie 15.9 H, Plt Count 70 L, Immature Gran % (Auto) 0.500, Neut % (Auto) 58.1, Lymph % (Auto) 27.8, [place] % (Auto) 9.8, Eos % (Auto) 2.8, Baso % (Auto) 1.0, Absolute Neuts (auto) 2.3, Absolute Lymphs (auto) 1.08, Nucleated RBC % 0 10/27/21 00:25: PT 24.0 H, INR 2.2, APTT 37.5 H 10/27/21 00:25: Sodium 142, Potassium 3.4 L, Chloride 109 H, Carbon Dioxide 27.0, Anion Gap 6, BUN 20 H, Creatinine 1.60 H, Estim Creat Clear Calc 39.28, Est GFR (MDRD) Af Amer 54 L, Est GFR (MDRD) Non-Af 45 L, BUN/Creatinine Ratio 12.5, Glucose 99, Calcium 8.5, Troponin I High Sens 21 10/27/21 00:25: B-Natriuretic Peptide 411.3 H 10/27/21 00:25: Magnesium 1.7 10/27/21 02:37: Troponin I High Sens 10/27/21 06:13: PT 23.8 H, INR 2.2 10/27/21 06:13: WBC 3.5 L, RBC 3.83 L, Hgb 13.2, Hct 40.3, MCV 105.2 H, MCH 34.5 H, MCHC 32.8, RDW Std Deviation 61.8 H, RDW Coeff of Naomie 15.9 H, Plt Count 64 L, Immature Gran % (Auto) 0.600, Neut % (Auto) 57.1, Lymph % (Auto) 29.8, [place] % (Auto) 8.5, Eos % (Auto) 3.1, Baso % (Auto) 0.9, Absolute Neuts (auto) 2.0, Absolute Lymphs (auto) 1.05, Nucleated RBC % 0 10/27/21 06:13: Sodium 142, Potassium 3.5, Chloride 107, Carbon Dioxide 29.0, Anion Gap 6, BUN 20 H, Creatinine 1.50 H, Estim Creat Clear Calc 41.90, Est GFR (MDRD) Af Amer 59 L, Est GFR (MDRD) Non-Af 48 L, BUN/Creatinine Ratio 13.3, Glucose 92, Calcium 8.6, Troponin I High Sens 17 Micro: Microbiology 10/27/21 00:40 Nasal Secretion SARS-CoV-2 Antigen (Rapid) - Final Radiography Diagnostic Testing: Radiology Impression Chest X-Ray 10/27/21 00:32 IMPRESSION: Bilateral basilar infiltrates. Electronically Signed: Chester Busby MD at 1:38 EDT , Abdomen/Pelvis CT 10/27/21 00:33 IMPRESSION: There is right pleural effusion. The kidneys are small in size. There is splenomegaly. Electronically Signed: Chester Busby MD at 1:36 EDT , Physical Exam Narrative General: Alert, Oriented x3, Cooperative HEENT: Bilateral significant hearing impaired. Uses hearing aid. Has problem with understanding and differentiation of speech. Atraumatic, PERRLA, EOMI, Normocephalic Oral: No Gingival or Mucosal Lesions/ Ulcerations Neck: Supple, No JVD, Negative Carotid Bruits Lungs: Air entry diminished in bilateral lung bases. Mild bilateral small pleural effusion. No crepitations Cardiovascular: Regular rate, Regular Rhythm, Normal S1, Normal S2, No murmurs Abdomen: Bowel Sounds Present, Soft, Non Tender, Non-Distended : No renal angle tenderness. No suprapubic tenderness. Extremities: Bilateral thigh-high edema, Capillary Refill Less than 3 Seconds Skin: Small bruise over left thigh. Musculoskeletal: Mild tenderness over left thigh mainly posterior aspect. ROM restricted Neurological: Cranial nerves II-XII grossly intact, DTR 2+/4 and Symmetrical, Neuro grossly intact Psych/Mental Status: Normal Affect, Appropriate Assessment & Plan Assessment/Plan (1) Bilateral lower extremity edema: (2) Hypokalemia: PLAN: 1. Acute on chronic HFpEF: Patient is being admitted in PCU. Echo from July 2021 shows EF 65%, mild MR, mild to moderate TR, RVSP 27 mmHg. Patient has high level pitting edema. Heart failure core measures including intake and output, fluid restriction less than 1500 mL, daily weight monitoring, kidney and electrolytes monitoring. Rusty wrap bandage. Lasix 40 mg IV every 12 hourly. Chest x-ray shows bibasilar infiltrate with a small bilateral effusion. Abdomen pelvis CT shows bilateral small pleural effusion, small kidneys, splenomegaly. BNP 411. PT and OT. 2. Acute left leg DVT: Patient on warfarin for A. fib. INR 2.2. Patient left posterior aspect of thigh has bruise from recent fall couple days ago. As patient having acute DVT on therapeutic warfarin dose, will change to apixaban. Discussed with the pharmacist. Apixaban 10 mg twice daily, first dose now 2. CONCHIS on CKD stage IIIa most likely due to heart failure exacerbation with hypokalemia -Patient mildly hypokalemic at 3.4, potassium is getting replaced. Mild improvement in creatinine. 3. Hypertension: Monitor blood pressure and titrate antihypertensive medications as needed 4. BPH -Continue patient's finasteride, oxybutynin, and terazosin 5. Paroxysmal atrial fibrillation: On metoprolol. As mentioned above, warfarin was changed to apixaban. 6. Peripheral neuropathy -Continue patient's home medication regimen once verified DVT prophylaxis-not indicated patient currently anticoagulated on Eliquis Total time of the visit including total time spent in counseling or coordination of care, (more than 50% of the total time, spent in obtaining medical information from nurses and other ancillary care providers,explaining to the patient about labs, imaging, diagnosis and management), new finding of DVT, discussion with pharmacist review of labs and imaging is 40 minutes. Charges/Coding Procedures Hospitalists Procedures: [id number] Prolonged InPt Service; first hour
--- NOTE | 2021-10-27 11:20 | CASEMGMT ---
SHELLY METACLF assessment: Face to Face with patient for initial transition planning/care coordination assessment. SHELLY METCALF introduced self and role at [facility], pt voices understanding and consents to assessment. Pt is sitting up in bed in no distress on room air. Pt is A/Ox4 and answers all questions appropriately. Care providers, pharmacy, and demographics verified. Presentation: Increased edema to lower legs/SOB-placed on 'water pill' on Admitting dx: CHF exacerbation PCP: Lon Specialists: Kunal, nephro; Katerina, neuro; Moira, arthritis physician in [place] Preferred Pharmacy: [facility] Insurance: [facility] A/B, A[employer] Prescription Benefit: [employer] [facility] Living Will/HPOA: Pt has LW/HPOA and is aware that they are on file at [facility]. Pt's daughter, Mary Cruz, is HPOA. LNOK: Mary Cruz, daughter/HPOA Living Arrangements: Pt lives alone in 1 story apt with no steps in and states no concerns at home. Pt is independent with ADL's. Transportation: Pt states daughter has been driving and pt/daughter aware that [facility] van transport can transport pt to any [facility] physician's, voice understanding and pt/daughter voice no transportation concerns. DME/HHC: Pt has the following DME: cane, walker, raised toilet seat, and tub transfer bench. Pt states no need for any further DME. Pt is active with [facility] for SN and SUE order placed. Pt was recently in TCU. Pt voices no concerns with going home at time of discharge. Pt is retired. Pt states does not smoke cigarettes or drink ETOH. Pt voices no further concerns/needs. CM to follow for any further discharge planning/needs. Advised pt to ask for CM if any further questions/concerns/needs arise, voices understanding. Pt Goal: Home Plan[place] SHELLY METCALF
[2021-10-27] MEDS: APIXABAN 5 MG TABLET 10 MG PO ×2 (12:20→21:15)
--- NOTE | 2021-10-27 18:54 | NURSING ---
Reviewed charting with Arin Forrest RN
[2021-10-27] MEDS: Oxybutynin 5 MG Tablet PO (21:13)
[2021-10-27] MEDS: Doxazosin 4 MG Tablet 8 MG PO (21:13)
[2021-10-28] VITALS (14 sets, daily range): BP systolic 127–159; BP diastolic 81–104; PULSE 64–108; RESP 17–18; TEMP 36.4–36.6; O2SAT 93–96
[2021-10-28] MEDS: cloNIDine HCl 0.1 MG Tablet PO ×3 (05:06→21:07)
[2021-10-28] MEDS: Carbidopa/Levodopa 25/100 Tablet PO ×3 (06:52→17:15)
[2021-10-28] MEDS: Potassium Chloride Oral Tablet 20 MEQ PO (08:53)
[2021-10-28] MEDS: Cholecalciferol (VIT D3) 25 MCG TABLET (1,000 UNITS) 50 MCG PO (08:53)
[2021-10-28] MEDS: dilTIAZem CD 120 MG Capsule PO (08:53)
[2021-10-28] MEDS: Allopurinol 100 MG Tablet PO (08:53)
[2021-10-28] MEDS: APIXABAN 5 MG TABLET 10 MG PO (08:54)
[2021-10-28] MEDS: Metoprolol Tartrate 100 MG Tablet PO ×2 (08:54→21:09)
[2021-10-28] MEDS: 0.9% Saline Lock 10 ML Syringe IV ×2 (08:55→18:08)
[2021-10-28] MEDS: Finasteride 5 MG Tablet PO (08:55)
[2021-10-28] MEDS: Furosemide 40 MG/4 ML Vial IV ×2 (08:55→18:07)
[2021-10-28] MEDS: Pantoprazole Sodium 40 MG Tablet PO (08:58)
[2021-10-28] MEDS: Ondansetron 4 MG/2 ML Vial IV (10:18)
--- NOTE | 2021-10-28 10:22 | NURSING ---
patient complaint of nausea, zofran given, see MAR
--- NOTE | 2021-10-28 12:13 | PCM.PN.HOSP ---
Subjective Subjective Patient feeling mild nausea but no vomiting. Still has bilateral lower extremity edema up to thigh level. Objective Data Objective Data Vital Signs: Vital Signs Temp Pulse Resp BP Pulse Ox 97.8 F 93 18 159/104 H 93 10/28/21 08:39 10/28/21 11:00 10/28/21 08:39 10/28/21 08:39 10/28/21 08:39 Oxygen Flow Rate (L/min) 2 Oxygen Delivery Method Room Air Weight: 227 lb 8.273 oz Body Mass Index (BMI) 35.8 Intake & Output: Intake and Output for Last 24 Hours 10/26/21 10/27/21 10/28/21 23:59 23:59 23:59 Intake Total 910 / 1090 500 / 500 Output Total 5255 / 6505 3500 / 3500 Balance -4345 / -5415 -3000 / -3000 Lab / Micro Data Result Diagrams: 10/27/21 06:13 10/27/21 06:13 Micro: Microbiology 10/27/21 00:40 Nasal Secretion SARS-CoV-2 Antigen (Rapid) - Final Radiography Diagnostic Testing: Radiology Impression Venous Doppler Study 10/27/21 09:46 Interpretation Summary There is no evidence of right lower extremity deep vein thrombosis. Acute deep venous thrombosis distal left femoral, popliteal, tibioperoneal trunk, posterior tibial, and gastrocnemius veins Patent and compressible bilateral great saphenous veins Ordering Physician: Erasto Hilario Performed By: Filemon Brewer RVT Physical Exam Narrative General: Alert, Oriented x3, Cooperative HEENT: Bilateral significant hearing impaired. Uses hearing aid. Atraumatic, PERRLA, EOMI, Normocephalic Oral: No Gingival or Mucosal Lesions/ Ulcerations Neck: Supple, No JVD, Negative Carotid Bruits Lungs: Air entry diminished in bilateral lung bases, improving. Mild bilateral small pleural effusion. No crepitations Cardiovascular: Regular rate, Regular Rhythm, Normal S1, Normal S2, systolic murmur pyelostomy Abdomen: Bowel Sounds Present, Soft, Non Tender, Non-Distended : No renal angle tenderness. No suprapubic tenderness. Extremities: Bilateral thigh-high edema, Capillary Refill Less than 3 Seconds Skin: Small bruise over left thigh. Musculoskeletal: Mild tenderness over left thigh mainly posterior aspect. Left lower extremity DVT. ROM restricted Neurological: Cranial nerves II-XII grossly intact, DTR 2+/4 and Symmetrical, Neuro grossly intact Psych/Mental Status: Normal Affect, Appropriate Assessment & Plan Assessment/Plan (1) Bilateral lower extremity edema: (2) Hypokalemia: PLAN: 1. Acute on chronic HFpEF: Patient is being admitted in PCU. Echo from July 2021 shows EF 65%, mild MR, mild to moderate TR, RVSP 27 mmHg. Patient has high level pitting edema. Heart failure core measures including intake and output, fluid restriction less than 1500 mL, daily weight monitoring, kidney and electrolytes monitoring. Rusty wrap bandage. Lasix 40 mg IV every 12 hourly. Chest x-ray shows bibasilar infiltrate with a small bilateral effusion. Abdomen pelvis CT shows bilateral small pleural effusion, small kidneys, splenomegaly. BNP 411. PT and OT. 2. Acute left leg DVT: Patient on warfarin for A. fib. INR 2.2. Patient left posterior aspect of thigh has bruise from recent fall couple days ago. As patient having acute DVT on therapeutic warfarin dose, will change to apixaban. Discussed with the pharmacist. 10/28: Discussed with Dr. Blanco for his opinion regarding warfarin resistance. He has had a patient is compliant with warfarin and his INR is between 2-3 and gets new onset DVT/PE that needs called warfarin resistance. Patient did not had any prior INR in last 1 month, last 1 in July 2021 it was 1.3. As patient was not to afford apixaban before and Xarelto has more insurance coverage therefore anticoagulant apixaban is changed to Xarelto. 50 mg twice daily for 3 weeks and then 20 mg once daily. Discussed with the disease case manager rn Chronic thrombocytopenia: Patient platelet count is about 70,000 for long time, since 2017. Monitor CBC. Problem list states patient had thrombocythemia and splenomegaly. It is unclear whether it is from chronic anticoagulant. 2. CONCHIS on CKD stage IIIa most likely due to heart failure exacerbation with hypokalemia -Patient mildly hypokalemic at 3.4, potassium is getting replaced. Mild improvement in creatinine. 3. Hypertension: Monitor blood pressure and titrate antihypertensive medications as needed 4. BPH -Continue patient's finasteride, oxybutynin, and terazosin 5. Paroxysmal atrial fibrillation: On metoprolol. As mentioned above, warfarin was changed to apixaban. 6. Peripheral neuropathy -Continue patient's home medication regimen once verified DVT prophylaxis-not indicated patient currently anticoagulated on Eliquis Total time of the visit including total time spent in counseling or coordination of care, (more than 50% of the total time, spent in obtaining medical information from nurses and other ancillary care providers,explaining to the patient about labs, imaging, diagnosis and management), new finding of DVT, discussion with pharmacist review of labs and imaging is 40 minutes. Charges/Coding Visit Charges Inpatient E&M: 64642 Subs Hosp L2
[2021-10-28 16:12] LABS: Anion Gap 8 (5-15); BUN 19 mg/dL (7-18); BUN/Creat Ratio 12.7 RATIO (10-20); Calcium,Total 8.9 mg/dL (8.5-10.1); Chloride 101 mmol/L (98-107); EST Glomerular Filtration Rate 48 mL/min (>60); Est Glom Filt Rate - Afr Amer 59 mL/min (>60); Glucose 124 mg/dL (74-106); Potassium 3.3 mmol/L (3.5-5.1); Sodium Level 141 mmol/L (136-145)
[2021-10-28] MEDS: Spironolactone 25 MG Tablet PO (18:33)
[2021-10-28] MEDS: Doxazosin 4 MG Tablet 8 MG PO (21:07)
[2021-10-28] MEDS: Oxybutynin 5 MG Tablet PO (21:07)
[2021-10-28] MEDS: Rivaroxaban 15 MG Tablet PO (21:07)
[2021-10-29] VITALS (8 sets, daily range): BP systolic 147–163; BP diastolic 95–109; PULSE 75–87; RESP 17–18; TEMP 36.4–36.6; O2SAT 93–96
[2021-10-29] MEDS: cloNIDine HCl 0.1 MG Tablet PO (04:11)
[2021-10-29] MEDS: Carbidopa/Levodopa 25/100 Tablet PO ×2 (06:34→11:28)
[2021-10-29 06:38] LABS: Anion Gap 8 (5-15); BUN 19 mg/dL (7-18); BUN/Creat Ratio 13.4 RATIO (10-20); Calcium,Total 8.5 mg/dL (8.5-10.1); Chloride 99 mmol/L (98-107); Creatinine, Serum 1.42 mg/dL (0.70-1.30); EST Glomerular Filtration Rate 52 mL/min (>60); Est Glom Filt Rate - Afr Amer 62 mL/min (>60); Estimated Creatinine Clearance 44.26 ml/min; Glucose 102 mg/dL (74-106); Potassium 3.2 mmol/L (3.5-5.1); Sodium Level 139 mmol/L (136-145)
[2021-10-29] MEDS: Allopurinol 100 MG Tablet PO (08:01)
[2021-10-29] MEDS: Rivaroxaban 15 MG Tablet PO (08:01)
[2021-10-29] MEDS: Metoprolol Tartrate 100 MG Tablet PO (09:06)
[2021-10-29] MEDS: dilTIAZem CD 120 MG Capsule PO (09:06)
[2021-10-29] MEDS: 0.9% Saline Lock 10 ML Syringe IV (09:07)
[2021-10-29] MEDS: Cholecalciferol (VIT D3) 25 MCG TABLET (1,000 UNITS) 50 MCG PO (09:07)
[2021-10-29] MEDS: Furosemide 40 MG/4 ML Vial IV (09:07)
[2021-10-29] MEDS: Pantoprazole Sodium 40 MG Tablet PO (09:07)
[2021-10-29] MEDS: Finasteride 5 MG Tablet PO (09:08)
--- NOTE | 2021-10-29 10:00 | PCM.DC ---
Discharge Instructions Diet Discharge Diet: Low fat / Low cholesterol, 6 Cup Fluid Restriction and 2000 mg Sodium Diet Activity Weight Bearing Status: Weight bearing as tolerated Dressing / Incision Call your doctor if you observe: Fever of 101 or Higher, Coldness, Increased Pain, Numbness or Tingling, Change in Color, Inability to urinate, Inability to have a bowel movement, Shortness of breath, Dizziness, Fainting spells, Swelling in the ankles, Chest pain, Prolonged hiccupping, Increased palpitations (irregular heartbeat), Calf discomfort and Uncontrolled pain Follow Up Care Test Results: Test results from this visit will be discussed in further detail at your follow-up appointment, if applicable. Discharge Plan Admission Admit Date/Time: 10/27/21 01:22 Primary Reason for Your Visit: Acute on chronic HFpEF/heart failure exacerbation Attending Provider: Erasto Hilario Primary Care Provider: Brad Forrest Discharge Orders/Prescriptions Prescriptions: New spironolactone 50 mg Tablet 25 mg PO DAILY Qty: 30 RF: 0 furosemide [Lasix] 40 mg tablet 40 mg PO BID Qty: 60 RF: 2 Eliquis DVT-PE Treat 30D Start 5 mg (74 tabs) tablets,dose pack 5 mg PO BID Qty: 74 RF: 0 Continued clonidine HCl 0.1 MG tablet 0.1 mg PO TID RF: 0 allopurinol 100 MG tablet 100 mg PO DAILY RF: 0 gabapentin [Neurontin] 300 MG capsule 300 mg PO QHS RF: 0 terazosin 10 MG capsule 10 mg PO DAILY MDD urinary RF: 0 finasteride 5 MG tablet 5 mg PO DAILY RF: 0 loratadine [Allergy Relief (loratadine)] 10 MG tablet 10 mg PO DAILY PRN (Reason: ALLERGIES) RF: 0 cholecalciferol (vitamin D3) [Vitamin D3] 2,000 UNIT capsule 2,000 unit PO DAILY RF: 0 pantoprazole 40 mg tablet,delayed release (DR/EC) 40 mg PO DAILY RF: 0 metoprolol tartrate 100 mg tablet 100 mg PO BID 30 Days Qty: 60 RF: 0 diltiazem HCl 120 mg capsule,extended release 24hr 120 mg PO DAILY 30 Days Qty: 30 RF: 0 carbidopa-levodopa 25-100 mg tablet 2 tab PO TIDAC RF: 0 oxybutynin chloride 5 mg tablet 5 mg PO QHS RF: 0 Discontinued warfarin 5 mg Tablet 5 mg PO DAILY RF: 0 Referrals / Follow Up: Dereck Blanco MD [STAFF PHYSICIAN] - Within 1 Month (For new onset DVT left lower extremity. Patient got acute DVT on warfarin therapeutic dose, possible warfarin resistance) Brad Forrest DO [Primary Care Provider] - Within 1 Week (Follow-up BMP in 1 week as patient is on furosemide and spironolactone with chronic kidney disease) Michael Santiago MD [STAFF PHYSICIAN] - Within 1 Month (For acute on chronic CHF exacerbation, HFpEF) Disposition Disposition (needs filled in before D/C Order can be placed): Home, Self Care
[2021-10-29] MEDS: Spironolactone 50 MG Tablet PO (10:26)
--- NOTE | 2021-10-29 10:45 | DS.PCM_ITS ---
Providers Date of Admission: 10/27/21 Date of Discharge: 10/29/21 Primary Care Physician: Dr. Brad Forrest DO Reason For Visit: CHF EXACERBATION Diagnosis Discharge Diagnosis (1) Bilateral lower extremity edema: Status: Acute Code(s): R60.0 - Localized edema (2) Hypokalemia: Status: Acute Code(s): E87.6 - Hypokalemia Medications at Discharge Home Medications allopurinol 100 mg PO DAILY 01/11/17 clonidine HCl 0.1 mg PO TID 01/11/17 finasteride 5 mg PO DAILY 01/11/17 gabapentin [Neurontin] 300 mg PO QHS 01/11/17 loratadine [Allergy Relief (loratadine)] 10 mg PO DAILY PRN 01/11/17 terazosin 10 mg PO DAILY MDD urinary 01/11/17 cholecalciferol (vitamin D3) [Vitamin D3] 2,000 unit PO DAILY 07/12/17 pantoprazole 40 mg PO DAILY 08/19/21 diltiazem HCl 120 mg PO DAILY 30 Days #30 cap 09/11/21 metoprolol tartrate 100 mg PO BID 30 Days #60 tab 09/11/21 carbidopa-levodopa 2 tab PO TIDAC 10/27/21 oxybutynin chloride 5 mg PO QHS 10/27/21 apixaban [Eliquis DVT-PE Treat 30D Start] 5 mg PO BID #74 tab 10/29/21 furosemide [Lasix] 40 mg PO BID #60 tab 10/29/21 spironolactone 25 mg PO DAILY #30 tab 10/29/21 Hospital Course Summary of Care Provided Hospital Course: This 76-year-old gentleman was admitted with dyspnea, orthopnea, bilateral lower extremity swelling and paroxysmal nocturnal dyspnea for 2 weeks. Patient has gradually increased swelling with gain of weight. He also had fall couple days ago. His further hospital course as mentioned below 1. Acute on chronic HFpEF: Patient is being admitted in PCU. Echo from July 2021 shows EF 65%, mild MR, mild to moderate TR, RVSP 27 mmHg. Patient has high level pitting edema. Heart failure core measures including intake and output, fluid restriction less than 1500 mL, daily weight monitoring, kidney and electrolytes monitoring. Rusty wrap bandage. Lasix 40 mg IV every 12 hourly. Chest x-ray shows bibasilar infiltrate with a small bilateral effusion. Abdomen pelvis CT shows bilateral small pleural effusion, small kidneys, sp lenomegaly. BNP 411. PT and OT. Patient has home health. Discharged on furosemide 40 mg twice daily and spironolactone 25 mg daily. Titrate up the dose of his spironolactone to keep up potassium about 4.0. Advised follow-up BMP in 1 week with PCP. 2. Acute left leg DVT: Patient on warfarin for A. fib. INR 2.2. Patient left posterior aspect of thigh has bruise from recent fall couple days ago. As patient having acute DVT on therapeutic warfarin dose, will change to apixaban. Discussed with the pharmacist. 10/28: Discussed with Dr. Blanco for his opinion regarding warfarin resistance. He has had a patient is compliant with warfarin and his INR is between 2-3 and gets new onset DVT/PE that needs called warfarin resistance. Patient did not had any prior INR in last 1 month, last 1 in July 2021 it was 1.3. As patient was not to afford apixaban before and Xarelto has more insurance coverage therefore anticoagulant apixaban is changed to Xarelto. 50 mg twice daily for 3 weeks and then 20 mg once daily. Discussed with the rn field case manager 10/29: Rivaroxaban has significant interaction with diltiazem resulting into increased pharmacological effect of rivaroxaban with increased concern of bleeding which is further multiplied in view of chronic kidney disease and thrombocytopenia. Therefore it is changed back to apixaban. Prescription for apixaban given. Follow-up with Dr. Blanco for work-up for new onset DVTs warfarin resistance and medication compliance. Chronic thrombocytopenia: Patient platelet count is about 70,000 for long time, since 2017. Monitor CBC. Problem list states patient had thrombocythemia and splenomegaly. It is unclear whether it is from chronic anticoagulant. 2. CONCHIS on CKD stage IIIa most likely due to heart failure exacerbation with hypokalemia -Patient mildly hypokalemic at 3.4, potassium is getting replaced. Mild improvement in creatinine. 3. Hypertension: Monitor blood pressure and titrate antihypertensive medications as needed 4. BPH -Continue patient's finasteride, oxybutynin, and terazosin 5. Paroxysmal atrial fibrillation: On metoprolol and diltiazem. As mentioned above, warfarin was changed to apixaban. 6. Peripheral neuropathy -Continue patient's home medication regimen once verified DVT prophylaxis-not indicated patient currently anticoagulated on Eliquis Discharge medication reconciliation done. Discharge follow-up instructions completed. Discharge process discussed with the patient and all questions were answered to patient's satisfaction. Follow-up with PCP, manager search and acute care nursing assistant as mentioned in discharge instruction. Total time spent, exact 35 minutes on discharge meds reconciliation, examination, coordination of care with nurses and ancillary staff, review of imaging and blood test and discussion with the patient on follow-up instructions. Physical Exam Narrative Seen and examined on the day of discharge. Patient shortness of breath is much improved. Overall lower extremity edema, ascites and generalized swelling of upper extremities has much improved. No chest pain or tightness. Patient does not have any outside manager search. General: Alert, Oriented x3, Cooperative HEENT: Bilateral significant hearing impaired. Uses hearing aid. Atraumatic, PERRLA, EOMI, Normocephalic Oral: No Gingival or Mucosal Lesions/ Ulcerations Neck: Supple, No JVD, Negative Carotid Bruits Lungs: Air entry diminished in bilateral lung bases. Has much improved mild bilateral small pleural effusion. No crepitations. No hypoxia Cardiovascular: Regular rate, Regular Rhythm, Normal S1, Normal S2, systolic murmur pyelostomy Abdomen: Bowel Sounds Present, Soft, Non Tender, Non-Distended : No renal angle tenderness. No suprapubic tenderness. Extremities: Bilateral leg edema ankle level much improved. Capillary Refill Less than 3 Seconds Skin: Small bruise over left thigh. Left lower extremity DVT Musculoskeletal: Mild tenderness over left thigh mainly posterior aspect. Left lower extremity DVT. ROM restricted Neurological: Cranial nerves II-XII grossly intact, DTR 2+/4 and Symmetrical, Neuro grossly intact Psych/Mental Status: Normal Affect, Appropriate Weight / BMI Weight Weight: 220 lb 10.923 oz Body Mass Index (BMI) 35.8 ABG / Lab / Microbiology Data Result Diagrams: 10/27/21 06:13 10/29/21 05:09 Laboratory: Laboratory Results - last 24 hr 10/28/21 15:11: Sodium 141, Potassium 3.3 L, Chloride 101, Carbon Dioxide 32.0, Anion Gap 8, BUN 19 H, Creatinine 1.50 H, Estim Creat Clear Calc 41.90, Est GFR (MDRD) Af Amer 59 L, Est GFR (MDRD) Non-Af 48 L, BUN/Creatinine Ratio 12.7, Glucose 124 H, Calcium 8.9 10/29/21 05:09: Sodium 139, Potassium 3.2 L, Chloride 99, Carbon Dioxide 32.0, Anion Gap 8, BUN 19 H, Creatinine 1.42 H, Estim Creat Clear Calc 44.26, Est GFR (MDRD) Af Amer 62, Est GFR (MDRD) Non-Af 52 L, BUN/Creatinine Ratio 13.4, Glucose 102, Calcium 8.5 Microbiology: Microbiology 10/27/21 00:40 Nasal Secretion SARS-CoV-2 Antigen (Rapid) - Final D/C Instructions Discharge Diet: Low fat / Low cholesterol, 6 Cup Fluid Restriction and 2000 mg Sodium Diet Weight Bearing Status: Weight bearing as tolerated Call your doctor if you observe: Fever of 101 or Higher, Coldness, Increased Pain, Numbness or Tingling, Change in Color, Inability to urinate, Inability to have a bowel movement, Shortness of breath, Dizziness, Fainting spells, Swelling in the ankles, Chest pain, Prolonged hiccupping, Increased palpitations (irregular heartbeat), Calf discomfort and Uncontrolled pain Meaningful Use Info Meaningful Use Diagnoses (Choose all that apply): None applicable Discharge Plan Admission Admit Date/Time: 10/27/21 01:22 Primary Reason for Your Visit: Acute on chronic HFpEF/heart failure exacerbation Attending Provider: Erasto Hilario Primary Care Provider: Brad Forrest Discharge Orders/Prescriptions Prescriptions: New spironolactone 50 mg Tablet 25 mg PO DAILY Qty: 30 RF: 0 furosemide [Lasix] 40 mg tablet 40 mg PO BID Qty: 60 RF: 2 Eliquis DVT-PE Treat 30D Start 5 mg (74 tabs) tablets,dose pack 5 mg PO BID Qty: 74 RF: 0 Continued clonidine HCl 0.1 MG tablet 0.1 mg PO TID RF: 0 allopurinol 100 MG tablet 100 mg PO DAILY RF: 0 gabapentin [Neurontin] 300 MG capsule 300 mg PO QHS RF: 0 terazosin 10 MG capsule 10 mg PO DAILY MDD urinary RF: 0 finasteride 5 MG tablet 5 mg PO DAILY RF: 0 loratadine [Allergy Relief (loratadine)] 10 MG tablet 10 mg PO DAILY PRN (Reason: ALLERGIES) RF: 0 cholecalciferol (vitamin D3) [Vitamin D3] 2,000 UNIT capsule 2,000 unit PO DAILY RF: 0 pantoprazole 40 mg tablet,delayed release (DR/EC) 40 mg PO DAILY RF: 0 metoprolol tartrate 100 mg tablet 100 mg PO BID 30 Days Qty: 60 RF: 0 diltiazem HCl 120 mg capsule,extended release 24hr 120 mg PO DAILY 30 Days Qty: 30 RF: 0 carbidopa-levodopa 25-100 mg tablet 2 tab PO TIDAC RF: 0 oxybutynin chloride 5 mg tablet 5 mg PO QHS RF: 0 Discontinued warfarin 5 mg Tablet 5 mg PO DAILY RF: 0 Referrals / Follow Up: Dereck Blanco MD [STAFF PHYSICIAN] - Within 1 Month (For new onset DVT left lower extremity. Patient got acute DVT on warfarin therapeutic dose, possible warfarin resistance) Brad Forrest DO [Primary Care Provider] - Within 1 Week (Follow-up BMP in 1 week as patient is on furosemide and spironolactone with chronic kidney disease) Michael Santiago MD [STAFF PHYSICIAN] - Within 1 Month (For acute on chronic CHF exacerbation, HFpEF) Disposition Disposition (needs filled in before D/C Order can be placed): Home, Self Care Charges/Coding Visit Charges Inpatient E&M: 54163 Disch Hosp
--- NOTE | 2021-10-29 10:58 | CASEMGMT ---
Addendum entered by Angela Oswald 10/29/21 11:19: Therapy states pt would benefit from [facility] PT/OT. Pt is active with [facility] for SN and PT/OT added back on at this time. Judit at [facility] updated, voices understanding. Per Shaneka BRAVO, pt does not qualify for home oxygen at this time. Pt to be sent home on Eliquis at discharge and med e-scribed to [facility] pharmacy. Call to [facility] and per pharmacist, pt's deductible/co-pay is $397.47. Pt/daughter updated and provided with Eliquis 30 day free trial card w/ instructions. Pt/daughter voice no further questions/concerns/needs. Soraya RBAVO CM Original Note: Judit at [facility] updated that pt to d/c today, voices understanding. Soraya BRAVO CM
--- NOTE | 2021-10-29 12:07 | PHA.DC.MC ---
Pharmacy Service has performed discharge medication reconciliation and counseling for this patient. 1. APIXABAN 10MG PO BID FOR 7 DAYS, THEN 5MG PO BID 2. FUROSEMIDE 40MG PO BID 3. SPIRONOLACTONE 25MG PO DAILY The patient's discharge medication list was reviewed for discrepancies and discrepancies were resolved. Home Medications allopurinol 100 mg PO DAILY 01/11/17 clonidine HCl 0.1 mg PO TID 01/11/17 finasteride 5 mg PO DAILY 01/11/17 gabapentin [Neurontin] 300 mg PO QHS 01/11/17 loratadine [Allergy Relief (loratadine)] 10 mg PO DAILY PRN 01/11/17 terazosin 10 mg PO DAILY MDD urinary 01/11/17 cholecalciferol (vitamin D3) [Vitamin D3] 2,000 unit PO DAILY 07/12/17 pantoprazole 40 mg PO DAILY 08/19/21 diltiazem HCl 120 mg PO DAILY 30 Days #30 cap 09/11/21 metoprolol tartrate 100 mg PO BID 30 Days #60 tab 09/11/21 carbidopa-levodopa 2 tab PO TIDAC 10/27/21 oxybutynin chloride 5 mg PO QHS 10/27/21 apixaban [Eliquis DVT-PE Treat 30D Start] 5 mg PO BID #74 tab 10/29/21 furosemide [Lasix] 40 mg PO BID #60 tab 10/29/21 spironolactone 25 mg PO DAILY #30 tab 10/29/21 The patient was counseled on the following discharge medications and changes in medications for homegoing were reviewed. The Reason for Use, instructions for use, and potential side effects were reviewed for all new medications. The patient's questions regarding all of their medications were answered. The patient was able to verbally demonstrate an understanding of their discharge medications.
== END 2021-10-29 13:00 | disposition home health service (06) | DRG 291 ==
LOC: ED 01:32 → PCU 01:54
PROVIDERS: Nurse Practitioner Family; Admitting Provider Hospitalist; Emergency Provider Emergency Medicine; PCP Family Medicine; Visit Provider Internal Medicine
DX: I13.0 Hypertensive heart and chronic kidney disease with heart failure and stage 1 through stage 4 chronic kidney disease, or unspecified chronic kidney disease (principal); I50.33 Acute on chronic diastolic (congestive) heart failure; I82.492 Acute embolism and thrombosis of other specified deep vein of left lower extremity; M48.56XA Collapsed vertebra, not elsewhere classified, lumbar region, initial encounter for fracture; N17.9 Acute kidney failure, unspecified; D69.6 Thrombocytopenia, unspecified; D64.9 Anemia, unspecified; S30.1XXA Contusion of abdominal wall, initial encounter; G20 Parkinson's disease; I48.0 Paroxysmal atrial fibrillation; G62.9 Polyneuropathy, unspecified; N18.31 Chronic kidney disease, stage 3a; E87.6 Hypokalemia; S70.12XA Contusion of left thigh, initial encounter; K21.9 Gastro-esophageal reflux disease without esophagitis; W19.XXXA Unspecified fall, initial encounter; Z79.01 Long term (current) use of anticoagulants; Z79.899 Other long term (current) drug therapy; Z86.16 Personal history of COVID-19; Y93.9 Activity, unspecified; Y99.9 Unspecified external cause status; Y92.009 Unspecified place in unspecified non-institutional (private) residence as the place of occurrence of the external cause
CPT/HCPCS: 36415; 71045; 74176; 80048; 83735; 83880; 84484; 85025; 85610; 85730; 87811; 93005; 93970; 97110; 97162; 97166; 97530; 97535; 99251; 99284; A4216; G0463; J1940; J2405

== ENCOUNTER → 2021-11-06 | Outpatient (CLI) | payer MEDICARE, OTHER, SELFPAY ==
[2021-11-06 12:43] LABS: Vitamin B12 341 pg/mL (211-911)
[2021-11-06 13:04] LABS: AST(SGOT) 20 U/L (15-37); Alanine Aminotransfer ALT/SGPT 10 U/L (16-61); Albumin, Serum 3.8 g/dL (3.2-5.0); Alkaline Phosphatase 118 U/L (45-117); Bilirubin, Direct 0.31 mg/dL (0.00-0.30); Globulin 3.7 g/dL (2.2-4.2); Potassium 3.7 mmol/L (3.5-5.1); Protein, Total 7.5 g/dL (6.4-8.2); Thyroid Stim Hormone (TSH) 2.06 uIU/mL (0.358-3.74)
[2021-11-17 17:07] LABS: Free Kappa Light Chains 64.1 mg/L (3.3-19.4); Free Lambda Light Chains 29.1 mg/L (5.7-26.3)
[2021-11-17 19:00] LABS: Vitamin B1, Thiamine 129.9 nmol/L (66.5-200.0)
== END | disposition home or self-care (01) ==
PROVIDERS: PCP Family Medicine; Referring Provider Psychiatry & Neurology Neurology; Visit Provider Psychiatry & Neurology Neurology
DX: G62.9 Polyneuropathy, unspecified (principal); I48.91 Unspecified atrial fibrillation
CPT/HCPCS: 36415; 80076; 82607; 82746; 83883; 84132; 84425; 84443

== ENCOUNTER 2021-11-20 09:57 | Outpatient (RCR) | payer MEDICARE, OTHER, SELFPAY ==
[2021-11-20 10:38] LABS: Anion Gap 6 (5-15); BUN 28 mg/dL (7-18); BUN/Creat Ratio 15.1 RATIO (10-20); Chloride 105 mmol/L (98-107); Creatinine, Serum 1.85 mg/dL (0.70-1.30); EST Glomerular Filtration Rate 38 mL/min (>60); Est Glom Filt Rate - Afr Amer 46 mL/min (>60); Glucose 142 mg/dL (74-106); Potassium 3.2 mmol/L (3.5-5.1); Sodium Level 142 mmol/L (136-145)
== END 2021-11-20 18:00 | disposition home or self-care (01) ==
LOC: HHLAB 09:57
PROVIDERS: PCP Family Medicine; Referring Provider Family Medicine; Visit Provider Family Medicine
DX: I13.0 Hypertensive heart and chronic kidney disease with heart failure and stage 1 through stage 4 chronic kidney disease, or unspecified chronic kidney disease (principal); I50.31 Acute diastolic (congestive) heart failure; N18.32 Chronic kidney disease, stage 3b; I48.91 Unspecified atrial fibrillation; I26.99 Other pulmonary embolism without acute cor pulmonale
CPT/HCPCS: 80048

== ENCOUNTER → 2021-11-21 | Outpatient (CLI) | payer MEDICARE, OTHER, SELFPAY ==
--- NOTE | 2021-11-21 09:41 | CDU_ITS ---
Reason For Study: Bilateral carotid stenosis >70% on CTA Rt. Velocities/BP Lt. Velocities/BP Prox CCA 70.8/12.1 cm/sec. Prox CCA 67.9/9 cm/sec. Mid CCA 45.6/14.5 cm/sec. Mid CCA 58.1/7.7 cm/sec. Dist CCA 54.1/13.5 cm/sec. Dist CCA 42.1/9 cm/sec. Prox ICA 47.6/14.6 cm/sec. Prox ICA 71.6/13.9 cm/sec. Mid ICA 62.9/22.3 cm/sec. Mid ICA 43.2/12.4 cm/sec. Dist ICA 47.6/17 cm/sec. Dist ICA 56.4/17.9 cm/sec. Rt. ICA/CCA = 1.16. Lt. ICA/CCA = 1.23. Prox ECA 83.9/6.5 cm/sec. Prox ECA 85.1/4.1 cm/sec. Rt. Vert. 35.2/10.7 cm/sec. Lt. Vert. 36/7.2 cm/sec. Right Extracranial There is heterogeneous, irregular atherosclerotic plaque noted in the right common carotid artery. There is heterogeneous, irregular atherosclerotic plaque noted in the right internal carotid artery. The atherosclerotic plaque causes acoustic shadowing. There is intimal thickening but no significant atherosclerotic plaque noted in the right external carotid artery. Antegrade flow is noted in the right vertebral artery. Left Extracranial There is homogeneous, smooth atherosclerotic plaque noted in the left common carotid artery. There is heterogeneous, irregular atherosclerotic plaque noted in the left internal carotid artery. The atherosclerotic plaque causes acoustic shadowing. There is intimal thickening but no significant atherosclerotic plaque noted in the left external carotid artery. Antegrade flow is noted in the left vertebral artery. Procedure Carotid Duplex 73509. This is a Carotid Duplex examination using B-mode, color flow and specral Doppler. Exam performed in department. VL/Carotid Duplex Ultrasound Interpretation Summary Irregular calcific plaque at the proximal right internal carotid artery with le ss than 50% stenosis Less than 50% stenosis right external carotid artery Irregular calcific plaque with shadowing at the proximal left internal carotid artery with less than 50% stenosis Less than 50% stenosis left external carotid artery Patent and antegrade vertebral arteries bilaterally Ordering Physician: Josesito Borges Referring Physician: Brad Forrest Performed By: Angela Shah RVT
== END | disposition home or self-care (01) ==
LOC: CVS 09:40
PROVIDERS: PCP Family Medicine; Visit Provider Psychiatry & Neurology Neurology
DX: I65.23 Occlusion and stenosis of bilateral carotid arteries (principal)
CPT/HCPCS: 93880

== ENCOUNTER → 2021-12-04 | Outpatient (CLI) | payer MEDICARE, OTHER, SELFPAY | END | disposition home or self-care (01) | LOC: LABSPEC 14:54 | PROVIDERS: PCP Family Medicine; Visit Provider Family Medicine | DX: R05.9 Cough, unspecified (principal); R09.81 Nasal congestion; Z20.822 Contact with and (suspected) exposure to COVID-19 | CPT/HCPCS: 87635; U0003; U0005 ==

== ENCOUNTER → 2021-12-22 | Outpatient (CLI) | payer MEDICARE, OTHER, SELFPAY ==
--- NOTE | 2021-12-22 16:05 | RAD_ITS ---
STUDY: XR Chest 2 Views 12/22/2021 4:08 PM REASON FOR EXAM: Male, 76 years old. CHEST PAIN CHF COMPARISON: 5.222 TECHNIQUE: XR Chest 2 Views FINDINGS: There is no demonstrated pleural abnormality. Enlarged heart size. Normal mediastinum. Normal jose. Prominent appearing increased interstitial lung markings. Normal visualized pulmonary arteries. There is atherosclerotic calcification of the aortic arch with tortuosity. There are diffuse degenerative changes of the visualized thoracic spine. There is degenerative osteoarthritis of the bilateral shoulders. There is no demonstrated abnormality of the visualized soft tissue structures of the upper abdomen. RAD/Chest PA and Lateral IMPRESSION: There are no acute findings. Electronically Signed: Mikal Rod MD at 16:23 EDT ,
[2021-12-22 16:50] LABS: Anion Gap 7 (5-15); BUN 25 mg/dL (7-18); Calcium,Total 9.2 mg/dL (8.5-10.1); Chloride 105 mmol/L (98-107); Creatinine, Serum 1.56 mg/dL (0.70-1.30); EST Glomerular Filtration Rate 46 mL/min (>60); Est Glom Filt Rate - Afr Amer 56 mL/min (>60); Glucose 98 mg/dL (74-106); Potassium 3.3 mmol/L (3.5-5.1); Sodium Level 142 mmol/L (136-145)
== END | disposition home or self-care (01) ==
PROVIDERS: PCP Family Medicine; Visit Provider Internal Medicine Cardiovascular Disease
DX: I50.9 Heart failure, unspecified (principal)
CPT/HCPCS: 36415; 71046; 80048; 83735

== ENCOUNTER 2021-12-31 10:49 | Outpatient (RCR) | payer MEDICARE, OTHER, SELFPAY ==
[2021-12-31 11:28] LABS: Absolute Lymphocyte Count 1.32 X10^3/uL (0.83-4.51); Absolute Neutrophil Count 2.9 X10^3/uL (2.0-7.7); Basophil# 0.03 X10^3/uL; Basophil% 0.6 % (0-1); Eosinophil# 0.34 X10^3/uL; Eosinophils% 6.8 % (0-5); Hematocrit 39.6 % (40-54); Hemoglobin 13.6 g/dL (13.0-16.5); Lymphocyte # 1.32 X10^3/ul (0.83-4.51); Lymphocyte % 26.5 % (19-41); Mean Corp Hgb Conc 34.3 g/dL (32-36); Mean Corpuscular Hgb 33.7 pg (27.0-32.0); Mean Corpuscular Volume 98.3 fL (80-94); Monocyte# 0.37 X10^3/uL; Monocyte% 7.4 % (0-10); NRBC Flagged by Analyzer 0 % (0-5); Neutrophil % 58.3 % (47-70); POSITIVE COUNT YES; Platelet Count 76 K/mm3 (150-450); RBC Distribution Width CV 14.2 % (11.6-14.6); RBC Distribution Width SD 50.9 fl (35.1-43.9); Red Blood Count 4.03 M/mm3 (4.6-6.2)
[2021-12-31 11:32] LABS: PSA,Total - Annual Screen 0.08 ng/mL (0.00-4.00)
== END 2022-01-24 21:44 | disposition home or self-care (01) ==
LOC: HHLAB 10:49
PROVIDERS: PCP Family Medicine; Referring Provider Family Medicine; Visit Provider Family Medicine
DX: I13.0 Hypertensive heart and chronic kidney disease with heart failure and stage 1 through stage 4 chronic kidney disease, or unspecified chronic kidney disease (principal); I50.31 Acute diastolic (congestive) heart failure; N18.32 Chronic kidney disease, stage 3b; N40.0 Benign prostatic hyperplasia without lower urinary tract symptoms
CPT/HCPCS: 84153; 85025; G0103

== ENCOUNTER → 2022-01-07 | Outpatient (CLI) | payer MEDICARE, OTHER, SELFPAY | END | disposition home or self-care (01) | LOC: PSN 08:47 | PROVIDERS: PCP Family Medicine; Referring Provider Internal Medicine Cardiovascular Disease; Visit Provider Internal Medicine Cardiovascular Disease | DX: I50.9 Heart failure, unspecified (principal) | CPT/HCPCS: 93225; 93226 ==

== ENCOUNTER 2022-02-10 09:43 | Day surgery (SDC) | payer MEDICARE, OTHER, SELFPAY ==
[2022-01-16 11:47] LABS: Anion Gap 5 (5-15); BUN 22 mg/dL (7-18); BUN/Creat Ratio 15.3 RATIO (10-20); Calcium,Total 9.1 mg/dL (8.5-10.1); Chloride 104 mmol/L (98-107); Creatinine, Serum 1.44 mg/dL (0.70-1.30); EST Glomerular Filtration Rate 51 mL/min (>60); Est Glom Filt Rate - Afr Amer 61 mL/min (>60); Glucose 115 mg/dL (74-106); Sodium Level 143 mmol/L (136-145)
--- NOTE | 2022-02-07 13:40 | PCM.HP.BLA ---
History and Physical Date of Admission: 02/10/22 [facility] [address] [place] [address] OFFICE VISIT Date of Service:? 01/21/22 MR#: [id number] Acct: [id number] Name:ANTONIO AVALOS Rep #: [id number] : 1945 Provider: ?CHERRI Ravi Age/Sex:? 76/M Location: [facility] [place] Status: Signed HPI HPI History of Present Illness Surgical H&P: Yes Details: This is a 76-year-old white male who presents to the office today for a cardiovascular follow-up visit. He has a history of underlying atrial fibrillation, heart failure with preserved ejection fraction, carotid artery disease, hypertension, thromboembolic disease with DVT/PE, thrombocytopenia, chronic renal insufficiency, TIA, and Parkinson's disorder with us associated mild cognitive impairment who presents for outpatient cardiovascular consultation.? It appears he was hospitalized at [facility] [place] earlier this year at which time he underwent evaluation care for his multiple comorbidities by internal medicine and hematology/oncology. It appears that in July of this year he had a transthoracic echocardiogram performed.? The results are as noted below. In October of this year he underwent evaluation for acute on chronic heart failure with preserved ejection fraction as well as an acute left lower extremity DVT thought secondary to warfarin resistance requiring anticoagulant change superimposed upon a history of pulmonary emboli as well as his other multiple comorbidities. He states he is currently being followed by his PCP, Dr. Sherri Syed of nephrology, and Dr. Ponce of hematology/oncology. His daughter is with him today.? Both the patient and his daughter state that since his most recent hospitalization in October of this year he has been able to remain out of the hospital with the assistance of his medications.? She does state that for some reason he had been without his beta-karley therapy for period of time.? It was recently restarted. He states he has been on multiple medications in the past.? He notes his potassium level has been a challenge and he has tried multiple potassium supplements in the past to no avail based upon intolerance.? He is also been on a potassium sparing diuretic in the past which was discontinued according to the daughter based upon dehydration and low blood pressure. He had an ECG in the office today.? He was noted to be in atrial fibrillation with right bundle branch block pattern which appears similar to an ECG performed at [facility] on 10-27-2021. His most recent chest x-ray from [facility] was reviewed as well.? It appeared there were concerns of pulmonary infiltrates.? Based upon the review of the chest x-ray there be some concern of diminished inspiratory effort, increased pulmonary vascularity, and possible pleural effusions. From a cardiac standpoint, the patient is doing well. He denies any palpitations, chest pain, pressure or heaviness. He denies SOB, Orthopnea, and PND. He does not have bleeding issues; no blood in urine, stool or nosebleeds. He does have complaints of fatigue. He denies myalgias, or claudication.? He denies sudden weight gain. He does have bilateral lower extremity edema-he does wear compression stockings. He denies dizziness, lightheadedness, syncopal or near syncopal episodes, and headaches. Intake Vital Signs ? 12/22/2213:18 01/21/2214:46 Height 5 ft 9 in 5 ft 9 in Weight: 214 lb ? BMI 31.6 ? BP 144/88 H ? Blood Pressure Location Lt brachial ? Position Sitting ? Respiration 18 ? Pulse 77 ? Pulse Source Monitor ? Pulse Oximetry (%) 97 ? Oxygen Delivery Method room air ? Intake Visit Reasons:?1 M ANALIA, Update H&P for [facility] 02/10/22 [place] Required: No Is patient in pain?: No Allergies No Known Allergies Allergy (Verified 01/21/22 15:40) Medications finasteride 5 mg tablet 5 mg PO DAILY BPH 01/11/17 [History Confirmed 01/21/22] loratadine 10 mg tablet (Allergy Relief (loratadine)) 10 mg PO DAILY PRN ALLERGIES 01/11/17 [History Confirmed 01/21/22] terazosin 10 mg capsule 10 mg PO DAILY prostate 01/11/17 [History Confirmed 01/21/22] cholecalciferol (vitamin D3) 50 mcg (2,000 unit) capsule (Vitamin D3) 2,000 unit PO DAILY Supplement 07/12/17 [History Confirmed 01/21/22] pantoprazole 40 mg tablet,delayed release 40 mg PO DAILY reflux 08/19/21 [History Confirmed 01/21/22] diltiazem HCl 120 mg capsule,extended release 24 hr 120 mg PO DAILY BP 30 days #30 caps 09/11/21 [Rx Confirmed 01/21/22] oxybutynin chloride 5 mg tablet 5 mg PO QHS BLADDER 10/27/21 [History Confirmed 01/21/22] carbidopa 25 mg-levodopa 100 mg tablet 2 tab PO TID PARKISON? #180 tabs 11/06/21 [Rx Confirmed 01/21/22] apixaban 5 mg tablet (Eliquis) 5 mg PO BID ordered by Dr. Ponce for DVT 11/12/21 [History Confirmed 01/21/22] dicyclomine 10 mg capsule 10 mg PO DAILY PRN 11/21/21 [History Confirmed 01/21/22] diphenoxylate-atropine 2.5 mg-0.025 mg tablet 1 tab PO Q6H PRN diarrhea 11/21/21 [History Confirmed 01/21/22] allopurinol 100 mg tablet 200 mg PO DAILY gout 12/22/21 [History Confirmed 01/21/22] clonidine HCl 0.1 mg tablet 0.1 mg PO .COMPLEX BP 12/22/21 [History Confirmed 01/21/22] gabapentin 300 mg capsule 300 mg PO QHS 12/22/21 [History Confirmed 01/21/22] melatonin 3 mg capsule 3 mg PO HS PRN 12/22/21 [History Confirmed 01/21/22] metoprolol tartrate 100 mg tablet 100 mg PO BID #180 tabs 12/22/21 [Rx Confirmed 01/21/22] furosemide 40 mg tablet (Lasix) 20 mg PO BID 01/16/22 [History Confirmed 01/21/22] spironolactone 25 mg tablet 25 mg PO DAILY #30 tabs 01/16/22 [Rx Confirmed 01/21/22] PFSH Medical History? Adequate anticoagulation on anticoagulant therapy Arthritis Atherosclerosis of both carotid arteries Atrial fibrillation B12 deficiency BPH (benign prostatic hyperplasia) Bradycardia Breast mass in male Carpal tunnel syndrome Chronic a-fib Chronic anticoagulation Chronic hypokalemia CKD (chronic kidney disease) Compression fracture of L2 Contusion of flank COVID CPAP (continuous positive airway pressure) dependence Essential hypertension Facial basal cell cancer Gastroesophageal reflux disease GERD (gastroesophageal reflux disease) History of pneumonia HTN (hypertension) Hypertension Hyperuricemia Hypokalemia IBS (irritable bowel syndrome) IFG (impaired fasting glucose) Inflammatory arthritis (~2016) Kidney disease Migraine Nephrosclerosis Parkinsons disease Paroxysmal atrial fibrillation Proteinuria Renal insufficiency Rheumatoid arthritis Sleep apnea Splenomegaly Stroke (~07/2021) Thrombocythemia Venous stasis dermatitis Wears hearing aid in both ears Surgical History?(Reviewed 01/21/22 @ 15:00 by Latha Ravi YARDING AND FOLDING MACHINE OPERATOR, YARDING AND FOLDING MACHINE OPERATOR-C) Anal fissure History of ear surgery History of right breast biopsy (~02/2021) History of tonsillectomy Mohs defect (11/26/16) S/P carpal tunnel release S/P Mohs surgery for basal cell carcinoma Status post bilateral knee replacements Family History? Father Myocardial infarction,? Onset Age: 62Brother Skin cancerOther Arthritis Heart disease Hypertension Thyroid disorder Social History? household members:? none and other details: number of children:? 1 current occupational status:? retired Smoking Status:? Never smoker alcohol intake:? never substance use type:? does not use caffeine:? Yes eating out:? other details: daily what type of physical activity do you participate in:? none ROS Const Const: Positive for fatigue; Negative for weakness, fever(s), headache(s), chills, frequent falls, weight gain or weight loss Eyes Eyes: Negative for blind spots, loss of peripheral vision, transient loss of vision, blurry vision, change in vision, double vision, floaters or tunnel vision ENT ENT: Negative for headache(s), dizziness, Nosebleed/epistaxis, balance problems or neck pain Cardio Chest Pain: No Palpitations: No Edema: Bilateral Muscle aches with walking: None Resp Respiratory: Negative for SOB with activity, SOB at rest or SOB orthopnea\SOB lying down GI GI: Negative nausea, vomiting, heartburn, bloating, vomiting blood/hematemesis, bright, red blood in stools or black,tarry stools Musc Musc: Negative for muscle aches/ myalgia, muscle weakness, joint pain or balance problems Neuro Neuro: Negative for dizziness, lightheadedness, near syncope, syncope, orthostatic symptoms, frequent falls, headache(s), weakness, blurry vision or double vision [place] Hematologic/Lymphatic: Negative for easy bleeding or easy bruising Endo Endo: Positive for fatigue Cardiology Exam Const Appearance: cooperative, healthy appearing, comfortable, no acute distress, well developed, well groomed and other (Examined in the wheelchair) Nutritional Appearance: obese Orientation: alert, awake and oriented x3 Head Head: normal to inspection, normocephalic and atraumatic Nose: external nose normal Face and Sinus: face symmetric Eyes Eyelids: eyelids normal Conjunctivae: conjunctivae normal Pupils: PERRL EOM: EOM intact bilaterally Neck Neck: normal visual inspection and full ROM Carotids: normal carotid upstroke Chest Chest inspection: normal inspection of the chest and symmetric chest movement Auscultation: Bilateral: Diminished Base Cardio Palpation: normal PMI Rhythm: irregularly irregular Heart sounds: S1 normal and S2 normal GI GI: normal to inspection, soft, bowel sounds present and obese Neuro General: patient alert, patient awake, patient oriented x3 and moves all extremities Skin Chronic bilateral lower extremity peripheral pitting edema/skin discoloration Extremities Pulses: Normal: Right Radial Pulse and Left Radial Pulse Lower Extremity Edema: +2: Bilateral Psych Psychological: normal affect Supplemental Info Supplemental Information Echocardiogram: 08/11/2021 Interpretation Summary The study was technically difficult. Contrast injection was performed. ? Left ventricular systolic function is normal. The estimated ejection fraction is 65 %. Moderate concentric left ventricular hypertrophy. The left atrium is moderately enlarged. The right atrium is mildly enlarged. There is mild mitral annular calcification. Extension of the mitral annular calcification on the base of the posterior mitral valve leaflet. Mild (1+) mitral valve insufficiency. Mild to moderate (1-2+) tricuspid valve insufficiency. Mild diffuse aortic valve thickening. Mild focal aortic valve calcification. Trivial pulmonic valve insufficiency. Borderline enlarged aortic root. Right ventricular systolic pressure estimated to be 27 mmHg. Unable to assess diastolic dysfunction. Carotid Artery Duplex Study: 11/21/2021 Interpretation Summary Irregular calcific plaque at the proximal right internal carotid artery with less than 50% stenosis Less than 50% stenosis right external carotid artery Irregular calcific plaque with shadowing at the proximal left internal carotid artery with less than 50% stenosis Less than 50% stenosis left external carotid artery Patent and antegrade vertebral arteries bilaterally Labs: ?? ? No Data to Display Diagnostics: ?? ? Electrocardiogram ? Chest X-Ray ? Pulmonary: ?? ? No Data to Display Assessment and Plan Assessment and Plan (1) Atrial fibrillation: ?Status:?Inactive ?Plan: Patient has a history of atrial fibrillation.? His EKG from today demonstrates atrial fibrillation, right bundle branch block, heart rate 81.? His most recent Holter monitor demonstrated atrial fibrillation with an average heart rate of 76 bpm.? His most recent echocardiogram from 07/2021 demonstrated moderately enlarged left atrium, and mildly enlarged right atrium.? He is scheduled for a cardioversion on 02/[address] Santiago.? Cardioversion instructions were given to patient.? He will continue Eliquis 5mg twice daily, diltiazem 120mg daily, and metoprolol tartrate 100mg twice daily. (2) CHF (congestive heart failure): ?Status:?Acute ?Plan: Patient has a history of congestive heart failure.? His most recent echocardiogram from 07/2021 demonstrated an ejection fraction of 65%.? He appears stable at this time, and denies any recent symptoms or events.? At this time, he will continue with his current medical therapy, along with monitoring for any concerning symptoms. (3) Essential hypertension: ?Status:?Acute ?Plan: Patient has a history of hypertension.? His blood pressure is slightly elevated in the office today.? At this time, he will continue with his current medical therapy, along with monitoring his blood pressures at home.? He will notify our office of blood pressure readings in 2 to 3 weeks.? (4) Bilateral carotid artery stenosis: ?Status:?Chronic ?Plan: Patient has a history of bilateral carotid artery stenosis. His most recent carotid duplex 10/2021 demonstrated less than 50% stenosis in his left and right internal and external carotid arteries. He will continue with aggressive risk factor and lifestyle modifications. ? ? ? Orders: Orders 12 Lead EKG performed by [facility] Today I48.0 - Paroxysmal atrial fibrillation ? Plan Details Additional Comments: Patient will follow up in 3 months, or sooner if needed. Thank you for allowing me to participate in the care of your patient. Please don't hesitate to call if any issues arise. This note was generated using a voice recognition system and there may be incorrect words, spelling, or punctuation that were not noted when reviewing the office note prior to saving. Portions of this documentation were copied and pasted from previous office visit notes to provide a cohesive continuity of the history. The note has been reviewed, edited, and updated, as necessary. Follow Up: ? ? 3 Months (YARDING AND FOLDING MACHINE OPERATOR/PA) ? ? 12 Months (PFM) COVID (Procedure Consent) Procedure Criteria Procedure Criteria: Yes Elective The surgeon/proceduralist and patient have discussed in detail the risk of exposure to and/or potential harm posed by the COVID-19 virus with having a surgery/procedure at this time versus the risk of? delaying the surgery/procedure. It is not possible to know either the risk of delaying the surgery or procedure or chance of getting an infection with perfect accuracy, but a joint decision was made between the patient and the surgeon/proceduralist ?to proceed at this time with the scheduled surgery/procedure as indicated on the consent form. Coding Level of Care Code Off vis,est,level 3 Diagnoses Atrial fibrillation? I48.91 CHF (congestive heart failure)? I50.9 Essential hypertension? I10 Bilateral carotid artery stenosis? I65.23 Coding Level of Care Code Off vis,est,level 3 Diagnoses Atrial fibrillation? I48.91 CHF (congestive heart failure)? I50.9 Essential hypertension? I10 Bilateral carotid artery stenosis? I65.23 01/21/22 154 <Electronically signed by Latha Ravi NP YARDING AND FOLDING MACHINE OPERATOR-C> Date Latha Ravi NP YARDING AND FOLDING MACHINE OPERATOR-C 01/21/222038<Electronically signed by Michael Santiago MD> Cosigner Signature: Date (if applicable) Michael Santiago MD CC:? Dr. Brad Forrest, DO ~ Assessment & Plan Addt'l Comments Addendum: I have examined the patient the following changes are noted: Repeat BMP performed. Potassium level 3.8. The patient's case was discussed and reviewed. The plan is to proceed with an attempt at synchronized biphasic DC cardioversion. The procedure and risk were discussed with the patient. He was agreeable to this approach. This note was generated using a voice recognition system and there may be incorrect words, spelling or punctuation that were not noted when reviewing the office note prior to saving.
[2022-02-09 10:37] VITALS: BMI 31.6
[2022-02-10 10:22] LABS: Anion Gap 4 (5-15); BUN 36 mg/dL (7-18); BUN/Creat Ratio 21.4 RATIO (10-20); Calcium,Total 9.1 mg/dL (8.5-10.1); Chloride 104 mmol/L (98-107); Creatinine, Serum 1.68 mg/dL (0.70-1.30); EST Glomerular Filtration Rate 42 mL/min (>60); Est Glom Filt Rate - Afr Amer 51 mL/min (>60); Estimated Creatinine Clearance 37.41 ml/min; Glucose 105 mg/dL (74-106); Potassium 3.8 mmol/L (3.5-5.1); Sodium Level 140 mmol/L (136-145)
--- NOTE | 2022-02-10 11:47 | EKG12_ITS ---
Test Reason : POST DCCV Blood Pressure : / mmHG Vent. Rate : 058 BPM Atrial Rate : 119 BPM P-R Int : 182 ms QRS Dur : 166 ms QT Int : 472 ms P-R-T Axes : 021 -33 -19 degrees QTc Int : 463 ms Sinus tachycardia with Blocked Premature atrial complexes Left axis deviation Right bundle branch block Abnormal ECG When compared with ECG of 10-FEB-2022 11:45, MANUAL COMPARISON REQUIRED, DATA IS UNCONFIRMED Confirmed by KARINE RODRÍGUEZ, SHARITA ([id number]), metropolitan editor KENTON MAXWELL ([id number]) on 02/12/2022 10:13:21 AM Referred By: Michael Santiago Confirmed By:SHARITA MILTON MD
--- NOTE | 2022-02-10 12:48 | CARDIOVERS_ITS ---
Cardioversion Cardioversion: Date: 02-10-2022 Procedure: Synchronized Biphasic DC Cardioversion Indications: Atrial fibrillation Consent: Per the Patient Anesthesia: per Dr. Sanches of pulmonology and critical care medicine with propofol 60 mg IV push total Procedure: Synchronized Biphasic DC Cardioversion: 200 J x 1: Result: Sinus rhythm; PACs Complications: no apparent complications This note was generated with Mob[employer] software. It may contain incorrect words, spelling, and punctuation that were not noted in checking the note before signing.
--- NOTE | 2022-02-10 13:14 | PCM.OP.PRO ---
Procedure Report Date of Procedure: 02/10/22 CONSCIOUS SEDATION REPORT BRIEF HISTORY OF PRESENT ILLNESS: The patient is a 76-year-old male who presented to [facility] for an elective outpatient cardioversion due to underlying atrial fibrillation. The patient reports no PO intake since midnight, but is currently therapeutic on anticoagulation. The patient does have a history of NICOLASA, but is not compliant with therapy. The patient reports denies history of smoking and COPD. The patient denies any recent constitutional symptoms such as fevers, chills, nausea or vomiting. The patient denies previous applicable anesthetic complications. Patient's last known ejection fraction was 65%. PHYSICAL EXAMINATION: VITAL SIGNS: Reviewed and were acceptable. GENERAL: The patient is a male, in no apparent distress, speaking in full sentences. HEENT: Normocephalic, atraumatic. Mucous membranes are moist and pink. Good mouth opening noted. Trachea is midline. Good neck mobility. MP II CHEST: S1, S2 irregularly irregular. No murmurs, rubs or gallops were noted. LUNGS: Clear to auscultation bilaterally without appreciable wheezes, rales or rhonchi. ABDOMEN: Soft, nontender, nondistended. Positive bowel sounds. EXTREMITIES: There is no clubbing, cyanosis or edema. ASA Class: II DESCRIPTION OF PROCEDURE: After confirmation of informed consent, the patient's anesthesia plan was reviewed in detail. Propofol was chosen. Risks and benefits were reviewed and the patient agreed to proceed. At 12:02 PM, the patient was given 40 mg of propofol. The patient required a total of 60 mg of propofol throughout the procedure to achieve appropriate sedation. The patient achieved an appropriate level of sedation and received 1 attempt synchronized cardioversion, at [address] Santiago at the bedside. This was successful in achieving normal sinus rhythm. The patient was monitored until 12:16 PM, at which time the patient reached their baseline mental status and function. The patient tolerated the procedure well. COMPLICATIONS: None ESTIMATED BLOOD LOSS: None RECOMMENDATIONS: Okay to recover in usual fashion. Procedures Pulmonary [id number]: [id number] Con Sedation
== END 2022-02-10 13:20 | disposition home or self-care (01) ==
LOC: CLSP 09:44
PROVIDERS: PCP Family Medicine; Referring Provider Internal Medicine Cardiovascular Disease; Visit Provider Internal Medicine Cardiovascular Disease
DX: I48.0 Paroxysmal atrial fibrillation (principal); G20 Parkinson's disease; I13.0 Hypertensive heart and chronic kidney disease with heart failure and stage 1 through stage 4 chronic kidney disease, or unspecified chronic kidney disease; I50.30 Unspecified diastolic (congestive) heart failure; I65.23 Occlusion and stenosis of bilateral carotid arteries; N18.9 Chronic kidney disease, unspecified; G47.33 Obstructive sleep apnea (adult) (pediatric); Z91.19 Patient's noncompliance with other medical treatment and regimen; Z79.01 Long term (current) use of anticoagulants; Z79.899 Other long term (current) drug therapy; Z86.16 Personal history of COVID-19; Z86.73 Personal history of transient ischemic attack (TIA), and cerebral infarction without residual deficits; Z86.711 Personal history of pulmonary embolism; Z86.718 Personal history of other venous thrombosis and embolism
CPT/HCPCS: 36415; 80048; 92960; 93005; J7040

== ENCOUNTER → 2022-02-17 | Outpatient (CLI) | payer MEDICARE, OTHER, SELFPAY ==
[2022-02-17 11:34] LABS: Hemoglobin A1c 5.4 % (3.8-5.6)
[2022-02-19 13:07] LABS: Albumin 3.8 g/dL (2.9-4.4); Alpha-1-Globulins 0.2 g/dL (0.0-0.4); Alpha-2-Globulins 0.5 g/dL (0.4-1.0); Gamma Globulin 1.1 g/dL (0.4-1.8); Immunoglobulin A 191 mg/dL (61-437); Immunoglobulin G 1096 mg/dL (603-1613); Immunoglobulin M 93 mg/dL (15-143); PROEL- TOTAL PROTEIN 6.3 g/dL (6.0-8.5)
== END | disposition home or self-care (01) ==
LOC: LAB 10:48
PROVIDERS: PCP Family Medicine; Referring Provider Psychiatry & Neurology Neurology; Visit Provider Psychiatry & Neurology Neurology
DX: R73.9 Hyperglycemia, unspecified (principal); G62.9 Polyneuropathy, unspecified
CPT/HCPCS: 36415; 82784; 83036; 84165; 86334; 86335

== ENCOUNTER 2022-03-13 08:30 | Outpatient (RCR) | payer MEDICARE, OTHER, SELFPAY ==
--- NOTE | 2022-03-10 10:42 | HP.PTEVAL ---
Patient's Visit Information ANTONIO MARADIAGA is a 76 year old M referred to Physical Therapy by Dr. Josesito Borges MD with a diagnosis of PD, Polyneuropathy, abnormality of gait,. Date of Evaluation: 03/10/22 Physical Therapist: NICOLÁS Titus - Visit Plan Frequency: 2x /Week Duration: 2 Months Plan: 2X/ week for 10 weeks for gait training, balance training, stretching and Lumbar core stability, DLS, postural exercises, dual tasking, functional transfers including supine to sit and sit to stand and curb steps with HEP. HEP LTR and bridges (daughter will supervise to see if he can do them at home as he lives alone but she does visit often) - Subjective Pt can't walk anymore and can't move his legs to do anything. He lives alone. He walks around his house. He can not stand up without holding onto something. He was told he can not drive anymore. The Dr said he might have spinal stenosis and PD as well. He uses a walker. When he walks. Pt shuffles and can not balance when he walks. He started carpa levadopa. It worked well when he first started it in September and now uped it to 8 pills a day. He sits in a chair all day. He can mircrowave food and go to the fridge and goes to the bathroom. He does better when a professional helps him with his exercises. He has no stairs in his house. He has been dxd with PD since September. He was in TCU at the hospital in August and they suggested to have PD in TCU. He has had arthritis in back for years and sees a rhumatologist and not on methatrexate now cause his other meds don;t work well with it. He has fallen approx 5-6 times this year. When he falls is able to get up but it may take him 2 hours to get him up. He does not sleep in his bed but sleeps in a chair with a lift in it. He has been using the lift chair for 6-8 months. - Objective Gait: Walks with short strides and steppage gait with decrease heel to toe gait pattern. Needs verbal cues to take bigger steps and have upright posture. He tends to catch his toe a lot with gait. Some freezing at times. He is distracted looking around and his steps get smaller,. Posture: rounded shoulders and increse PPT. Pt is able to lay supine but it increases his back pain (he sleeps in a recliner). He is able to bridge and LTR increases back pain (he is very stiff). LE MMT: R hip flex 6.2# and L hip flex 11.9#. R knee ext 19.9# and L knee ext 20.7#. R knee flex 10.5# and L knee flex 13.5#. Sit to stand: needs arms to stand up and needs to have walker to hold onto for balance. Standing balance: able to stand for 30 seconds with SBA. Standing balance with EC: could stand for 5 seconds and then loss of balance. Turning: he takes multiple small steps to get turn to get back into the chair with a walker. - Balance/Special Test Scores Lower Extremity Functional Score: 8 - Goals Goal 1:: I HEP Goal Time Frame: 8-12 Weeks Goal 2:: Work on increasing ability to walk with a rolling walker with large heel to toe gait pattern Goal Time Frame: 8-12 Weeks Goal 3:: Be able to get out of a chair on first attempt with 1 UE support Goal Time Frame: 8-12 Weeks Goal 4:: Be able to complete seated opp arm and leg X 20 in a row Goal Time Frame: 8-12 Weeks - Rehabilitation Potential Rehabilitation Potential: Good - Anticipated Interventions Patient/Client Instruction: Educate patient on: Condition, Plan of Care For the Purpose of:: To decrease pain, To decrease swelling/inflammation, To increase ROM, To improve nutrient delivery to tissue, To improve muscle performance and motor function, To improve ability to perform ADL's, To increase tolerance to activity/condition/position, To improve performance and independence with ADL's, To decrease level of supervision to perform tasks, To improve ability of physical actions for home/community/work/leisure, To improve gait and locomotor functions, To improve health of tissue, To decrease soft tissue restriction, To increase flexibility/ROM, To improve endurance, To improve balance, To improve safety with gait Therapeutic Exercise to Include: Strength training, Endurance training, Balance training, Postural training, Flexibilty training, Gait and locomotor training, Neuromotor development, Passive ROM, Active ROM, Dynamic Lumbar Stabilization For the Purpose of:: To decrease pain, To increase ROM, To improve nutrient delivery to tissue, To increase oxygenation perfusion, To improve muscle performance and motor function, To improve ability to perform ADL's, To increase tolerance to activity/condition/position, To improve performance and independence with ADL's, To decrease level of supervision to perform tasks, To improve ability of physical actions for home/community/work/leisure, To improve gait and locomotor functions, To improve health of tissue, To decrease soft tissue restriction, To increase flexibility/ROM, To improve endurance, To improve balance, To improve safety with gait, To improve safety Functional Training to Include: Gait training For the Purpose of:: To improve gait and locomotor functions, To improve safety with gait Manual Therapy Techniques to Include: Passive ROM, Soft tissue mobilization For the Purpose of:: To increase ROM, To improve nutrient delivery to tissue, To improve muscle performance and motor function, To improve ability to perform ADL's Thank you for the opportunity to evaluate your patient. For Medicare and Medicare HMO plans, please review the plan of care and approve it. It will need to be FAXED BACK to us at [phone] for Medicare purposes. For Medicare only, by signing this I certify the plan of care. Please let me know if there are questions or concerns regarding this plan of care. Physician Signature: Date:
--- NOTE | 2022-05-29 08:55 | HP.PTDCNRP_ITS ---
ANTONIO MARADIAGA was seen in my office for initial evaluation on 03/10/22. The following Plan of Care was established for this patient: Initial Frequency: 2x /Week Initial Duration: 2 Months Patient/Client Instruction: Educate patient on: Condition, Plan of Care For the Purpose of:: To decrease pain, To decrease swelling/inflammation, To increase ROM, To improve nutrient delivery to tissue, To improve muscle performance and motor function, To improve ability to perform ADL's, To increase tolerance to activity/condition/position, To improve performance and independence with ADL's, To decrease level of supervision to perform tasks, To improve ability of physical actions for home/community/work/leisure, To improve gait and locomotor functions, To improve health of tissue, To decrease soft tissue restriction, To increase flexibility/ROM, To improve endurance, To improv e balance, To improve safety with gait Therapeutic Exercise to Include: Strength training, Endurance training, Balance training, Postural training, Flexibilty training, Gait and locomotor training, Neuromotor development, Passive ROM, Active ROM, Dynamic Lumbar Stabilization For the Purpose of:: To decrease pain, To increase ROM, To improve nutrient delivery to tissue, To increase oxygenation perfusion, To improve muscle performance and motor function, To improve ability to perform ADL's, To increase tolerance to activity/condition/position, To improve performance and independence with ADL's, To decrease level of supervision to perform tasks, To improve ability of physical actions for home/community/work/leisure, To improve gait and locomotor functions, To improve health of tissue, To decrease soft tissue restriction, To increase flexibility/ROM, To improve endurance, To improve balance, To improve safety with gait, To improve safety Functional Training to Include: Gait training For the Purpose of:: To improve gait and locomotor functions, To improve safety with gait Manual Therapy Techniques to Include: Passive ROM, Soft tissue mobilization For the Purpose of:: To increase ROM, To improve nutrient delivery to tissue, To improve muscle performance and motor function, To improve ability to perform ADL's This patient was last seen in our office 03/13/22. Pertinent comments regarding their Physical therapy will appear below: DC PT as pt came for one follow up appt after eval and then did not schedule additional PT. At this point I will be discontinuing this patient from physical therapy. I would be happy to see this patient again in the future if found appropriate by the physician. Thank you! Fariha Fatima, NICOLÁS Balance/Gait/Functional tests - Balance/Special Test Scores Lower Extremity Functional Score: 8
== END 2022-03-13 19:00 | disposition home or self-care (01) ==
LOC: PT 08:30
PROVIDERS: PCP Family Medicine; Referring Provider Psychiatry & Neurology Neurology; Visit Provider Psychiatry & Neurology Neurology
DX: G20 Parkinson's disease (principal); G62.9 Polyneuropathy, unspecified; I67.9 Cerebrovascular disease, unspecified; R26.9 Unspecified abnormalities of gait and mobility
CPT/HCPCS: 97110; 97162

== ENCOUNTER 2022-03-19 11:44 | Emergency (ER) | payer MEDICARE, OTHER, SELFPAY ==
[2022-03-19 11:45] VITALS: BP 122/74; PULSE 46; RESP 18; TEMP 35.9; O2SAT 96; BMI 29.7
[2022-03-19 12:35] VITALS: BP 143/74; PULSE 44; RESP 16; O2SAT 99
--- NOTE | 2022-03-19 13:25 | EKG12_ITS ---
Test Reason : BRADYCARDIA Blood Pressure : / mmHG Vent. Rate : 046 BPM Atrial Rate : 046 BPM P-R Int : 154 ms QRS Dur : 144 ms QT Int : 478 ms P-R-T Axes : -03 -27 -26 degrees QTc Int : 418 ms Sinus bradycardia Right bundle branch block Abnormal ECG Confirmed by KARINE RODRÍGUEZ, SHARITA ([id number]), editor publications KENTON MAXWELL ([id number]) on 03/23/2022 9:44:06 AM Referred By: Confirmed By:SHARITA MILTON MD
--- NOTE | 2022-03-19 13:25 | EDS_ITS ---
HPI History of Present Illness Chief Complaint: Lower Extremity Injury Narrative Narrative: Patient with multiple medical problems presents with his daughter because of right knee pain and leg weakness. She states that he lives at home alone and usually uses a walker, but was having right knee pain and right leg weakness today that she could barely get him into the van because of the weakness. He denies any headache. History and physical is limited secondary to him being hard of hearing and his right hearing aid is broken. He states his right knee was painful with weightbearing and was weak to the point where it almost gave out on him. While he has had bilateral knee replacements in the past, he states he has had several falls over the last few weeks secondary to the weakness. He denies hitting his head or loss of consciousness. His daughter is concerned that because he is on spironolactone that he may be dehydrated. He denies any nausea or vomiting. No diarrhea. No other symptoms. [facility] Medical History Adequate anticoagulation on anticoagulant therapy Arthritis Atherosclerosis of both carotid arteries Atrial fibrillation B12 deficiency BPH (benign prostatic hyperplasia) Bradycardia Breast mass in male Carpal tunnel syndrome Chronic a-fib Chronic anticoagulation Chronic hypokalemia CKD (chronic kidney disease) Compression fracture of L2 Contusion of flank COVID CPAP (continuous positive airway pressure) dependence Essential hypertension Facial basal cell cancer Gastroesophageal reflux disease GERD (gastroesophageal reflux disease) History of pneumonia HTN (hypertension) Hypertension Hyperuricemia Hypokalemia Hypokalemia IBS (irritable bowel syndrome) IFG (impaired fasting glucose) Inflammatory arthritis (~2016) Kidney disease Migraine Nephrosclerosis Parkinsons disease Paroxysmal atrial fibrillation Proteinuria Renal insufficiency Rheumatoid arthritis Sleep apnea Splenomegaly Stroke (~07/2021) Thrombocythemia Venous stasis dermatitis Wears hearing aid in both ears Home Medications finasteride 5 mg tablet 5 mg PO DAILY BPH 01/11/17 [History Last Taken 02/10/22] loratadine 10 mg tablet (Allergy Relief (loratadine)) 10 mg PO DAILY PRN ALLERGIES 01/11/17 [History Last Taken 08/05/21] terazosin 10 mg capsule 10 mg PO DAILY prostate 01/11/17 [History Last Taken 02/10/22] cholecalciferol (vitamin D3) 50 mcg (2,000 unit) capsule (Vitamin D3) 2,000 unit PO DAILY Supplement 07/12/17 [History Last Taken 02/10/22] pantoprazole 40 mg tablet,delayed release 40 mg PO DAILY reflux 08/19/21 [History Last Taken 02/10/22] diltiazem HCl 120 mg capsule,extended release 24 hr 120 mg PO DAILY BP 30 days #30 caps 09/11/21 [Rx Last Taken 02/10/22] oxybutynin chloride 5 mg tablet 5 mg PO QHS BLADDER 10/27/21 [History Last Taken Unknown] dicyclomine 10 mg capsule 10 mg PO DAILY PRN ibs 11/21/21 [History Last Taken 02/10/22] diphenoxylate-atropine 2.5 mg-0.025 mg tablet 1 tab PO Q6H PRN diarrhea 11/21/21 [History Last Taken Unknown] allopurinol 100 mg tablet 200 mg PO DAILY gout 12/22/21 [History Last Taken 02/10/22] clonidine HCl 0.1 mg tablet 0.1 mg PO .COMPLEX BP 12/22/21 [History Last Taken 02/10/22] melatonin 3 mg capsule 3 mg PO HS PRN Sleep 12/22/21 [History Last Taken Unknown] metoprolol tartrate 100 mg tablet 100 mg PO BID #180 tabs 12/22/21 [Rx Last Juan R en 02/10/22] spironolactone 25 mg tablet 25 mg PO DAILY #30 tabs 01/16/22 [Rx Last Taken 02/10/22] carbidopa 25 mg-levodopa 100 mg tablet 2 tab PO .QID HERIBERTOISON #240 tabs 02/23/22 [Rx Last Taken Unknown] apixaban 5 mg tablet (Eliquis) 5 mg PO BID ordered by Dr. Ponce for DVT #60 tabs 03/03/22 [Rx Last Taken Unknown] gabapentin 300 mg capsule 300 mg PO DAILY 03/19/22 [History Last Taken Unknown] Allergy/AdvReac Type Severity Reaction Status Date / Time No Known Allergies Allergy Verified 03/19/22 11:45 Family History Father Myocardial infarction, Onset Age: 62 Brother Skin cancer Other Arthritis Heart disease Hypertension Thyroid disorder Surgical History Anal fissure History of ear surgery History of right breast biopsy (~02/2021) History of tonsillectomy Mohs defect (11/26/16) S/P carpal tunnel release S/P Mohs surgery for basal cell carcinoma Status post bilateral knee replacements Social History household members: none and other details: number of children: 1 current occupational status: retired Smoking Status: Never smoker alcohol intake: never substance use type: does not use caffeine: Yes eating out: other details: daily what type of physical activity do you participate in: none ROS ROS ED ROS Narrative Constitutional: No fever, no chills. HEENT: No sore throat. No neck pain. No loss of vision. No rhinorrhea. Cardiovascular: No chest pain. No palpitations. No pedal edema. Low heart rate. Respiratory: No cough, no shortness of breath. Abdominal: No abdominal pain. No nausea. No vomiting. Genitourinary: No dysuria. No hematuria. Musculoskeletal: No myalgias. Right knee pain, right leg weakness.. Neurologic: No headaches. No dizziness. No lightheadedness. Skin: No rash. No change in color. Psychiatric: No depression. No anxiety. EXAM Physical Exam Narrative Exam Narrative: Afebrile. Vital signs noted. HEENT: Normocephalic. Atraumatic. PERRL, EOMI. Neck soft and supple. No point tenderness or step off. Cardiovascular: Regular rate and rhythm. No murmurs, rubs, or gallops appreciated. Respiratory: No tachypnea. Lungs clear to auscultation bilaterally. Gastrointestinal: Abdomen soft, nontender, with normoactive bowel sounds. No rebound or guarding. Neurological: Awake. Alert. Nonfocal, nonlateralizing. Skin: No rash. Normal color. No pallor. Musculoskeletal: No pedal edema. Full range of motion extremities. Flexion and extension of right lower extremity intact. Able to flex and extend hip. Pelvis stable. Able to lift leg off bed without difficulty. Const Vital Signs: 03/19/22 11:45 03/19/22 12:31 03/19/22 12:35 Temperature 96.7 F L Temperature Source Temporal Pulse Rate 46 L 44 L Respiratory Rate 18 16 Respiratory Effort Normal Non-Labored Respiratory Pattern Normal Blood Pressure 122/74 H 143/74 H Blood Pressure Mean 90 97 Pulse Ox 96 99 Oxygen Delivery Method Room Air Room Air 03/19/22 14:05 Temperature Temperature Source Pulse Rate 49 L Respiratory Rate 18 Respiratory Effort Respiratory Pattern Blood Pressure 147/84 H Blood Pressure Mean 105 Pulse Ox 95 Oxygen Delivery Method Room Air MDM MDM MDM Narrative Medical decision making narrative: Comprehensive work-up was pursued. The patient has had previous diagnosis of fatigue and debility in the past. His daughter is concerned because he lives alone and states that they have been talking about whether or not he needs to go to rehab or get home health care. She would like to speak with the social media manager. I consulted case management here in the emergency department. I will obtain basic laboratory work and UA. Additionally, I will obtain x-ray of the right knee as he states he has had several falls. EKG was obtained and interpreted by myself which demonstrates sinus bradycardia at 46 bpm with a right bundle branch block but no acute ST changes. No STEMI. CBC shows normal white count of 6.9, hemoglobin normal at 14.1 with hematocrit 40.9 but thrombocytopenia of 72. This appears chronic. Electrolyte panel is remarkable for chloride of 108 with a BUN of 34 and creatinine of 1.59. This is consistent with his chronic kidney disease. Glucose appropriately elevated at 89. Urinalysis shows no evidence of infection. X-ray of the right knee interpreted by myself shows no periprosthetic fracture or acute process. Case management/social work was consulted. According to them, the daughter would like him to be admitted to the TCU where he had been previously. COVID swab was obtained and is pending. He has been accepted for transfer into the TCU at [facility]. Disposition is transferred in stable con dition. Lab Data Attestation: I reviewed the patient's lab results. Labs: Laboratory Results - last 24 hr 03/19/22 03/19/22 03/19/22 13:34 13:34 13:52 WBC 6.9 RBC 4.13 L Hgb 14.1 Hct 40.9 MCV 99.0 H MCH 34.1 H MCHC 34.5 RDW Std Deviation 51.1 H RDW Coeff of Naomie 14.1 Plt Count 72 L MPV 12.2 H Immature Gran % (Auto) 0.400 Neut % (Auto) 58.0 Lymph % (Auto) 31.3 Cole % (Auto) 7.1 Eos % (Auto) 2.8 Baso % (Auto) 0.4 Absolute Neuts (auto) 4.0 Absolute Lymphs (auto) 2.15 Nucleated RBC % 0 Sodium 140 Potassium 4.7 Chloride 108 H Carbon Dioxide 28.0 Anion Gap 4 L BUN 34 H Creatinine 1.59 H Estim Creat Clear Calc 39.52 Est GFR (MDRD) Af Amer 55 L Est GFR (MDRD) Non-Af 45 L BUN/Creatinine Ratio 21.4 H Glucose 89 Calcium 9.1 Total Bilirubin 0.70 AST 14 L ALT 11 L Alkaline Phosphatase 89 Troponin I High Sens 18 Total Protein 7.2 Albumin 3.8 Globulin 3.4 Albumin/Globulin Ratio 1.1 Urine Color Yellow Urine Clarity Clear Urine pH 6.0 Ur Specific [place] 1.015 Urine Protein 100 H Urine Glucose (UA) Normal Urine Ketones 5 H Urine Occult Blood Negative Urine Nitrite Negative Urine Bilirubin Negative Urine Urobilinogen Normal Ur Leukocyte Esterase Negative Urine RBC 0 SEEN Urine WBC 0 SEEN Ur Squamous Epith Cells 0-5 SEEN Urine Bacteria 0 SEEN Urine Mucus 0 SEEN Radiography Diagnostic Testing: Clinical Impression(s) from Imaging Studies Knee X-Ray 03/19/22 14:00 IMPRESSION: Uncomplicated right total knee arthroplasty. Small joint effusion. Electronically Signed: Clyde Enamorado MD at 14:22 EDT , Discharge Plan Triage Chief Complaint: Lower Extremity Injury Other Complaint: Weakness ED Provider: Sly Walton Dx/Rx/DC Orders Clinical Impression: Knee pain, right, Debility, Right leg weakness, Unsteady gait, Chronic kidney disease, Thrombocytopenia Prescriptions: No Action melatonin 3 mg capsule 3 mg PO HS PRN (Reason: Sleep) metoprolol tartrate 100 mg tablet 100 mg PO BID Qty: 180 4RF diphenoxylate-atropine 2.5-0.025 mg tablet 1 tab PO Q6H PRN (Reason: diarrhea) Eliquis 5 mg tablet 5 mg PO BID Qty: 60 3RF carbidopa-levodopa 25-100 mg tablet 2 tab PO .QID Qty: 240 4RF dicyclomine 10 mg capsule 10 mg PO DAILY PRN (Reason: ibs) terazosin 10 MG capsule 10 mg PO DAILY MDD urinary finasteride 5 MG tablet 5 mg PO DAILY loratadine [Allergy Relief (loratadine)] 10 MG tablet 10 mg PO DAILY PRN (Reason: ALLERGIES) cholecalciferol (vitamin D3) [Vitamin D3] 2,000 UNIT capsule 2,000 unit PO DAILY allopurinol 100 mg tablet 200 mg PO DAILY clonidine HCl 0.1 mg tablet 0.1 mg PO .COMPLEX Rx Instructions: 0.1 mg orally 1 tab at noon and 2 tabs at bedtime; pantoprazole 40 mg tablet,delayed release (DR/EC) 40 mg PO DAILY diltiazem HCl 120 mg capsule,extended release 24hr 120 mg PO DAILY 30 Days Qty: 30 0RF oxybutynin chloride 5 mg tablet 5 mg PO QHS gabapentin 300 mg Capsule 300 mg PO DAILY spironolactone 25 mg tablet 25 mg PO DAILY Qty: 30 11RF Primary Care Provider: Brad Forrest Referrals: Brad Forrest DO [Primary Care Provider] - Disposition Disposition: [facility] Facility Discharge Location: [facility] Transitional Care Unit
[2022-03-19 13:49] LABS: Absolute Lymphocyte Count 2.15 X10^3/uL (0.83-4.51); Basophil# 0.03 X10^3/uL; Basophil% 0.4 % (0-1); Eosinophil# 0.19 X10^3/uL; Eosinophils% 2.8 % (0-5); Hematocrit 40.9 % (40-54); Hemoglobin 14.1 g/dL (13.0-16.5); Lymphocyte # 2.15 X10^3/ul (0.83-4.51); Lymphocyte % 31.3 % (19-41); Mean Corp Hgb Conc 34.5 g/dL (32-36); Mean Corpuscular Hgb 34.1 pg (27.0-32.0); Mean Platelet Vol. 12.2 fl (6.2-12.0); Monocyte# 0.49 X10^3/uL; Monocyte% 7.1 % (0-10); NRBC Flagged by Analyzer 0 % (0-5); Neutrophil # 3.97 X10^3/uL (2.7-7.7); POSITIVE COUNT YES; Platelet Count 72 K/mm3 (150-450); RBC Distribution Width CV 14.1 % (11.6-14.6); RBC Distribution Width SD 51.1 fl (35.1-43.9); Red Blood Count 4.13 M/mm3 (4.6-6.2); White Blood Count 6.9 K/mm3 (4.4-11.0)
--- NOTE | 2022-03-19 14:00 | RAD_ITS ---
STUDY: X-RAY - RIGHT KNEE REASON FOR EXAM: Right knee pain, weakness, no specific injury. TECHNIQUE: 3 view(s) of the knee. COMPARISON: Radiograph report 11/18/2009. FINDINGS: There is a right total knee arthroplasty without evidence of complication. There is a small joint effusion. There is vascular calcification. RAD/Knee 3 Views IMPRESSION: Uncomplicated right total knee arthroplasty. Small joint effusion. Electronically Signed: Clyde Enamorado MD at 14:22 EDT ,
[2022-03-19 14:01] LABS: ALB/GLOB Ratio 1.1 RATIO (0.9-2.4); AST(SGOT) 14 U/L (15-37); Alanine Aminotransfer ALT/SGPT 11 U/L (16-61); Albumin, Serum 3.8 g/dL (3.2-5.0); Alkaline Phosphatase 89 U/L (45-117); Anion Gap 4 (5-15); BUN 34 mg/dL (7-18); BUN/Creat Ratio 21.4 RATIO (10-20); Calcium,Total 9.1 mg/dL (8.5-10.1); Chloride 108 mmol/L (98-107); Creatinine, Serum 1.59 mg/dL (0.70-1.30); EST Glomerular Filtration Rate 45 mL/min (>60); Est Glom Filt Rate - Afr Amer 55 mL/min (>60); Estimated Creatinine Clearance 39.52 ml/min; Globulin 3.4 g/dL (2.2-4.2); Glucose 89 mg/dL (74-106); Potassium 4.7 mmol/L (3.5-5.1); Protein, Total 7.2 g/dL (6.4-8.2); Sodium Level 140 mmol/L (136-145); Troponin-I HS 18 pg/mL (3.0-78.0)
[2022-03-19 14:03] LABS: Bacteria 0 SEEN /hpf (None Seen); Mucous, Urine 0 SEEN /hpf (<or=2+); Red Blood Cells-Urine 0 SEEN /hpf (0-5); White Blood Cells 0 SEEN /hpf (0-5)
[2022-03-19 14:05] VITALS: BP 147/84; PULSE 49; RESP 18; O2SAT 95
[2022-03-19 14:25] LABS: Color, Urine Yellow (Yellow); Glucose, Dipstick Normal (Normal); Ketone-Dipstick 5 mg/dl (Negative); Leukocyte Esterase-Dipstick Negative /ul (Negative); Nitrite-Dipstick Negative (Negative); Occult Blood-Urine Negative /ul (Negative); Protein-Dipstick 100 mg/dl (Negative); Specific Gravity, Urine 1.015 (1.002-1.030); Urine Bilirubin Dipstick Negative (Negative); Urine Clarity Clear (Clear); Urine Urobilinogen Normal (Normal)
[2022-03-19 14:32] LABS: Squamous Epithelial Cells - UA 0-5 SEEN /hpf (0-5)
[2022-03-19 14:37] VITALS: BP 147/84; PULSE 47; RESP 18; O2SAT 97
== END 2022-03-19 15:12 | disposition skilled nursing facility (03) ==
PROVIDERS: Emergency Provider Emergency Medicine; PCP Family Medicine; Visit Provider Emergency Medicine
DX: M25.561 Pain in right knee (principal); D69.6 Thrombocytopenia, unspecified; N18.32 Chronic kidney disease, stage 3b; R80.9 Proteinuria, unspecified; R53.1 Weakness; R00.1 Bradycardia, unspecified; I12.9 Hypertensive chronic kidney disease with stage 1 through stage 4 chronic kidney disease, or unspecified chronic kidney disease; I45.10 Unspecified right bundle-branch block; M19.90 Unspecified osteoarthritis, unspecified site; R26.81 Unsteadiness on feet; Z96.653 Presence of artificial knee joint, bilateral; Z79.899 Other long term (current) drug therapy; Z20.822 Contact with and (suspected) exposure to COVID-19
CPT/HCPCS: 36415; 73562; 80053; 80069; 81001; 83970; 84484; 85025; 87811; 93005; 96360; 99285; J7040; A4216

== ENCOUNTER 2022-03-19 15:23 | Inpatient (IN) | payer MEDICARE, OTHER, SELFPAY ==
[2022-03-19 15:27] VITALS: BP 182/83; PULSE 43; RESP 20; TEMP 35.8; O2SAT 98
[2022-03-19 15:28] VITALS: BMI 30.7
--- NOTE | 2022-03-19 15:33 | CM.ED ---
Addendum entered by Masha Mcgregor 03/19/22 15:57: ETTA updated patient that he is going to TCU. Masha GASTELUM Original Note: ETTA Note Referral Source: MD Referral Reason: Weakness and debility ETTA met with patient and his daughter. Patient said that this morning he was not able to get to the bathroom by himself due to his knee hurting. Patient voiced I am having a hard time living alone. Patient said that he was supposed to go to [employer] tomorrow to get my balance back. He has gone to [facility] 1x. Patient's daughter, Mary reports that she does patient's laundry and dishes as well as grocery shopping. Mary voiced concerns about patient living along and stated this is the worse I have seen him. Mary said that patient was in the ED on 09/16/21 and did very well there and they would like him to go back if possible as they felt positive about patient's progress at TCU and about the TCU staff. ETTA spoke to Alina. She will review patient's chart for referral. Alina has beds. ETTA called Alina in TCU. Alina stated that she is able to accept patient. Alina said that patient needs a covid test. Alina from TCU and needs the med list for patient tubed to TCU. SHELLY Wade agreed to fax the med list for patient. ETTA updated , RN and family that patient was accepted at TCU. Family appreciative. No other issues or concerns voiced. Plan: TCU Masha CEDILLO
[2022-03-19] MEDS: APIXABAN 5 MG TABLET PO (18:00)
[2022-03-19] MEDS: Carbidopa/Levodopa 25/100 Tablet PO ×2 (18:00→21:44)
--- NOTE | 2022-03-19 20:37 | HP.PCM_ITS ---
HPI - General General Date of Admission: 03/19/22 Date of Service: 03/19/22 Chief Complaint: Here for rehab. HPI Narrative 03/19/2022 ANTONIO MARADIAGA, is a 76 Male who presents to [facility] Emergency Department with lower extremity injury. Right knee pain, right knee weakness. Usually walks with walker, but much weaker today, could barely get into van to come to hospital. EKG okay, WBC 6.9, Hemoglobin 14.1. BUN 34, Creatinine 1.59, UA negative. X-ray right knee okay. 03/19/2022 Admit to TCU with debility, here for rehabilitation, strengthening, prior to discharge home alone. [facility] Medical History Adequate anticoagulation on anticoagulant therapy Arthritis Atherosclerosis of both carotid arteries Atrial fibrillation B12 deficiency BPH (benign prostatic hyperplasia) Bradycardia Breast mass in male Carpal tunnel syndrome Chronic a-fib Chronic anticoagulation Chronic hypokalemia CKD (chronic kidney disease) Compression fracture of L2 Contusion of flank COVID CPAP (continuous positive airway pressure) dependence Essential hypertension Facial basal cell cancer Gastroesophageal reflux disease GERD (gastroesophageal reflux disease) History of pneumonia HTN (hypertension) Hypertension Hyperuricemia Hypokalemia Hypokalemia IBS (irritable bowel syndrome) IFG (impaired fasting glucose) Inflammatory arthritis (~2016) Kidney disease Migraine Nephrosclerosis Parkinsons disease Paroxysmal atrial fibrillation Proteinuria Renal insufficiency Rheumatoid arthritis Sleep apnea Splenomegaly Stroke (~07/2021) Thrombocythemia Venous stasis dermatitis Wears hearing aid in both ears Home Medications finasteride 5 mg tablet 5 mg PO DAILY BPH 01/11/17 [History Last Taken 02/10/22] loratadine 10 mg tablet (Allergy Relief (loratadine)) 10 mg PO DAILY PRN ALLERGIES 01/11/17 [History Last Taken 08/05/21] terazosin 10 mg capsule 10 mg PO DAILY prostate 01/11/17 [History Last Taken 02/10/22] cholecalciferol (vitamin D3) 50 mcg (2,000 unit) capsule (Vitamin D3) 2,000 unit PO DAILY Supplement 07/12/17 [History Last Taken 02/10/22] pantoprazole 40 mg tablet,delayed release 40 mg PO DAILY reflux 08/19/21 [History Last Taken 02/10/22] diltiazem HCl 120 mg capsule,extended release 24 hr 120 mg PO DAILY BP 30 days #30 caps 09/11/21 [Rx Last Taken 02/10/22] oxybutynin chloride 5 mg tablet 5 mg PO QHS BLADDER 10/27/21 [History Last Taken Unknown] dicyclomine 10 mg capsule 10 mg PO DAILY PRN ibs 11/21/21 [History Last Taken 02/10/22] diphenoxylate-atropine 2.5 mg-0.025 mg tablet 1 tab PO Q6H PRN diarrhea 11/21/21 [History Last Taken Unknown] allopurinol 100 mg tablet 200 mg PO DAILY gout 12/22/21 [History Last Taken 02/10/22] clonidine HCl 0.1 mg tablet 0.1 mg PO .COMPLEX BP 12/22/21 [History Last Taken 02/10/22] melatonin 3 mg capsule 3 mg PO HS PRN Sleep 12/22/21 [History Last Taken Unknown] carbidopa 25 mg-levodopa 100 mg tablet 2 tab PO .QID PARKISON #240 tabs 02/23/22 [Rx Last Taken Unknown] apixaban 5 mg tablet (Eliquis) 5 mg PO BID ordered by Dr. Ponce for DVT #60 tabs 03/03/22 [Rx Last Taken Unknown] gabapentin 300 mg capsule 300 mg PO DAILY Nerve Pain 03/19/22 [History Last Taken Unknown] metoprolol tartrate 100 mg tablet 100 mg PO BID BP 03/19/22 [History Last Taken Unknown] spironolactone 25 mg tablet 25 mg PO DAILY BP 03/19/22 [History Last Taken Unknown] Allergy/AdvReac Type Severity Reaction Status Date / Time No Known Allergies Allergy Verified 03/19/22 11:45 Family History Father Myocardial infarction, Onset Age: 62 Brother Skin cancer Other Arthritis Heart disease Hypertension Thyroid disorder Surgical History Anal fissure History of ear surgery History of right breast biopsy (~02/2021) History of tonsillectomy Mohs defect (11/26/16) S/P carpal tunnel release S/P Mohs surgery for basal cell carcinoma Status post bilateral knee replacements Social History household members: none and other details: number of children: 1 current occupational status: retired Smoking Status: Never smoker alcohol intake: never substance use type: does not use caffeine: Yes eating out: other details: daily what type of physical activity do you participate in: none ROS Constitutional Constitutional: Denies chills, fever(s) or weight gain ENT HEENT: Denies headache(s), nasal congestion or nasal discharge Cardiovascular Cardiovascular: Denies chest pain or palpitations Respiratory/Chest Respiratory/Chest: Denies cough, excessive phlegm production or shortness of breath with exertion Gastrointestinal Gastrointestinal: Denies abdominal pain, nausea or vomiting Genitourinary Genitourinary: Denies dysuria Musculoskeletal Musculoskeletal: Denies joint pain or joint swelling Integumentary Integumentary: Denies rash or wounds Neurologic Neurologic: Denies focal weakness, numbness or tingling Psychiatric Psychiatric: Denies anxiety, auditory hallucinations, depression, homicidal ideation or suicidal ideation Vital Signs Vital Signs Vital Signs: 03/19/22 15:27 03/19/22 15:27 Temperature 96.5 F L Temperature Source Temporal Pulse Rate 43 L Pulse Rhythm Irregular Pulse Strength Normal (2+) Respiratory Rate 20 H Respiratory Effort Normal Non-Labored Respiratory Depth Normal Respiratory Pattern Normal Blood Pressure 182/83 H Blood Pressure Mean 116 Blood Pressure Source Monitor Blood Pressure Position Supine Blood Pressure Location Left Arm Pulse Ox 98 Oxygen Delivery Method Room Air Room Air Weight Weight: 94.2 kg Body Mass Index (BMI) 30.7 Physical Exam Const alert General Appearance: cooperative HEENT normocephalic Eyes PERRL and EOMs intact bilaterally Neck supple, no JVD and no carotid bruits Resp normal respiratory effort, normal air movement and clear to auscultation bilaterally Cardio regular rate and regular rhythm GI normal to inspection, nondistended, normoactive bowel sounds, non-tender and non-distended Extremity normal capillary refill General Extremity: Negative for edema Skin no rashes or lesions noted General Skin Exam: no breakdown Psych affect normal Appearance: appropriate Assessment & Plan Assessment/Plan (1) Debility: (2) Knee pain, right: (3) Right leg weakness: (4) Transient ischemic attack: (5) Atrial fibrillation: (6) Bilateral carotid artery stenosis: (7) Pulmonary embolism: (8) Gout: (9) Hypertension: (10) Benign prostate hyperplasia: (11) Neuropathy: (12) Gastroesophageal reflux disease: PLAN: Plan 76 year old male with below past medical history presented to right knee pain, right leg weakness, admitted to TCU with debility, here for rehabilitation, strengthening, prior to discharge home alone. * Debility - PT/OT. * Cognition- ST. * Pain - Tylenol 1000mg q6h prn pain (1-10). * Bowel - Hold, IBS. * Adult immunization - Administer pneumonia vaccine, covid19 vaccine, flu vaccine. * DVT prophylaxis - Not necessary, on Eliquis. * Gout - Allopurinol 200mg daily. * Atrial fibrillation - Metoprolol 100mg bid, Eliquis 5mg bid. * Parkinson Disease - Sinemet 25/100mg 2 tablets QACHS. * Hypertension - Metoprolol 100mg bid, Cardizem CD 120mg daily, Clonidine 0.1mg, 0.2mg. * IBS - Bentyl 10mg daily prn, Lomotil 1 tablet q6h prn. * BPH - Finasteride 5mg daily, Doxazosin 8mg daily. * Neuropathic pain - Gabapentin 300mg daily. * Allergic rhinitis - Loratadine 10mg daily prn. * Insomnia - Melatonin 3mg qhs prn. * Overactive bladder - Oxybutynin 5mg qhs. * GERD - Pantoprazole 40mg daily. * Edema - Aldactone 25mg daily. * Vitamin D deficiency - D3 50mcg daily.
[2022-03-19] MEDS: cloNIDine HCl 0.2 MG Tablet PO (21:44)
[2022-03-19] MEDS: Oxybutynin 5 MG Tablet PO (21:57)
[2022-03-20] MEDS: Spironolactone 25 MG Tablet PO (04:57)
[2022-03-20] MEDS: Doxazosin 4 MG Tablet 8 MG PO (04:57)
[2022-03-20] MEDS: Pantoprazole Sodium 40 MG Tablet PO (04:58)
[2022-03-20] MEDS: Finasteride 5 MG Tablet PO (04:58)
[2022-03-20] MEDS: dilTIAZem CD 120 MG Capsule PO (04:58)
[2022-03-20] MEDS: APIXABAN 5 MG TABLET PO ×2 (04:58→16:35)
[2022-03-20] MEDS: Cholecalciferol (VIT D3) 25 MCG TABLET (1,000 UNITS) 50 MCG PO (04:59)
[2022-03-20] MEDS: Allopurinol 100 MG Tablet 200 MG PO (04:59)
[2022-03-20 05:03] VITALS: BP 168/83; PULSE 48
[2022-03-20] MEDS: Gabapentin 300 MG Capsule PO (06:03)
[2022-03-20] MEDS: Carbidopa/Levodopa 25/100 Tablet PO ×4 (06:03→21:06)
[2022-03-20 06:09] LABS: Absolute Lymphocyte Count 1.91 X10^3/uL (0.83-4.51); Absolute Neutrophil Count 3.1 X10^3/uL (2.0-7.7); Basophil# 0.02 X10^3/uL; Basophil% 0.4 % (0-1); Eosinophil# 0.21 X10^3/uL; Eosinophils% 3.7 % (0-5); Hematocrit 37.4 % (40-54); Hemoglobin 13.1 g/dL (13.0-16.5); Lymphocyte # 1.91 X10^3/ul (0.83-4.51); Lymphocyte % 33.7 % (19-41); Mean Corpuscular Hgb 33.9 pg (27.0-32.0); Mean Corpuscular Volume 96.9 fL (80-94); Mean Platelet Vol. 11.7 fl (6.2-12.0); Monocyte# 0.43 X10^3/uL; Monocyte% 7.6 % (0-10); NRBC Flagged by Analyzer 0 % (0-5); Neutrophil # 3.07 X10^3/uL (2.7-7.7); Neutrophil % 54.2 % (47-70); POSITIVE COUNT YES; Platelet Count 65 K/mm3 (150-450); RBC Distribution Width CV 13.8 % (11.6-14.6); RBC Distribution Width SD 48.5 fl (35.1-43.9); Red Blood Count 3.86 M/mm3 (4.6-6.2); White Blood Count 5.7 K/mm3 (4.4-11.0)
[2022-03-20 06:29] LABS: Anion Gap 4 (5-15); BUN 25 mg/dL (7-18); BUN/Creat Ratio 20.7 RATIO (10-20); Calcium,Total 8.9 mg/dL (8.5-10.1); Chloride 106 mmol/L (98-107); Creatinine, Serum 1.21 mg/dL (0.70-1.30); EST Glomerular Filtration Rate 62 mL/min (>60); Est Glom Filt Rate - Afr Amer 75 mL/min (>60); Estimated Creatinine Clearance 51.94 ml/min; Glucose 90 mg/dL (74-106); Potassium 4.3 mmol/L (3.5-5.1); Sodium Level 139 mmol/L (136-145)
--- NOTE | 2022-03-20 10:22 | PCM.PN.DRR ---
TCU RX Drug Regimen Review Subjective: 76 YOM presented to the [facility] ED on 03/19/22 with weakness. Directly admitted to TCU for rehabilitation and strengthening prior to DC home. Objective: Allergies No Known Allergies Allergy (Verified 03/19/22 11:45) Current Medications Generic Name Dose Route Start Last Admin Trade Name Freq PRN Reason Stop Dose Admin Acetaminophen 1,000 mg 03/19/22 20:50 Acetaminophen 500 Mg Tablet PO Q6H PRN PRN Pain Score 1-10 Allopurinol 200 mg 03/20/22 06:00 03/20/22 04:59 Allopurinol 100 Mg Tablet PO 200 mg DAILY TY Administration Apixaban 5 mg 03/19/22 18:00 03/20/22 04:58 Apixaban 5 Mg Tablet PO 5 mg BID TY Administration Carbidopa/Levodopa 2 tablet 03/19/22 16:30 03/20/22 06:03 Carbidopa/Levodopa 25/100 Tablet PO 2 tablet ACHS TY Administration Cholecalciferol 50 mcg 03/20/22 06:00 03/20/22 04:59 Cholecalciferol (Vit D3) 25 Mcg Tablet (1,000 Units) PO 50 mcg DAILY TY Administration Clonidine 0.1 mg 03/20/22 12:00 Clonidine Hcl 0.1 Mg Tablet PO DAILY@1200 TY Clonidine 0.2 mg 03/19/22 22:00 03/19/22 21:44 Clonidine Hcl 0.2 Mg Tablet PO 0.2 mg QHS TY Administration Dicyclomine HCl 10 mg 03/19/22 15:34 Dicyclomine 10 Mg Capsule PO DAILY PRN ibs Diphenoxylate HCl/Atropine 1 tablet 03/19/22 15:34 Diphenoxylate/Atrop 1 Tablet PO Q6H PRN diarrhea Doxazosin Mesylate 8 mg 03/20/22 06:00 03/20/22 04:57 Doxazosin 4 Mg Tablet PO 8 mg DAILY TY Administration Finasteride 5 mg 03/20/22 06:00 03/20/22 04:58 Finasteride 5 Mg Tablet PO 5 mg DAILY TY Administration Gabapentin 300 mg 03/20/22 06:00 03/20/22 06:03 Gabapentin 300 Mg Capsule PO 300 mg DAILY TY Administration Loratadine 10 mg 03/19/22 15:34 Loratadine 10 Mg Tablet PO DAILY PRN ALLERGIES Melatonin 3 mg 03/19/22 16:18 Melatonin 3 Mg Tablet PO HS PRN Sleep Metoprolol Tartrate 100 mg 03/19/22 18:00 03/20/22 05:03 Metoprolol Tartrate 100 Mg Tablet PO Not Given BID TY Oxybutynin Chloride 5 mg 03/19/22 22:00 03/19/22 21:57 Oxybutynin 5 Mg Tablet PO 5 mg QHS TY Administration Pantoprazole Sodium 40 mg 03/20/22 06:00 03/20/22 04:58 Pantoprazole Sodium 40 Mg Tablet PO 40 mg DAILY TY Administration Sodium Chloride 10 - 40 ml 03/20/22 06:13 0.9% Saline Lock 10 Ml Syringe IV UD PRN SALINE FLUSH Spironolactone 25 mg 03/20/22 06:00 03/20/22 04:57 Spironolactone 25 Mg Tablet PO 25 mg DAILY TY Administration Tuberculin PPD 0.1 ml 03/27/22 10:00 Tuberculin,Purif.Prot.Deriv. 50 Tu/Ml Vial ID 03/27/22 10:01 X1 ONE Problem List (Last Reviewed 03/19/22 @ 20:[address] Santosh Adames MD) Gastroesophageal reflux disease (Acute) Neuropathy (Acute) Benign prostate hyperplasia (Acute) Hypertension (Chronic) Gout (Acute) Pulmonary embolism (Acute) Bilateral carotid artery stenosis (Acute) Atrial fibrillation (Acute) Transient ischemic attack (Acute) Debility (Acute) Knee pain, right (Acute) Right leg weakness (Acute) Vital Signs Temp Pulse Resp BP Pulse Ox O2 Del Method 96.5 F L 48 L 20 H 168/83 H 98 Room Air 03/19/22 15:27 03/20/22 05:03 03/19/22 15:27 03/20/22 05:03 03/19/22 15:27 03/19/22 15:27 Oxygen Delivery Method Room Air Weight: 94.2 kg Body Mass Index (BMI) 30.7 Sodium 139 mmol/L (136-145) 03/20/22 05:43 Potassium 4.3 mmol/L (3.5-5.1) 03/20/22 05:43 Chloride 106 mmol/L (98-107) 03/20/22 05:43 Carbon Dioxide 29.0 mmol/L (21.0-32.0) 03/20/22 05:43 Anion Gap 4 (5-15) L 03/20/22 05:43 BUN 25 mg/dL (7-18) H 03/20/22 05:43 Creatinine 1.21 mg/dL (0.70-1.30) 03/20/22 05:43 Est GFR (MDRD) Af Amer 75 mL/min (>60) 03/20/22 05:43 Est GFR (MDRD) Non-Af 62 mL/min (>60) 03/20/22 05:43 BUN/Creatinine Ratio 20.7 RATIO (10-20) H 03/20/22 05:43 Glucose 90 mg/dL (74-106) 03/20/22 05:43 Assessment/Plan: 1. Pain: 1000mg PO Q6h PRN pain 1-10. Please continue to monitor for increased/decreased S/S pain, PRN medication usage. - The patient has utilized zero doses of Tylenol since admission. it appears pain is well controlled at this time. 2. HTN/ Atrial Fibrillation/ Edema: Metoprolol tartrate 100mg PO BID, Eliquis 5mg PO BID, Clonidine 0.1mg daily & 0.2mg QHS, Aldactone 25mg PO daily. Please continue to monitor renal function (SCr 1.21 03/20),BP (range 168-182/83), pulse (range 43-48), dizziness, headache, electrolytes (last done 03/20). 3. BPH: Finasteride 5mg PO Daily, Doxazosin 8mg PO Daily. Please continue to monitor for improvement in urinary symptoms, S/S orthostatic hypotension (Bp is currently stable) 4.OAB: Ditropan 5 mg PO QHS. Please continue to monitor for improvement in urinary symptoms. This is a Beer's Criteria medication which can increase the risk of delirium in patients > 65 years of age. The patient does not appear to have delirium at this time per chart review. Please continue to monitor patient and evaluate risk vs. benefit if patient develops symptoms of delirium, thank you. 5. GERD: Pantoprazole 40mg PO Daily. Please continue to monitor for abdominal pain, headache. Please encourage non-pharmacologic treatments to help minimize GERD exacerbations as well. 6. Parkinson's Disease: Sinemet 25/100 2 tab PO ACHS. Please continue to monitor for improvement in symptoms, headache, dyskinesia, disease progression. 7. Gout: Allopurinol 200mg PO Daily. Please continue to monitor uric acid as clinically indicated, nausea, vomiting. 8. Allergic Rhinitis: Claritin 10mg Po Daily PRN. Please continue to monitor for medication effectiveness, headache, congestion. 9. IBS/ Bowel: Lomotil 1 tab PO Q6h PRN, Bentyl 10mg PO daily PRN. Please continue to monitor for increased/decreased bowel movements. Lomotil is a Beer's Criteria medication which can increase the risk of anticholinergic effects. Please continue to monitor patient closely and evaluate risk vs. benefit should patient develop anticholinergic symptoms. 10. Insomnia: melatonin 3mg PO QHS PRN. Please continue to monitor for medication effectiveness, oversedation with use. If medication appears ineffective, can try to administer medication at least 2 hours prior to desired bedtime to allow medication to work. -The patient has utilized zero doses of medication since admission. 11. General Wellness: Vitamin D3 50mcg PO Daily. Continue to monitor. Assessment/Plan for indications treated with psychotropic medications: 1. Neuropathic Pain: [id number] PO daily. Please continue to monitor for oversedation, dizziness, headache, renal function (current CrCl 52mL/min). This is a Beer's Criteria medication which can impair motor function and increase risk of falls. Please continue to closely monitor patient given age >65, thank you. Medical chart and medication regimen reviewed. The following medication irregularities or issues were identified: - No medication irregularities were identified at time of medication review Date of Note:: 03/20/22
--- NOTE | 2022-03-20 10:27 | NURSING ---
Per Dr. Adames, if pulse is less than 45 do not give Catapres or Metoprolol. Cardizem discontinued.
[2022-03-20] MEDS: Tuberculin,Purif.prot.deriv. 50 TU/ML Vial 0.1 ML ID (10:49)
[2022-03-20] MEDS: cloNIDine HCl 0.1 MG Tablet PO (12:52)
[2022-03-20 12:57] VITALS: PULSE 66; RESP 18; O2SAT 96
--- NOTE | 2022-03-20 13:52 | CASEMGMT ---
Addendum entered by Laquita Peralta 03/20/22 15:08: PASSPORT referral made via on-line portal. Original Note: Social Work See attached assessment for complete details. This social worker masters met with patient in room. Introduced self and social worker masters role. Patient agreeable to speak with this social worker masters. Patient identifies daughter, Mary as main customer contact sales associate and agreeable to this social worker masters speaking with Mary. Patient reports plans to return to home alone. This social worker masters inquired if patient has any plan B if patient is not able to return to home alone. Patient denies having a plan B. Patient educated on insurance benefits and encouraged to contact secondary insurance to confirm coverage support options. Patient wishes to be a DNRCC and MOLST form completed. DNR CC form signed by patient. Patient reports only main concern on returning to home is not being able to clean own home. This social worker masters explored if patient daughter is able to assist, sometimes. This social worker masters educating patient on PASSPORT services through [facility], patient agreeable to this social worker masters making referral and putting Mary as person to contact. This social worker masters then noticed Mary in hallway. This social worker masters introduced self to Mary. Mary reports concerns of patient returning to home alone. Mary reports to have considered patient living with Mary but he will need to be doing better. Mary reports if patient is not able to live with family that plan would be an extended care facility. Mary wanting to see how patient does over the next week before starting conversation about extended care facility. This social worker masters educated Mary on PASSPORT referral being made. Mary reports that patient would eventually be private pay in extended care facility as funds are limited but unclear if patient would be able to afford initially. This social worker masters educated Mary on patient skilled benefit with Medicare as well. Referral faxed to [facility] for PASSPORT referral. Social Work to continue to follow. Shawna CAO, ALEXIS
[2022-03-20 15:30] VITALS: BP 135/72; PULSE 55; RESP 18; TEMP 36.7; O2SAT 96
[2022-03-20 16:35] VITALS: BP 140/79; PULSE 74
[2022-03-20] MEDS: Metoprolol Tartrate 100 MG Tablet PO (16:35)
[2022-03-20] MEDS: Oxybutynin 5 MG Tablet PO (21:06)
[2022-03-20] MEDS: cloNIDine HCl 0.2 MG Tablet PO (21:08)
[2022-03-20] MEDS: 0.9% Saline Lock 10 ML Syringe IV (21:09)
[2022-03-21] MEDS: Cholecalciferol (VIT D3) 25 MCG TABLET (1,000 UNITS) 50 MCG PO (06:45)
[2022-03-21] MEDS: Pantoprazole Sodium 40 MG Tablet PO (06:45)
[2022-03-21] MEDS: Carbidopa/Levodopa 25/100 Tablet PO ×4 (06:45→21:25)
[2022-03-21] MEDS: Doxazosin 4 MG Tablet 8 MG PO (06:45)
[2022-03-21] MEDS: 0.9% Saline Lock 10 ML Syringe IV ×2 (06:45→15:58)
[2022-03-21 06:46] VITALS: BP 157/84; PULSE 55
[2022-03-21] MEDS: Allopurinol 100 MG Tablet 200 MG PO (06:46)
[2022-03-21] MEDS: Finasteride 5 MG Tablet PO (06:46)
[2022-03-21] MEDS: Metoprolol Tartrate 100 MG Tablet PO ×2 (06:46→17:35)
[2022-03-21] MEDS: APIXABAN 5 MG TABLET PO ×2 (06:46→17:35)
[2022-03-21] MEDS: Spironolactone 25 MG Tablet PO (06:46)
[2022-03-21] MEDS: Gabapentin 300 MG Capsule PO (06:49)
[2022-03-21 10:00] VITALS: PULSE 51
[2022-03-21] MEDS: cloNIDine HCl 0.1 MG Tablet PO (10:47)
[2022-03-21 16:00] VITALS: BP 117/64; PULSE 55; RESP 17; TEMP 36.7; O2SAT 96
[2022-03-21 17:35] VITALS: BP 117/64; PULSE 51
[2022-03-21 21:20] VITALS: BP 147/84; PULSE 60; RESP 16
[2022-03-21] MEDS: cloNIDine HCl 0.2 MG Tablet PO (21:24)
[2022-03-21] MEDS: Oxybutynin 5 MG Tablet PO (21:24)
[2022-03-21] MEDS: MELATONIN 3 MG TABLET PO (21:37)
[2022-03-22] MEDS: Finasteride 5 MG Tablet PO (06:29)
[2022-03-22] MEDS: Allopurinol 100 MG Tablet 200 MG PO (06:29)
[2022-03-22] MEDS: Spironolactone 25 MG Tablet PO (06:30)
[2022-03-22] MEDS: Doxazosin 4 MG Tablet 8 MG PO (06:30)
[2022-03-22] MEDS: APIXABAN 5 MG TABLET PO ×2 (06:30→16:29)
[2022-03-22] MEDS: Carbidopa/Levodopa 25/100 Tablet PO ×4 (06:30→21:00)
[2022-03-22 06:32] VITALS: BP 160/80; PULSE 60
[2022-03-22] MEDS: Metoprolol Tartrate 100 MG Tablet PO (06:32)
[2022-03-22] MEDS: Pantoprazole Sodium 40 MG Tablet PO (06:33)
[2022-03-22] MEDS: Cholecalciferol (VIT D3) 25 MCG TABLET (1,000 UNITS) 50 MCG PO (06:33)
[2022-03-22] MEDS: Gabapentin 300 MG Capsule PO (06:37)
[2022-03-22] MEDS: 0.9% Saline Lock 10 ML Syringe IV ×2 (06:39→20:52)
[2022-03-22 11:22] VITALS: BP 118/68; PULSE 48; RESP 18; O2SAT 97
[2022-03-22 11:25] VITALS: PULSE 46
[2022-03-22 16:00] VITALS: BP 146/83; PULSE 47; RESP 16; TEMP 36.7; O2SAT 97
[2022-03-22 16:31] VITALS: BP 146/83; PULSE 47
[2022-03-22] MEDS: cloNIDine HCl 0.2 MG Tablet PO (21:00)
[2022-03-22] MEDS: Oxybutynin 5 MG Tablet PO (21:00)
[2022-03-22] MEDS: MELATONIN 3 MG TABLET PO (21:01)
[2022-03-23] MEDS: Allopurinol 100 MG Tablet 200 MG PO (04:59)
[2022-03-23] MEDS: Finasteride 5 MG Tablet PO (05:00)
[2022-03-23] MEDS: APIXABAN 5 MG TABLET PO ×2 (05:00→16:38)
[2022-03-23] MEDS: Spironolactone 25 MG Tablet PO (05:00)
[2022-03-23] MEDS: Pantoprazole Sodium 40 MG Tablet PO (05:00)
[2022-03-23 05:01] VITALS: BP 142/80; PULSE 59
[2022-03-23] MEDS: Cholecalciferol (VIT D3) 25 MCG TABLET (1,000 UNITS) 50 MCG PO (05:01)
[2022-03-23] MEDS: Metoprolol Tartrate 100 MG Tablet PO ×2 (05:01→16:38)
[2022-03-23] MEDS: Gabapentin 300 MG Capsule PO (05:06)
[2022-03-23] MEDS: Doxazosin 4 MG Tablet 8 MG PO (05:06)
[2022-03-23] MEDS: Carbidopa/Levodopa 25/100 Tablet PO ×4 (06:29→21:06)
[2022-03-23] MEDS: cloNIDine HCl 0.1 MG Tablet PO (11:42)
[2022-03-23 14:58] VITALS: BP 119/68; PULSE 55; RESP 16; TEMP 36.7; O2SAT 96
[2022-03-23 16:38] VITALS: BP 119/68; PULSE 55
[2022-03-23 21:00] VITALS: BP 160/70; PULSE 60; RESP 16; O2SAT 97
[2022-03-23] MEDS: cloNIDine HCl 0.2 MG Tablet PO (21:06)
[2022-03-23] MEDS: Oxybutynin 5 MG Tablet PO (21:06)
[2022-03-23] MEDS: MELATONIN 3 MG TABLET PO (21:06)
--- NOTE | 2022-03-23 21:25 | NURSING ---
Bilat ear irrigation performed as ordered per policy with patient consent, patient tolerated well. Patient states I don't think my ears have wax in them, it's just my hearing aides, they don't work for me. No distress observed or reported. Denies pain. Denies requests. Presents in bed with television on, bed in lowest position with personal items within reach. Call light in reach.
[2022-03-24] MEDS: Allopurinol 100 MG Tablet 200 MG PO (06:28)
[2022-03-24 06:29] VITALS: BP 170/85; PULSE 50
[2022-03-24] MEDS: Metoprolol Tartrate 100 MG Tablet PO ×2 (06:29→17:13)
[2022-03-24] MEDS: APIXABAN 5 MG TABLET PO ×2 (06:29→17:13)
[2022-03-24] MEDS: Carbidopa/Levodopa 25/100 Tablet PO ×4 (06:29→22:58)
[2022-03-24] MEDS: Finasteride 5 MG Tablet PO (06:29)
[2022-03-24] MEDS: Spironolactone 25 MG Tablet PO (06:29)
[2022-03-24] MEDS: Cholecalciferol (VIT D3) 25 MCG TABLET (1,000 UNITS) 50 MCG PO (06:29)
[2022-03-24] MEDS: Pantoprazole Sodium 40 MG Tablet PO (06:29)
[2022-03-24] MEDS: Doxazosin 4 MG Tablet 8 MG PO (06:30)
[2022-03-24] MEDS: Gabapentin 300 MG Capsule PO (06:33)
[2022-03-24 06:49] VITALS: TEMP 36.9
--- NOTE | 2022-03-24 07:00 | NURSING ---
ASSISTANT QUALITY MANAGER reported patient experienced new incontinent episode with disorganized thinking x1. Patient assessed, denies dysuria, afebrile, urine clear/calderon, written communication left for regarding ASSISTANT QUALITY MANAGER report.
--- NOTE | 2022-03-24 07:40 | NURSING ---
Contacted patient development representative (Sue) requesting home CPAP be brought in per pt. request. Sue states she will bring in CPAP as soon as possible. .
[2022-03-24] MEDS: cloNIDine HCl 0.1 MG Tablet PO (11:16)
--- NOTE | 2022-03-24 11:56 | NURSING ---
Show Girl Note; Activity Asst; complete
[2022-03-24 12:53] LABS: Bacteria 0 SEEN /hpf (None Seen); Mucous, Urine 0 SEEN /hpf (<or=2+); Red Blood Cells-Urine 0 SEEN /hpf (0-5); White Blood Cells 0 SEEN /hpf (0-5)
[2022-03-24 12:55] LABS: Color, Urine Yellow (Yellow); Glucose, Dipstick Normal (Normal); Ketone-Dipstick 5 mg/dl (Negative); Leukocyte Esterase-Dipstick Negative /ul (Negative); Nitrite-Dipstick Negative (Negative); Occult Blood-Urine Negative /ul (Negative); Protein-Dipstick 100 mg/dl (Negative); Specific Gravity, Urine 1.015 (1.002-1.030); Urine Bilirubin Dipstick Negative (Negative); Urine Clarity Clear (Clear); Urine Urobilinogen Normal (Normal)
[2022-03-24 13:06] LABS: Squamous Epithelial Cells - UA 0-5 SEEN /hpf (0-5)
[2022-03-24 14:18] VITALS: BP 132/60; PULSE 61; RESP 18; TEMP 36.6; O2SAT 97
[2022-03-24 17:13] VITALS: PULSE 61
[2022-03-24] MEDS: Oxybutynin 5 MG Tablet PO (22:58)
[2022-03-24] MEDS: cloNIDine HCl 0.2 MG Tablet PO (22:59)
[2022-03-24] MEDS: MELATONIN 3 MG TABLET PO (23:03)
[2022-03-25] MEDS: APIXABAN 5 MG TABLET PO ×2 (06:41→17:07)
[2022-03-25] MEDS: Gabapentin 300 MG Capsule PO (06:41)
[2022-03-25] MEDS: Finasteride 5 MG Tablet PO (06:41)
[2022-03-25] MEDS: Doxazosin 4 MG Tablet 8 MG PO (06:41)
[2022-03-25] MEDS: Spironolactone 25 MG Tablet PO (06:41)
[2022-03-25] MEDS: Cholecalciferol (VIT D3) 25 MCG TABLET (1,000 UNITS) 50 MCG PO (06:42)
[2022-03-25] MEDS: Allopurinol 100 MG Tablet 200 MG PO (06:42)
[2022-03-25] MEDS: Carbidopa/Levodopa 25/100 Tablet PO ×4 (06:42→20:53)
[2022-03-25] MEDS: Pantoprazole Sodium 40 MG Tablet PO (06:42)
[2022-03-25 06:45] VITALS: BP 148/73; PULSE 49
[2022-03-25] MEDS: Metoprolol Tartrate 100 MG Tablet PO ×2 (06:45→17:08)
[2022-03-25 09:25] VITALS: O2SAT 95
--- NOTE | 2022-03-25 09:31 | CASEMGMT ---
Social Work IDT met with patient and dtr for care plan meeting. Discussed patient's progress in PT/OT/ST/SN. Educated to Medicare benefit. Encouraged to contact secondary insurance to ensure copay coverage. IDT recommending supervision at home for cognitive and safety concerns; pt to not return home alone. Dtr expressed concern as well but pt wants to return home. SW educated and provided resources for home delivered meals, [employer], [place], and support groups for Alzheimer's and Parkinson's. Dtr stated JFS called her for PASSPORT questions but pt does need to apply for Medicaid. SW provided dtr with SHARIFA mayela to complete. Dtr unsure if pt will qualify but knows pt cannot pay out of pocket for nonskilled ROTOGRAVURE PRESS OPERATOR. SW to continue to follow for DC planning. NASH Garcia STRE[address] SPRINKLER
--- NOTE | 2022-03-25 12:06 | CASEMGMT ---
BIMS and PHQ9 interviews completed on this date for MDS assessment. LEANDRA Booker
[2022-03-25 15:33] VITALS: BP 125/68; PULSE 53; RESP 18; TEMP 36.7; O2SAT 97
[2022-03-25 17:08] VITALS: BP 125/68; PULSE 53
[2022-03-25] MEDS: cloNIDine HCl 0.2 MG Tablet PO (20:53)
[2022-03-25] MEDS: Oxybutynin 5 MG Tablet PO (20:53)
[2022-03-25 20:55] VITALS: PULSE 72
[2022-03-25] MEDS: MELATONIN 3 MG TABLET PO (20:56)
--- NOTE | 2022-03-25 21:05 | NURSING ---
Family brought in PT own cpap, pt denies needing help applying it and states it is all set up ready to go. Call light in reach.
[2022-03-26] MEDS: Allopurinol 100 MG Tablet 200 MG PO (06:01)
[2022-03-26] MEDS: Doxazosin 4 MG Tablet 8 MG PO (06:01)
[2022-03-26] MEDS: Pantoprazole Sodium 40 MG Tablet PO (06:01)
[2022-03-26] MEDS: Cholecalciferol (VIT D3) 25 MCG TABLET (1,000 UNITS) 50 MCG PO (06:01)
[2022-03-26] MEDS: Gabapentin 300 MG Capsule PO (06:01)
[2022-03-26 06:02] VITALS: BP 163/88; PULSE 51
[2022-03-26] MEDS: Spironolactone 25 MG Tablet PO (06:02)
[2022-03-26] MEDS: Metoprolol Tartrate 100 MG Tablet PO ×2 (06:02→17:50)
[2022-03-26] MEDS: Finasteride 5 MG Tablet PO (06:02)
[2022-03-26] MEDS: Carbidopa/Levodopa 25/100 Tablet PO ×4 (06:02→20:33)
[2022-03-26] MEDS: APIXABAN 5 MG TABLET PO ×2 (06:03→17:50)
[2022-03-26 06:55] VITALS: O2SAT 93
[2022-03-26 10:00] VITALS: PULSE 58; RESP 16; O2SAT 94
[2022-03-26 12:31] LABS: Bacteria 0 SEEN /hpf (None Seen); Mucous, Urine 0 SEEN /hpf (<or=2+); Squamous Epithelial Cells - UA 0 SEEN /hpf (0-5); White Blood Cells 0 SEEN /hpf (0-5)
[2022-03-26 12:40] LABS: Color, Urine Yellow (Yellow); Glucose, Dipstick Normal (Normal); Ketone-Dipstick 5 mg/dl (Negative); Leukocyte Esterase-Dipstick Negative /ul (Negative); Nitrite-Dipstick Negative (Negative); Occult Blood-Urine 10 /ul (Negative); Protein-Dipstick 100 mg/dl (Negative); Urine Bilirubin Dipstick Negative (Negative); Urine Clarity Sl. Cloudy (Clear); Urine Urobilinogen Normal (Normal)
[2022-03-26 12:48] LABS: Red Blood Cells-Urine 0-5 SEEN /hpf (0-5)
[2022-03-26 13:02] LABS: Protein, Urine (Random) 75.9 mg/dL (<11.9); Protein:Creat Ratio 474 mg/g CRE (0-200)
[2022-03-26] MEDS: cloNIDine HCl 0.1 MG Tablet PO (13:17)
[2022-03-26 13:39] VITALS: BP 130/66; PULSE 50; RESP 17; TEMP 36.5; O2SAT 97
[2022-03-26 17:50] VITALS: PULSE 52
[2022-03-26] MEDS: MELATONIN 3 MG TABLET PO (20:32)
[2022-03-26] MEDS: Oxybutynin 5 MG Tablet PO (20:33)
[2022-03-26] MEDS: cloNIDine HCl 0.2 MG Tablet PO (20:33)
[2022-03-27 05:44] LABS: Absolute Lymphocyte Count 2.04 X10^3/uL (0.83-4.51); Absolute Neutrophil Count 2.9 X10^3/uL (2.0-7.7); Basophil# 0.03 X10^3/uL; Basophil% 0.5 % (0-1); Eosinophil# 0.17 X10^3/uL; Hematocrit 40.4 % (40-54); Hemoglobin 13.7 g/dL (13.0-16.5); Lymphocyte # 2.04 X10^3/ul (0.83-4.51); Lymphocyte % 36.1 % (19-41); Mean Corp Hgb Conc 33.9 g/dL (32-36); Mean Corpuscular Hgb 33.4 pg (27.0-32.0); Mean Corpuscular Volume 98.5 fL (80-94); Mean Platelet Vol. 11.4 fl (6.2-12.0); Monocyte# 0.47 X10^3/uL; Monocyte% 8.3 % (0-10); NRBC Flagged by Analyzer 0 % (0-5); Neutrophil % 51.4 % (47-70); POSITIVE COUNT YES; Platelet Count 74 K/mm3 (150-450); RBC Distribution Width CV 14.5 % (11.6-14.6); RBC Distribution Width SD 51.5 fl (35.1-43.9); White Blood Count 5.7 K/mm3 (4.4-11.0)
[2022-03-27 06:09] LABS: Anion Gap 6 (5-15); BUN 31 mg/dL (7-18); BUN/Creat Ratio 26.7 RATIO (10-20); Calcium,Total 9.5 mg/dL (8.5-10.1); Chloride 108 mmol/L (98-107); Creatinine, Serum 1.16 mg/dL (0.70-1.30); EST Glomerular Filtration Rate 65 mL/min (>60); Est Glom Filt Rate - Afr Amer 79 mL/min (>60); Estimated Creatinine Clearance 54.18 ml/min; Glucose 102 mg/dL (74-106); Potassium 4.6 mmol/L (3.5-5.1); Sodium Level 143 mmol/L (136-145)
[2022-03-27 06:15] VITALS: BP 190/89; PULSE 45
[2022-03-27] MEDS: Spironolactone 25 MG Tablet PO (06:18)
[2022-03-27] MEDS: Doxazosin 4 MG Tablet 8 MG PO (06:18)
[2022-03-27] MEDS: Finasteride 5 MG Tablet PO (06:18)
[2022-03-27] MEDS: Carbidopa/Levodopa 25/100 Tablet PO ×4 (06:18→21:08)
[2022-03-27] MEDS: Gabapentin 300 MG Capsule PO (06:18)
[2022-03-27] MEDS: Pantoprazole Sodium 40 MG Tablet PO (06:18)
[2022-03-27] MEDS: APIXABAN 5 MG TABLET PO ×2 (06:18→17:01)
[2022-03-27] MEDS: Cholecalciferol (VIT D3) 25 MCG TABLET (1,000 UNITS) 50 MCG PO (06:19)
[2022-03-27] MEDS: Allopurinol 100 MG Tablet 200 MG PO (06:19)
[2022-03-27 08:34] VITALS: BP 131/74; PULSE 60
[2022-03-27] MEDS: Losartan Potassium 100 MG Tablet PO (08:36)
[2022-03-27] MEDS: Tuberculin,Purif.prot.deriv. 50 TU/ML Vial 0.1 ML ID (10:50)
[2022-03-27] MEDS: cloNIDine HCl 0.1 MG Tablet PO (13:29)
[2022-03-27 13:37] VITALS: BP 131/77; PULSE 80
[2022-03-27 16:00] VITALS: BP 143/77; PULSE 60; RESP 19; TEMP 36.4; O2SAT 96
[2022-03-27 17:02] VITALS: PULSE 60
[2022-03-27] MEDS: Metoprolol Tartrate 100 MG Tablet PO (17:02)
[2022-03-27] MEDS: MELATONIN 3 MG TABLET PO (21:07)
[2022-03-27] MEDS: Oxybutynin 5 MG Tablet PO (21:08)
[2022-03-27] MEDS: cloNIDine HCl 0.2 MG Tablet PO (21:09)
[2022-03-27 22:00] VITALS: PULSE 63; RESP 16; O2SAT 97
[2022-03-28] MEDS: Gabapentin 300 MG Capsule PO (05:52)
[2022-03-28] MEDS: Allopurinol 100 MG Tablet 200 MG PO (05:52)
[2022-03-28 05:53] VITALS: BP 154/74; PULSE 45
[2022-03-28] MEDS: Doxazosin 4 MG Tablet 8 MG PO (05:53)
[2022-03-28] MEDS: APIXABAN 5 MG TABLET PO ×2 (05:53→16:51)
[2022-03-28] MEDS: Losartan Potassium 100 MG Tablet PO (05:53)
[2022-03-28] MEDS: Cholecalciferol (VIT D3) 25 MCG TABLET (1,000 UNITS) 50 MCG PO (05:53)
[2022-03-28] MEDS: Pantoprazole Sodium 40 MG Tablet PO (05:53)
[2022-03-28] MEDS: Finasteride 5 MG Tablet PO (05:53)
[2022-03-28] MEDS: Metoprolol Tartrate 100 MG Tablet PO ×2 (05:53→17:49)
[2022-03-28] MEDS: Spironolactone 25 MG Tablet PO (05:54)
[2022-03-28] MEDS: Carbidopa/Levodopa 25/100 Tablet PO ×4 (05:55→20:52)
[2022-03-28] MEDS: cloNIDine HCl 0.1 MG Tablet PO (11:41)
[2022-03-28 16:00] VITALS: BP 130/74; PULSE 48; RESP 16; TEMP 36.6; O2SAT 94
[2022-03-28 17:49] VITALS: BP 176/79; PULSE 48
[2022-03-28] MEDS: MELATONIN 3 MG TABLET PO (20:50)
[2022-03-28] MEDS: Oxybutynin 5 MG Tablet PO (20:51)
[2022-03-28] MEDS: cloNIDine HCl 0.2 MG Tablet PO (20:52)
[2022-03-28 20:56] VITALS: BP 152/75; PULSE 84
[2022-03-28 21:16] VITALS: O2SAT 95
[2022-03-29] MEDS: Finasteride 5 MG Tablet PO (05:38)
[2022-03-29] MEDS: Spironolactone 25 MG Tablet PO (05:39)
[2022-03-29] MEDS: Carbidopa/Levodopa 25/100 Tablet PO ×4 (05:40→21:20)
[2022-03-29] MEDS: Cholecalciferol (VIT D3) 25 MCG TABLET (1,000 UNITS) 50 MCG PO (05:40)
[2022-03-29] MEDS: Allopurinol 100 MG Tablet 200 MG PO (05:40)
[2022-03-29 05:41] VITALS: BP 184/90; PULSE 74
[2022-03-29] MEDS: Pantoprazole Sodium 40 MG Tablet PO (05:41)
[2022-03-29] MEDS: Doxazosin 4 MG Tablet 8 MG PO (05:41)
[2022-03-29] MEDS: Losartan Potassium 100 MG Tablet PO (05:41)
[2022-03-29] MEDS: APIXABAN 5 MG TABLET PO ×2 (05:41→18:29)
[2022-03-29] MEDS: Metoprolol Tartrate 100 MG Tablet PO ×2 (05:41→18:29)
[2022-03-29] MEDS: Gabapentin 300 MG Capsule PO (05:43)
[2022-03-29] MEDS: Petrolatum 33% Tube 1 APPLIC TOPICAL ×2 (09:21→21:22)
[2022-03-29 10:00] VITALS: PULSE 50; RESP 14; O2SAT 92
[2022-03-29] MEDS: cloNIDine HCl 0.1 MG Tablet PO (11:18)
[2022-03-29 14:32] VITALS: O2SAT 95
[2022-03-29 15:22] VITALS: BP 113/69; PULSE 50; RESP 14; TEMP 36.8; O2SAT 92
[2022-03-29 18:29] VITALS: BP 141/72; PULSE 58
[2022-03-29] MEDS: MELATONIN 3 MG TABLET PO (21:20)
[2022-03-29] MEDS: Oxybutynin 5 MG Tablet PO (21:20)
[2022-03-29] MEDS: cloNIDine HCl 0.2 MG Tablet PO (21:21)
[2022-03-30] VITALS (7 sets, daily range): BP systolic 112–191; BP diastolic 60–94; PULSE 18–58; RESP 16–18; TEMP 36.5; O2SAT 93–97
[2022-03-30] MEDS: Gabapentin 300 MG Capsule PO (06:08)
[2022-03-30] MEDS: Allopurinol 100 MG Tablet 200 MG PO (06:08)
[2022-03-30] MEDS: Metoprolol Tartrate 100 MG Tablet PO ×2 (06:09→17:41)
[2022-03-30] MEDS: Cholecalciferol (VIT D3) 25 MCG TABLET (1,000 UNITS) 50 MCG PO (06:09)
[2022-03-30] MEDS: Doxazosin 4 MG Tablet 8 MG PO (06:09)
[2022-03-30] MEDS: Carbidopa/Levodopa 25/100 Tablet PO ×4 (06:09→20:07)
[2022-03-30] MEDS: Pantoprazole Sodium 40 MG Tablet PO (06:09)
[2022-03-30] MEDS: Losartan Potassium 100 MG Tablet PO (06:09)
[2022-03-30] MEDS: Spironolactone 25 MG Tablet PO (06:10)
[2022-03-30] MEDS: APIXABAN 5 MG TABLET PO ×2 (06:10→17:41)
[2022-03-30] MEDS: Finasteride 5 MG Tablet PO (06:10)
[2022-03-30] MEDS: Petrolatum 33% Tube 1 APPLIC TOPICAL ×2 (10:21→20:07)
[2022-03-30] MEDS: cloNIDine HCl 0.1 MG Tablet PO (11:02)
--- NOTE | 2022-03-30 13:47 | CASEMGMT ---
Social Work Followed up with dtr to inquire about SHARIFA mayela and DC plans. Dtr to bring in SHARIFA mayela tomorrow. Dtr inquired about AL. Educated to AL is private pay - pt would need to apply for SHARIFA AL Waiver, which takes months. SW can assist but it is not an option for current DC plan. Dtr states she will consider SNF vs home and notify this worker. Dtr expressed appreciation for this worker's ongoing assistance. SW to continue to follow. NASH Garcia BEAD MACHINE OPERATOR
--- NOTE | 2022-03-30 17:32 | NURSING ---
dr schultz notified of pt daughter requesting that his melatonin be d/c'd d/t lucid dreams per pt. melatonin dc'd per dr schultz
[2022-03-30] MEDS: cloNIDine HCl 0.2 MG Tablet PO (20:06)
[2022-03-30] MEDS: Oxybutynin 5 MG Tablet PO (20:07)
[2022-03-31] VITALS (7 sets, daily range): BP systolic 104–152; BP diastolic 61–84; PULSE 50–55; RESP 16–18; TEMP 36.2–36.7; O2SAT 94–96
[2022-03-31] MEDS: Doxazosin 4 MG Tablet 8 MG PO (06:03)
[2022-03-31] MEDS: Allopurinol 100 MG Tablet 200 MG PO (06:04)
[2022-03-31] MEDS: Pantoprazole Sodium 40 MG Tablet PO (06:04)
[2022-03-31] MEDS: APIXABAN 5 MG TABLET PO ×2 (06:04→17:18)
[2022-03-31] MEDS: Cholecalciferol (VIT D3) 25 MCG TABLET (1,000 UNITS) 50 MCG PO (06:04)
[2022-03-31] MEDS: Finasteride 5 MG Tablet PO (06:04)
[2022-03-31] MEDS: Spironolactone 25 MG Tablet PO (06:04)
[2022-03-31] MEDS: Losartan Potassium 100 MG Tablet PO (06:04)
[2022-03-31] MEDS: Metoprolol Tartrate 100 MG Tablet PO ×2 (06:05→17:17)
[2022-03-31] MEDS: Carbidopa/Levodopa 25/100 Tablet PO ×4 (06:06→21:29)
[2022-03-31] MEDS: Gabapentin 300 MG Capsule PO (06:09)
--- NOTE | 2022-03-31 10:05 | MDS.RN ---
Information for the mds was obtained from review of the clinical record, interview of resident, staff, and direct observation of resident's care.
[2022-03-31] MEDS: cloNIDine HCl 0.1 MG Tablet PO (11:44)
[2022-03-31] MEDS: Petrolatum 33% Tube 1 APPLIC TOPICAL ×2 (11:45→21:31)
[2022-03-31] MEDS: Oxybutynin 5 MG Tablet PO (21:29)
[2022-03-31] MEDS: cloNIDine HCl 0.2 MG Tablet PO (21:29)
[2022-04-01 06:53] VITALS: BP 164/93; PULSE 49
[2022-04-01] MEDS: Metoprolol Tartrate 100 MG Tablet PO ×2 (06:53→17:22)
[2022-04-01] MEDS: APIXABAN 5 MG TABLET PO ×2 (06:53→17:22)
[2022-04-01] MEDS: Gabapentin 300 MG Capsule PO (06:53)
[2022-04-01] MEDS: Finasteride 5 MG Tablet PO (06:55)
[2022-04-01] MEDS: Spironolactone 25 MG Tablet PO (06:55)
[2022-04-01] MEDS: Doxazosin 4 MG Tablet 8 MG PO (06:56)
[2022-04-01] MEDS: Pantoprazole Sodium 40 MG Tablet PO (06:56)
[2022-04-01] MEDS: Allopurinol 100 MG Tablet 200 MG PO (06:56)
[2022-04-01] MEDS: Cholecalciferol (VIT D3) 25 MCG TABLET (1,000 UNITS) 50 MCG PO (06:56)
[2022-04-01] MEDS: Losartan Potassium 100 MG Tablet PO (06:56)
[2022-04-01] MEDS: Carbidopa/Levodopa 25/100 Tablet PO ×4 (06:57→21:26)
[2022-04-01 08:29] VITALS: PULSE 56; O2SAT 98
[2022-04-01] MEDS: Petrolatum 33% Tube 1 APPLIC TOPICAL ×2 (08:40→21:27)
[2022-04-01 09:02] VITALS: O2SAT 96
[2022-04-01] MEDS: cloNIDine HCl 0.1 MG Tablet PO (11:37)
[2022-04-01 11:49] VITALS: BP 115/72; PULSE 50; RESP 18; TEMP 36.6; O2SAT 95
--- NOTE | 2022-04-01 15:59 | CASEMGMT ---
Addendum entered by Terese Cain 04/02/22 15:39: SW spoke with dtr to update on SHARIFA denial. Educated to using pt's funds to pay for an AL, SNF or care in the home, and spend down for SHARIFA eligibility. Dtr still unsure what the DC plan will be. SW encouraged to have conversations with pt/family to determine plan and SW to assist. Dtr appreciative. Will continue to follow. Addendum entered by Terese Cain 04/02/22 13:58: Patient is over resources for Medicaid. Pt was denied - . STEFANIE contacted dtr to update. Original Note: Social Work Dtr left completed Medicaid application in SW office. ETTA emailed to STEFANIE. NASH Garcia
[2022-04-01 17:22] VITALS: BP 128/80; PULSE 50
[2022-04-01] MEDS: cloNIDine HCl 0.2 MG Tablet PO (21:26)
[2022-04-01] MEDS: Oxybutynin 5 MG Tablet PO (21:26)
[2022-04-02 06:37] VITALS: PULSE 60
[2022-04-02] MEDS: Metoprolol Tartrate 100 MG Tablet PO ×2 (06:37→17:43)
[2022-04-02] MEDS: Gabapentin 300 MG Capsule PO (06:37)
[2022-04-02] MEDS: Doxazosin 4 MG Tablet 8 MG PO (06:38)
[2022-04-02] MEDS: Pantoprazole Sodium 40 MG Tablet PO (06:38)
[2022-04-02] MEDS: Carbidopa/Levodopa 25/100 Tablet PO ×4 (06:38→20:23)
[2022-04-02] MEDS: APIXABAN 5 MG TABLET PO ×2 (06:38→17:44)
[2022-04-02] MEDS: Allopurinol 100 MG Tablet 200 MG PO (06:39)
[2022-04-02] MEDS: Spironolactone 25 MG Tablet PO (06:39)
[2022-04-02] MEDS: Losartan Potassium 100 MG Tablet PO (06:39)
[2022-04-02] MEDS: Cholecalciferol (VIT D3) 25 MCG TABLET (1,000 UNITS) 50 MCG PO (06:39)
[2022-04-02] MEDS: Finasteride 5 MG Tablet PO (06:40)
[2022-04-02] MEDS: Petrolatum 33% Tube 1 APPLIC TOPICAL ×2 (09:02→20:24)
[2022-04-02] MEDS: cloNIDine HCl 0.1 MG Tablet PO (11:04)
[2022-04-02 16:00] VITALS: BP 142/67; PULSE 60; RESP 18; TEMP 36.3; O2SAT 96
[2022-04-02 17:43] VITALS: BP 142/67; PULSE 60
[2022-04-02] MEDS: Oxybutynin 5 MG Tablet PO (20:23)
[2022-04-02] MEDS: cloNIDine HCl 0.2 MG Tablet PO (20:24)
[2022-04-03 05:53] LABS: Absolute Neutrophil Count 2.7 X10^3/uL (2.0-7.7); Basophil# 0.04 X10^3/uL; Basophil% 0.7 % (0-1); Eosinophil# 0.18 X10^3/uL; Eosinophils% 3.3 % (0-5); Hematocrit 39.6 % (40-54); Hemoglobin 13.5 g/dL (13.0-16.5); Lymphocyte % 37.1 % (19-41); Mean Corp Hgb Conc 34.1 g/dL (32-36); Mean Corpuscular Hgb 33.8 pg (27.0-32.0); Monocyte# 0.42 X10^3/uL; Monocyte% 7.8 % (0-10); NRBC Flagged by Analyzer 0 % (0-5); Neutrophil % 50.2 % (47-70); POSITIVE COUNT YES; Platelet Count 72 K/mm3 (150-450); RBC Distribution Width CV 14.8 % (11.6-14.6); RBC Distribution Width SD 53.7 fl (35.1-43.9); White Blood Count 5.4 K/mm3 (4.4-11.0)
[2022-04-03 06:40] LABS: Anion Gap 5 (5-15); BUN 31 mg/dL (7-18); BUN/Creat Ratio 25.8 RATIO (10-20); Calcium,Total 9.3 mg/dL (8.5-10.1); Chloride 108 mmol/L (98-107); EST Glomerular Filtration Rate 63 mL/min (>60); Est Glom Filt Rate - Afr Amer 76 mL/min (>60); Estimated Creatinine Clearance 52.37 ml/min; Glucose 95 mg/dL (74-106); Potassium 4.5 mmol/L (3.5-5.1); Sodium Level 142 mmol/L (136-145)
[2022-04-03] MEDS: Finasteride 5 MG Tablet PO (06:52)
[2022-04-03] MEDS: APIXABAN 5 MG TABLET PO ×2 (06:52→18:11)
[2022-04-03] MEDS: Spironolactone 25 MG Tablet PO (06:52)
[2022-04-03] MEDS: Cholecalciferol (VIT D3) 25 MCG TABLET (1,000 UNITS) 50 MCG PO (06:53)
[2022-04-03] MEDS: Pantoprazole Sodium 40 MG Tablet PO (06:53)
[2022-04-03] MEDS: Allopurinol 100 MG Tablet 200 MG PO (06:53)
[2022-04-03] MEDS: Losartan Potassium 100 MG Tablet PO (06:54)
[2022-04-03] MEDS: Doxazosin 4 MG Tablet 8 MG PO (06:54)
[2022-04-03 07:00] VITALS: BP 157/86; PULSE 53
[2022-04-03] MEDS: Metoprolol Tartrate 100 MG Tablet PO ×2 (07:00→18:10)
[2022-04-03] MEDS: Gabapentin 300 MG Capsule PO (07:00)
[2022-04-03] MEDS: Carbidopa/Levodopa 25/100 Tablet PO ×4 (07:50→21:13)
[2022-04-03 09:44] VITALS: PULSE 54; RESP 18; O2SAT 99
[2022-04-03] MEDS: Petrolatum 33% Tube 1 APPLIC TOPICAL ×2 (10:42→21:07)
[2022-04-03] MEDS: cloNIDine HCl 0.1 MG Tablet PO (10:43)
[2022-04-03 14:54] VITALS: BP 123/73; PULSE 53; RESP 16; TEMP 36.5; O2SAT 96
[2022-04-03 18:10] VITALS: BP 124/80; PULSE 54
[2022-04-03] MEDS: cloNIDine HCl 0.2 MG Tablet PO (21:13)
[2022-04-03] MEDS: Oxybutynin 5 MG Tablet PO (21:13)
[2022-04-04] MEDS: Spironolactone 25 MG Tablet PO (05:41)
[2022-04-04] MEDS: Doxazosin 4 MG Tablet 8 MG PO (05:42)
[2022-04-04] MEDS: APIXABAN 5 MG TABLET PO ×2 (05:42→17:22)
[2022-04-04] MEDS: Cholecalciferol (VIT D3) 25 MCG TABLET (1,000 UNITS) 50 MCG PO (05:42)
[2022-04-04] MEDS: Finasteride 5 MG Tablet PO (05:42)
[2022-04-04] MEDS: Carbidopa/Levodopa 25/100 Tablet PO ×4 (05:42→21:03)
[2022-04-04] MEDS: Pantoprazole Sodium 40 MG Tablet PO (05:42)
[2022-04-04] MEDS: Losartan Potassium 100 MG Tablet PO (05:42)
[2022-04-04] MEDS: Allopurinol 100 MG Tablet 200 MG PO (05:42)
[2022-04-04 05:46] VITALS: BP 160/78; PULSE 60
[2022-04-04] MEDS: Metoprolol Tartrate 100 MG Tablet PO ×2 (05:46→17:22)
[2022-04-04] MEDS: Gabapentin 300 MG Capsule PO (05:47)
[2022-04-04 10:00] VITALS: PULSE 84; RESP 18; O2SAT 97
[2022-04-04] MEDS: Petrolatum 33% Tube 1 APPLIC TOPICAL ×2 (10:23→21:04)
[2022-04-04] MEDS: cloNIDine HCl 0.1 MG Tablet PO (10:25)
[2022-04-04 15:32] VITALS: BP 113/67; PULSE 71; RESP 16; TEMP 36.3; O2SAT 98
[2022-04-04 17:22] VITALS: PULSE 50
[2022-04-04] MEDS: Oxybutynin 5 MG Tablet PO (21:05)
[2022-04-04] MEDS: cloNIDine HCl 0.2 MG Tablet PO (21:05)
[2022-04-05] MEDS: Gabapentin 300 MG Capsule PO (05:26)
[2022-04-05] MEDS: Carbidopa/Levodopa 25/100 Tablet PO ×4 (05:26→21:32)
[2022-04-05] MEDS: APIXABAN 5 MG TABLET PO ×2 (05:27→17:23)
[2022-04-05] MEDS: Finasteride 5 MG Tablet PO (05:27)
[2022-04-05] MEDS: Cholecalciferol (VIT D3) 25 MCG TABLET (1,000 UNITS) 50 MCG PO (05:27)
[2022-04-05] MEDS: Spironolactone 25 MG Tablet PO (05:27)
[2022-04-05] MEDS: Doxazosin 4 MG Tablet 8 MG PO (05:27)
[2022-04-05] MEDS: Losartan Potassium 100 MG Tablet PO (05:27)
[2022-04-05] MEDS: Pantoprazole Sodium 40 MG Tablet PO (05:27)
[2022-04-05] MEDS: Allopurinol 100 MG Tablet 200 MG PO (05:27)
[2022-04-05 05:29] VITALS: BP 188/89; PULSE 60
[2022-04-05] MEDS: Metoprolol Tartrate 100 MG Tablet PO ×2 (05:29→17:24)
[2022-04-05] MEDS: Petrolatum 33% Tube 1 APPLIC TOPICAL ×2 (11:04→21:33)
[2022-04-05 15:48] VITALS: BP 110/65; PULSE 57; RESP 16; TEMP 36.4; O2SAT 95
[2022-04-05 17:24] VITALS: BP 141/78; PULSE 54
[2022-04-05 21:20] VITALS: BP 174/94; PULSE 50; RESP 17; TEMP 36.4; O2SAT 96
[2022-04-05] MEDS: Oxybutynin 5 MG Tablet PO (21:32)
[2022-04-05] MEDS: cloNIDine HCl 0.2 MG Tablet PO (21:32)
[2022-04-05 23:30] VITALS: BP 173/95; PULSE 48
[2022-04-06] MEDS: Cholecalciferol (VIT D3) 25 MCG TABLET (1,000 UNITS) 50 MCG PO (04:50)
[2022-04-06] MEDS: Doxazosin 4 MG Tablet 8 MG PO (04:51)
[2022-04-06] MEDS: Pantoprazole Sodium 40 MG Tablet PO (04:51)
[2022-04-06 04:52] VITALS: BP 157/88; PULSE 48
[2022-04-06] MEDS: APIXABAN 5 MG TABLET PO ×2 (04:52→16:39)
[2022-04-06] MEDS: Losartan Potassium 100 MG Tablet PO (04:52)
[2022-04-06] MEDS: Metoprolol Tartrate 100 MG Tablet PO ×2 (04:52→16:40)
[2022-04-06] MEDS: Allopurinol 100 MG Tablet 200 MG PO (04:53)
[2022-04-06] MEDS: Spironolactone 25 MG Tablet PO (04:53)
[2022-04-06] MEDS: Finasteride 5 MG Tablet PO (04:53)
[2022-04-06] MEDS: Gabapentin 300 MG Capsule PO (04:56)
[2022-04-06 06:00] VITALS: BP 157/88; PULSE 49; RESP 16; TEMP 36.5; O2SAT 96
[2022-04-06] MEDS: Carbidopa/Levodopa 25/100 Tablet PO ×4 (06:17→21:26)
[2022-04-06] MEDS: Petrolatum 33% Tube 1 APPLIC TOPICAL (09:35)
[2022-04-06] MEDS: cloNIDine HCl 0.1 MG Tablet PO (11:32)
[2022-04-06 14:31] VITALS: BP 151/80; PULSE 52; RESP 18; TEMP 36.7; O2SAT 96
[2022-04-06 16:40] VITALS: BP 119/74; PULSE 51
[2022-04-06] MEDS: Oxybutynin 5 MG Tablet PO (21:26)
[2022-04-06] MEDS: cloNIDine HCl 0.2 MG Tablet PO (21:26)
[2022-04-07] MEDS: Losartan Potassium 100 MG Tablet PO (06:49)
[2022-04-07 06:50] VITALS: BP 147/79; PULSE 48
[2022-04-07] MEDS: Metoprolol Tartrate 100 MG Tablet PO ×2 (06:50→17:18)
[2022-04-07] MEDS: Cholecalciferol (VIT D3) 25 MCG TABLET (1,000 UNITS) 50 MCG PO (06:50)
[2022-04-07] MEDS: Spironolactone 25 MG Tablet PO (06:50)
[2022-04-07] MEDS: Allopurinol 100 MG Tablet 200 MG PO (06:50)
[2022-04-07] MEDS: APIXABAN 5 MG TABLET PO ×2 (06:50→17:18)
[2022-04-07] MEDS: Pantoprazole Sodium 40 MG Tablet PO (06:50)
[2022-04-07] MEDS: Doxazosin 4 MG Tablet 8 MG PO (06:50)
[2022-04-07] MEDS: Finasteride 5 MG Tablet PO (06:51)
[2022-04-07] MEDS: Gabapentin 300 MG Capsule PO (06:52)
[2022-04-07] MEDS: Carbidopa/Levodopa 25/100 Tablet PO ×4 (06:55→21:53)
--- NOTE | 2022-04-07 08:37 | NURSING ---
Pt off unit with Daughter for Doctors appt.
[2022-04-07] MEDS: cloNIDine HCl 0.1 MG Tablet PO (13:03)
[2022-04-07] MEDS: Petrolatum 33% Tube 1 APPLIC TOPICAL ×2 (13:12→21:59)
[2022-04-07 13:17] VITALS: BP 133/67; PULSE 53
--- NOTE | 2022-04-07 14:24 | CASEMGMT ---
Addendum entered by Terese Cain 04/08/22 11:39: [facility] has a long waitlist, but [facility] reviewing for SNF placement. [facility], [facility] and [facility] all of tours scheduled with dtr. Will await outcomes. Original Note: Social Work Dtr present with pt in room. SW spoke with pt and dtr about discharge plans. IDT recommending 1-2 more weeks of skilled services and to begin making discharge decisions. Dtr agrees and has been looking to into AL and SNFs. Pt will need to pay privately under SHARIFA eligible. Dtr interested in [facility], [facility], [facility]. SW educated to making referrals for clinical acceptance and bed availability and dtr to tour and get financial information. Dtr very appreciative of assistance. SW made referrals via [facility]. Will continue to follow. Terese Cain, NASH IGNITION SPECIALIST
[2022-04-07 14:48] LABS: AST(SGOT) 15 U/L (15-37); Alanine Aminotransfer ALT/SGPT 15 U/L (16-61); Albumin, Serum 3.5 g/dL (3.2-5.0); Alkaline Phosphatase 100 U/L (45-117); Bilirubin, Direct 0.21 mg/dL (0.00-0.30); Globulin 3.4 g/dL (2.2-4.2); Protein, Total 6.9 g/dL (6.4-8.2); Uric Acid 4.6 mg/dL (3.5-7.2)
[2022-04-07 14:55] VITALS: PULSE 50; RESP 96; TEMP 36.8
[2022-04-07 14:56] LABS: CRP < 2.90 mg/L (0.0-3.0); Creatinine, Serum 1.55 mg/dL (0.70-1.30); EST Glomerular Filtration Rate 47 mL/min (>60); Est Glom Filt Rate - Afr Amer 56 mL/min (>60); Estimated Creatinine Clearance 40.54 ml/min
[2022-04-07 15:04] LABS: Erythrocyte Sedimentation Rate 12 mm/hr (0-20)
[2022-04-07 15:09] LABS: Absolute Lymphocyte Count 1.36 X10^3/uL (0.83-4.51); Absolute Neutrophil Count 3.1 X10^3/uL (2.0-7.7); Basophil# 0.03 X10^3/uL; Basophil% 0.6 % (0-1); Eosinophil# 0.11 X10^3/uL; Eosinophils% 2.3 % (0-5); Hematocrit 40.9 % (40-54); Hemoglobin 13.9 g/dL (13.0-16.5); Lymphocyte # 1.36 X10^3/ul (0.83-4.51); Lymphocyte % 28.3 % (19-41); Mean Corpuscular Hgb 34.2 pg (27.0-32.0); Mean Corpuscular Volume 100.5 fL (80-94); Mean Platelet Vol. 11.9 fl (6.2-12.0); Monocyte# 0.24 X10^3/uL; NRBC Flagged by Analyzer 0 % (0-5); Neutrophil # 3.05 X10^3/uL (2.7-7.7); Neutrophil % 63.4 % (47-70); POSITIVE COUNT YES; Platelet Count 77 K/mm3 (150-450); RBC Distribution Width CV 14.7 % (11.6-14.6); RBC Distribution Width SD 53.7 fl (35.1-43.9); Red Blood Count 4.07 M/mm3 (4.6-6.2); White Blood Count 4.8 K/mm3 (4.4-11.0)
[2022-04-07 15:40] LABS: Differential Indicated SCAN CRITERIA MET
[2022-04-07 16:07] LABS: Differential Comment SCANNED
[2022-04-07 17:18] VITALS: BP 121/68; PULSE 52
[2022-04-07] MEDS: cloNIDine HCl 0.2 MG Tablet PO (21:54)
[2022-04-07] MEDS: Oxybutynin 5 MG Tablet PO (21:58)
[2022-04-08 06:31] VITALS: BP 172/90; PULSE 48
[2022-04-08] MEDS: Pantoprazole Sodium 40 MG Tablet PO (06:34)
[2022-04-08] MEDS: Gabapentin 300 MG Capsule PO (06:34)
[2022-04-08] MEDS: Finasteride 5 MG Tablet PO (06:34)
[2022-04-08] MEDS: Spironolactone 25 MG Tablet PO (06:34)
[2022-04-08 06:35] VITALS: PULSE 48
[2022-04-08] MEDS: Doxazosin 4 MG Tablet 8 MG PO (06:35)
[2022-04-08] MEDS: Metoprolol Tartrate 100 MG Tablet PO ×2 (06:35→17:39)
[2022-04-08] MEDS: APIXABAN 5 MG TABLET PO ×2 (06:35→17:39)
[2022-04-08] MEDS: Carbidopa/Levodopa 25/100 Tablet PO ×4 (06:35→21:36)
[2022-04-08] MEDS: Losartan Potassium 100 MG Tablet PO (06:35)
[2022-04-08] MEDS: Cholecalciferol (VIT D3) 25 MCG TABLET (1,000 UNITS) 50 MCG PO (06:35)
[2022-04-08] MEDS: Allopurinol 100 MG Tablet 200 MG PO (06:35)
[2022-04-08] MEDS: Petrolatum 33% Tube 1 APPLIC TOPICAL ×2 (09:55→21:37)
[2022-04-08 15:59] VITALS: BP 116/67; PULSE 50; RESP 16; TEMP 36.8; O2SAT 96
[2022-04-08 17:39] VITALS: BP 147/83; PULSE 54
[2022-04-08] MEDS: cloNIDine HCl 0.2 MG Tablet PO (21:36)
[2022-04-08] MEDS: Oxybutynin 5 MG Tablet PO (21:36)
[2022-04-08 21:40] VITALS: PULSE 85; RESP 14; O2SAT 96
[2022-04-09] MEDS: Doxazosin 4 MG Tablet 8 MG PO (05:55)
[2022-04-09] MEDS: Losartan Potassium 100 MG Tablet PO (05:55)
[2022-04-09] MEDS: Spironolactone 25 MG Tablet PO (05:55)
[2022-04-09 05:56] VITALS: BP 152/73; PULSE 48
[2022-04-09] MEDS: APIXABAN 5 MG TABLET PO ×2 (05:56→16:46)
[2022-04-09] MEDS: Metoprolol Tartrate 100 MG Tablet PO ×2 (05:56→16:46)
[2022-04-09] MEDS: Carbidopa/Levodopa 25/100 Tablet PO ×4 (05:56→21:47)
[2022-04-09] MEDS: Allopurinol 100 MG Tablet 200 MG PO (05:56)
[2022-04-09] MEDS: Cholecalciferol (VIT D3) 25 MCG TABLET (1,000 UNITS) 50 MCG PO (05:56)
[2022-04-09] MEDS: Finasteride 5 MG Tablet PO (05:56)
[2022-04-09] MEDS: Pantoprazole Sodium 40 MG Tablet PO (05:56)
[2022-04-09] MEDS: Gabapentin 300 MG Capsule PO (06:00)
[2022-04-09 12:28] VITALS: BP 126/65; PULSE 54; RESP 16; O2SAT 95
[2022-04-09 12:30] VITALS: PULSE 53; RESP 16; O2SAT 94
[2022-04-09] MEDS: Petrolatum 33% Tube 1 APPLIC TOPICAL ×2 (12:30→21:47)
[2022-04-09] MEDS: cloNIDine HCl 0.1 MG Tablet PO (12:30)
[2022-04-09 13:53] VITALS: BP 116/72; PULSE 58; RESP 16; TEMP 36.1; O2SAT 94
[2022-04-09 16:46] VITALS: BP 152/84; PULSE 53
[2022-04-09] MEDS: Docusate Sodium 100 MG Capsule PO (16:46)
[2022-04-09] MEDS: Oxybutynin 5 MG Tablet PO (21:46)
[2022-04-09] MEDS: cloNIDine HCl 0.2 MG Tablet PO (21:46)
[2022-04-10] MEDS: Finasteride 5 MG Tablet PO (04:35)
[2022-04-10] MEDS: Pantoprazole Sodium 40 MG Tablet PO (04:35)
[2022-04-10] MEDS: APIXABAN 5 MG TABLET PO ×2 (04:35→16:40)
[2022-04-10] MEDS: Gabapentin 300 MG Capsule PO (04:35)
[2022-04-10] MEDS: Docusate Sodium 100 MG Capsule PO ×2 (04:36→16:40)
[2022-04-10] MEDS: Losartan Potassium 100 MG Tablet PO (04:36)
[2022-04-10] MEDS: Carbidopa/Levodopa 25/100 Tablet PO ×4 (04:36→21:25)
[2022-04-10 04:37] VITALS: BP 171/85; PULSE 60
[2022-04-10] MEDS: Allopurinol 100 MG Tablet 200 MG PO (04:37)
[2022-04-10] MEDS: Cholecalciferol (VIT D3) 25 MCG TABLET (1,000 UNITS) 50 MCG PO (04:37)
[2022-04-10] MEDS: Doxazosin 4 MG Tablet 8 MG PO (04:37)
[2022-04-10] MEDS: Spironolactone 25 MG Tablet PO (04:37)
[2022-04-10] MEDS: Metoprolol Tartrate 100 MG Tablet PO ×2 (04:37→16:40)
[2022-04-10 05:55] LABS: Absolute Lymphocyte Count 1.78 X10^3/uL (0.83-4.51); Absolute Neutrophil Count 2.9 X10^3/uL (2.0-7.7); Basophil# 0.02 X10^3/uL; Basophil% 0.4 % (0-1); Eosinophil# 0.15 X10^3/uL; Eosinophils% 2.8 % (0-5); Hematocrit 39.2 % (40-54); Hemoglobin 13.2 g/dL (13.0-16.5); Lymphocyte # 1.78 X10^3/ul (0.83-4.51); Lymphocyte % 33.5 % (19-41); Mean Corp Hgb Conc 33.7 g/dL (32-36); Mean Corpuscular Hgb 34.1 pg (27.0-32.0); Mean Corpuscular Volume 101.3 fL (80-94); Mean Platelet Vol. 11.4 fl (6.2-12.0); Monocyte# 0.48 X10^3/uL; NRBC Flagged by Analyzer 0 % (0-5); Neutrophil # 2.86 X10^3/uL (2.7-7.7); Neutrophil % 53.7 % (47-70); POSITIVE COUNT YES; Platelet Count 70 K/mm3 (150-450); RBC Distribution Width CV 14.7 % (11.6-14.6); RBC Distribution Width SD 54.8 fl (35.1-43.9); Red Blood Count 3.87 M/mm3 (4.6-6.2); White Blood Count 5.3 K/mm3 (4.4-11.0)
[2022-04-10 06:23] LABS: Anion Gap 4 (5-15); BUN 30 mg/dL (7-18); BUN/Creat Ratio 24.4 RATIO (10-20); Calcium,Total 9.4 mg/dL (8.5-10.1); Chloride 111 mmol/L (98-107); Creatinine, Serum 1.23 mg/dL (0.70-1.30); EST Glomerular Filtration Rate 61 mL/min (>60); Est Glom Filt Rate - Afr Amer 73 mL/min (>60); Estimated Creatinine Clearance 51.09 ml/min; Glucose 111 mg/dL (74-106); Potassium 4.1 mmol/L (3.5-5.1); Sodium Level 144 mmol/L (136-145)
[2022-04-10] MEDS: cloNIDine HCl 0.1 MG Tablet PO (11:45)
[2022-04-10] MEDS: Petrolatum 33% Tube 1 APPLIC TOPICAL ×2 (11:46→21:26)
[2022-04-10 11:54] VITALS: BP 137/86; PULSE 51; RESP 18; TEMP 36.5; O2SAT 97
[2022-04-10 16:40] VITALS: BP 135/84; PULSE 50
[2022-04-10] MEDS: Oxybutynin 5 MG Tablet PO (21:25)
[2022-04-10 22:00] VITALS: PULSE 46; RESP 16; O2SAT 94
[2022-04-11] MEDS: Carbidopa/Levodopa 25/100 Tablet PO ×4 (06:56→20:59)
[2022-04-11] MEDS: APIXABAN 5 MG TABLET PO ×2 (06:56→17:10)
[2022-04-11] MEDS: Losartan Potassium 100 MG Tablet PO (06:56)
[2022-04-11] MEDS: Cholecalciferol (VIT D3) 25 MCG TABLET (1,000 UNITS) 50 MCG PO (06:56)
[2022-04-11] MEDS: Allopurinol 100 MG Tablet 200 MG PO (06:56)
[2022-04-11] MEDS: Pantoprazole Sodium 40 MG Tablet PO (06:56)
[2022-04-11] MEDS: Doxazosin 4 MG Tablet 8 MG PO (06:56)
[2022-04-11] MEDS: Spironolactone 25 MG Tablet PO (06:57)
[2022-04-11] MEDS: Docusate Sodium 100 MG Capsule PO ×2 (06:57→17:10)
[2022-04-11] MEDS: Finasteride 5 MG Tablet PO (06:57)
[2022-04-11 06:59] VITALS: BP 198/96; PULSE 53
[2022-04-11] MEDS: Metoprolol Tartrate 100 MG Tablet PO ×2 (06:59→17:12)
[2022-04-11] MEDS: Gabapentin 300 MG Capsule PO (06:59)
[2022-04-11] MEDS: Hydrocortisone 2.5% Crm 1 APPLIC TOPICAL ×2 (08:38→21:06)
[2022-04-11] MEDS: Petrolatum 33% Tube 1 APPLIC TOPICAL ×2 (08:38→21:04)
[2022-04-11] MEDS: cloNIDine HCl 0.1 MG Tablet PO (11:54)
[2022-04-11 15:07] VITALS: BP 125/81; PULSE 54; RESP 16; TEMP 36.8; O2SAT 96
[2022-04-11 17:12] VITALS: PULSE 57
[2022-04-11] MEDS: cloNIDine HCl 0.2 MG Tablet PO (20:59)
[2022-04-11] MEDS: Oxybutynin 5 MG Tablet PO (20:59)
[2022-04-12] MEDS: Gabapentin 300 MG Capsule PO (05:59)
[2022-04-12 06:00] VITALS: BP 187/97; PULSE 52
[2022-04-12] MEDS: Metoprolol Tartrate 100 MG Tablet PO ×2 (06:00→18:03)
[2022-04-12] MEDS: Spironolactone 25 MG Tablet PO (06:00)
[2022-04-12] MEDS: Losartan Potassium 100 MG Tablet PO (06:00)
[2022-04-12] MEDS: Doxazosin 4 MG Tablet 8 MG PO (06:00)
[2022-04-12] MEDS: Finasteride 5 MG Tablet PO (06:00)
[2022-04-12] MEDS: Docusate Sodium 100 MG Capsule PO ×2 (06:00→18:03)
[2022-04-12] MEDS: Carbidopa/Levodopa 25/100 Tablet PO ×4 (06:01→20:53)
[2022-04-12] MEDS: Allopurinol 100 MG Tablet 200 MG PO (06:01)
[2022-04-12] MEDS: Pantoprazole Sodium 40 MG Tablet PO (06:01)
[2022-04-12] MEDS: Cholecalciferol (VIT D3) 25 MCG TABLET (1,000 UNITS) 50 MCG PO (06:01)
[2022-04-12] MEDS: APIXABAN 5 MG TABLET PO ×2 (06:02→18:03)
[2022-04-12] MEDS: Petrolatum 33% Tube 1 APPLIC TOPICAL ×2 (09:02→20:52)
[2022-04-12] MEDS: Hydrocortisone 2.5% Crm 1 APPLIC TOPICAL ×2 (09:08→20:51)
[2022-04-12] MEDS: cloNIDine HCl 0.1 MG Tablet PO (11:13)
[2022-04-12 14:55] VITALS: BP 96/52; PULSE 53; RESP 18; TEMP 36.7; O2SAT 97
[2022-04-12 18:03] VITALS: BP 124/68; PULSE 53
[2022-04-12 20:20] VITALS: PULSE 52; RESP 16; O2SAT 97
[2022-04-12] MEDS: Oxybutynin 5 MG Tablet PO (20:53)
[2022-04-12] MEDS: cloNIDine HCl 0.2 MG Tablet PO (20:54)
[2022-04-12 20:55] VITALS: BP 158/82; PULSE 52
[2022-04-13 05:57] VITALS: BP 150/92; PULSE 50
[2022-04-13] MEDS: Gabapentin 300 MG Capsule PO (05:57)
[2022-04-13] MEDS: Finasteride 5 MG Tablet PO (05:57)
[2022-04-13] MEDS: Metoprolol Tartrate 100 MG Tablet PO (05:57)
[2022-04-13] MEDS: Docusate Sodium 100 MG Capsule PO ×2 (05:57→16:59)
[2022-04-13] MEDS: Spironolactone 25 MG Tablet PO (05:57)
[2022-04-13] MEDS: Losartan Potassium 100 MG Tablet PO (05:57)
[2022-04-13] MEDS: Doxazosin 4 MG Tablet 8 MG PO (05:57)
[2022-04-13] MEDS: APIXABAN 5 MG TABLET PO ×2 (05:57→17:00)
[2022-04-13] MEDS: Allopurinol 100 MG Tablet 200 MG PO (05:58)
[2022-04-13] MEDS: Carbidopa/Levodopa 25/100 Tablet PO ×4 (05:58→21:39)
[2022-04-13] MEDS: Cholecalciferol (VIT D3) 25 MCG TABLET (1,000 UNITS) 50 MCG PO (05:58)
[2022-04-13] MEDS: Pantoprazole Sodium 40 MG Tablet PO (05:58)
[2022-04-13] MEDS: Hydrocortisone 2.5% Crm 1 APPLIC TOPICAL ×2 (08:40→21:43)
[2022-04-13] MEDS: Petrolatum 33% Tube 1 APPLIC TOPICAL ×2 (08:40→21:40)
[2022-04-13] MEDS: cloNIDine HCl 0.1 MG Tablet PO (11:36)
[2022-04-13 13:42] VITALS: BP 121/63; PULSE 58; RESP 18; TEMP 36.3; O2SAT 95
[2022-04-13] MEDS: Doxycycline 100 MG CAPSULE PO (17:00)
--- NOTE | 2022-04-13 19:05 | PN.TCU_ITS ---
Subjective Subjective Resident seen, examined. He has erythematous papules right medial foot, they used to itch, but improved with Hytone cream. He has no other problems, concerns, issues, complaints. Objective Data Objective Data Vital Signs: Vital Signs Temp Pulse Resp BP Pulse Ox O2 Del Method O2 Flow Rate 97.3 F L 58 L 18 121/63 H 95 Room Air 2 04/13/22 13:42 04/13/22 13:42 04/13/22 13:42 04/13/22 13:42 04/13/22 13:42 04/13/22 13:42 03/25/22 09:25 Oxygen Flow Rate (L/min) 2 Oxygen Delivery Method Room Air Weight: 94.302 kg Body Mass Index (BMI) 30.7 Intake & Output: Intake and Output for Last 24 Hours 04/11/22 04/12/22 04/13/22 23:59 23:59 23:59 Intake Total 1040 / 1040 840 / 840 600 / 600 Balance 1040 / 1040 840 / 840 600 / 600 Lab / Micro Data Result Diagrams: 04/10/22 05:35 04/10/22 05:35 Micro: Microbiology 03/24/22 12:40 Urine Catheter - Catheter Urine Culture - Final Culture exhibits no growth. 03/26/22 06:05 Nasal Secretion SARS-CoV-2 Antigen (Rapid) - Final Physical Exam Const alert General Appearance: cooperative HEENT normocephalic Eyes PERRL and EOMs intact bilaterally Neck supple, no JVD and no carotid bruits Resp normal respiratory effort, normal air movement and clear to auscultation bilaterally Cardio regular rate and regular rhythm GI normal to inspection, nondistended, normoactive bowel sounds, non-tender and non-distended Extremity normal capillary refill Extremity Narrative: Right medial foot, erythematous papules. General Extremity: Negative for edema Skin no rashes or lesions noted General Skin Exam: no breakdown Psych affect normal Appearance: appropriate Assessment & Plan Assessment/Plan (1) Debility: (2) Knee pain, right: (3) Right leg weakness: (4) Transient ischemic attack: (5) Atrial fibrillation: (6) Bilateral carotid artery stenosis: (7) Pulmonary embolism: (8) Gout: (9) Hypertension: (10) Benign prostate hyperplasia: (11) Neuropathy: (12) Gastroesophageal reflux disease: PLAN: Plan 76 year old male with below past medical history presented to right knee pain, right leg weakness, admitted to TCU with debility, here for rehabilitation, strengthening, prior to discharge home alone. * Debility - PT/OT. * Cognition- ST. * Pain - Tylenol 1000mg q6h prn pain (1-10). * Bowel - Colace 100mg bid. * Adult immunization - Administer pneumonia vaccine, covid19 vaccine, flu vaccine. * DVT prophylaxis - Not necessary, on Eliquis. * Gout - Allopurinol 200mg daily. * Atrial fibrillation - Metoprolol 100mg bid, Eliquis 5mg bid. * Parkinson Disease - Sinemet 25/100mg 2 tablets QACHS. * Hypertension - Metoprolol 100mg bid, Losartan 100mg daily, Clonidine 0.1mg, 0.2mg. * IBS - Bentyl 10mg daily prn, Lomotil 1 tablet q6h prn. * BPH - Finasteride 5mg daily, Doxazosin 8mg daily. * Neuropathic pain - Gabapentin 300mg daily. * Allergic rhinitis - Loratadine 10mg daily prn. * Overactive bladder - Oxybutynin 5mg qhs. * GERD - Pantoprazole 40mg daily. * Edema - Aldactone 25mg daily. * Vitamin D deficiency - D3 50mcg daily. * Skin irritation - Eucerin topical bid, Hytone topical tid prn. * Right foot infection - Doxycycline 100mg bid x 7 days. Capacity Capacity Assessment Tool Can the patient make a choice & communicate that choice?: Yes Can the patient understand benefits, risks and alternatives?: Yes Can the patient make a logical, rational choice?: Yes Is the choice the patient makes consistent w/ their values?: Yes Is there an impending, emergent risk to the patient?: No Does the patient have an Advance Directive?: Yes Is there a Surrogate Available?: Yes i.e. close relative (spouse, child, parent, sibling)?: Yes
[2022-04-13] MEDS: cloNIDine HCl 0.2 MG Tablet PO (21:39)
[2022-04-13] MEDS: Oxybutynin 5 MG Tablet PO (21:39)
[2022-04-14] MEDS: APIXABAN 5 MG TABLET PO ×2 (06:22→18:03)
[2022-04-14] MEDS: Carbidopa/Levodopa 25/100 Tablet PO ×4 (06:22→21:02)
[2022-04-14] MEDS: Allopurinol 100 MG Tablet 200 MG PO (06:23)
[2022-04-14] MEDS: Spironolactone 25 MG Tablet PO (06:23)
[2022-04-14] MEDS: Docusate Sodium 100 MG Capsule PO (06:23)
[2022-04-14] MEDS: Losartan Potassium 100 MG Tablet PO (06:23)
[2022-04-14] MEDS: Doxycycline 100 MG CAPSULE PO ×2 (06:23→18:02)
[2022-04-14] MEDS: Finasteride 5 MG Tablet PO (06:23)
[2022-04-14] MEDS: Cholecalciferol (VIT D3) 25 MCG TABLET (1,000 UNITS) 50 MCG PO (06:23)
[2022-04-14] MEDS: Doxazosin 4 MG Tablet 8 MG PO (06:23)
[2022-04-14] MEDS: Pantoprazole Sodium 40 MG Tablet PO (06:24)
[2022-04-14 06:27] VITALS: BP 184/91; PULSE 47
[2022-04-14] MEDS: Gabapentin 300 MG Capsule PO (06:27)
[2022-04-14] MEDS: Metoprolol Tartrate 100 MG Tablet PO ×2 (06:27→18:03)
[2022-04-14] MEDS: cloNIDine HCl 0.1 MG Tablet PO (11:28)
[2022-04-14] MEDS: Petrolatum 33% Tube 1 APPLIC TOPICAL ×2 (11:29→21:04)
[2022-04-14 11:30] VITALS: BP 145/87; PULSE 57
--- NOTE | 2022-04-14 13:49 | CASEMGMT ---
Addendum entered by Terese Cain 04/14/22 14:37: PASRR completed. Original Note: Social Work SW spoke with pt and dtr. Both are choosing [facility]. SW spoke with Negin at [facility] - the plan would be to DC pt to SNF to assess for level of care, then if pt is appropriate, to move to [place]. Pt/dtr agreeable and are realistic that pt may need to remain in SNF. All in agreement for DC 04/17. Dtr to transport 1300. Plan: DC to [facility], intermediate, 04/17 Terese Cain, NASH HERNANDEZW
[2022-04-14 13:51] VITALS: BP 139/58; PULSE 59; RESP 18; TEMP 36.2; O2SAT 96
[2022-04-14 18:03] VITALS: BP 148/99; PULSE 59
--- NOTE | 2022-04-14 19:53 | DS.PCM_ITS ---
Providers Date of Admission: 03/19/22 Primary Care Physician: Dr. Brad Forrest DO Reason For Visit: WEAKNESS Diagnosis Discharge Diagnosis (1) Debility: Status: Acute Code(s): R53.81 - Other malaise (2) Knee pain, right: Status: Inactive Code(s): M25.561 - Pain in right knee (3) Right leg weakness: Status: Inactive Code(s): R29.898 - Other symptoms and signs involving the musculoskeletal system (4) Transient ischemic attack: Status: Acute Code(s): G45.9 - Transient cerebral ischemic attack, unspecified (5) Atrial fibrillation: Status: Acute Code(s): I48.91 - Unspecified atrial fibrillation (6) Bilateral carotid artery stenosis: Status: Acute Code(s): I65.23 - Occlusion and stenosis of bilateral carotid arteries (7) Pulmonary embolism: Status: Acute Code(s): I26.99 - Other pulmonary embolism without acute cor pulmonale (8) Gout: Status: Acute Code(s): M10.9 - Gout, unspecified (9) Hypertension: Status: Chronic Code(s): I10 - Essential (primary) hypertension (10) Benign prostate hyperplasia: Status: Acute Code(s): N40.0 - Benign prostatic hyperplasia without lower urinary tract symptoms (11) Neuropathy: Status: Acute Code(s): G62.9 - Polyneuropathy, unspecified (12) Gastroesophageal reflux disease: Status: Acute Code(s): K21.9 - Gastro-esophageal reflux disease without esophagitis Plan 76 year old male with below past medical history presented to right knee pain, right leg weakness, admitted to TCU with debility, here for rehabilitation, strengthening, prior to discharge home alone. * Debility - PT/OT. * Cognition- ST. * Pain - Tylenol 1000mg q6h prn pain (1-10). * Bowel - Colace 100mg bid. * Adult immunization - Administer pneumonia vaccine, covid19 vaccine, flu vac cine. * DVT prophylaxis - Not necessary, on Eliquis. * Gout - Allopurinol 200mg daily. * Atrial fibrillation - Metoprolol 100mg bid, Eliquis 5mg bid. * Parkinson Disease - Sinemet 25/100mg 2 tablets QACHS. * Hypertension - Metoprolol 100mg bid, Losartan 100mg daily, Clonidine 0.1mg, 0.2mg. * IBS - Bentyl 10mg daily prn, Lomotil 1 tablet q6h prn. * BPH - Finasteride 5mg daily, Doxazosin 8mg daily. * Neuropathic pain - Gabapentin 300mg daily. * Allergic rhinitis - Loratadine 10mg daily prn. * Overactive bladder - Oxybutynin 5mg qhs. * GERD - Pantoprazole 40mg daily. * Edema - Aldactone 25mg daily. * Vitamin D deficiency - D3 50mcg daily. * Skin irritation - Eucerin topical bid, Hytone topical tid prn. * Right foot infection - Doxycycline 100mg bid x 7 days. Medications at Discharge Home Medications finasteride 5 mg tablet 5 mg PO DAILY BPH 01/11/17 terazosin 10 mg capsule 10 mg PO DAILY prostate 01/11/17 cholecalciferol (vitamin D3) 50 mcg (2,000 unit) capsule (Vitamin D3) 2,000 unit PO DAILY Supplement 07/12/17 pantoprazole 40 mg tablet,delayed release 40 mg PO DAILY reflux 08/19/21 oxybutynin chloride 5 mg tablet 5 mg PO QHS BLADDER 10/27/21 dicyclomine 10 mg capsule 10 mg PO DAILY PRN ibs 11/21/21 allopurinol 100 mg tablet 200 mg PO DAILY gout 12/22/21 carbidopa 25 mg-levodopa 100 mg tablet 2 tab PO .QID RALPH #240 tabs 02/23/22 apixaban 5 mg tablet (Eliquis) 5 mg PO BID ordered by Dr. Ponce for DVT #60 tabs 03/03/22 gabapentin 300 mg capsule 300 mg PO DAILY Nerve Pain 03/19/22 metoprolol tartrate 100 mg tablet 100 mg PO BID BP 03/19/22 spironolactone 25 mg tablet 25 mg PO DAILY BP 03/19/22 Petrolatum 33% [Eucerin Eqivalent] 1 applic topical 1000,2200 ##0 04/14/22 clonidine HCl 0.1 mg tablet 0.1 mg PO DAILY@1200 #0 tabs 04/14/22 clonidine HCl 0.2 mg tablet 0.2 mg PO QHS #0 tabs 04/14/22 docusate sodium 100 mg capsule 100 mg PO BID #0 caps 04/14/22 doxycycline monohydrate 100 mg capsule 100 mg PO BID 4 days #0 caps 04/14/22 hydrocortisone 2.5 % topical cream 1 applic topical TID PRN PRN RASH/TOPICAL IRRITATION #0 grams 04/14/22 losartan 100 mg tablet 100 mg PO DAILY #0 tabs 04/14/22 Hospital Course Operations None Procedures None Summary of Care Provided Minutes Spent on Discharge: 35 Hospital Course: 76 year old male with below past medical history presented to right knee pain, right leg weakness, admitted to TCU with debility, here for rehabilitation, strengthening, prior to discharge home alone. Discharge to [facility] 04/17/2022, intermediate. Physical Exam Const alert General Appearance: cooperative HEENT normocephalic Eyes PERRL and EOMs intact bilaterally Neck supple, no JVD and no carotid bruits Resp normal respiratory effort, normal air movement and clear to auscultation bilaterally Cardio regular rate and regular rhythm GI normal to inspection, nondistended, normoactive bowel sounds, non-tender and non-distended Extremity normal capillary refill General Extremity: Negative for edema Skin no rashes or lesions noted General Skin Exam: no breakdown Psych affect normal Appearance: appropriate Weight / BMI Weight Weight: 94.982 kg Body Mass Index (BMI) 30.7 ABG / Lab / Microbiology Data Result Diagrams: 04/10/22 05:35 04/10/22 05:35 Microbiology: Microbiology 03/24/22 12:40 Urine Catheter - Catheter Urine Culture - Final Culture exhibits no growth. 03/26/22 06:05 Nasal Secretion SARS-CoV-2 Antigen (Rapid) - Final D/C Instructions Discharge Diet: No restrictions Discharge Activity: Return to Normal Activity, May Shower and Use Walker Weight Bearing Status: Weight bearing as tolerated Call your doctor if you observe: Fever of 101 or Higher, Inability to urinate, Inability to have a bowel movement, Shortness of breath, Dizziness, Fainting spells, Swelling in the ankles, Chest pain and Uncontrolled pain Additional Instructions: Discharge to [facility] 04/17/2022, intermediate. Meaningful Use Info Meaningful Use Diagnoses (Choose all that apply): None applicable Discharge Plan Admission Admit Date/Time: 03/19/22 15:23 Primary Reason for Your Visit: Debility. Attending Provider: Santosh Adames Chi Primary Care Provider: Brad Forrest Instructions Additional Instructions / Restrictions: Discharge to [facility] 04/17/2022, intermediate. Discharge Orders/Prescriptions Prescriptions: New clonidine HCl 0.1 mg Tablet 0.1 mg PO DAILY@1200 Qty: 0 0RF clonidine HCl 0.2 mg Tablet 0.2 mg PO QHS Qty: 0 0RF docusate sodium 100 mg Capsule 100 mg PO BID Qty: 0 0RF doxycycline monohydrate 100 mg Capsule 100 mg PO BID 4 Days Qty: 0 0RF hydrocortisone 2.5 % Cream 1 applic topical TID PRN PRN (Reason: RASH/TOPICAL IRRITATION) Qty: 0 0RF Protocol: *Topical Application Instructions APPLICATION INSTRUCTIONS: Right inner foot. losartan 100 mg Tablet 100 mg PO DAILY Qty: 0 0RF Petrolatum 33% [Eucerin Eqivalent] 1 applic topical 1000,2200 Qty: 0 0RF Continued Eliquis 5 mg tablet 5 mg PO BID Qty: 60 3RF carbidopa-levodopa 25-100 mg tablet 2 tab PO .QID Qty: 240 4RF dicyclomine 10 mg capsule 10 mg PO DAILY PRN (Reason: ibs) terazosin 10 MG capsule 10 mg PO DAILY finasteride 5 MG tablet 5 mg PO DAILY cholecalciferol (vitamin D3) [Vitamin D3] 2,000 UNIT capsule 2,000 unit PO DAILY allopurinol 100 mg tablet 200 mg PO DAILY pantoprazole 40 mg tablet,delayed release (DR/EC) 40 mg PO DAILY oxybutynin chloride 5 mg tablet 5 mg PO QHS gabapentin 300 mg Capsule 300 mg PO DAILY metoprolol tartrate 100 mg tablet 100 mg PO BID spironolactone 25 mg tablet 25 mg PO DAILY Discontinued melatonin 3 mg capsule 3 mg PO HS PRN (Reason: Sleep) diphenoxylate-atropine 2.5-0.025 mg tablet 1 tab PO Q6H PRN (Reason: diarrhea) loratadine [Allergy Relief (loratadine)] 10 MG tablet 10 mg PO DAILY PRN (Reason: ALLERGIES) clonidine HCl 0.1 mg tablet 0.1 mg PO .COMPLEX Rx Instructions: 0.1 mg orally 1 tab at noon and 2 tabs at bedtime; diltiazem HCl 120 mg capsule,extended release 24hr 120 mg PO DAILY 30 Days Qty: 30 0RF Referrals / Follow Up: Brad Forrest DO [Primary Care Provider] - Disposition Disposition (needs filled in before D/C Order can be placed): NonSkilled NH/Intermed Care
--- NOTE | 2022-04-14 19:58 | TREXTCAR_ITS ---
Diet Diet Order/Speech Therapy: 03/19/22 15:40 Diet: Regular - General Food consistency:: Regular Liquid Consistency:: Regular/Thin Routine Orders/Code Status Code Status: [facility] Wound(s) BLE scattered abrasions: Wound Type: Abrasion Therapies Weight Bearing: Weight bearing as tolerated Problem/Diagnosis (1) Debility: Status: Acute Code(s): R53.81 - Other malaise (2) Knee pain, right: Status: Inactive Code(s): M25.561 - Pain in right knee (3) Right leg weakness: Status: Inactive Code(s): R29.898 - Other symptoms and signs involving the musculoskeletal system (4) Transient ischemic attack: Status: Acute Code(s): G45.9 - Transient cerebral ischemic attack, unspecified (5) Atrial fibrillation: Status: Acute Code(s): I48.91 - Unspecified atrial fibrillation (6) Bilateral carotid artery stenosis: Status: Acute Code(s): I65.23 - Occlusion and stenosis of bilateral carotid arteries (7) Pulmonary embolism: Status: Acute Code(s): I26.99 - Other pulmonary embolism without acute cor pulmonale (8) Gout: Status: Acute Code(s): M10.9 - Gout, unspecified (9) Hypertension: Status: Chronic Code(s): I10 - Essential (primary) hypertension (10) Benign prostate hyperplasia: Status: Acute Code(s): N40.0 - Benign prostatic hyperplasia without lower urinary tract symptoms (11) Neuropathy: Status: Acute Code(s): G62.9 - Polyneuropathy, unspecified (12) Gastroesophageal reflux disease: Status: Acute Code(s): K21.9 - Gastro-esophageal reflux disease without esophagitis Plan 76 year old male with below past medical history presented to right knee pain, right leg weakness, admitted to TCU with debility, here for rehabilitation, strengthening, prior to discharge home alone. * Debility - PT/OT. * Cognition- ST. * Pain - Tylenol 1000mg q6h prn pain (1-10). * Bowel - Colace 100mg bid. * Adult immunization - Administer pneumonia vaccine, covid19 vaccine, flu va ccine. * DVT prophylaxis - Not necessary, on Eliquis. * Gout - Allopurinol 200mg daily. * Atrial fibrillation - Metoprolol 100mg bid, Eliquis 5mg bid. * Parkinson Disease - Sinemet 25/100mg 2 tablets QACHS. * Hypertension - Metoprolol 100mg bid, Losartan 100mg daily, Clonidine 0.1mg, 0.2mg. * IBS - Bentyl 10mg daily prn, Lomotil 1 tablet q6h prn. * BPH - Finasteride 5mg daily, Doxazosin 8mg daily. * Neuropathic pain - Gabapentin 300mg daily. * Allergic rhinitis - Loratadine 10mg daily prn. * Overactive bladder - Oxybutynin 5mg qhs. * GERD - Pantoprazole 40mg daily. * Edema - Aldactone 25mg daily. * Vitamin D deficiency - D3 50mcg daily. * Skin irritation - Eucerin topical bid, Hytone topical tid prn. * Right foot infection - Doxycycline 100mg bid x 7 days. Allergies/Procedures Done in Hospital Allergies No Known Allergies Allergy (Verified 03/19/22 11:45) Procedures: None Type of Care/Length of Stay Estimated LOS: More Than 30 Days Type of Care Needed: Intermediate Rehab Potential: Fair Prognosis: Fair Additional Orders/Day of Discharge Day of Discharge: 04/17/22 Dietary and Speech Recommendations Dietitian Recommendations/Changes: continue regular diet ensure w/ medpass if PO intake at meals fails Discharge Plan Admission Admit Date/Time: 03/19/22 15:23 Primary Reason for Your Visit: Debility. Attending Provider: Santosh Adames Chi Primary Care Provider: Brad Forrest Instructions Additional Instructions / Restrictions: Discharge to [facility] 04/17/2022, intermediate. Discharge Orders/Prescriptions Prescriptions: New clonidine HCl 0.1 mg Tablet 0.1 mg PO DAILY@1200 Qty: 0 0RF clonidine HCl 0.2 mg Tablet 0.2 mg PO QHS Qty: 0 0RF docusate sodium 100 mg Capsule 100 mg PO BID Qty: 0 0RF doxycycline monohydrate 100 mg Capsule 100 mg PO BID 4 Days Qty: 0 0RF hydrocortisone 2.5 % Cream 1 applic topical TID PRN PRN (Reason: RASH/TOPICAL IRRITATION) Qty: 0 0RF Protocol: *Topical Application Instructions APPLICATION INSTRUCTIONS: Right inner foot. losartan 100 mg Tablet 100 mg PO DAILY Qty: 0 0RF Petrolatum 33% [Eucerin Eqivalent] 1 applic topical 1000,2200 Qty: 0 0RF Continued Eliquis 5 mg tablet 5 mg PO BID Qty: 60 3RF carbidopa-levodopa 25-100 mg tablet 2 tab PO .QID Qty: 240 4RF dicyclomine 10 mg capsule 10 mg PO DAILY PRN (Reason: ibs) terazosin 10 MG capsule 10 mg PO DAILY finasteride 5 MG tablet 5 mg PO DAILY cholecalciferol (vitamin D3) [Vitamin D3] 2,000 UNIT capsule 2,000 unit PO DAILY allopurinol 100 mg tablet 200 mg PO DAILY pantoprazole 40 mg tablet,delayed release (DR/EC) 40 mg PO DAILY oxybutynin chloride 5 mg tablet 5 mg PO QHS gabapentin 300 mg Capsule 300 mg PO DAILY metoprolol tartrate 100 mg tablet 100 mg PO BID spironolactone 25 mg tablet 25 mg PO DAILY Discontinued melatonin 3 mg capsule 3 mg PO HS PRN (Reason: Sleep) diphenoxylate-atropine 2.5-0.025 mg tablet 1 tab PO Q6H PRN (Reason: diarrhea) loratadine [Allergy Relief (loratadine)] 10 MG tablet 10 mg PO DAILY PRN (Reason: ALLERGIES) clonidine HCl 0.1 mg tablet 0.1 mg PO .COMPLEX Rx Instructions: 0.1 mg orally 1 tab at noon and 2 tabs at bedtime; diltiazem HCl 120 mg capsule,extended release 24hr 120 mg PO DAILY 30 Days Qty: 30 0RF Referrals / Follow Up: Brad Forrest DO [Primary Care Provider] - Disposition Disposition (needs filled in before D/C Order can be placed): NonSkilled NH/Intermed Care
[2022-04-14] MEDS: cloNIDine HCl 0.2 MG Tablet PO (21:02)
[2022-04-14] MEDS: Oxybutynin 5 MG Tablet PO (21:02)
[2022-04-14] MEDS: Hydrocortisone 2.5% Crm 1 APPLIC TOPICAL (21:03)
[2022-04-14 21:05] VITALS: PULSE 65; RESP 14; O2SAT 95
[2022-04-15 05:59] VITALS: BP 173/88; PULSE 52
[2022-04-15] MEDS: Doxycycline 100 MG CAPSULE PO ×2 (05:59→16:54)
[2022-04-15] MEDS: Losartan Potassium 100 MG Tablet PO (05:59)
[2022-04-15] MEDS: APIXABAN 5 MG TABLET PO ×2 (05:59→16:54)
[2022-04-15] MEDS: Metoprolol Tartrate 100 MG Tablet PO ×2 (05:59→16:54)
[2022-04-15] MEDS: Doxazosin 4 MG Tablet 8 MG PO (05:59)
[2022-04-15] MEDS: Spironolactone 25 MG Tablet PO (05:59)
[2022-04-15] MEDS: Finasteride 5 MG Tablet PO (06:00)
[2022-04-15] MEDS: Carbidopa/Levodopa 25/100 Tablet PO ×4 (06:00→21:14)
[2022-04-15] MEDS: Pantoprazole Sodium 40 MG Tablet PO (06:00)
[2022-04-15] MEDS: Allopurinol 100 MG Tablet 200 MG PO (06:01)
[2022-04-15] MEDS: Cholecalciferol (VIT D3) 25 MCG TABLET (1,000 UNITS) 50 MCG PO (06:01)
[2022-04-15] MEDS: Gabapentin 300 MG Capsule PO (06:04)
[2022-04-15] MEDS: cloNIDine HCl 0.1 MG Tablet PO (11:09)
[2022-04-15] MEDS: Petrolatum 33% Tube 1 APPLIC TOPICAL ×2 (11:09→21:14)
[2022-04-15] MEDS: Hydrocortisone 2.5% Crm 1 APPLIC TOPICAL (11:10)
[2022-04-15 11:15] VITALS: BP 120/52; PULSE 48
[2022-04-15 13:30] VITALS: BP 131/56; PULSE 55; RESP 18; TEMP 36.4; O2SAT 97
[2022-04-15 16:54] VITALS: BP 126/72; PULSE 52
[2022-04-15 21:00] VITALS: PULSE 51; RESP 18; O2SAT 95
[2022-04-15] MEDS: cloNIDine HCl 0.2 MG Tablet PO (21:14)
[2022-04-15] MEDS: Oxybutynin 5 MG Tablet PO (21:14)
[2022-04-15 21:17] VITALS: BP 141/69; PULSE 51; RESP 18
[2022-04-16] MEDS: Doxazosin 4 MG Tablet 8 MG PO (06:35)
[2022-04-16] MEDS: Finasteride 5 MG Tablet PO (06:35)
[2022-04-16 06:36] VITALS: BP 146/80; PULSE 50
[2022-04-16] MEDS: Doxycycline 100 MG CAPSULE PO ×2 (06:36→18:23)
[2022-04-16] MEDS: Losartan Potassium 100 MG Tablet PO (06:36)
[2022-04-16] MEDS: APIXABAN 5 MG TABLET PO ×2 (06:36→18:23)
[2022-04-16] MEDS: Metoprolol Tartrate 100 MG Tablet PO ×2 (06:36→17:43)
[2022-04-16] MEDS: Spironolactone 25 MG Tablet PO (06:36)
[2022-04-16] MEDS: Allopurinol 100 MG Tablet 200 MG PO (06:36)
[2022-04-16] MEDS: Cholecalciferol (VIT D3) 25 MCG TABLET (1,000 UNITS) 50 MCG PO (06:36)
[2022-04-16] MEDS: Pantoprazole Sodium 40 MG Tablet PO (06:36)
[2022-04-16] MEDS: Carbidopa/Levodopa 25/100 Tablet PO ×4 (06:36→21:10)
[2022-04-16] MEDS: Gabapentin 300 MG Capsule PO (07:04)
[2022-04-16] MEDS: cloNIDine HCl 0.1 MG Tablet PO (11:50)
[2022-04-16 13:46] VITALS: BP 141/75; PULSE 60; RESP 18; TEMP 36.3; O2SAT 98
[2022-04-16 17:43] VITALS: PULSE 62
[2022-04-16] MEDS: Docusate Sodium 100 MG Capsule PO (17:43)
[2022-04-16 21:00] VITALS: BP 147/81; PULSE 58; RESP 16
[2022-04-16] MEDS: Petrolatum 33% Tube 1 APPLIC TOPICAL (21:06)
[2022-04-16] MEDS: Hydrocortisone 2.5% Crm 1 APPLIC TOPICAL (21:07)
[2022-04-16] MEDS: Oxybutynin 5 MG Tablet PO (21:11)
[2022-04-16] MEDS: cloNIDine HCl 0.2 MG Tablet PO (21:11)
[2022-04-17 05:57] LABS: Absolute Lymphocyte Count 2.21 X10^3/uL (0.83-4.51); Absolute Neutrophil Count 2.8 X10^3/uL (2.0-7.7); Basophil# 0.03 X10^3/uL; Basophil% 0.5 % (0-1); Eosinophil# 0.18 X10^3/uL; Eosinophils% 3.1 % (0-5); Hematocrit 38.7 % (40-54); Hemoglobin 13.7 g/dL (13.0-16.5); Lymphocyte # 2.21 X10^3/ul (0.83-4.51); Lymphocyte % 38.4 % (19-41); Mean Corp Hgb Conc 35.4 g/dL (32-36); Mean Corpuscular Hgb 35.2 pg (27.0-32.0); Mean Corpuscular Volume 99.5 fL (80-94); Monocyte# 0.47 X10^3/uL; Monocyte% 8.2 % (0-10); NRBC Flagged by Analyzer 0 % (0-5); Neutrophil # 2.83 X10^3/uL (2.7-7.7); Neutrophil % 49.1 % (47-70); POSITIVE COUNT YES; Platelet Count 71 K/mm3 (150-450); RBC Distribution Width CV 14.5 % (11.6-14.6); RBC Distribution Width SD 51.8 fl (35.1-43.9); Red Blood Count 3.89 M/mm3 (4.6-6.2); White Blood Count 5.8 K/mm3 (4.4-11.0)
[2022-04-17] MEDS: Gabapentin 300 MG Capsule PO (06:01)
[2022-04-17] MEDS: Losartan Potassium 100 MG Tablet PO (06:02)
[2022-04-17] MEDS: Pantoprazole Sodium 40 MG Tablet PO (06:02)
[2022-04-17] MEDS: Spironolactone 25 MG Tablet PO (06:02)
[2022-04-17] MEDS: Allopurinol 100 MG Tablet 200 MG PO (06:02)
[2022-04-17] MEDS: Doxazosin 4 MG Tablet 8 MG PO (06:02)
[2022-04-17] MEDS: Doxycycline 100 MG CAPSULE PO (06:02)
[2022-04-17] MEDS: APIXABAN 5 MG TABLET PO (06:02)
[2022-04-17] MEDS: Cholecalciferol (VIT D3) 25 MCG TABLET (1,000 UNITS) 50 MCG PO (06:02)
[2022-04-17] MEDS: Finasteride 5 MG Tablet PO (06:02)
[2022-04-17 06:03] VITALS: BP 175/83; PULSE 48
[2022-04-17] MEDS: Carbidopa/Levodopa 25/100 Tablet PO (06:03)
[2022-04-17] MEDS: Docusate Sodium 100 MG Capsule PO (06:03)
[2022-04-17] MEDS: Metoprolol Tartrate 100 MG Tablet PO (06:03)
[2022-04-17 06:23] LABS: Anion Gap 5 (5-15); BUN 29 mg/dL (7-18); BUN/Creat Ratio 24.8 RATIO (10-20); Calcium,Total 9.1 mg/dL (8.5-10.1); Chloride 108 mmol/L (98-107); Creatinine, Serum 1.17 mg/dL (0.70-1.30); EST Glomerular Filtration Rate 64 mL/min (>60); Est Glom Filt Rate - Afr Amer 78 mL/min (>60); Estimated Creatinine Clearance 53.71 ml/min; Glucose 86 mg/dL (74-106); Sodium Level 142 mmol/L (136-145)
--- NOTE | 2022-04-17 09:54 | CASEMGMT ---
Social Work BIMS and PHQ-9 completed for MDS assessment. Terese Cain, SLITTER AND CUTTER OPERATOR [employer] MACHINE OPERATOR
== END 2022-04-17 09:45 | DRG 74 ==
PROVIDERS: Internal Medicine Nephrology; Admitting Provider Family Medicine Geriatric Medicine; PCP Family Medicine; Visit Provider Family Medicine Geriatric Medicine
DX: G62.9 Polyneuropathy, unspecified (principal); E55.9 Vitamin D deficiency, unspecified; G20 Parkinson's disease; I48.0 Paroxysmal atrial fibrillation; M25.561 Pain in right knee; I12.9 Hypertensive chronic kidney disease with stage 1 through stage 4 chronic kidney disease, or unspecified chronic kidney disease; M10.9 Gout, unspecified; K21.9 Gastro-esophageal reflux disease without esophagitis; I65.23 Occlusion and stenosis of bilateral carotid arteries; N18.9 Chronic kidney disease, unspecified; M19.90 Unspecified osteoarthritis, unspecified site; K58.9 Irritable bowel syndrome, unspecified; Z86.711 Personal history of pulmonary embolism; N32.81 Overactive bladder; N40.0 Benign prostatic hyperplasia without lower urinary tract symptoms; Z79.899 Other long term (current) drug therapy; Z79.01 Long term (current) use of anticoagulants; Z23 Encounter for immunization; L08.9 Local infection of the skin and subcutaneous tissue, unspecified
CPT/HCPCS: 0124A; 36415; 80048; 80076; 81001; 82565; 82570; 84156; 84550; 85025; 85652; 86140; 87086; 87811; 91312; 92507; 92523; 97110; 97116; 97162; 97166; 97530; 97535; 97802; 97803; A4216

== ENCOUNTER → 2022-03-19 | Outpatient (CLI) | payer MEDICARE, OTHER, SELFPAY ==
[2022-03-19 13:13] LABS: PTHIN 54.7 pg/mL (18.4-80.1)
[2022-03-19 13:19] LABS: Albumin, Serum 3.7 g/dL (3.2-5.0); BUN 36 mg/dL (7-18); BUN/Creat Ratio 20.8 RATIO (10-20); Calcium,Total 9.2 mg/dL (8.5-10.1); Chloride 109 mmol/L (98-107); Creatinine, Serum 1.73 mg/dL (0.70-1.30); EST Glomerular Filtration Rate 41 mL/min (>60); Est Glom Filt Rate - Afr Amer 50 mL/min (>60); Glucose 89 mg/dL (74-106); Potassium 4.5 mmol/L (3.5-5.1); Sodium Level 141 mmol/L (136-145)
== END | disposition home or self-care (01) ==
LOC: LAB 11:03
PROVIDERS: PCP Family Medicine; Referring Provider Internal Medicine Nephrology; Visit Provider Internal Medicine Nephrology
DX: N18.32 Chronic kidney disease, stage 3b (principal); R80.9 Proteinuria, unspecified
CPT/HCPCS: 36415; 80069; 81001; 82570; 83970; 84156

== ENCOUNTER 2022-05-08 04:54 | Inpatient (IN) | payer MEDICARE, OTHER, SELFPAY ==
[2022-05-08] VITALS (43 sets, daily range): BP systolic 89–190; BP diastolic 38–112; PULSE 86–155; RESP 18–31; TEMP 36.4–36.7; O2SAT 21–99; BMI 35.4; BMI 30.3
--- NOTE | 2022-05-08 04:59 | EKG12_ITS ---
Test Reason : PALPS Blood Pressure : / mmHG Vent. Rate : 150 BPM Atrial Rate : 111 BPM P-R Int : 000 ms QRS Dur : 152 ms QT Int : 352 ms P-R-T Axes : 142 024 -22 degrees QTc Int : 556 ms Atrial fibrillation Right bundle branch block T wave abnormality, consider inferior ischemia Abnormal ECG Confirmed by IRAIDA RODRÍGUEZ, YAHAIRA ([id number]), editorial specialist KENTON MAXWELL ([id number]) on 05/12/2022 9:22:34 A M Referred By: RONN Confirmed By:FEDERICO KHOURY MD
--- NOTE | 2022-05-08 05:00 | EDS_ITS ---
HPI History of Present Illness Chief Complaint: Palpitations Narrative Narrative: Patient has a history of heart failure with preserved ejection fraction, carotid artery disease, hypertension, thromboembolic disease with DVT/PE, thrombocytopenia, chronic renal insufficiency, TIA, and Parkinson's, he has a history of atrial fibrillation. He has been dizzy since last night and fell, he landed on his buttocks but sustained no other injuries. He continued to complain about dizziness and was found to be quite tachycardic in the 140s and 150s and sent to the emergency department. He underwent a successful cardioversion in January of this year for A. fib and he has been on Eliquis since then and takes his medications twice a day as given to him by his detention [facility] Medical History Adequate anticoagulation on anticoagulant therapy Arthritis Atherosclerosis of both carotid arteries Atrial fibrillation B12 deficiency BPH (benign prostatic hyperplasia) Bradycardia Breast mass in male Carpal tunnel syndrome Chronic a-fib Chronic anticoagulation Chronic hypokalemia CKD (chronic kidney disease) Compression fracture of L2 Contusion of flank COVID CPAP (continuous positive airway pressure) dependence Essential hypertension Facial basal cell cancer Gastroesophageal reflux disease GERD (gastroesophageal reflux disease) History of pneumonia HTN (hypertension) Hypertension Hyperuricemia Hypokalemia Hypokalemia IBS (irritable bowel syndrome) IFG (impaired fasting glucose) Inflammatory arthritis (~2016) Kidney disease Migraine Nephrosclerosis Parkinsons disease Paroxysmal atrial fibrillation Proteinuria Renal insufficiency Rheumatoid arthritis Sleep apnea Splenomegaly Stroke (~07/2021) Thrombocythemia Venous stasis dermatitis Wears hearing aid in both ears Home Medications finasteride 5 mg tablet 5 mg PO DAILY BPH 01/11/17 [History Last Taken 02/10/22] terazosin 10 mg capsule 10 mg PO DAILY prostate 01/11/17 [History Last Taken 02/10/22] cholecalciferol (vitamin D3) 50 mcg (2,000 unit) capsule (Vitamin D3) 2,000 unit PO DAILY Supplement 07/12/17 [History Last Taken 02/10/22] dicyclomine 10 mg capsule 10 mg PO DAILY PRN ibs 11/21/21 [History Last Taken 02/10/22] allopurinol 100 mg tablet 200 mg PO DAILY gout 12/22/21 [History Last Taken 02/10/22] carbidopa 25 mg-levodopa 100 mg tablet 2 tab PO .JUAN PABLO [place]ISISON #240 tabs 02/23/22 [Rx Last Taken Unknown] apixaban 5 mg tablet (Eliquis) 5 mg PO BID ordered by Dr. Ponce for DVT #60 tabs 03/03/22 [Rx Last Taken Unknown] gabapentin 300 mg capsule 300 mg PO QHS Nerve Pain 03/19/22 [History Last Taken Unknown] metoprolol tartrate 100 mg tablet 100 mg PO BID BP 03/19/22 [History Last Taken Unknown] spironolactone 25 mg tablet 25 mg PO DAILY BP 03/19/22 [History Last Taken Unknown] clonidine HCl 0.1 mg tablet 0.1 mg PO DAILY@1200 #0 tabs 04/14/22 [Rx Last Taken Unknown] clonidine HCl 0.2 mg tablet 0.2 mg PO QHS #0 tabs 04/14/22 [Rx Last Taken Unknown] docusate sodium 100 mg capsule 100 mg PO BID #0 caps 04/14/22 [Rx Last Taken Unknown] hydrocortisone 2.5 % topical cream 1 applic topical TID PRN PRN RASH/TOPICAL IRRITATION #0 grams 04/14/22 [Rx Last Taken Unknown] losartan 100 mg tablet 100 mg PO DAILY #0 tabs 04/14/22 [Rx Last Taken Unknown] loratadine 10 mg tablet 10 mg PO DAILY 05/08/22 [History Last Taken Unknown] omeprazole 20 mg tablet,delayed release 20 mg PO DAILY 05/08/22 [History Last Taken Unknown] Allergy/AdvReac Type Severity Reaction Status Date / Time No Known Allergies Allergy Verified 03/19/22 11:45 Family History Father Myocardial infarction, Onset Age: 62 Brother Skin cancer Other Arthritis Heart disease Hypertension Thyroid disorder Surgical History Anal fissure History of ear surgery History of right breast biopsy (~02/2021) History of tonsillectomy Mohs defect (11/26/16) S/P carpal tunnel release S/P Mohs surgery for basal cell carcinoma Status post bilateral knee replacements Social History household members: none and other details: number of children: 1 current occupational status: retired Smoking Status: Never smoker alcohol intake: never substance use type: does not use caffeine: Yes eating out: other details: daily what type of physical activity do you participate in: none ROS ROS ED ROS Narrative Past medical history: Reviewed, it is quite extensive I reviewed it and his detention paperwork as well as in [employer] includesheart failure with preserved ejection fraction, carotid artery disease, hypertension, thromboembolic disease with DVT/PE, thrombocytopenia, chronic renal insufficiency, TIA, and Parkinson's disease Medications: Reviewed Social history: [facility] patient Review of systems: All systems negative except as indicated General: No fever. He feels lightheaded when he stands up Eyes: No visual changes ENT: No upper airway congestion, normal voice Neck: No neck pain Cardiovascular: No chest pain, he does not feel any palpitations even when his heart rate is at 150 on the monitor Respiratory: No shortness of breath or cough Gastrointestinal: No abdominal pain, nausea vomiting or diarrhea Genitourinary: No dysuria Musculoskeletal: Denies myalgias. No extremity injury from the fall. Skin: No rash Neurological: No memory loss, confusion or any focal weakness Psych: No recent behavioral changes Hematologic: Easy bruising and bleeding secondary to Eliquis EXAM Physical Exam Narrative Exam Narrative: Physical exam General: Patient appears chronically ill he does not appear in distress Head: Normocephalic, Atraumatic Eyes: Conjunctiva not pale ENT: Moist mucous membranes Neck: Supple, Nontender, No lymphadenopathy Cardiovascular: Irregular tachycardia no obvious murmur. I cannot appreciate a JVD. Respiratory: No distress, CTA bilaterally Abdomen: Soft, Nontender, Nondistended Back: Nontender, Normal Inspection. Negative for: CVA tenderness Extremities: Multiple contusions and hematomas on both arms likely secondary to Xarelto. Skin: As above Neurological: Alert, Normal Strength, Normal Sensation Psychological: Normal affect Const Vital Signs: 05/08/22 04:54 05/08/22 04:54 05/08/22 05:18 Temperature 97.8 F Temperature Source Temporal Pulse Rate 146 H 114 H Respiratory Rate 23 H 24 H Blood Pressure 190/102 H 134/75 H Blood Pressure Mean 131 94 Pulse Ox 99 Oxygen Delivery Method Room Air MDM MDM MDM Narrative Medical decision making narrative: Patient is in A. fib with RVR. I did believe it was reasonable to cardiovert him however I was unsuccessful. He is hypokalemic which may contribute to the reason why he would not be cardioverted, he may need more time I will replace his potassium. He also may have been in A. fib for quite some time especially that his troponin is slightly elevated which indicates to me heart strain. I will admit him. I will start him on a Cardizem drip and give him a bolus. Lab Data Labs: Laboratory Results - last 24 hr 05/08/22 05/08/22 05:03 05:03 WBC 7.9 RBC 5.01 Hgb 16.8 H Hct 48.1 MCV 96.0 H MCH 33.5 H MCHC 34.9 RDW Std Deviation 47.6 H RDW Coeff of Naomie 13.6 Plt Count 80 L MPV 12.6 H Immature Gran % (Auto) 1.000 H Neut % (Auto) 82.9 H Lymph % (Auto) 12.1 L [place] % (Auto) 3.5 Eos % (Auto) 0.1 Baso % (Auto) 0.4 Absolute Neuts (auto) 6.6 Absolute Lymphs (auto) 0.96 Nucleated RBC % 0 Sodium 140 Potassium 2.9 L Chloride 105 Carbon Dioxide 17.0 L Anion Gap 18 H BUN 30 H Creatinine 1.79 H Estim Creat Clear Calc 30.54 Est GFR (MDRD) Af Amer 48 L Est GFR (MDRD) Non-Af 39 L BUN/Creatinine Ratio 16.8 Glucose 327 H Calcium 9.6 Magnesium 2.0 Troponin I High Sens 89 H TSH 2.33 EKG Initial EKG: Comments: Atrial fibrillation with a rate of 150. QTC is slightly prolonged at 556. Right bundle branch block pattern is recognized. This is not changed from prior other than the rhythm he is now in A. fib Interpreted by emergency Dr. Procedures Other Procedures Procedure(s): 1. Cardioversion 2. Procedural sedation Indication: Atrial fibrillation Patient had been cardioverted in January and no successful cardioversion, he has been taken his Eliquis therefore I believe that is a reasonable attempt in the ED to attempt to cardiovert him. He has been n.p.o. for about 12 hours, he has moderate systemic disease, has Mallampati was 2. I used a total of 100 mg of propofol and achieved adequate sedation. Afterwards 200 J of electricity were administered via synchronized cardioversion, this did not convert him, I switched to 300 J of synchronized cardioversion and again this did not cardiovert him. Patient woke up and is now back to baseline from his sedation. Critical Care Time Critical care time (excluding procedures): 30-74 minutes and - (Critical care time is 30 minutes. Patient has A. fib with RVR, his heart rate is quite elevated multiple attempts were made to decrease to heart rate and cardiovert, I discussed with consultants and documented.) Discharge Plan Triage Chief Complaint: Palpitations ED Provider: Michael Bhat Dx/Rx/DC Orders Clinical Impression: Atrial fibrillation with RVR, Acute hypokalemia, Fall, Dizziness Prescriptions: No Action Eliquis 5 mg tablet 5 mg PO BID Qty: 60 3RF carbidopa-levodopa 25-100 mg tablet 2 tab PO .QID Qty: 240 4RF dicyclomine 10 mg capsule 10 mg PO DAILY PRN (Reason: ibs) terazosin 10 MG capsule 10 mg PO DAILY finasteride 5 MG tablet 5 mg PO DAILY cholecalciferol (vitamin D3) [Vitamin D3] 2,000 UNIT capsule 2,000 unit PO DAILY allopurinol 100 mg tablet 200 mg PO DAILY gabapentin 300 mg Capsule 300 mg PO QHS metoprolol tartrate 100 mg tablet 100 mg PO BID spironolactone 25 mg tablet 25 mg PO DAILY clonidine HCl 0.1 mg Tablet 0.1 mg PO DAILY@1200 Qty: 0 0RF clonidine HCl 0.2 mg Tablet 0.2 mg PO QHS Qty: 0 0RF docusate sodium 100 mg Capsule 100 mg PO BID Qty: 0 0RF hydrocortisone 2.5 % Cream 1 applic topical TID PRN PRN (Reason: RASH/TOPICAL IRRITATION) Qty: 0 0RF Protocol: *Topical Application Instructions APPLICATION INSTRUCTIONS: Right inner foot. losartan 100 mg Tablet 100 mg PO DAILY Qty: 0 0RF loratadine 10 mg Tablet 10 mg PO DAILY omeprazole 20 mg Tablet,Delayed Release (Dr/Ec) 20 mg PO DAILY Primary Care Provider: Michael Rodriguez Referrals: Brad Forrest DO [Med Staff - Electronic Bench Technician] - Disposition Disposition: Acute Care [facility]
[2022-05-08] MEDS: Aspirin 81 MG TAB.CHEW 324 MG PO (05:06)
[2022-05-08] MEDS: dilTIAZem 25 MG/5 ML Vial 20 MG IV BOLUS ×3 (05:07→22:32)
[2022-05-08 05:09] LABS: Absolute Lymphocyte Count 0.96 X10^3/uL (0.83-4.51); Absolute Neutrophil Count 6.6 X10^3/uL (2.0-7.7); Basophil# 0.03 X10^3/uL; Basophil% 0.4 % (0-1); Eosinophil# 0.01 X10^3/uL; Eosinophils% 0.1 % (0-5); Hematocrit 48.1 % (40-54); Hemoglobin 16.8 g/dL (13.0-16.5); Lymphocyte # 0.96 X10^3/ul (0.83-4.51); Lymphocyte % 12.1 % (19-41); Mean Corp Hgb Conc 34.9 g/dL (32-36); Mean Corpuscular Hgb 33.5 pg (27.0-32.0); Mean Platelet Vol. 12.6 fl (6.2-12.0); Monocyte# 0.28 X10^3/uL; Monocyte% 3.5 % (0-10); NRBC Flagged by Analyzer 0 % (0-5); Neutrophil # 6.56 X10^3/uL (2.7-7.7); Neutrophil % 82.9 % (47-70); POSITIVE COUNT YES; Platelet Count 80 K/mm3 (150-450); RBC Distribution Width CV 13.6 % (11.6-14.6); RBC Distribution Width SD 47.6 fl (35.1-43.9); Red Blood Count 5.01 M/mm3 (4.6-6.2); White Blood Count 7.9 K/mm3 (4.4-11.0)
--- NOTE | 2022-05-08 05:24 | RAD_ITS ---
STUDY: X-RAY CHEST REASON FOR EXAM: Male, 76 years old. chest pain TECHNIQUE: Single AP portable view of the chest. COMPARISON: 12/22/2021 FINDINGS: The lungs are underexpanded. There is no demonstrated pleural abnormality. Normal size heart. Normal mediastinum and jose. Normal visualized pulmonary arteries. Normal visualized aortic arch and descending thoracic aorta. Normal visualized thoracic spine. There is degenerative osteoarthritis of the bilateral shoulders. There is no demonstrated abnormality of the visualized soft tissue structures of the upper abdomen. RAD/Chest 1 View (Portable) IMPRESSION: Degenerative changes, as described above. No demonstrated acute cardiopulmonary process. Electronically Signed: Isaiah Hall MD at 6:19 EST ,
[2022-05-08 05:38] LABS: Anion Gap 18 (5-15); BUN 30 mg/dL (7-18); BUN/Creat Ratio 16.8 RATIO (10-20); Calcium,Total 9.6 mg/dL (8.5-10.1); Chloride 105 mmol/L (98-107); Creatinine, Serum 1.79 mg/dL (0.70-1.30); EST Glomerular Filtration Rate 39 mL/min (>60); Est Glom Filt Rate - Afr Amer 48 mL/min (>60); Estimated Creatinine Clearance 30.54 ml/min; Glucose 327 mg/dL (74-106); Potassium 2.9 mmol/L (3.5-5.1); Sodium Level 140 mmol/L (136-145); Thyroid Stim Hormone (TSH) 2.33 uIU/mL (0.358-3.74); Troponin-I HS 89 pg/mL (3.0-78.0)
[2022-05-08] MEDS: Propofol 200 MG/20 ML Vial 60 MG IV BOLUS (05:42)
--- NOTE | 2022-05-08 06:09 | PCM.HP.STD ---
HPI - General General Date of Admission: 05/08/22 Date of Service: 05/08/22 Chief Complaint: Dizziness, fall, palpitations, racing heart. HPI Narrative The patient is a 76 y/o M w/ PMHx: Chronic thrombocytopenia, Diastolic CHF, GERD, BPH, HTN, HLD, Hx VTE, Monoclonal gammopathy, Parkinson's disease, NICOLASA, CAD, CKD stage II, Rheumatoid arthritis who presents to the [facility] ED on 05/08/22 with history of fall the evening prior with onset of dizziness with no specific trauma with the fall however persistent dizziness with palpitations and racing heart with rate in the 140s to 150s eventually transition to the ED for evaluation with similar history with cardioversion required in January prompting eventual ED evaluation. Patient denies any recent increased lower extremity edema, weight gain orthopnea or dyspnea. Work-up in the ED included T97.8, heart rate initially 146 with most recent repeat 141, BP 126/82, respiratory rate 20, 99% on 2 L nasal cannula, CBC with WC 7.9, hemoglobin 16.8, platelet 80 with increased immature granulocytes, BMP potassium 2.9, carbon oxide 17, anion gap 18, BUN/creatinine 30/1.79, glucose 327, troponin 89, magnesium 2, TSH 2.33, CXR no acute cardiopulmonary findings, EKG with atrial fibrillation with RVR. In the ED cardioversion attempted given patient's anticoagulant status but unfortunately was unsuccessful therefore per discussion with ED physician planned start on Cardizem as responded to bolus; however, BP low, attributed to cardioversion sedation, awaiting it to lessen with then planned Cardizem. Given elevated BS and mild AG elevation per discussion with ED physician UA and acetone requested. [facility] Medical History Adequate anticoagulation on anticoagulant therapy Arthritis Atherosclerosis of both carotid arteries Atrial fibrillation B12 deficiency BPH (benign prostatic hyperplasia) Bradycardia Breast mass in male Carpal tunnel syndrome Chronic a-fib Chronic anticoagulation Chronic hypokalemia CKD (chronic kidney disease) Compression fracture of L2 Contusion of flank COVID CPAP (continuous positive airway pressure) dependence Essential hypertension Facial basal cell cancer Gastroesophageal reflux disease GERD (gastroesophageal reflux disease) History of pneumonia HTN (hypertension) Hypertension Hyperuricemia Hypokalemia Hypokalemia IBS (irritable bowel syndrome) IFG (impaired fasting glucose) Inflammatory arthritis (~2017) Kidney disease Migraine Nephrosclerosis Parkinsons disease Paroxysmal atrial fibrillation Proteinuria Renal insufficiency Rheumatoid arthritis Sleep apnea Splenomegaly Stroke (~07/2021) Thrombocythemia Venous stasis dermatitis Wears hearing aid in both ears Home Medications finasteride 5 mg tablet 5 mg PO DAILY BPH 01/11/17 [History Last Taken 02/10/22] terazosin 10 mg capsule 10 mg PO DAILY prostate 01/11/17 [History Last Taken 02/10/22] cholecalciferol (vitamin D3) 50 mcg (2,000 unit) capsule (Vitamin D3) 2,000 unit PO DAILY Supplement 07/12/17 [History Last Taken 02/10/22] dicyclomine 10 mg capsule 10 mg PO DAILY PRN ibs 11/21/21 [History Last Taken 02/10/22] allopurinol 100 mg tablet 200 mg PO DAILY gout 12/22/21 [History Last Taken 02/10/22] carbidopa 25 mg-levodopa 100 mg tablet 2 tab PO .QID HERIBERTOISON #240 tabs 02/23/22 [Rx Last Taken Unknown] apixaban 5 mg tablet (Eliquis) 5 mg PO BID ordered by Dr. Ponce for DVT #60 tabs 03/03/22 [Rx Last Taken Unknown] gabapentin 300 mg capsule 300 mg PO QHS Nerve Pain 03/19/22 [History Last Taken Unknown] metoprolol tartrate 100 mg tablet 100 mg PO BID BP 03/19/22 [History Last Taken Unknown] spironolactone 25 mg tablet 25 mg PO DAILY BP 03/19/22 [History Last Taken Unknown] clonidine HCl 0.1 mg tablet 0.1 mg PO DAILY@1200 #0 tabs 04/14/22 [Rx Last Taken Unknown] clonidine HCl 0.2 mg tablet 0.2 mg PO QHS #0 tabs 04/14/22 [Rx Last Taken Unknown] docusate sodium 100 mg capsule 100 mg PO BID #0 caps 04/14/22 [Rx Last Taken Unknown] hydrocortisone 2.5 % topical cream 1 applic topical TID PRN PRN RASH/TOPICAL IRRITATION #0 grams 04/14/22 [Rx Last Taken Unknown] losartan 100 mg tablet 100 mg PO DAILY #0 tabs 04/14/22 [Rx Last Taken Unknown] loratadine 10 mg tablet 10 mg PO DAILY 05/08/22 [History Last Taken Unknown] omeprazole 20 mg tablet,delayed release 20 mg PO DAILY 05/08/22 [History Last Taken Unknown] Allergy/AdvReac Type Severity Reaction Status Date / Time No Known Allergies Allergy Verified 03/19/22 11:45 Family History Father Myocardial infarction, Onset Age: 62 Brother Skin cancer Other Arthritis Heart disease Hypertension Thyroid disorder Surgical History Anal fissure History of ear surgery History of right breast biopsy (~02/2021) History of tonsillectomy Mohs defect (11/26/16) S/P carpal tunnel release S/P Mohs surgery for basal cell carcinoma Status post bilateral knee replacements Social History household members: none and other details: number of children: 1 current occupational status: retired Smoking Status: Never smoker alcohol intake: never substance use type: does not use caffeine: Yes eating out: other details: daily what type of physical activity do you participate in: none ROS ROS Narrative Admission Review of Systems: CONSTITUTIONAL: No weight loss, fever, chills, + weakness or fatigue. HEENT: Eyes: No visual loss, blurred vision, double vision or yellow sclerae. Ears, Nose, Throat: No hearing loss, sneezing, congestion, runny nose or sore throat. SKIN: No rash or itching, lesions, wounds. CARDIOVASCULAR: + Lightheadedness, dizziness, palpitations/racing heart, chronic edema, chronic venous stasis disease. No chest pain, chest pressure or chest discomfort, orthopnea, syncopal events. RESPIRATORY: No shortness of breath, cough or sputum, wheezing, hemoptysis. GASTROINTESTINAL: No anorexia, nausea, vomiting or diarrhea, abdominal pain, melena, BRBPR. GENITOURINARY: No dysuria, frequency, urgency or retention. NEUROLOGICAL: + Parkinson's disease with tremor/gait disturbance history, current dizziness/lightheadedness. No headache, syncope, paralysis, ataxia, numbness or tingling in the extremities, focal weakness, change in bowel or bladder control, seizure. MUSCULOSKELETAL: + muscle, back pain, joint pain or stiffness. HEMATOLOGIC: + easy bleeding or bruising. LYMPHATICS: No enlarged nodes. No history of splenectomy. PSYCHIATRIC: No history of depression or anxiety. ENDOCRINOLOGIC: No reports of sweating, cold or heat intolerance. No polyuria or polydipsia. ALLERGIES: + history of rhinitis. Vital Signs Vital Signs Vital Signs: 05/08/22 04:54 05/08/22 04:54 05/08/22 05:18 Temperature 97.8 F Temperature Source Temporal Pulse Rate 146 H 114 H Pulse Rate [1 (Initial Baseline)] Pulse Rate [2] Pulse Rate [3] Respiratory Rate 23 H 24 H Respiratory Rate [1 (Initial Baseline)] Respiratory Rate [2] Respiratory Rate [3] Blood Pressure 190/102 H 134/75 H Blood Pressure [1 (Initial Baseline)] Blood Pressure [2] Blood Pressure [3] Blood Pressure Mean 131 94 Pulse Ox 99 Oxygen Delivery Method Room Air Oxygen Delivery Method [1 (Initial Baseline)] Oxygen Delivery Method [2] Oxygen Delivery Method [3] Oxygen Flow Rate (L/min) Oxygen Flow Rate (L/min) [1 (Initial Baseline)] Oxygen Flow Rate (L/min) [2] Fraction of Inspired Oxygen (FIO2) [2] Fraction of Inspired Oxygen (FIO2) [3] 05/08/22 05:42 05/08/22 05:51 05/08/22 05:48 Temperature Temperature Source Pulse Rate 141 H Pulse Rate [1 (Initial Baseline)] 141 H Pulse Rate [2] 138 H Pulse Rate [3] 153 H Respiratory Rate 20 H Respiratory Rate [1 (Initial Baseline)] 20 H Respiratory Rate [2] 20 H Respiratory Rate [3] 18 Blood Pressure 126/82 H Blood Pressure [1 (Initial Baseline)] 126/83 H Blood Pressure [2] 124/60 H Blood Pressure [3] 145/112 H Blood Pressure Mean Pulse Ox 99 Oxygen Delivery Method Nasal Cannula Nasal Cannula Oxygen Delivery Method [1 (Initial Baseline)] Nasal Cannula Oxygen Delivery Method [2] Nasal Cannula Oxygen Delivery Method [3] Nasal Cannula Oxygen Flow Rate (L/min) 2 2 Oxygen Flow Rate (L/min) [1 (Initial Baseline)] 2 Oxygen Flow Rate (L/min) [2] 20 Fraction of Inspired Oxygen (FIO2) [2] 2 Fraction of Inspired Oxygen (FIO2) [3] 2 05/08/22 05:53 05/08/22 05:58 Temperature Temperature Source Pulse Rate Pulse Rate [1 (Initial Baseline)] Pulse Rate [2] Pulse Rate [3] Respiratory Rate Respiratory Rate [1 (Initial Baseline)] Respiratory Rate [2] Respiratory Rate [3] Blood Pressure Blood Pressure [1 (Initial Baseline)] Blood Pressure [2] Blood Pressure [3] Blood Pressure Mean Pulse Ox Oxygen Delivery Method Nasal Cannula Nasal Cannula Oxygen Delivery Method [1 (Initial Baseline)] Oxygen Delivery Method [2] Oxygen Delivery Method [3] Oxygen Flow Rate (L/min) Oxygen Flow Rate (L/min) [1 (Initial Baseline)] Oxygen Flow Rate (L/min) [2] Fraction of Inspired Oxygen (FIO2) [2] Fraction of Inspired Oxygen (FIO2) [3] Weight Weight: 213 lb 2.992 oz Body Mass Index (BMI) 35.4 Physical Exam Narrative Physical Examination: General: Awake, alert, oriented x 3 and cooperative, seated upright in the ED bed, fatigued. Skin: Normal color, normal turgor, no icterus, no cyanosis except for significant venous stasis disease to bilateral lower extremities, very staged ecchymoses and abrasions. HEENT: AT/NC, EOMI, PERRLA, MMM, no carotid bruits or JVD noted. Lungs: CTA bilaterally, moderate effort, mild decrease BL bases, no rales, ronchi or wheezing. Heart: Irregular irregular; no gallop, rub audible. Abdomen: Soft, obese, NTTP, ND, distant normal BS, no HSM. Extremities: No cyanosis, no clubbing, bilateral lower extremity venous stasis disease, mid siu progressing distally with chronic edema. Neurological: Patient awake, alert, oriented as noted, cognitive function intact; underlying Parkinson's disease, pupils equally reactive to light and accommodation, cranial nerves, grossly normal, moving all 4 extremities, strength moderately to severely global decrease secondary to acute presentation compounded by underlying comorbidities Psychiatric: Affect appears fatigued, no acute evidence of depressive or anxiety feelings. Results Lab / Micro Data Result Diagrams: 05/08/22 05:03 05/08/22 05:03 Labs: Laboratory Results - last 24 hr 05/08/22 05:03: WBC 7.9, RBC 5.01, Hgb 16.8 H, Hct 48.1, MCV 96.0 H, MCH 33.5 H, MCHC 34.9, RDW Std Deviation 47.6 H, RDW Coeff of Naomie 13.6, Plt Count 80 L, MPV 12.6 H, Immature Gran % (Auto) 1.000 H, Neut % (Auto) 82.9 H, Lymph % (Auto) 12.1 L, [place] % (Auto) 3.5, Eos % (Auto) 0.1, Baso % (Auto) 0.4, Absolute Neuts (auto) 6.6, Absolute Lymphs (auto) 0.96, Nucleated RBC % 0 05/08/22 05:03: Sodium 140, Potassium 2.9 L, Chloride 105, Carbon Dioxide 17.0 L, Anion Gap 18 H, BUN 30 H, Creatinine 1.79 H, Estim Creat Clear Calc 30.54, Est GFR (MDRD) Af Amer 48 L, Est GFR (MDRD) Non-Af 39 L, BUN/Creatinine Ratio 16.8, Glucose 327 H, Calcium 9.6, Magnesium 2.0, Troponin I High Sens 89 H, TSH 2.33 Assessment & Plan Assessment/Plan (1) Atrial fibrillation with RVR: PLAN: Plan The patient is a 76 y/o M w/ PMHx: Chronic thrombocytopenia, Diastolic CHF, GERD, BPH, HTN, HLD, Hx VTE, Monoclonal gammopathy, Parkinson's disease, NICOLASA, CAD, CKD stage II, Rheumatoid arthritis who presents to the [facility] ED on 05/08/22 with history of fall the evening prior with onset of dizziness with no specific trauma with the fall however persistent dizziness with palpitations and racing heart with rate in the 140s to 150s eventually transition to the ED for evaluation with similar history with cardioversion required in January prompting eventual ED evaluation. #1. Dizziness, fall suspected secondary to Paroxsymal atrial fibrillation with RVR with associated #2: EKG in ED w/ atrial fibrillation w/ RVR. Patient administered cardizem bolus and drip being attempted in the ED; however, BP had been notably low following cardioversion sedation and cardizem bolus, awaiting to see if will continue versus consideration amiodarone/digoxin needs. Patient did have cardioversion 01/2022. Will admit to PCU, maintain on telemetry, obtain cardiac enzyme serial set, obtain magnesium level, most recent echocardiogram noted 08/11/2021 with EF 65%, moderate concentric LVH, moderately enlarged LA, mildly enlarged RA, mild MVI, mild to moderate TVI, trivial PVI, borderline enlarged aortic root, RVSP 27 mmHg and given greater than 6 months of acute presentation we will request repeat to be cautious, mag and TSH level. Cardiology consulted with notification to Dr. Allison. #2. Indeterminate cardiac enzyme likely secondary to acute presentation #1: EKG in ED with atrial fibrillation with RVR as noted, CXR w/ no acute cardiopulmonary findings, initial trop 89. Will place on a monitored bed to assure no acute myocardial infarction with serial cardiac enzymes and EKGs. Magnesium level normal. FLP in AM. Echocardiogram requested. ASA, NG, morphine. #3. Hyperglycemia with elevated anion gap, questionable DKA: Urinalysis requested, acetone requested, hemoglobin A1c requested and if findings are consistent with DKA will initiate DKA regimen. #4. Hypokalemia: Admission K+ 2.9, magnesium level normal as noted, supplementation given, repeat level in AM. #5. Acute Renal Insufficiency on Chronic Kidney Disease Stage II: Admission BUN/Cr 30/1.79, baseline renal function primarily 1.1-1.2, repeat BMP in AM, will judiciously hydrate underlying diastolic CHF history. #6. Hypertension: Patient with significantly lower blood pressure in the ED upon initial evaluation secondary to recent sedation for cardioversion attempt, slowly improving, will temporarily hold hypertensive regimen as preference to initiate on Cardizem drip if able, resume hypertensive regimen once able especially clonidine to avoid rebound hypertension, as needed IV hydralazine. #7. Chronic diastolic CHF: We will continue aspirin, Eliquis, not on statin therapy with FLP pending, holding hypertensive regimen given hypotension in the ED associated with likely cardioversion sedation, once improved we will reinitiate as BP allows given planned trial of Cardizem drip. Echocardiogram as noted above most recently 08/19. #8. Hyperlipidemia: Not on statin therapy, FLP requested. #9. Parkinson's disease: Complicates presentation, maintain on fall precautions, PT and OT assessments requested as well as case management, continue Sinemet regimen. #10. Chronic thrombocytopenia: Admission platelets 80, baseline appears 60-70, stable, continue to trend. #11. Gout: We will continue patient home allopurinol regimen. #12. BPH: We will can the patient home finasteride and terazosin regimen. #13. GERD: We will continue patient home omeprazole regimen. #14. History of VTE: Patient with history of DVT, PE, continue Eliquis home regimen. #15. Allergic rhinitis: We will continue patient home writing regimen. #16. Rheumatoid arthritis: Noted in chart history, not on any chronic meds but had previously been on methotrexate which has since been discontinued, encourage continued outpatient follow-up with rheumatology. #17. Monoclonal gammopathy: Following w/ Dr. Ponce, most recent visit noted 03/03/2022 with planned continued M spike monitoring and observation. #18. NICOLASA: CPAP nightly. #19. DVT prophylaxis: SCDs, continue patient home Eliquis regimen. #20. CODE status: DNR-CCA, no intubation per facility paperwork, confirmed. Charges/Coding Visit Charges Inpatient E&M: 49047 Init Hosp L3
[2022-05-08 06:44] LABS: Hemoglobin A1c 5.2 % (3.8-5.6)
--- NOTE | 2022-05-08 07:04 | ED.RN ---
[id number] PT HAD ONE HEARING AID, HE STATED HIS GLASSES AND THE OTHER HEARING AID AR AT THE AVENUE.PCU STAFF AWARE.
--- NOTE | 2022-05-08 07:05 | ECHOCS_ITS ---
Version 2 Reason For Study: Afib/Flutter Procedure This was a 2D Doppler, Color Flow transthoracic echocardiogram. Technically difficult study due to heart rate and patient positioning. Echo done with patient sitting upright due to nausea and SOB. Contrast injection was performed. Exam performed portable in patient room. Left Ventricle Normal LV size. Mild concentric left ventricular hypertrophy. Left ventricular systolic function is normal. The estimated ejection fraction is 60 %. No regional wall motion abnormalities noted. Right Ventricle Normal RV size. Normal systolic function. Aortic Valve Trisinus/trileaflet aortic valve. Mild focal aortic valve calcification. Great Vessels Normal aortic root. The pulmonary is not well visualized. Pericardium/Pleural No pericardial effusion. Medication Diluted definity 1.5ml given slow IV push to enhance endocardial definition. MMode/2D Measurements & Calculations LVOT diam: 2.0 cm Ao root diam: 3.9 cm LAV(MOD-sp2): 80.5 ml LA dimension: 5.3 cm LVOT area: 3.1 cm2 Aortic Valve Planimetry: 3.5 cm2 Doppler Measurements & Calculations MV E max noelle: 91.3 cm/sec Ao V2 max: 211.0 cm/sec PA V2 max: 117.2 cm/sec Ao max P.8 mmHg TR max noelle: 241.9 cm/sec TR max P.5 mmHg ECHO/Echo Complete W/ Contrast Interpretation Summary Normal LV size. Mild concentric left ventricular hypertrophy. Left ventricular systolic function is normal. The estimated ejection fraction is 60 %. Contrast injection was performed. Ordering Physician: Liliana Wilson Referring Physician: Michael Rodriguez Performed By: Jerod Brar RCS
[2022-05-08] MEDS: Ondansetron 4 MG/2 ML Vial IV ×2 (07:34→17:55)
[2022-05-08 07:42] LABS: Troponin-I HS 158 pg/mL (3.0-78.0)
[2022-05-08] MEDS: Docusate Sodium 100 MG Capsule PO ×2 (09:17→21:47)
[2022-05-08] MEDS: Finasteride 5 MG Tablet PO (09:17)
[2022-05-08] MEDS: Potassium Chloride Oral Tablet 20 MEQ 40 MEQ PO (09:17)
[2022-05-08] MEDS: Doxazosin 4 MG Tablet 8 MG PO (09:17)
[2022-05-08] MEDS: Allopurinol 100 MG Tablet 200 MG PO (09:18)
[2022-05-08] MEDS: Carbidopa/Levodopa 25/100 Tablet PO ×4 (09:18→21:48)
[2022-05-08] MEDS: Loratadine 10 MG Tablet PO (09:18)
[2022-05-08] MEDS: Pantoprazole Sodium 20 MG Tablet PO (09:18)
[2022-05-08] MEDS: APIXABAN 5 MG TABLET PO ×2 (09:18→21:48)
--- NOTE | 2022-05-08 10:33 | CASEMGMT ---
Discharge Emt B This teletypewriter installer sent a patient update to Negin at the [place]. Hay BARR Esthetician
[2022-05-08] MEDS: 0.9% Normal Saline 1,000 ML 75 ML IV (11:07)
[2022-05-08] MEDS: Metoprolol Tartrate 100 MG Tablet PO ×2 (11:08→21:47)
[2022-05-08 11:27] LABS: Troponin-I HS 263 pg/mL (3.0-78.0)
--- NOTE | 2022-05-08 14:30 | PCM.CONS.C ---
Assessment & Plan Assessment/Plan (1) Atrial fibrillation with RVR: PLAN: Patient is already on Eliquis, metoprolol. He is on IV Cardizem at this time. We will add p.o. Cardizem at 60 mg p.o. every 6 hours and decrease the IV Cardizem to 5 mg/h. Hopefully will be able to wean him off the IV Cardizem tomorrow. We will likely need to increase the p.o. Cardizem before we are able to wean him off the IV. EF was preserved by echo earlier this year. HPI Consult Data Date of Consult: 05/08/22 HPI Narrative Reason for Consultation: A. fib with RVR HPI Narrative: ANTONIO MARADIAGA, is a 76 M who presents with dizziness and was found to have A. fib with RVR. Patient has multiple medical problems. Cardioversion was attempted in the emergency room but was unsuccessful. He is currently on IV Cardizem at 15 mg/h. He denies any cardiac complaints at this time. He is not a very good historian. Review of systems: Patient is unable/unwilling to participate in review of systems. [facility] Medical History Adequate anticoagulation on anticoagulant therapy Arthritis Atherosclerosis of both carotid arteries Atrial fibrillation B12 deficiency BPH (benign prostatic hyperplasia) Bradycardia Breast mass in male Carpal tunnel syndrome Chronic a-fib Chronic anticoagulation Chronic hypokalemia CKD (chronic kidney disease) Compression fracture of L2 Contusion of flank COVID CPAP (continuous positive airway pressure) dependence Essential hypertension Facial basal cell cancer Gastroesophageal reflux disease GERD (gastroesophageal reflux disease) History of pneumonia HTN (hypertension) Hypertension Hyperuricemia Hypokalemia Hypokalemia IBS (irritable bowel syndrome) IFG (impaired fasting glucose) Inflammatory arthritis (~2016) Kidney disease Migraine Nephrosclerosis Parkinsons disease Paroxysmal atrial fibrillation Proteinuria Renal insufficiency Rheumatoid arthritis Sleep apnea Splenomegaly Stroke (~07/2021) Thrombocythemia Venous stasis dermatitis Wears hearing aid in both ears Home Medications finasteride 5 mg tablet 5 mg PO DAILY BPH 01/11/17 [History Last Taken 02/10/22] terazosin 10 mg capsule 10 mg PO DAILY prostate 01/11/17 [History Last Taken 02/10/22] cholecalciferol (vitamin D3) 50 mcg (2,000 unit) capsule (Vitamin D3) 2,000 unit PO DAILY Supplement 07/12/17 [History Last Taken 02/10/22] dicyclomine 10 mg capsule 10 mg PO DAILY PRN ibs 11/21/21 [History Last Taken 02/10/22] allopurinol 100 mg tablet 200 mg PO DAILY gout 12/22/21 [History Last Taken 02/10/22] carbidopa 25 mg-levodopa 100 mg tablet 2 tab PO .QID PARKISON #240 tabs 02/23/22 [Rx Last Taken Unknown] apixaban 5 mg tablet (Eliquis) 5 mg PO BID ordered by Dr. Ponce for DVT #60 tabs 03/03/22 [Rx Last Taken Unknown] gabapentin 300 mg capsule 300 mg PO QHS Nerve Pain 03/19/22 [History Last Taken Unknown] metoprolol tartrate 100 mg tablet 100 mg PO BID BP 03/19/22 [History Last Taken Unknown] spironolactone 25 mg tablet 25 mg PO DAILY BP 03/19/22 [History Last Taken Unknown] clonidine HCl 0.1 mg tablet 0.1 mg PO DAILY@1200 #0 tabs 04/14/22 [Rx Last Taken Unknown] clonidine HCl 0.2 mg tablet 0.2 mg PO QHS #0 tabs 04/14/22 [Rx Last Taken Unknown] docusate sodium 100 mg capsule 100 mg PO BID #0 caps 04/14/22 [Rx Last Taken Unknown] hydrocortisone 2.5 % topical cream 1 applic topical TID PRN PRN RASH/TOPICAL IRRITATION #0 grams 04/14/22 [Rx Last Taken Unknown] losartan 100 mg tablet 100 mg PO DAILY #0 tabs 04/14/22 [Rx Last Taken Unknown] loratadine 10 mg tablet 10 mg PO DAILY 05/08/22 [History Last Taken Unknown] omeprazole 20 mg tablet,delayed release 20 mg PO DAILY 05/08/22 [History Last Taken Unknown] Allergy/AdvReac Type Severity Reaction Status Date / Time No Known Allergies Allergy Verified 03/19/22 11:45 Family History Father Myocardial infarction, Onset Age: 62 Brother Skin cancer Other Arthritis Heart disease Hypertension Thyroid disorder Surgical History Anal fissure History of ear surgery History of right breast biopsy (~02/2021) History of tonsillectomy Mohs defect (11/26/16) S/P carpal tunnel release S/P Mohs surgery for basal cell carcinoma Status post bilateral knee replacements Social History household members: none and other details: number of children: 1 current occupational status: retired Smoking Status: Never smoker alcohol intake: never substance use type: does not use caffeine: Yes eating out: other details: daily what type of physical activity do you participate in: none Physical Exam Const alert HEENT normocephalic Eyes no scleral icterus Resp normal respiratory effort Skin no rashes or lesions noted Risk Stratification Risk Stratification Applicable: No Charges/Coding Visit Charges Inpatient E&M: 30786 Init Hosp L2 Objective Data Vital Signs: Vital Signs Temp Pulse Resp BP Pulse Ox O2 Del Method O2 Flow Rate 97.7 F L 86 24 H 123/66 H 96 Nasal Cannula 2 05/08/22 07:07 05/08/22 13:00 05/08/22 11:00 05/08/22 13:00 05/08/22 13:00 05/08/22 13:40 05/08/22 13:40 FiO2 2 05/08/22 05:51 Oxygen Flow Rate (L/min) [2] 20 Oxygen Flow Rate (L/min) [1 ( 2 Initial Baseline)] Oxygen Flow Rate (L/min) 2 Oxygen Delivery Method [3] Nasal Cannula Oxygen Delivery Method [2] Nasal Cannula Oxygen Delivery Method [1 ( Nasal Cannula Initial Baseline)] Oxygen Delivery Method Nasal Cannula Weight: 205 lb 4.006 oz Body Mass Index (BMI) 30.3 Intake & Output: Intake and Output for Last 24 Hours 05/06/22 05/07/22 05/08/22 23:59 23:59 23:59 Intake Total 238.58 / 238.58 Output Total 150 / 150 Balance 88.58 / 88.58 Lab / Micro Data Result Diagrams: 05/08/22 05:03 05/08/22 05:03 Labs: Laboratory Results - last 24 hr 05/08/22 05:03: WBC 7.9, RBC 5.01, Hgb 16.8 H, Hct 48.1, MCV 96.0 H, MCH 33.5 H, MCHC 34.9, RDW Std Deviation 47.6 H, RDW Coeff of Naomie 13.6, Plt Count 80 L, MPV 12.6 H, Immature Gran % (Auto) 1.000 H, Neut % (Auto) 82.9 H, Lymph % (Auto) 12.1 L, [place] % (Auto) 3.5, Eos % (Auto) 0.1, Baso % (Auto) 0.4, Absolute Neuts (auto) 6.6, Absolute Lymphs (auto) 0.96, Nucleated RBC % 0 05/08/22 05:03: Sodium 140, Potassium 2.9 L, Chloride 105, Carbon Dioxide 17.0 L, Anion Gap 18 H, BUN 30 H, Creatinine 1.79 H, Estim Creat Clear Calc 30.54, Est GFR (MDRD) Af Amer 48 L, Est GFR (MDRD) Non-Af 39 L, BUN/Creatinine Ratio 16.8, Glucose 327 H, Calcium 9.6, Magnesium 2.0, Troponin I High Sens 89 H, TSH 2.33 05/08/22 05:03: Acetone Level NEGATIVE 05/08/22 05:03: Hemoglobin A1c 5.2 05/08/22 07:11: Troponin I High Sens 158 H* 05/08/22 10:50: Troponin I High Sens 263 H* Cardiology Labs/Tests 05/08/22 05:03: WBC 7.9, RBC 5.01, Hgb 16.8 H, Hct 48.1, MCV 96.0 H, MCH 33.5 H, MCHC 34.9, Plt Count 80 L, MPV 12.6 H, Immature Gran % (Auto) 1.000 H, Neut % (Auto) 82.9 H, Lymph % (Auto) 12.1 L, [place] % (Auto) 3.5, Eos % (Auto) 0.1, Baso % (Auto) 0.4, Absolute Neuts (auto) 6.6, Nucleated RBC % 0 05/08/22 05:03: Sodium 140, Potassium 2.9 L, Chloride 105, Carbon Dioxide 17.0 L, Anion Gap 18 H, BUN 30 H, Creatinine 1.79 H, Est GFR (MDRD) Af Amer 48 L, Est GFR (MDRD) Non-Af 39 L, BUN/Creatinine Ratio 16.8, Glucose 327 H, Calcium 9.6, Magnesium 2.0 05/08/22 05:03: Hemoglobin A1c 5.2 Rhythm: EKG: ECHO: Stress Test: Cardiac Cath: PCI: CT Surgery: Holter monitor: EPS: PPM: CXR: Chest CT Scan: Radiography Diagnostic Testing: Radiology Impression Chest X-Ray 05/08/22 05:24 IMPRESSION: Degenerative changes, as described above. No demonstrated acute cardiopulmonary process. Electronically Signed: Isaiah Hall MD at 6:19 EST ,
[2022-05-08] MEDS: dilTIAZem 60 MG Tablet PO ×2 (17:48→23:37)
[2022-05-08] MEDS: 0.9% Saline Lock 10 ML Syringe IV ×2 (17:55→22:35)
[2022-05-08 20:02] LABS: Bacteria 0 SEEN /hpf (None Seen); Mucous, Urine 0 SEEN /hpf (<or=2+); Red Blood Cells-Urine 0 SEEN /hpf (0-5)
[2022-05-08 20:06] LABS: Color, Urine Yellow (Yellow); Glucose, Dipstick 250 mg/dl (Normal); Ketone-Dipstick 15 mg/dl (Negative); Leukocyte Esterase-Dipstick 25 /ul (Negative); Nitrite-Dipstick Negative (Negative); Occult Blood-Urine 150 /ul (Negative); Protein-Dipstick 500 mg/dl (Negative); Specific Gravity, Urine 1.025 (1.002-1.030); Urine Bilirubin Dipstick Negative (Negative); Urine Clarity Clear (Clear); Urine Urobilinogen Normal (Normal)
[2022-05-08 20:16] LABS: Amorphous Sediment 2+; Coarse Granular Cast 0-5 SEEN /lpf (0-5 /lpf); Squamous Epithelial Cells - UA 5-10 SEEN /hpf (0-5); White Blood Cells 10-25 SEEN /hpf (0-5)
[2022-05-08] MEDS: Gabapentin 300 MG Capsule PO (22:05)
[2022-05-08] MEDS: proCHLORPERazine 10 MG/2 ML Vial 5 MG IV (23:50)
[2022-05-09] VITALS (37 sets, daily range): BP systolic 91–170; BP diastolic 51–156; PULSE 54–151; RESP 13–123; TEMP 19.9–36.7; O2SAT 93–99
[2022-05-09] MEDS: Acetaminophen 325 MG Tablet 650 MG PO (01:32)
[2022-05-09] MEDS: Digoxin 250 MCG/ML Ampul IV ×2 (02:11→07:04)
[2022-05-09] MEDS: dilTIAZem 60 MG Tablet PO (05:12)
--- NOTE | 2022-05-09 06:19 | PCM.HOSP.N ---
Hospitalist Note Patient with significant atrial fibrillation with RVR ongoing despite continued static drip and recently initiated oral overlapping Cardizem. At this time given ongoing significant elevation will transition to drip titration. Digoxin also initiated x2.
[2022-05-09] MEDS: Metoprolol Tartrate 100 MG Tablet PO ×2 (07:11→21:15)
[2022-05-09 07:14] LABS: Hematocrit 45.9 % (40-54); Hemoglobin 16.3 g/dL (13.0-16.5); Mean Corp Hgb Conc 35.5 g/dL (32-36); Mean Corpuscular Hgb 33.6 pg (27.0-32.0); Mean Corpuscular Volume 94.6 fL (80-94); Mean Platelet Vol. 12.4 fl (6.2-12.0); POSITIVE DIFFERENTIAL YES; POSITIVE MORPHOLOGY YES; Platelet Count 125 K/mm3 (150-450); RBC Distribution Width CV 13.9 % (11.6-14.6); RBC Distribution Width SD 47.9 fl (35.1-43.9); Red Blood Count 4.85 M/mm3 (4.6-6.2)
[2022-05-09 07:46] LABS: ALB/GLOB Ratio 1.1 RATIO (0.9-2.4); AST(SGOT) 44 U/L (15-37); Alanine Aminotransfer ALT/SGPT 11 U/L (16-61); Albumin, Serum 3.6 g/dL (3.2-5.0); Alkaline Phosphatase 103 U/L (45-117); Anion Gap 8 (5-15); BUN 38 mg/dL (7-18); BUN/Creat Ratio 20.3 RATIO (10-20); Calcium,Total 8.9 mg/dL (8.5-10.1); Chloride 110 mmol/L (98-107); Cholesterol 164 mg/dL (200); Creatinine, Serum 1.87 mg/dL (0.70-1.30); EST Glomerular Filtration Rate 37 mL/min (>60); Est Glom Filt Rate - Afr Amer 45 mL/min (>60); Estimated Creatinine Clearance 33.61 ml/min; Globulin 3.4 g/dL (2.2-4.2); Glucose 141 mg/dL (74-106); High Density Lipoprotein 53 mg/dL; Sodium Level 141 mmol/L (136-145); Triglycerides 74 mg/dL; Very Low Density Lipoprotein 15 mg/dL (5-40)
[2022-05-09 07:56] LABS: Differential Indicated MANUAL DIFF
[2022-05-09 08:06] LABS: Lymphocyte 4 % (19-41); Metamyelocyte 3 % (0-1); Monocyte 5 % (0-10); Neutrophil-Band 9 % (0-5); Neutrophil-Segmented 79 % (47-70); Total Cells Counted 100 (MANUAL DIFF)
[2022-05-09 08:07] LABS: Platelet Estimate ADEQUATE (ADEQ)
[2022-05-09 08:08] LABS: Absolute Lymphocyte Count 0.86 X10^3/uL (0.83-4.51); Absolute Neutrophil Count 18.9 X10^3/uL (2.0-7.7)
[2022-05-09 08:09] LABS: Corrected WBC 4.9 K/mm3 (4.4-11.0); POSITIVE COUNT YES; Red Cell Morphology NORM C+C NORMAL (NORM C&C); White Blood Count 21.5 K/mm3 (4.4-11.0)
[2022-05-09] MEDS: Ondansetron 4 MG/2 ML Vial IV (08:28)
[2022-05-09] MEDS: 0.9% Saline Lock 10 ML Syringe IV ×2 (08:29→11:23)
--- NOTE | 2022-05-09 08:58 | PN.CARD_ITS ---
Subjective Subjective Gay seen and evaluated. Rather hard of hearing. Otherwise stable. Has had some heart rate irregularities over the weekend. Objective Data Vital Signs: Vital Signs Temp Pulse Resp BP Pulse Ox O2 Del Method O2 Flow Rate 97.4 F L 109 H 21 H 130/72 H 96 Nasal Cannula 2 05/09/22 08:20 05/09/22 08:20 05/09/22 08:20 05/09/22 08:20 05/09/22 08:20 05/09/22 08:23 05/09/22 08:23 FiO2 2 05/08/22 05:51 Oxygen Flow Rate (L/min) [2] 20 Oxygen Flow Rate (L/min) [1 ( 2 Initial Baseline)] Oxygen Flow Rate (L/min) 2 Oxygen Delivery Method [3] Nasal Cannula Oxygen Delivery Method [2] Nasal Cannula Oxygen Delivery Method [1 ( Nasal Cannula Initial Baseline)] Oxygen Delivery Method Nasal Cannula Weight: 205 lb 7.533 oz Body Mass Index (BMI) 30.3 Intake & Output: Intake and Output for Last 24 Hours 05/07/22 05/08/22 05/09/22 23:59 23:59 23:59 Intake Total 1093.6633 / 1093.6633 1109.00 / 1109.00 Output Total 150 / 350 200 / 200 Balance 943.6633 / 743.6633 909.00 / 909.00 Lab / Micro Data Result Diagrams: 05/09/22 06:48 05/09/22 06:48 Labs: Laboratory Results - last 24 hr 05/08/22 10:50: Troponin I High Sens 263 H* 05/08/22 19:54: Urine Color Yellow, Urine Clarity Clear, Urine pH 5.0, Ur Specific [place] 1.025, Urine Protein 500 H, Urine Glucose (UA) 250 H, Urine Ketones 15 H, Urine Occult Blood 150 H, Urine Nitrite Negative, Urine Bilirubin Negative, Urine Urobilinogen Normal, Ur Leukocyte Esterase 25 H, Urine RBC 0 SEEN, Urine WBC 10-25 SEEN, Ur Squamous Epith Cells 5-10 SEEN, Amorphous Sediment 2+, Urine Bacteria 0 SEEN, Coarse Granular Casts 0-5 SEEN, Urine Mucus 0 SEEN 05/09/22 06:48: WBC 21.5 H, Corrected WBC 4.9, RBC 4.85, Hgb 16.3, Hct 45.9, MCV 94.6 H, MCH 33.6 H, MCHC 35.5, RDW Std Deviation 47.9 H, RDW Coeff of Naomie 13.9, Plt Count 125 L, MPV 12.4 H, Neut % (Auto) Not Reportable, Absolute Neuts (auto) 18.9 H, Absolute Lymphs (auto) 0.86, Total Counted 100, Neutrophils % (Manual) 79 H, Band Neutrophils % 9 H, Lymphocytes % (Manual) 4 L, Monocytes % (Manual) 5, Metamyelocytes % 3 H, Diff Path Review October, Platelet Estimate ADEQUATE, RBC Morphology NORM C+C 05/09/22 06:48: Sodium 141, Potassium 4.0, Chloride 110 H, Carbon Dioxide 23.0, Anion Gap 8, BUN 38 H, Creatinine 1.87 H, Estim Creat Clear Calc 33.61, Est GFR (MDRD) Af Amer 45 L, Est GFR (MDRD) Non-Af 37 L, BUN/Creatinine Ratio 20.3 H, Glucose 141 H, Calcium 8.9, Total Bilirubin 0.60, AST 44 H, ALT 11 L, Alkaline Phosphatase 103, Total Protein 7.0, Albumin 3.6, Globulin 3.4, Albumin/Globulin Ratio 1.1, Triglycerides 74, Cholesterol 164, LDL Cholesterol 96, VLDL Cholesterol 15, HDL Cholesterol 53 Cardiology Labs/Tests 05/08/22 19:54: Urine Color Yellow, Urine Clarity Clear, Urine pH 5.0, Ur Specific [place] 1.025, Urine Protein 500 H, Urine Glucose (UA) 250 H, Urine Ketones 15 H, Urine Occult Blood 150 H, Urine Nitrite Negative, Urine Bilirubin Negative, Urine Urobilinogen Normal, Ur Leukocyte Esterase 25 H, Urine RBC 0 SEEN, Urine WBC 10-25 SEEN 05/09/22 06:48: WBC 21.5 H, Corrected WBC 4.9, RBC 4.85, Hgb 16.3, Hct 45.9, MCV 94.6 H, MCH 33.6 H, MCHC 35.5, Plt Count 125 L, MPV 12.4 H, Neut % (Auto) Not Reportable, Absolute Neuts (auto) 18.9 H, Total Counted 100, Neutrophils % (Manual) 79 H, Band Neutrophils % 9 H, Lymphocytes % (Manual) 4 L, Monocytes % (Manual) 5, Metamyelocytes % 3 H 05/09/22 06:48: Sodium 141, Potassium 4.0, Chloride 110 H, Carbon Dioxide 23.0, Anion Gap 8, BUN 38 H, Creatinine 1.87 H, Est GFR (MDRD) Af Amer 45 L, Est GFR (MDRD) Non-Af 37 L, BUN/Creatinine Ratio 20.3 H, Glucose 141 H, Calcium 8.9, Total Bilirubin 0.60, Triglycerides 74, Cholesterol 164, LDL Cholesterol 96, VLDL Cholesterol 15, HDL Cholesterol 53 Rhythm: EKG: ECHO: Stress Test: Cardiac Cath: PCI: CT Surgery: Holter monitor: EPS: PPM: CXR: Chest CT Scan: Radiography Diagnostic Testing: Radiology Impression Echocardiogram 05/08/22 07:05 Interpretation Summary Normal LV size. Mild concentric left ventricular hypertrophy. Left ventricular systolic function is normal. The estimated ejection fraction is 60 %. Contrast injection was performed. Ordering Physician: Liliana Wilson Referring Physician: Michael Rodriguez Performed By: Jerod Brar RCS Physical Exam Const alert, oriented x3 and no apparent distress General Appearance: cooperative HEENT hearing grossly normal bilaterally Head and Scalp: atraumatic Eyes EOMs intact bilaterally Neck General: normal visual inspection Chest inspection of chest normal and palpation of chest normal Resp normal respiratory effort Auscultation: clear to auscultation bilaterally Cardio S1 normal heart sound and S2 normal heart sound Jugular Venous Distention: JVD Rhythm: abnormal rhythm GI normal to inspection, nondistended, normoactive bowel sounds Extremity normal capillary refill and no pedal edema Peripheral Pulses: Yes pulses 2+ throughout and femoral pulses present Skin no rashes or lesions noted Neuro oriented x3 and CN's II-XII intact bilaterally Psych Appearance: grossly normal and appropriate Assessment & Plan Assessment/Plan (1) Atrial fibrillation with RVR: PLAN: Patient had some ventricular response rates which were high yesterday. Was started on IV diltiazem again. I would recommend the following. Continue p.o. metoprolol Add p.o. long-acting diltiazem. Continue anticoagulation. Start weaning of IV diltiazem. Patient had preserved left ventricular systolic function earlier and would not advocate any further testing at this time. Discussed with hospitalist.
--- NOTE | 2022-05-09 09:19 | CASEMGMT ---
Addendum entered by Pilar Perez 05/09/22 09:27: Social Work SW did also let daughter know that LW/POA are on file but the signatures for the witnesses are not dated. ALEXIS Yip Original Note: Social Work As per ETTA Motta, pt can return to [facility] when ready, no precert is needed. Discharge emergency medicine physician assistant Carmela sent updates. SW spoke w/pt in room in regard to discharge plan. Pt states plans to return to [facility] at discharge. Pt declined list of nursing facilities. Pt reports to not be feeling well, and is also hard of hearing. ETTA called daughter Mary, confirmed w/her plan is to return to [facility], she also declined a list. She states pt is at [facility] under his Medicare. Daughter Mary states that they were considering [facility], and she plans to speak to her father again about this when he is feeling better, if he would like to change to [facility]. Daughter does indicate it is likely pt needs long term care phlebotomist placement in a SNF at this time. ETTA explained will let the ETTA Motta know to follow up w/her Wednesday, to see if they would like a referral sent to [facility]. Otherwise if pt is ready for discharge on the weekend, daughter and pt both agreeable to pt returning to [facility]. SW did explain that since they are thinking pt is going to need long term care phlebotomist placement, [facility] may not be able to take him due to availability. SW suggested to daughter to call [facility] if this is the case and put pt on the wait list. Daughter states understanding. Plan: Return to [facility] at discharge. Green sheet is on the chart. If pt is still here Wednesday, SW will check w/daughter to see if they would like a referral sent to [facility]. ALEXIS Yip
[2022-05-09] MEDS: APIXABAN 5 MG TABLET PO ×2 (09:43→21:16)
[2022-05-09] MEDS: Carbidopa/Levodopa 25/100 Tablet PO ×4 (09:43→21:16)
[2022-05-09] MEDS: Finasteride 5 MG Tablet PO (09:43)
[2022-05-09] MEDS: Docusate Sodium 100 MG Capsule PO ×2 (09:44→21:15)
[2022-05-09] MEDS: Allopurinol 100 MG Tablet 200 MG PO (09:44)
[2022-05-09] MEDS: Aspirin 81 MG TAB.CHEW PO (09:44)
[2022-05-09] MEDS: Loratadine 10 MG Tablet PO (09:45)
[2022-05-09] MEDS: Doxazosin 4 MG Tablet 8 MG PO (09:45)
[2022-05-09] MEDS: Pantoprazole Sodium 20 MG Tablet PO (09:45)
[2022-05-09] MEDS: dilTIAZem CD 120 MG Capsule PO ×2 (09:47→21:16)
--- NOTE | 2022-05-09 10:55 | EKG12_ITS ---
Test Reason : RHYTHM CHANGE Blood Pressure : / mmHG Vent. Rate : 061 BPM Atrial Rate : 061 BPM P-R Int : 144 ms QRS Dur : 148 ms QT Int : 446 ms P-R-T Axes : 026 -30 -30 degrees QTc Int : 448 ms Sinus rhythm with Premature atrial complexes Left axis deviation Right bundle branch block Abnormal ECG Confirmed by LORI RODRÍGUEZ, LACI ([id number]), school photograph editor KENTON MAXWELL ([id number]) on 05/13/2022 1:19:06 PM Referred By: VISHNU Confirmed By:LACI SANDOVAL MD
--- NOTE | 2022-05-09 12:54 | PN.HOSP_ITS ---
Subjective Subjective Doing well, he did develop some more tachycardia this morning so he was put back on his Cardizem drip Objective Data Objective Data Vital Signs: Vital Signs Temp Pulse Resp BP Pulse Ox O2 Del Method O2 Flow Rate 97.4 F L 60 13 98/55 L 98 Nasal Cannula 2 05/09/22 08:20 05/09/22 12:30 05/09/22 12:30 05/09/22 12:30 05/09/22 12:30 05/09/22 12:30 05/09/22 12:30 FiO2 2 05/08/22 05:51 Oxygen Flow Rate (L/min) [2] 20 Oxygen Flow Rate (L/min) [1 ( 2 Initial Baseline)] Oxygen Flow Rate (L/min) 2 Oxygen Delivery Method [3] Nasal Cannula Oxygen Delivery Method [2] Nasal Cannula Oxygen Delivery Method [1 ( Nasal Cannula Initial Baseline)] Oxygen Delivery Method Nasal Cannula Weight: 205 lb 7.533 oz Body Mass Index (BMI) 30.3 Intake & Output: Intake and Output for Last 24 Hours 05/08/22 05/09/22 05/10/22 03:59 03:59 03:59 Intake Total 2114.8333 / 2114.8333 369.50 / 369.50 Output Total 350 / 350 0 / 0 Balance 1764.8333 / 1764.8333 369.50 / 369.50 Lab / Micro Data Result Diagrams: 05/09/22 06:48 05/09/22 06:48 Labs: Laboratory Results - last 24 hr 05/08/22 19:54: Urine Color Yellow, Urine Clarity Clear, Urine pH 5.0, Ur Specific [place] 1.025, Urine Protein 500 H, Urine Glucose (UA) 250 H, Urine Ketones 15 H, Urine Occult Blood 150 H, Urine Nitrite Negative, Urine Bilirubin Negative, Urine Urobilinogen Normal, Ur Leukocyte Esterase 25 H, Urine RBC 0 SEEN, Urine WBC 10-25 SEEN, Ur Squamous Epith Cells 5-10 SEEN, Amorphous Sedi ment 2+, Urine Bacteria 0 SEEN, Coarse Granular Casts 0-5 SEEN, Urine Mucus 0 SEEN 05/09/22 06:48: WBC 21.5 H, Corrected WBC 4.9, RBC 4.85, Hgb 16.3, Hct 45.9, MCV 94.6 H, MCH 33.6 H, MCHC 35.5, RDW Std Deviation 47.9 H, RDW Coeff of Naomie 13.9, Plt Count 125 L, MPV 12.4 H, Neut % (Auto) Not Reportable, Absolute Neuts (auto) 18.9 H, Absolute Lymphs (auto) 0.86, Total Counted 100, Neutrophils % (Manual) 79 H, Band Neutrophils % 9 H, Lymphocytes % (Manual) 4 L, Monocytes % (Manual) 5, Metamyelocytes % 3 H, Diff Path Review October, Platelet Estimate ADEQUATE, RBC Morphology NORM C+C 05/09/22 06:48: Sodium 141, Potassium 4.0, Chloride 110 H, Carbon Dioxide 23.0, Anion Gap 8, BUN 38 H, Creatinine 1.87 H, Estim Creat Clear Calc 33.61, Est GFR (MDRD) Af Amer 45 L, Est GFR (MDRD) Non-Af 37 L, BUN/Creatinine Ratio 20.3 H, Glucose 141 H, Calcium 8.9, Total Bilirubin 0.60, AST 44 H, ALT 11 L, Alkaline Phosphatase 103, Total Protein 7.0, Albumin 3.6, Globulin 3.4, Albumin/Globulin Ratio 1.1, Triglycerides 74, Cholesterol 164, LDL Cholesterol 96, VLDL Cholesterol 15, HDL Cholesterol 53 Radiography Diagnostic Testing: Radiology Impression Echocardiogram 05/08/22 07:05 Interpretation Summary Normal LV size. Mild concentric left ventricular hypertrophy. Left ventricular systolic function is normal. The estimated ejection fraction is 60 %. Contrast injection was performed. Ordering Physician: Liliana Wilson Referring Physician: Michael Rodriguez Performed By: Jerod Brar RCS Physical Exam Narrative General: Alert, Oriented x3, Cooperative, No apparent distress HEENT: Atraumatic, PERRLA, EOMI, Normocephalic, hard of hearing Oral: Moist Mucosa Neck: Supple, No JVD Lungs: Dim?, Normal air movement, No rhonchi, No wheeze, No rales Cardiovascular: Irregular rate and rhythm, Normal S1, Normal S2, No murmurs Abdomen: Soft, Non Tender, Non-Distended, No Hepato-splenomegaly Extremities: No edema, Capillary Refill Less than 3 Seconds Skin: No rashes, No breakdown Musculoskeletal: No Tenderness to Palpation of Joints or Extremities Neurological: Cranial nerves II-XII grossly intact, Motor Exam 5/5 strength throughout, Sensory exam intact to light touch and pain Psych/Mental Status: Flat affect, Appropriate Assessment & Plan Assessment/Plan (1) Atrial fibrillation with RVR: PLAN: Plan 1. Paroxysmal A. fib with RVR/HTN/HLD/elevated troponin secondary to demand f rom his tachycardia/chronic diastolic CHF ? Appreciate cardiology's assistance ? Continue with his metoprolol and his Cardizem drip ? We will make adjustments with blood pressure medications and see if we can add long-acting Cardizem to try to help with his rate control ? Echo was unremarkable from baseline ? Continue with Eliquis 2. Parkinson's disease ? Stable ? Continue with his home Sinemet 3. Chronic thrombocytopenia ? Stable ? We will continue to monitor 4. GERD ? Stable ? Continue with PPI 5. BPH ? Stable ? Continue with his home medications 6. Monoclonal gammopathy/leukocytosis unknown etiology ? Stable ? Continue with outpatient monitoring by oncology ? He does have a white count all of a sudden to 21 no other signs of infection. He is afebrile. We will recheck in the morning. DVT: Eliquis Charges/Coding Visit Charges Inpatient E&M: 20406 Subs Hosp L2
[2022-05-09] MEDS: 0.9% Normal Saline 1,000 ML 75 ML IV (13:43)
[2022-05-09] MEDS: Gabapentin 300 MG Capsule PO (21:15)
[2022-05-10] VITALS (15 sets, daily range): BP systolic 117–134; BP diastolic 64–76; PULSE 51–85; RESP 14–21; TEMP 36.4–36.7; O2SAT 92–95
[2022-05-10] MEDS: 0.9% Normal Saline 1,000 ML 75 ML IV (01:18)
[2022-05-10 06:28] LABS: Absolute Lymphocyte Count 0.75 X10^3/uL (0.83-4.51); Absolute Neutrophil Count 10.5 X10^3/uL (2.0-7.7); Basophil# 0.01 X10^3/uL; Basophil% 0.1 % (0-1); Eosinophil# 0.01 X10^3/uL; Eosinophils% 0.1 % (0-5); Hematocrit 42.5 % (40-54); Hemoglobin 14.5 g/dL (13.0-16.5); Lymphocyte # 0.75 X10^3/ul (0.83-4.51); Lymphocyte % 6.2 % (19-41); Mean Corp Hgb Conc 34.1 g/dL (32-36); Mean Corpuscular Hgb 33.3 pg (27.0-32.0); Mean Corpuscular Volume 97.7 fL (80-94); Mean Platelet Vol. 11.8 fl (6.2-12.0); Monocyte# 0.46 X10^3/uL; Monocyte% 3.8 % (0-10); NRBC Flagged by Analyzer 0 % (0-5); Neutrophil # 10.53 X10^3/uL (2.7-7.7); Neutrophil % 87.6 % (47-70); POSITIVE COUNT YES; Platelet Count 82 K/mm3 (150-450); RBC Distribution Width CV 14.2 % (11.6-14.6); RBC Distribution Width SD 51.2 fl (35.1-43.9); Red Blood Count 4.35 M/mm3 (4.6-6.2)
[2022-05-10 06:32] LABS: Differential Indicated SCAN CRITERIA MET
[2022-05-10 06:58] LABS: Anion Gap 8 (5-15); BUN 53 mg/dL (7-18); BUN/Creat Ratio 21.5 RATIO (10-20); Calcium,Total 8.6 mg/dL (8.5-10.1); Chloride 113 mmol/L (98-107); Creatinine, Serum 2.47 mg/dL (0.70-1.30); EST Glomerular Filtration Rate 27 mL/min (>60); Est Glom Filt Rate - Afr Amer 33 mL/min (>60); Estimated Creatinine Clearance 25.44 ml/min; Glucose 116 mg/dL (74-106); Potassium 4.8 mmol/L (3.5-5.1); Sodium Level 142 mmol/L (136-145)
[2022-05-10 07:05] LABS: Macrocytosis RARE; Platelet Estimate MOD DEC (ADEQ)
--- NOTE | 2022-05-10 07:57 | PN.CARD_ITS ---
Subjective Subjective Patient seen and evaluated. Appears to be doing quite well at this time. Sleeping. Heart rate much better controlled now. Objective Data Vital Signs: Vital Signs Temp Pulse Resp BP Pulse Ox O2 Del Method O2 Flow Rate 97.8 F 58 L 14 117/66 94 Room Air 2 05/10/22 05:16 05/10/22 05:16 05/10/22 05:16 05/10/22 05:16 05/10/22 05:16 05/10/22 05:16 05/09/22 13:33 FiO2 2 05/08/22 05:51 Oxygen Flow Rate (L/min) [2] 20 Oxygen Flow Rate (L/min) [1 ( 2 Initial Baseline)] Oxygen Flow Rate (L/min) 2 Oxygen Delivery Method [3] Nasal Cannula Oxygen Delivery Method [2] Nasal Cannula Oxygen Delivery Method [1 ( Nasal Cannula Initial Baseline)] Oxygen Delivery Method Room Air Weight: 208 lb 8.917 oz Body Mass Index (BMI) 30.3 Intake & Output: Intake and Output for Last 24 Hours 05/08/22 05/09/22 05/10/22 23:59 23:59 23:59 Intake Total 1093.6633 / 1093.6633 1450.67 / 1750.67 1268.75 / 1268.75 Output Total 150 / 350 200 / 450 500 / 500 Balance 943.6633 / 743.6633 1250.67 / 1300.67 768.75 / 768.75 Lab / Micro Data Result Diagrams: 05/10/22 05:57 05/10/22 05:57 Labs: Laboratory Results - last 24 hr 05/09/22 06:48: WBC 21.5 H, Corrected WBC 4.9, RBC 4.85, Hgb 16.3, Hct 45.9, MCV 94.6 H, MCH 33.6 H, MCHC 35.5, RDW Std Deviation 47.9 H, RDW Coeff of [place]omie 13.9, Plt Count 125 L, MPV 12.4 H, Neut % (Auto) Not Reportable, Absolute Neuts (auto) 18.9 H, Absolute Lymphs (auto) 0.86, Total Counted 100, Neutrophils % (Manual) 79 H, Band Neutrophils % 9 H, Lymphocytes % (Manual) 4 L, Monocytes % (Manual) 5, Metamyelocytes % 3 H, Diff Path Review May foll, Platelet Estimate ADEQUATE, RBC Morphology NORM C+C 05/10/22 05:57: WBC 12.0 H, RBC 4.35 L, Hgb 14.5, Hct 42.5, MCV 97.7 H, MCH 33.3 H, MCHC 34.1, RDW Std Deviation 51.2 H, RDW Coeff of [place]omie 14.2, Plt Count 82 L, MPV 11.8, Immature Gran % (Auto) 2.200 H, Neut % (Auto) 87.6 H, Lymph % (Auto) 6.2 L, [place] % (Auto) 3.8, Eos % (Auto) 0.1, Baso % (Auto) 0.1, Absolute Neuts (auto) 10.5 H, Absolute Lymphs (auto) 0.75 L, Nucleated RBC % 0, Platelet Estimate MOD DEC, Macrocytosis RARE 05/10/22 05:57: Sodium 142, Potassium 4.8, Chloride 113 H, Carbon Dioxide 21.0, Anion Gap 8, BUN 53 H, Creatinine 2.47 H, Estim Creat Clear Calc 25.44, Est GFR (MDRD) Af Amer 33 L, Est GFR (MDRD) Non-Af 27 L, BUN/Creatinine Ratio 21.5 H, Glucose 116 H, Calcium 8.6 Cardiology Labs/Tests 05/09/22 06:48: WBC 21.5 H, Corrected WBC 4.9, RBC 4.85, Hgb 16.3, Hct 45.9, MCV 94.6 H, MCH 33.6 H, MCHC 35.5, Plt Count 125 L, MPV 12.4 H, Neut % (Auto) Not Reportable, Absolute Neuts (auto) 18.9 H, Total Counted 100, Neutrophils % (Manual) 79 H, Band Neutrophils % 9 H, Lymphocytes % (Manual) 4 L, Monocytes % (Manual) 5, Metamyelocytes % 3 H 05/10/22 05:57: WBC 12.0 H, RBC 4.35 L, Hgb 14.5, Hct 42.5, MCV 97.7 H, MCH 33.3 H, MCHC 34.1, Plt Count 82 L, MPV 11.8, Immature Gran % (Auto) 2.200 H, Neut % (Auto) 87.6 H, Lymph % (Auto) 6.2 L, [place] % (Auto) 3.8, Eos % (Auto) 0.1, Baso % (Auto) 0.1, Absolute Neuts (auto) 10.5 H, Nucleated RBC % 0 05/10/22 05:57: Sodium 142, Potassium 4.8, Chloride 113 H, Carbon Dioxide 21.0, Anion Gap 8, BUN 53 H, Creatinine 2.47 H, Est GFR (MDRD) Af Amer 33 L, Est GFR (MDRD) Non-Af 27 L, BUN/Creatinine Ratio 21.5 H, Glucose 116 H, Calcium 8.6 Rhythm: EKG: ECHO: Stress Test: Cardiac Cath: PCI: CT Surgery: Holter monitor: EPS: PPM: CXR: Chest CT Scan: Physical Exam Const alert, oriented x3 and no apparent distress General Appearance: cooperative HEENT hearing grossly normal bilaterally Head and Scalp: atraumatic Eyes EOMs intact bilaterally Neck General: normal visual inspection Chest inspection of chest normal and palpation of chest normal Resp normal respiratory effort Auscultation: clear to auscultation bilaterally Cardio S1 normal heart sound and S2 normal heart sound Jugular Venous Distention: JVD Rhythm: abnormal rhythm GI normal to inspection, nondistended, normoactive bowel sounds Extremity normal capillary refill and no pedal edema Peripheral Pulses: Yes pulses 2+ throughout and femoral pulses present Skin no rashes or lesions noted Neuro oriented x3 and CN's II-XII intact bilaterally Psych Appearance: grossly normal and appropriate Assessment & Plan Assessment/Plan (1) Atrial fibrillation with RVR: PLAN: Patient had better ventricular response rates Continue p.o. metoprolol Add p.o. long-acting diltiazem. Continue anticoagulation. Patient had preserved left ventricular systolic function earlier and would not advocate any further testing at this time. Discussed with hospitalist.
[2022-05-10] MEDS: Allopurinol 100 MG Tablet 200 MG PO (09:07)
[2022-05-10] MEDS: Aspirin 81 MG TAB.CHEW PO (09:07)
[2022-05-10] MEDS: Finasteride 5 MG Tablet PO (09:07)
[2022-05-10] MEDS: Loratadine 10 MG Tablet PO (09:08)
[2022-05-10] MEDS: dilTIAZem CD 120 MG Capsule PO ×2 (09:08→21:46)
[2022-05-10] MEDS: Carbidopa/Levodopa 25/100 Tablet PO ×4 (09:08→21:48)
[2022-05-10] MEDS: Metoprolol Tartrate 100 MG Tablet PO ×2 (09:08→21:45)
[2022-05-10] MEDS: Doxazosin 4 MG Tablet 8 MG PO (09:08)
[2022-05-10] MEDS: Pantoprazole Sodium 20 MG Tablet PO (09:09)
[2022-05-10] MEDS: APIXABAN 5 MG TABLET PO ×2 (09:09→21:45)
[2022-05-10] MEDS: Docusate Sodium 100 MG Capsule PO ×2 (09:09→21:45)
--- NOTE | 2022-05-10 09:42 | PN.HOSP_ITS ---
Subjective Subjective Doing well, he was sleeping comfortably when I entered the room. Heart rate is much better controlled however his creatinine did jump Objective Data Objective Data Vital Signs: Vital Signs Temp Pulse Resp BP Pulse Ox O2 Del Method O2 Flow Rate 97.6 F L 74 21 H 132/72 H 95 Room Air 2 05/10/22 09:05 05/10/22 09:08 05/10/22 09:05 05/10/22 09:08 05/10/22 09:05 05/10/22 09:05 05/09/22 13:33 FiO2 2 05/08/22 05:51 Oxygen Flow Rate (L/min) [2] 20 Oxygen Flow Rate (L/min) [1 ( 2 Initial Baseline)] Oxygen Flow Rate (L/min) 2 Oxygen Delivery Method [3] Nasal Cannula Oxygen Delivery Method [2] Nasal Cannula Oxygen Delivery Method [1 ( Nasal Cannula Initial Baseline)] Oxygen Delivery Method Room Air Weight: 208 lb 8.917 oz Body Mass Index (BMI) 30.3 Intake & Output: Intake and Output for Last 24 Hours 05/09/22 05/10/22 05/11/22 03:59 03:59 03:59 Intake Total 2114.8333 / 2114.8333 1598.25 / 1598.25 618.75 / 618.75 Output Total 350 / 350 250 / 250 250 / 250 Balance 1764.8333 / 1764.8333 1348.25 / 1348.25 368.75 / 368.75 Lab / Micro Data Result Diagrams: 05/10/22 05:57 05/10/22 05:57 Labs: Laboratory Results - last 24 hr 05/10/22 05:57: WBC 12.0 H, RBC 4.35 L, Hgb 14.5, Hct 42.5, MCV 97.7 H, MCH 33.3 H, MCHC 34.1, RDW Std Deviation 51.2 H, RDW Coeff of Naomie 14.2, Plt Count 82 L, MPV 11.8, Immature Gran % (Auto) 2.200 H, Neut % (Auto) 87.6 H, Lymph % (Auto) 6.2 L, [place] % (Auto) 3.8, Eos % (Auto) 0.1, Baso % (Auto) 0.1, Absolute Neuts (auto) 10.5 H, Absolute Lymphs (auto) 0.75 L, Nucleated RBC % 0, Platelet Estimate MOD DEC, Macrocytosis RARE 05/10/22 05:57: Sodium 142, Potassium 4.8, Chloride 113 H, Carbon Dioxide 21.0, Anion Gap 8, BUN 53 H, Creatinine 2.47 H, Estim Creat Clear Calc 25.44, Est GFR (MDRD) Af Amer 33 L, Est GFR (MDRD) Non-Af 27 L, BUN/Creatinine Ratio 21.5 H, Glucose 116 H, Calcium 8.6 Physical Exam Narrative General: Alert, Oriented x3, Cooperative, No apparent distress HEENT: Atraumatic, PERRLA, EOMI, Normocephalic, hard of hearing Oral: Moist Mucosa Neck: Supple, No JVD Lungs: Diminished, Normal air movement, No rhonchi, No wheeze, No rales Cardiovascular: Regular rate and irregular rhythm, Normal S1, Normal S2, No murmurs Abdomen: Soft, Non Tender, Non-Distended, No Hepato-splenomegaly Extremities: No edema, Capillary Refill Less than 3 Seconds Skin: No rashes, No breakdown Musculoskeletal: No Tenderness to Palpation of Joints or Extremities Neurological: Cranial nerves II-XII grossly intact, Motor Exam 5/5 strength throughout, Sensory exam intact to light touch and pain Psych/Mental Status: Flat affect, Appropriate Assessment & Plan Assessment/Plan (1) Atrial fibrillation with RVR: PLAN: Plan 1. Paroxysmal A. fib with RVR/HTN/HLD/elevated troponin secondary to demand from his tachycardia/chronic diastolic CHF/CONCHIS ? Unsure as to why his creatinine significantly increased, will increase his IV fluids today. This could have been secondary to his significant duration of tachycardia he does not appear to be on any medications that are nephrotoxic. We will continue to monitor and recheck in the morning ? Appreciate cardiology's assistance ? Continue with his metoprolol and his Cardizem drip ? Continue with p.o. Cardizem and p.o. metoprolol ? Echo was unremarkable from baseline ? Continue with Eliquis 2. Parkinson's disease ? Stable ? Continue with his home Sinemet 3. Chronic thrombocytopenia ? Stable ? We will continue to monitor 4. GERD ? Stable ? Continue with PPI 5. BPH ? Stable ? Continue with his home medications 6. Monoclonal gammopathy/leukocytosis unknown etiology ? Stable ? Continue with outpatient monitoring by oncology ? Remains afebrile and his leukocytosis resolved with no significant intervention DVT: Eliquis Charges/Coding Visit Charges Inpatient E&M: 66874 Subs Hosp L2
[2022-05-10] MEDS: 0.9% Normal Saline 1,000 ML 125 ML IV ×2 (11:37→20:00)
[2022-05-10] MEDS: Gabapentin 300 MG Capsule PO (21:47)
[2022-05-11] VITALS (14 sets, daily range): BP systolic 132–177; BP diastolic 64–90; PULSE 59–89; RESP 14–20; TEMP 36.1–36.9; O2SAT 92–97
[2022-05-11] MEDS: 0.9% Normal Saline 1,000 ML 125 ML IV ×3 (03:44→19:04)
[2022-05-11 05:23] LABS: Absolute Lymphocyte Count 0.86 X10^3/uL (0.83-4.51); Absolute Neutrophil Count 5.5 X10^3/uL (2.0-7.7); Basophil# 0.01 X10^3/uL; Basophil% 0.1 % (0-1); Eosinophil# 0.06 X10^3/uL; Eosinophils% 0.9 % (0-5); Hematocrit 41.4 % (40-54); Hemoglobin 13.8 g/dL (13.0-16.5); Lymphocyte # 0.86 X10^3/ul (0.83-4.51); Lymphocyte % 12.5 % (19-41); Mean Corp Hgb Conc 33.3 g/dL (32-36); Mean Corpuscular Hgb 33.4 pg (27.0-32.0); Mean Corpuscular Volume 100.2 fL (80-94); Mean Platelet Vol. 11.8 fl (6.2-12.0); Monocyte# 0.38 X10^3/uL; Monocyte% 5.5 % (0-10); NRBC Flagged by Analyzer 0 % (0-5); Neutrophil # 5.53 X10^3/uL (2.7-7.7); Neutrophil % 80.3 % (47-70); POSITIVE COUNT YES; Platelet Count 67 K/mm3 (150-450); RBC Distribution Width CV 14.1 % (11.6-14.6); RBC Distribution Width SD 51.4 fl (35.1-43.9); Red Blood Count 4.13 M/mm3 (4.6-6.2); White Blood Count 6.9 K/mm3 (4.4-11.0)
[2022-05-11 05:50] LABS: Anion Gap 5 (5-15); BUN 40 mg/dL (7-18); BUN/Creat Ratio 20.2 RATIO (10-20); Calcium,Total 8.5 mg/dL (8.5-10.1); Chloride 116 mmol/L (98-107); Creatinine, Serum 1.98 mg/dL (0.70-1.30); EST Glomerular Filtration Rate 35 mL/min (>60); Est Glom Filt Rate - Afr Amer 42 mL/min (>60); Estimated Creatinine Clearance 31.74 ml/min; Glucose 84 mg/dL (74-106); Potassium 4.2 mmol/L (3.5-5.1); Sodium Level 145 mmol/L (136-145)
--- NOTE | 2022-05-11 07:22 | PCM.PN.CARD ---
Subjective Subjective Seen and evaluated. Appears to be doing quite well. In sinus rhythm. Objective Data Vital Signs: Vital Signs Temp Pulse Resp BP Pulse Ox O2 Del Method O2 Flow Rate 98.4 F 89 14 177/90 H 92 Room Air 2 05/11/22 06:56 05/11/22 06:56 05/11/22 06:56 05/11/22 06:56 05/11/22 06:56 05/11/22 06:56 05/09/22 13:33 FiO2 2 05/08/22 05:51 Oxygen Flow Rate (L/min) [2] 20 Oxygen Flow Rate (L/min) [1 ( 2 Initial Baseline)] Oxygen Flow Rate (L/min) 2 Oxygen Delivery Method [3] Nasal Cannula Oxygen Delivery Method [2] Nasal Cannula Oxygen Delivery Method [1 ( Nasal Cannula Initial Baseline)] Oxygen Delivery Method Room Air Weight: 208 lb 12.444 oz Body Mass Index (BMI) 30.3 Intake & Output: Intake and Output for Last 24 Hours 05/09/22 05/10/22 05/11/22 23:59 23:59 23:59 Intake Total 1450.67 / 1750.67 3772.50 / 3772.50 966.67 / 966.67 Output Total 200 / 450 1050 / 1250 900 / 900 Balance 1250.67 / 1300.67 2722.50 / 2522.50 66.67 / 66.67 Lab / Micro Data Result Diagrams: 05/11/22 04:39 05/11/22 04:39 Labs: Laboratory Results - last 24 hr 05/11/22 04:39: WBC 6.9, RBC 4.13 L, Hgb 13.8, Hct 41.4, MCV 100.2 H, MCH 33.4 H, MCHC 33.3, RDW Std Deviation 51.4 H, RDW Coeff of Naomie 14.1, Plt Count 67 L, MPV 11.8, Immature Gran % (Auto) 0.700, Neut % (Auto) 80.3 H, Lymph % (Auto) 12.5 L, [place] % (Auto) 5.5, Eos % (Auto) 0.9, Baso % (Auto) 0.1, Absolute Neuts (auto) 5.5, Absolute Lymphs (auto) 0.86, Nucleated RBC % 0 05/11/22 04:39: Sodium 145, Potassium 4.2, Chloride 116 H, Carbon Dioxide 24.0, Anion Gap 5, BUN 40 H, Creatinine 1.98 H, Estim Creat Clear Calc 31.74, Est GFR (MDRD) Af Amer 42 L, Est GFR (MDRD) Non-Af 35 L, BUN/Creatinine Ratio 20.2 H, Glucose 84, Calcium 8.5 Cardiology Labs/Tests 05/11/22 04:39: WBC 6.9, RBC 4.13 L, Hgb 13.8, Hct 41.4, MCV 100.2 H, MCH 33.4 H, MCHC 33.3, Plt Count 67 L, MPV 11.8, Immature Gran % (Auto) 0.700, Neut % (Auto) 80.3 H, Lymph % (Auto) 12.5 L, [place] % (Auto) 5.5, Eos % (Auto) 0.9, Baso % (Auto) 0.1, Absolute Neuts (auto) 5.5, Nucleated RBC % 0 05/11/22 04:39: Sodium 145, Potassium 4.2, Chloride 116 H, Carbon Dioxide 24.0, Anion Gap 5, BUN 40 H, Creatinine 1.98 H, Est GFR (MDRD) Af Amer 42 L, Est GFR (MDRD) Non-Af 35 L, BUN/Creatinine Ratio 20.2 H, Glucose 84, Calcium 8.5 Rhythm: EKG: ECHO: Stress Test: Cardiac Cath: PCI: CT Surgery: Holter monitor: EPS: PPM: CXR: Chest CT Scan: Physical Exam Const alert, oriented x3 and no apparent distress General Appearance: cooperative HEENT hearing grossly normal bilaterally Head and Scalp: atraumatic Eyes EOMs intact bilaterally Neck General: normal visual inspection Chest inspection of chest normal and palpation of chest normal Resp normal respiratory effort Auscultation: clear to auscultation bilaterally Cardio S1 normal heart sound and S2 normal heart sound Jugular Venous Distention: JVD Rhythm: abnormal rhythm GI normal to inspection, nondistended, normoactive bowel sounds Extremity normal capillary refill and no pedal edema Peripheral Pulses: Yes pulses 2+ throughout and femoral pulses present Skin no rashes or lesions noted Neuro oriented x3 and CN's II-XII intact bilaterally Psych Appearance: grossly normal and appropriate Assessment & Plan Assessment/Plan (1) Atrial fibrillation with RVR: PLAN: Patient had better ventricular response rates and has converted to sinus rhythm Continue p.o. metoprolol Add p.o. long-acting diltiazem. Continue anticoagulation. Would recommend reducing the dose of the Eliquis to 2.5 mg twice a day due to renal dysfunction. Patient had preserved left ventricular systolic function earlier and would not advocate any further testing at this time. Discussed with hospitalist.
[2022-05-11] MEDS: APIXABAN 2.5 MG TABLET (WCH) PO ×2 (07:56→21:38)
[2022-05-11] MEDS: Metoprolol Tartrate 100 MG Tablet PO ×2 (07:57→21:39)
[2022-05-11] MEDS: Doxazosin 4 MG Tablet 8 MG PO (07:57)
[2022-05-11] MEDS: Allopurinol 100 MG Tablet 200 MG PO (07:57)
[2022-05-11] MEDS: Pantoprazole Sodium 20 MG Tablet PO (07:57)
[2022-05-11] MEDS: Finasteride 5 MG Tablet PO (07:57)
[2022-05-11] MEDS: Aspirin 81 MG TAB.CHEW PO (07:58)
[2022-05-11] MEDS: Docusate Sodium 100 MG Capsule PO ×2 (07:58→21:38)
[2022-05-11] MEDS: Carbidopa/Levodopa 25/100 Tablet PO ×4 (07:58→21:41)
[2022-05-11] MEDS: dilTIAZem CD 120 MG Capsule PO ×2 (07:58→21:37)
[2022-05-11] MEDS: Loratadine 10 MG Tablet PO (07:58)
--- NOTE | 2022-05-11 10:04 | PN.HOSP_ITS ---
Subjective Subjective DOS: 05/11/2022 CC: Follow-up AOsmar vazquez with RVR Reports he is beginning to feel better, denying chest pain or shortness of breath at this time. Continues to wax and wane from a mental status perspective. Reports he is eating well and urinating well Objective Data Objective Data Vital Signs: Vital Signs Temp Pulse Resp BP Pulse Ox O2 Del Method O2 Flow Rate 98.4 F 83 14 168/86 H 95 Room Air 2 05/11/22 06:56 05/11/22 07:57 05/11/22 06:56 05/11/22 07:57 05/11/22 07:52 05/11/22 09:08 05/09/22 13:33 FiO2 2 05/08/22 05:51 Oxygen Flow Rate (L/min) [2] 20 Oxygen Flow Rate (L/min) [1 ( 2 Initial Baseline)] Oxygen Flow Rate (L/min) 2 Oxygen Delivery Method [3] Nasal Cannula Oxygen Delivery Method [2] Nasal Cannula Oxygen Delivery Method [1 ( Nasal Cannula Initial Baseline)] Oxygen Delivery Method Room Air Weight: 94.7 kg Body Mass Index (BMI) 30.3 Intake & Output: Intake and Output for Last 24 Hours 05/09/22 05/10/22 05/11/22 23:59 23:59 23:59 Intake Total 1450.67 / 1750.67 3772.50 / 3772.50 966.67 / 966.67 Output Total 200 / 450 1050 / 1250 900 / 900 Balance 1250.67 / 1300.67 2722.50 / 2522.50 66.67 / 66.67 Lab / Micro Data Result Diagrams: 05/11/22 04:39 05/11/22 04:39 Labs: Laboratory Results - last 24 hr 05/11/22 04:39: WBC 6.9, RBC 4.13 L, Hgb 13.8, Hct 41.4, MCV 100.2 H, MCH 33.4 H , MCHC 33.3, RDW Std Deviation 51.4 H, RDW Coeff of Naomie 14.1, Plt Count 67 L, MPV 11.8, Immature Gran % (Auto) 0.700, Neut % (Auto) 80.3 H, Lymph % (Auto) 12.5 L, [place] % (Auto) 5.5, Eos % (Auto) 0.9, Baso % (Auto) 0.1, Absolute Neuts (auto) 5.5, Absolute Lymphs (auto) 0.86, Nucleated RBC % 0 05/11/22 04:39: Sodium 145, Potassium 4.2, Chloride 116 H, Carbon Dioxide 24.0, Anion Gap 5, BUN 40 H, Creatinine 1.98 H, Estim Creat Clear Calc 31.74, Est GFR (MDRD) Af Amer 42 L, Est GFR (MDRD) Non-Af 35 L, BUN/Creatinine Ratio 20.2 H, Glucose 84, Calcium 8.5 Physical Exam Const alert and no apparent distress HEENT normocephalic and head/scalp atraumatic HEENT Narrative: Hard of hearing Eyes Eyes Narrative: EOM grossly intact, anicteric Neck supple Resp normal respiratory effort and clear to auscultation bilaterally Cardio regular rate and regular rhythm GI soft to palpation, non-tender and non-distended Extremity Extremity Narrative: No edema appreciated Neuro moves all extremities Neuro Narrative: No overt focal deficits appreciated Psych Psych Narrative: Cooperative Assessment & Plan Assessment/Plan (1) Atrial fibrillation with RVR: PLAN: Plan 76 male history of chronic thrombocytopenia, heart failure with preserved ejection fraction, BPH, hypertension, history of VTE, monoclonal gammopathy, Parkinson's disease, NICOLASA, CAD, CKD stage II, RA who presented 05/08 with history of fall the prior evening with onset of dizziness as well as palpitations and heart racing. Had been seen in January for similar symptoms and had a cardioversion. Was found to have A. fib with RVR and was admitted and started on Cardizem #A. fib with RVR-converted to normal sinus rhythm Most recently had a cardioversion 01/2022 On telemetry Last echo 08/11/2021 with an EF of 65%, repeat echo unremarkable from baseline Cardiology following On Eliquis, dose decreased due to kidney function Was on metoprolol and Cardizem drip, has converted to sinus rhythm, continue p.o. metoprolol and cardiology added long-acting diltiazem #Acute renal insufficiency on CKD stage II Admission creatinine 1.79 with a baseline roughly 1.1?1.2 Had significantly worsened with a maximum 05/10 of 2.47, today 1.98 Avoid nephrotoxic agents Is on hydration at this time, monitor closely with history of heart failure with preserved ejection fraction #Type II NSTEMI Initial troponin 89, likely all secondary to A. fib with RVR #Dizziness with fall Prior to admission, presumed to be due to paroxysmal A. fib with RVR PT/OT #Chronic thrombocytopenia Stable, will monitor #Chronic heart failure with preserved ejection fraction Is receiving fluids, monitor fluid balance carefully, daily weights #Coronary artery disease Aspirin, beta-karley #History of VTE On Eliquis #Parkinson's disease Continue Sinemet #Hypertension #Monoclonal gammopathy: Following w/ Dr. Ponce, most recent visit noted 03/03/2022 with planned continued M spike monitoring and observation. #DVT ppx: Eliquis Medical decision making: Mr. Beckwith is now in normal sinus rhythm, still unclear why his kidney function had significantly worsened, today is slightly better but has been receiving IV hydration. Want to verify kidney function continues to trend in the right direction while assuring he is not fluid overloaded. If doing well tomorrow will likely be able to discharge Mimi Mclaughlin MD Charges/Coding Visit Charges Inpatient E&M: 86940 Subs Hosp L2
[2022-05-11] MEDS: MELATONIN 10 MG TABLET PO (21:41)
[2022-05-11] MEDS: Gabapentin 300 MG Capsule PO (21:45)
[2022-05-12] VITALS (8 sets, daily range): BP systolic 117–174; BP diastolic 74–93; PULSE 63–100; RESP 14–20; TEMP 36.4–36.8; O2SAT 95–99
[2022-05-12] MEDS: 0.9% Normal Saline 1,000 ML 125 ML IV (03:03)
[2022-05-12 06:06] LABS: Absolute Lymphocyte Count 0.66 X10^3/uL (0.83-4.51); Absolute Neutrophil Count 4.4 X10^3/uL (2.0-7.7); Basophil# 0.02 X10^3/uL; Basophil% 0.4 % (0-1); Eosinophil# 0.14 X10^3/uL; Eosinophils% 2.5 % (0-5); Hematocrit 42.2 % (40-54); Hemoglobin 14.3 g/dL (13.0-16.5); Lymphocyte # 0.66 X10^3/ul (0.83-4.51); Lymphocyte % 11.7 % (19-41); Mean Corp Hgb Conc 33.9 g/dL (32-36); Mean Corpuscular Hgb 33.4 pg (27.0-32.0); Mean Corpuscular Volume 98.6 fL (80-94); Mean Platelet Vol. 11.3 fl (6.2-12.0); Monocyte# 0.33 X10^3/uL; Monocyte% 5.9 % (0-10); NRBC Flagged by Analyzer 0 % (0-5); Neutrophil # 4.42 X10^3/uL (2.7-7.7); Neutrophil % 78.6 % (47-70); POSITIVE COUNT YES; Platelet Count 56 K/mm3 (150-450); RBC Distribution Width CV 13.7 % (11.6-14.6); RBC Distribution Width SD 49.8 fl (35.1-43.9); Red Blood Count 4.28 M/mm3 (4.6-6.2); White Blood Count 5.6 K/mm3 (4.4-11.0)
[2022-05-12 06:35] LABS: Anion Gap 7 (5-15); BUN 28 mg/dL (7-18); BUN/Creat Ratio 20.4 RATIO (10-20); Calcium,Total 8.5 mg/dL (8.5-10.1); Chloride 111 mmol/L (98-107); Creatinine, Serum 1.37 mg/dL (0.70-1.30); EST Glomerular Filtration Rate 54 mL/min (>60); Est Glom Filt Rate - Afr Amer 65 mL/min (>60); Estimated Creatinine Clearance 45.87 ml/min; Glucose 77 mg/dL (74-106); Potassium 3.9 mmol/L (3.5-5.1); Sodium Level 142 mmol/L (136-145)
--- NOTE | 2022-05-12 07:00 | PN.CARD_ITS ---
Subjective Subjective Patient seen and evaluated. Appears to be doing well. Objective Data Vital Signs: Vital Signs Temp Pulse Resp BP Pulse Ox O2 Del Method O2 Flow Rate 97.5 F L 76 14 130/74 H 99 Room Air 2 05/12/22 04:00 05/12/22 04:00 05/12/22 04:00 05/12/22 04:00 05/12/22 04:00 05/12/22 04:00 05/09/22 13:33 FiO2 2 05/08/22 05:51 Oxygen Flow Rate (L/min) [2] 20 Oxygen Flow Rate (L/min) [1 ( 2 Initial Baseline)] Oxygen Flow Rate (L/min) 2 Oxygen Delivery Method [3] Nasal Cannula Oxygen Delivery Method [2] Nasal Cannula Oxygen Delivery Method [1 ( Nasal Cannula Initial Baseline)] Oxygen Delivery Method Room Air Weight: 209 lb 10.554 oz Body Mass Index (BMI) 30.3 Intake & Output: Intake and Output for Last 24 Hours 05/10/22 05/11/22 05/12/22 23:59 23:59 23:59 Intake Total 3772.50 / 3772.50 3633.34 / 3633.34 997.92 / 997.92 Output Total 1050 / 1250 1200 / 1500 1999 / 1999 Balance 2722.50 / 2522.50 2433.34 / 2133.34 -1002.08 / -1002.08 Lab / Micro Data Result Diagrams: 05/12/22 05:30 05/12/22 05:30 Labs: Laboratory Results - last 24 hr 05/12/22 05:30: WBC 5.6, RBC 4.28 L, Hgb 14.3, Hct 42.2, MCV 98.6 H, MCH 33.4 H, MCHC 33.9, RDW Std Deviation 49.8 H, RDW Coeff of Naomie 13.7, Plt Count 56 L, MPV 11.3, Immature Gran % (Auto) 0.900, Neut % (Auto) 78.6 H, Lymph % (Auto) 11.7 L, [place] % (Auto) 5.9, Eos % (Auto) 2.5, Baso % (Auto) 0.4, Absolute Neuts (auto) 4.4, Absolute Lymphs (auto) 0.66 L, Nucleated RBC % 0 05/12/22 05:30: Sodium 142, Potassium 3.9, Chloride 111 H, Carbon Dioxide 24.0, Anion Gap 7, BUN 28 H, Creatinine 1.37 H, Estim Creat Clear Calc 45.87, Est GFR (MDRD) Af Amer 65, Est GFR (MDRD) Non-Af 54 L, BUN/Creatinine Ratio 20.4 H, Glucose 77, Calcium 8.5 Cardiology Labs/Tests 05/12/22 05:30: WBC 5.6, RBC 4.28 L, Hgb 14.3, Hct 42.2, MCV 98.6 H, MCH 33.4 H, MCHC 33.9, Plt Count 56 L, MPV 11.3, Immature Gran % (Auto) 0.900, Neut % (Auto) 78.6 H, Lymph % (Auto) 11.7 L, [place] % (Auto) 5.9, Eos % (Auto) 2.5, Baso % (Auto) 0.4, Absolute Neuts (auto) 4.4, Nucleated RBC % 0 05/12/22 05:30: Sodium 142, Potassium 3.9, Chloride 111 H, Carbon Dioxide 24.0, Anion Gap 7, BUN 28 H, Creatinine 1.37 H, Est GFR (MDRD) Af Amer 65, Est GFR (MDRD) Non-Af 54 L, BUN/Creatinine Ratio 20.4 H, Glucose 77, Calcium 8.5 Rhythm: EKG: ECHO: Stress Test: Cardiac Cath: PCI: CT Surgery: Holter monitor: EPS: PPM: CXR: Chest CT Scan: Physical Exam Const alert and no apparent distress HEENT normocephalic and head/scalp atraumatic HEENT Narrative: Hard of hearing Eyes Eyes Narrative: EOM grossly intact, anicteric Neck supple Resp normal respiratory effort and clear to auscultation bilaterally Cardio regular rate and regular rhythm GI soft to palpation, non-tender and non-distended Extremity Extremity Narrative: No edema appreciated Neuro moves all extremities Neuro Narrative: No overt focal deficits appreciated Psych Psych Narrative: Cooperative Assessment & Plan Assessment/Plan (1) Atrial fibrillation with RVR: PLAN: Patient had better ventricular response rates and has converted to sinus rhythm Continue p.o. metoprolol Add p.o. long-acting diltiazem. Continue anticoagulation. Would recommend reducing the dose of the Eliquis to 2.5 mg twice a day due to renal dysfunction. Patient had preserved left ventricular systolic function earlier and would not advocate any further testing at this time. Discussed with hospitalist.
[2022-05-12 07:51] LABS: Pathologist Review Reviewed
[2022-05-12] MEDS: APIXABAN 2.5 MG TABLET (WCH) PO (08:45)
[2022-05-12] MEDS: Pantoprazole Sodium 20 MG Tablet PO (08:45)
[2022-05-12] MEDS: Docusate Sodium 100 MG Capsule PO (08:45)
[2022-05-12] MEDS: Allopurinol 100 MG Tablet 200 MG PO (08:45)
[2022-05-12] MEDS: Metoprolol Tartrate 100 MG Tablet PO (08:45)
[2022-05-12] MEDS: Aspirin 81 MG TAB.CHEW PO (08:46)
[2022-05-12] MEDS: Finasteride 5 MG Tablet PO (08:46)
[2022-05-12] MEDS: dilTIAZem CD 120 MG Capsule PO (08:46)
[2022-05-12] MEDS: Carbidopa/Levodopa 25/100 Tablet PO ×2 (08:46→11:08)
[2022-05-12] MEDS: Loratadine 10 MG Tablet PO (08:46)
[2022-05-12] MEDS: Doxazosin 4 MG Tablet 8 MG PO (08:46)
--- NOTE | 2022-05-12 11:30 | PCM.DC ---
Discharge Instructions Diet Discharge Diet: No restrictions Activity Discharge Activity: Return to Normal Activity Follow Up Care Test Results: Test results from this visit will be discussed in further detail at your follow-up appointment, if applicable. Discharge Plan Admission Admit Date/Time: 05/08/22 06:09 Attending Provider: Mimi Mclaughlin Primary Care Provider: Michael Rodriguez Consulting Providers: Liliana Wilson ; Naima Allison ; Octaviano Mathews Discharge Orders/Prescriptions Prescriptions: No Action Eliquis 5 mg tablet 5 mg PO BID Qty: 60 3RF carbidopa-levodopa 25-100 mg tablet 2 tab PO .QID Qty: 240 4RF dicyclomine 10 mg capsule 10 mg PO DAILY PRN (Reason: ibs) terazosin 10 MG capsule 10 mg PO DAILY finasteride 5 MG tablet 5 mg PO DAILY cholecalciferol (vitamin D3) [Vitamin D3] 2,000 UNIT capsule 2,000 unit PO DAILY allopurinol 100 mg tablet 200 mg PO DAILY gabapentin 300 mg Capsule 300 mg PO QHS metoprolol tartrate 100 mg tablet 100 mg PO BID spironolactone 25 mg tablet 25 mg PO DAILY clonidine HCl 0.1 mg Tablet 0.1 mg PO DAILY@1200 Qty: 0 0RF clonidine HCl 0.2 mg Tablet 0.2 mg PO QHS Qty: 0 0RF docusate sodium 100 mg Capsule 100 mg PO BID Qty: 0 0RF hydrocortisone 2.5 % Cream 1 applic topical TID PRN PRN (Reason: RASH/TOPICAL IRRITATION) Qty: 0 0RF Protocol: *Topical Application Instructions APPLICATION INSTRUCTIONS: Right inner foot. losartan 100 mg Tablet 100 mg PO DAILY Qty: 0 0RF loratadine 10 mg Tablet 10 mg PO DAILY omeprazole 20 mg Tablet,Delayed Release (Dr/Ec) 20 mg PO DAILY Referrals / Follow Up: Brad Forrest DO [Med Staff - [employer]] - Michael Rodriguez MD [Primary Care Provider] -
--- NOTE | 2022-05-12 11:36 | TREXTCAR_ITS ---
Diet Diet Order/Speech Therapy: 05/11/22 09:19 Diet: Cardiac - Heart Healthy Is pt able to select menu?: No Routine Orders/Code Status Suppository Type: Dulcolax 10mg Suppository Frequency: Daily PRN O2 Frequency: PRN Keep PO Greater than or Equal to (%): 92 Routine Lab Work: BMP (3-5 days, kidney function) Wound(s) Left LE: Wound Type: scab Therapies Physical Therapy: Eval and Treat Occupational Therapy: Eval and Treat Problem/Diagnosis (1) Atrial fibrillation with RVR: Status: Acute Code(s): I48.91 - Unspecified atrial fibrillation Plan #A. fib with RVR-converted to normal sinus rhythm #Acute renal insufficiency on CKD stage II #Type II NSTEMI #Dizziness with fall #Chronic thrombocytopenia #Chronic heart failure with preserved ejection fraction #Coronary artery disease #History of VTE #Parkinson's disease #Hypertension #Monoclonal gammopathy Mr. Beckwith is a 76 male history of chronic thrombocytopenia, heart failure with preserved ejection fraction, BPH, hypertension, history of VTE, monoclonal gammopathy, Parkinson's disease, NICOLASA, CAD, CKD stage II, RA who presented 05/08 with history of fall the prior evening with onset of dizziness as well as palpitations and heart racing. Had been seen in January for similar symptoms and had a cardioversion. Was found to have A. fib with RVR and was admitted and started on Cardizem drip which was transitioned to p.o. and metoprolol was continued. He also had an NSTEMI that was attributed as type II secondary to his A. fib with RVR. His Eliquis was decreased given his kidney function. Additionally was noted to have an CONCHIS on CKD, this initially worsened but improved with hydration. On the day of discharge he reports he is feeling well, denies chest pain or shortness of breath. No complaints at time of exam. Did have waxing and waning mental status throughout his hospital stay, this morning answering questions including orientation questions appropriately. Likely component of hospital delirium on top of chronic medical comorbidities. No indication for further inpatient admission. Discharged back to [place] in stable condition. Allergies/Procedures Done in Hospital Allergies No Known Allergies Allergy (Verified 03/19/22 11:45) Type of Care/Length of Stay Estimated LOS: More Than 30 Days Type of Care Needed: Skilled Rehab Potential: Good Prognosis: Good Additional Orders/Day of Discharge Day of Discharge: 05/12/22 Dietary and Speech Recommendations Dietitian Recommendations/Changes: Continue Cardiac diet to manage medical conditions. Discharge Plan Admission Admit Date/Time: 05/08/22 06:09 Primary Reason for Your Visit: Dizziness, palpitations, atrial fibrillation with rapid ventricular respons Attending Provider: Mimi Mclaughlin Primary Care Provider: Michael Rodriguez Consulting Providers: Liliana Wilson ; Naima Allison ; Octaviano Mathews Instructions Patient Instructions: AFib Dc, AFib Additional Instructions / Restrictions: *DISCHARGE INSTRUCTIONS* ? Because of your fast heart rate your medications were adjusted. You are on metoprolol and Cardizem has also been added to your medication list ? You will take 2.5 mg of Eliquis twice a day for your blood thinner, this was decreased because of your kidney function ? Your losartan and spironolactone have been held because of your kidney function. Your kidney function has improved so your losartan will be resumed at 50 mg. Recommend a BMP in 3 to 5 days to verify kidney function continues to improve. At that time your provider can further adjust your Eliquis dose, losartan, spironolactone at their discretion ? Given your widely variable blood pressures and possibility of rebound hypert ension your clonidine was held during this admission ? Please follow-up with cardiology upon discharge. Contact information provided, please call upon discharge to schedule hospital follow-up appointment ? Please continue to follow with Dr. Ponce routinely as previously scheduled -Please call your primary care provider's office upon discharge to schedule a hospital follow up within 1 week. -For any concerning signs or symptoms please call 911 or proceed to the nearest emergency department Discharge Orders/Prescriptions Prescriptions: New Eliquis 5 mg Tablet 2.5 mg PO BID Qty: 0 0RF diltiazem HCl 120 mg Capsule,Extended Release 24hr 120 mg PO Q12 Qty: 0 0RF Continued carbidopa-levodopa 25-100 mg tablet 2 tab PO .QID Qty: 240 4RF dicyclomine 10 mg capsule 10 mg PO DAILY PRN (Reason: ibs) terazosin 10 MG capsule 10 mg PO DAILY finasteride 5 MG tablet 5 mg PO DAILY cholecalciferol (vitamin D3) [Vitamin D3] 2,000 UNIT capsule 2,000 unit PO DAILY allopurinol 100 mg tablet 200 mg PO DAILY gabapentin 300 mg Capsule 300 mg PO QHS metoprolol tartrate 100 mg tablet 100 mg PO BID docusate sodium 100 mg Capsule 100 mg PO BID Qty: 0 0RF hydrocortisone 2.5 % Cream 1 applic topical TID PRN PRN (Reason: RASH/TOPICAL IRRITATION) Qty: 0 0RF Protocol: *Topical Application Instructions APPLICATION INSTRUCTIONS: Right inner foot. loratadine 10 mg Tablet 10 mg PO DAILY omeprazole 20 mg Tablet,Delayed Release (Dr/Ec) 20 mg PO DAILY Changed losartan 100 mg Tablet 50 mg PO DAILY Qty: 0 0RF Held spironolactone 25 mg tablet 25 mg PO DAILY Hold Instructions: Resume on 05/22/22. Please discuss your primary provider prior to resuming this clonidine HCl 0.1 mg Tablet 0.1 mg PO DAILY@1200 Qty: 0 0RF Hold Instructions: Resume on 05/27/22. Please discuss your primary provider prior to resuming this clonidine HCl 0.2 mg Tablet 0.2 mg PO QHS Qty: 0 0RF Hold Instructions: Resume on 05/27/22. Please discuss your primary provider prior to resuming this No Action Eliquis 5 mg tablet 5 mg PO BID Qty: 60 3RF Referrals / Follow Up: Brad Forrest DO [Med Staff - Breeding Technician] - Within 1 Week Michael Santiago MD [Med Staff - Active Staff] - See Referral Note (Please call to schedule hospital follow-up appointment with your earth science professor upon discharge) Michael Rodriguez MD [Primary Care Provider] - Disposition Disposition (needs filled in before D/C Order can be placed): [facility]
--- NOTE | 2022-05-12 11:59 | PCM.DC.SUM ---
Providers Date of Admission: 05/08/22 Primary Care Physician: Dr. Michael Rodriguez MD Consultations 05/08/22 07:01 Consult: Cardiology Routine Consulting Provider: Naima Allison Reason for Consult: Atrial fibrillation with RVR EMERGENT Consult: No MD Notified: Yes Date Notified: 05/08/22 Time Notified: 06:12 Method of Notification: Text Reason For Visit: AFIB WITH RVR Diagnosis Discharge Diagnosis (1) Atrial fibrillation with RVR: Status: Acute Code(s): I48.91 - Unspecified atrial fibrillation Plan #A. fib with RVR-converted to normal sinus rhythm #Acute renal insufficiency on CKD stage II #Type II NSTEMI #Dizziness with fall #Chronic thrombocytopenia #Chronic heart failure with preserved ejection fraction #Coronary artery disease #History of VTE #Parkinson's disease #Hypertension #Monoclonal gammopathy Medications at Discharge Home Medications finasteride 5 mg tablet 5 mg PO DAILY BPH 01/11/17 terazosin 10 mg capsule 10 mg PO DAILY prostate 01/11/17 cholecalciferol (vitamin D3) 50 mcg (2,000 unit) capsule (Vitamin D3) 2,000 unit PO DAILY Supplement 07/12/17 dicyclomine 10 mg capsule 10 mg PO DAILY PRN ibs 11/21/21 allopurinol 100 mg tablet 200 mg PO DAILY gout 12/22/21 carbidopa 25 mg-levodopa 100 mg tablet 2 tab PO .QID PARKISON #240 tabs 02/23/22 apixaban 5 mg tablet (Eliquis) 5 mg PO BID ordered by Dr. Ponce for DVT #60 tabs 03/03/22 gabapentin 300 mg capsule 300 mg PO QHS Nerve Pain 03/19/22 metoprolol tartrate 100 mg tablet 100 mg PO BID BP 03/19/22 spironolactone 25 mg tablet 25 mg PO DAILY BP 03/19/22 clonidine HCl 0.1 mg tablet 0.1 mg PO DAILY@1200 #0 tabs 04/14/22 clonidine HCl 0.2 mg tablet 0.2 mg PO QHS #0 tabs 04/14/22 docusate sodium 100 mg capsule 100 mg PO BID #0 caps 04/14/22 hydrocortisone 2.5 % topical cream 1 applic topical TID PRN PRN RASH/TOPICAL IRRITATION #0 grams 04/14/22 loratadine 10 mg tablet 10 mg PO DAILY 05/08/22 omeprazole 20 mg tablet,delayed release 20 mg PO DAILY 05/08/22 apixaban 5 mg tablet (Eliquis) 2.5 mg PO BID #0 tabs 05/12/22 diltiazem HCl 120 mg capsule,extended release 24 hr 120 mg PO Q12 #0 caps 05/12/22 losartan 100 mg tablet 50 mg PO DAILY #0 tabs 05/12/22 Hospital Course Procedures Transthoracic echo Summary of Care Provided Hospital Course: Mr. Beckwith is a 76 male history of chronic thrombocytopenia, heart failure with preserved ejection fraction, BPH, hypertension, history of VTE, monoclonal gammopathy, Parkinson's disease, NICOLASA, CAD, CKD stage II, RA who presented 05/08 with history of fall the prior evening with onset of dizziness as well as palpitations and heart racing. Had been seen in January for similar symptoms and had a cardioversion. Was found to have A. fib with RVR and was admitted and started on Cardizem drip which was transitioned to p.o. and metoprolol was continued. He also had an NSTEMI that was attributed as type II secondary to his A. fib with RVR. His Eliquis was decreased given his kidney function. Additionally was noted to have an CONCHIS on CKD, this initially worsened but improved with hydration. On the day of discharge he reports he is feeling well, denies chest pain or shortness of breath. No complaints at time of exam. Did have waxing and waning mental status throughout his hospital stay, this morning answering questions including orientation questions appropriately. Likely component of hospital delirium on top of chronic medical comorbidities. No indication for further inpatient admission. Discharged back to [place] in stable condition. Physical Exam Const alert, oriented x3 and no apparent distress HEENT normocephalic and head/scalp atraumatic HEENT Narrative: Hard of hearing Eyes Eyes Narrative: EOM grossly intact, anicteric Neck supple Resp normal respiratory effort and clear to auscultation bilaterally Cardio regular rate and regular rhythm GI soft to palpation, non-tender and non-distended Extremity Extremity Narrative: No edema appreciated Neuro moves all extremities Neuro Narrative: No overt focal deficits appreciated Psych Psych Narrative: Cooperative Weight / BMI Weight Weight: 95.1 kg Body Mass Index (BMI) 30.3 ABG / Lab / Microbiology Data Result Diagrams: 05/12/22 05:30 05/12/22 05:30 Laboratory: Laboratory Results - last 24 hr 05/09/22 06:48: Diff Path Review Reviewed 05/12/22 05:30: WBC 5.6, RBC 4.28 L, Hgb 14.3, Hct 42.2, MCV 98.6 H, MCH 33.4 H, MCHC 33.9, RDW Std Deviation 49.8 H, RDW Coeff of Naomie 13.7, Plt Count 56 L, MPV 11.3, Immature Gran % (Auto) 0.900, Neut % (Auto) 78.6 H, Lymph % (Auto) 11.7 L, Story % (Auto) 5.9, Eos % (Auto) 2.5, Baso % (Auto) 0.4, Absolute Neuts (auto) 4.4, Absolute Lymphs (auto) 0.66 L, Nucleated RBC % 0 05/12/22 05:30: Sodium 142, Potassium 3.9, Chloride 111 H, Carbon Dioxide 24.0, Anion Gap 7, BUN 28 H, Creatinine 1.37 H, Estim Creat Clear Calc 45.87, Est GFR (MDRD) Af Amer 65, Est GFR (MDRD) Non-Af 54 L, BUN/Creatinine Ratio 20.4 H, Glucose 77, Calcium 8.5 D/C Instructions Discharge Diet: No restrictions Meaningful Use Info Meaningful Use Diagnoses (Choose all that apply): None applicable Discharge Plan Admission Admit Date/Time: 05/08/22 06:09 Primary Reason for Your Visit: Dizziness, palpitations, atrial fibrillation with rapid ventricular respons Attending Provider: Mimi Mclaughlin Primary Care Provider: Michael Rodriguez Consulting Providers: Liliana Wilson ; Naima Allison ; Octaviano Mathews Instructions Patient Instructions: AFib Dc, AFib Additional Instructions / Restrictions: *DISCHARGE INSTRUCTIONS* ? Because of your fast heart rate your medications were adjusted. You are on metoprolol and Cardizem has also been added to your medication list ? You will take 2.5 mg of Eliquis twice a day for your blood thinner, this was decreased because of your kidney function ? Your losartan and spironolactone have been held because of your kidney function. Your kidney function has improved so your losartan will be resumed at 50 mg. Recommend a BMP in 3 to 5 days to verify kidney function continues to improve. At that time your provider can further adjust your Eliquis dose, losartan, spironolactone at their discretion ? Given your widely variable blood pressures and possibility of rebound hypertension your clonidine was held during this admission ? Please follow-up with cardiology upon discharge. Contact information provided, please call upon discharge to schedule hospital follow-up appointment ? Please continue to follow with Dr. Ponce routinely as previously scheduled -Please call your primary care provider's office upon discharge to schedule a hospital follow up within 1 week. -For any concerning signs or symptoms please call 911 or proceed to the nearest emergency department Discharge Orders/Prescriptions Prescriptions: New Eliquis 5 mg Tablet 2.5 mg PO BID Qty: 0 0RF diltiazem HCl 120 mg Capsule,Extended Release 24hr 120 mg PO Q12 Qty: 0 0RF Continued carbidopa-levodopa 25-100 mg tablet 2 tab PO .QID Qty: 240 4RF dicyclomine 10 mg capsule 10 mg PO DAILY PRN (Reason: ibs) terazosin 10 MG capsule 10 mg PO DAILY finasteride 5 MG tablet 5 mg PO DAILY cholecalciferol (vitamin D3) [Vitamin D3] 2,000 UNIT capsule 2,000 unit PO DAILY allopurinol 100 mg tablet 200 mg PO DAILY gabapentin 300 mg Capsule 300 mg PO QHS metoprolol tartrate 100 mg tablet 100 mg PO BID docusate sodium 100 mg Capsule 100 mg PO BID Qty: 0 0RF hydrocortisone 2.5 % Cream 1 applic topical TID PRN PRN (Reason: RASH/TOPICAL IRRITATION) Qty: 0 0RF Protocol: *Topical Application Instructions APPLICATION INSTRUCTIONS: Right inner foot. loratadine 10 mg Tablet 10 mg PO DAILY omeprazole 20 mg Tablet,Delayed Release (Dr/Ec) 20 mg PO DAILY Changed losartan 100 mg Tablet 50 mg PO DAILY Qty: 0 0RF Held spironolactone 25 mg tablet 25 mg PO DAILY Hold Instructions: Resume on 05/22/22. Please discuss your primary provider prior to resuming this clonidine HCl 0.1 mg Tablet 0.1 mg PO DAILY@1200 Qty: 0 0RF Hold Instructions: Resume on 05/27/22. Please discuss your primary provider prior to resuming this clonidine HCl 0.2 mg Tablet 0.2 mg PO QHS Qty: 0 0RF Hold Instructions: Resume on 05/27/22. Please discuss your primary provider prior to resuming this No Action Eliquis 5 mg tablet 5 mg PO BID Qty: 60 3RF Referrals / Follow Up: Brad Forrest DO [Med Staff - All Source Analyst] - Within 1 Week Michael Santiago MD [Med Staff - Active Staff] - See Referral Note (Please call to schedule hospital follow-up appointment with your offset duplicating machine operator upon discharge) Michael Rodriguez MD [Primary Care Provider] - Disposition Disposition (needs filled in before D/C Order can be placed): Care Home Facility Charges/Coding Visit Charges Inpatient E&M: 22526 Disch Hosp
--- NOTE | 2022-05-12 13:02 | CASEMGMT ---
Patient is ready for discharge. ETTA was unaware of weekend SW's conversation with patient's daughter Aide until today. SW went to patient's room. Aide was present in the room. ETTA introduced self and role at [facility]. ETTA apologized for not checking in with her yesterday regarding possibly changing to [place]. Aide said she decided to just have patient go back to [place]. Aide said patient has been a little off this week so she doesn't really want to make any changes right now. Carmela d/c production planning manager will work on discharge. Plan: d/c back to [facility] under skilled level of care. Physicians will transport patient via wheelchair van. Ángela Agudelo KNIFE FINISHER MAMADOU
--- NOTE | 2022-05-12 13:14 | CASEMGMT ---
Discharge Egg Caser This bond writer set up wheelchair transport to the [facility]. D/c orders sent to [facility] via [facility]. stand up forklift operator time is 3:30pm. Nursing staff made aware. Hay BARR Lead Medical Technologist
--- NOTE | 2022-05-12 18:13 | NURSING ---
Report called to Nurse Jennifer from the [facility] [place], will assume care of pt when he returns
== END 2022-05-12 20:58 | disposition skilled nursing facility (03) | DRG 280 ==
LOC: ED 05:56 → PCU 07:04
PROVIDERS: Family Medicine; Admitting Provider Family Medicine; Emergency Provider Emergency Medicine; PCP Family Medicine; Visit Provider Internal Medicine
DX: I48.0 Paroxysmal atrial fibrillation (principal); I21.A1 Myocardial infarction type 2; E11.10 Type 2 diabetes mellitus with ketoacidosis without coma; N17.9 Acute kidney failure, unspecified; I13.0 Hypertensive heart and chronic kidney disease with heart failure and stage 1 through stage 4 chronic kidney disease, or unspecified chronic kidney disease; I50.32 Chronic diastolic (congestive) heart failure; I47.20 Ventricular tachycardia, unspecified; D47.2 Monoclonal gammopathy; K21.9 Gastro-esophageal reflux disease without esophagitis; G20 Parkinson's disease; M06.9 Rheumatoid arthritis, unspecified; E78.5 Hyperlipidemia, unspecified; E87.6 Hypokalemia; I25.10 Atherosclerotic heart disease of native coronary artery without angina pectoris; N18.2 Chronic kidney disease, stage 2 (mild); M10.9 Gout, unspecified; G47.33 Obstructive sleep apnea (adult) (pediatric); Z79.82 Long term (current) use of aspirin; Z79.01 Long term (current) use of anticoagulants; Z66 Do not resuscitate; Z79.899 Other long term (current) drug therapy; Z86.711 Personal history of pulmonary embolism; Z86.718 Personal history of other venous thrombosis and embolism; N40.0 Benign prostatic hyperplasia without lower urinary tract symptoms
CPT/HCPCS: 36415; 71045; 80048; 80053; 80061; 81001; 82009; 83036; 83735; 84443; 84484; 85025; 87426; 92960; 93005; 93306; 94762; 97110; 97162; 97166; 97530; 97535; 99285; J7030; J7040; Q9957; A4216; C8929; J2405

== ENCOUNTER 2023-01-20 01:55 | Emergency (ER) | payer MEDICARE, OTHER, SELFPAY ==
[2023-01-20 01:57] VITALS: BP 129/69; PULSE 90; RESP 18; TEMP 36.6; O2SAT 99; BMI 34.9
--- NOTE | 2023-01-20 02:07 | CT_ITS ---
EXAM: CT ABDOMEN AND PELVIS WITHOUT INTRAVENOUS CONTRAST CLINICAL INDICATION: LLQ PAIN TECHNIQUE: Helically acquired images were obtained of the abdomen and pelvis without intravenous contrast. CTDIvol = ( 16.41 ) mGy, DLP = ( 897.82 ) mGycm This CT exam was performed using one or more of the following dose reduction techniques: automated exposure control, adjustment of the mA and/or kV according to patient size, and/or use of iterative reconstruction technique. COMPARISON: October 27, 2021 FINDINGS: LOWER THORAX: Cardiomegaly without pericardial effusion. ABDOMEN: LIVER: Unremarkable. Homogeneous. GALLBLADDER AND BILE DUCTS: Unremarkable. No calcified gallstones. No gallbladder distention or wall edema. No intra- or extrahepatic biliary ductal dilation. PANCREAS: Unremarkable. No focal cystic mass. SPLEEN: Splenomegaly measuring a craniocaudal dimension of 16.4 cm. No focal splenic masses. ADRENALS: Unremarkable. No nodules. KIDNEYS AND URETERS: Unremarkable. Normal renal size and position. No hydronephrosis. STOMACH AND BOWEL: Distal colonic diverticulosis but no acute diverticulitis. No colitis. No bowel obstruction. PELVIS: APPENDIX: No evidence of acute appendicitis. BLADDER: Unremarkable. REPRODUCTIVE: Unremarkable as visualized. No mass. ABDOMEN and PELVIS: INTRAPERITONEAL SPACE: Unremarkable. No ascites or other fluid collection. No free air. BONES/JOINTS: Degenerative changes of the pelvis and spine. Moderate chronic appearing anterior wedge deformity of the L2 vertebral body, with no underlying pathology or retropulsion. Moderate degenerative disease L5-S1. No unusual lytic or sclerotic lesions of bone. SOFT TISSUES: Small fat-containing inguinal hernias, left slightly larger than right. VASCULATURE: Multivessel calcific coronary atherosclerosis. Abdominal aorta is non-dilated. LYMPH NODES: Unremarkable. No enlarged lymph nodes. CT/Abdomen/Pelvis without Cont IMPRESSION: 1. Nonspecific splenomegaly. 2. No acute or inflammatory disease or bowel obstruction. Electronically Signed: Meño Esposito MD at 3:39 EDT ,
--- NOTE | 2023-01-20 02:08 | ED.VIS.GI ---
HPI HPI - GI History of Present Illness Chief Complaint: Abd Pain Detail of Chief Complaint: Abdominal pain Informant: patient Narrative Narrative: Patient presents with abdominal pain that began approximately 9 PM last evening. Patient states it came on rather suddenly. Patient states pain worse with movement or coughing. He denies fever. Denies nausea or vomiting. He denies diarrhea. He denies blood in stool or black tarry stool. No history of kidney stones or diverticulitis. He tells me he has had no prior abdominal surgeries. At rest his pain is about a 3 or 4 out of 10. Patient on apixaban for history of A-fib. Patient presents via EMS from [facility]. [facility] Medical History Adequate anticoagulation on anticoagulant therapy Arthritis Atherosclerosis of both carotid arteries Atrial fibrillation Atrial fibrillation with RVR B12 deficiency BPH (benign prostatic hyperplasia) Bradycardia Breast mass in male Carpal tunnel syndrome Chronic a-fib Chronic anticoagulation Chronic hypokalemia CKD (chronic kidney disease) Compression fracture of L2 Contusion of flank COVID CPAP (continuous positive airway pressure) dependence Essential hypertension Facial basal cell cancer [place] Gastroesophageal reflux disease GERD (gastroesophageal reflux disease) History of pneumonia HTN (hypertension) Hypertension Hyperuricemia Hypokalemia Hypokalemia IBS (irritable bowel syndrome) IFG (impaired fasting glucose) Inflammatory arthritis (~2016) Kidney disease Migraine Nephrosclerosis Parkinsons disease Paroxysmal atrial fibrillation Proteinuria Renal insufficiency Rheumatoid arthritis Sleep apnea Splenomegaly Stroke (~07/2021) Thrombocythemia Venous stasis dermatitis Wears hearing aid in both ears Home Medications finasteride 5 mg tablet 5 mg PO DAILY BPH 01/11/17 [History Last Taken 02/10/22] terazosin 10 mg capsule 10 mg PO DAILY prostate 01/11/17 [History Last Taken 02/10/22] cholecalciferol (vitamin D3) 50 mcg (2,000 unit) capsule (Vitamin D3) 2,000 unit PO DAILY Supplement 07/12/17 [History Last Taken 02/10/22] dicyclomine 10 mg capsule 10 mg PO DAILY PRN ibs 11/21/21 [History Last Taken 02/10/22] allopurinol 100 mg tablet 200 mg PO DAILY gout 12/22/21 [History Last Taken 02/10/22] carbidopa 25 mg-levodopa 100 mg tablet 2 tab PO .QID RALPH #240 tabs 02/23/22 [Rx Last Taken Unknown] gabapentin 300 mg capsule 300 mg PO QHS Nerve Pain 03/19/22 [History Last Taken Unknown] metoprolol tartrate 100 mg tablet 100 mg PO BID BP 03/19/22 [History Last Taken Unknown] docusate sodium 100 mg capsule 100 mg PO BID #0 caps 04/14/22 [Rx Last Taken Unknown] hydrocortisone 2.5 % topical cream 1 applic topical TID PRN PRN RASH/TOPICAL IRRITATION #0 grams 04/14/22 [Rx Last Taken Unknown] loratadine 10 mg tablet 10 mg PO DAILY 05/08/22 [History Last Taken Unknown] omeprazole 20 mg tablet,delayed release 20 mg PO DAILY 05/08/22 [History Last Taken Unknown] donepezil 10 mg tablet 10 mg PO QHS #30 tabs 07/09/22 [Rx Last Taken Unknown] trazodone 50 mg tablet 50 mg PO QHS #30 tabs 07/09/22 [Rx Last Taken Unknown] bisacodyl 10 mg rectal suppository 10 mg MD DAILY PRN constipation #12 ea 07/17/22 [Rx Last Taken Unknown] magnesium hydroxide 400 mg/5 mL oral suspension (Milk of Magnesia) 30 ml PO QHS PRN constipation #355 mL 07/17/22 [Rx Last Taken Unknown] mineral oil 118 ml MD DAILY PRN constipation #3,192 mL 07/17/22 [Rx Last Taken Unknown] apixaban 2.5 mg tablet (Eliquis) 2.5 mg PO BID 09/02/22 [History Last Taken Unknown] losartan 100 mg tablet 100 mg PO DAILY 09/03/22 [History Last Taken Unknown] amlodipine 5 mg tablet 5 mg PO DAILY 09/18/22 [History Last Taken Unknown] furosemide 40 mg tablet 40 mg PO BID Ord by Dr. Rodriguez 10/09/22 [History Last Taken Unknown] spironolactone 25 mg tablet 25 mg PO DAILY 10/13/22 [History Last Taken Unknown] Allergy/AdvReac Type Severity Reaction Status Date / Time No Known Allergies Allergy Verified 12/02/22 14:21 Family History Father Myocardial infarction, Onset Age: 62 Brother Skin cancer Other Arthritis Heart disease Hypertension Thyroid disorder Surgical History Anal fissure History of ear surgery History of right breast biopsy (~02/2021) History of tonsillectomy Mohs defect (11/26/16) S/P carpal tunnel release S/P Mohs surgery for basal cell carcinoma Status post bilateral knee replacements Social History household members: none and other details: number of children: 1 current occupational status: retired Smoking Status: Never smoker alcohol intake: never substance use type: does not use caffeine: Yes eating out: other details: daily what type of physical activity do you participate in: none ROS ROS ED Review of Systems ROS Unobtainable: other Constitutional Constitutional ED: Reports lethargy; Denies chills, fever(s), sweats or weight loss Eyes Eyes: Denies blurry vision, change in vision or diplopia ENT ENT ED: Denies rhinorrhea or sore throat Cardiovascular Cardiovascular: Denies chest pain, orthopnea or racing heartbeat Respiratory/Chest Respiratory/Chest: Denies cough, dyspnea, dyspnea on exertion, orthopnea or sputum Gastrointestinal Gastrointestinal: Reports abdominal pain; Denies diarrhea, nausea or vomiting Genitourinary Genitourinary ED: Denies dysuria, hematuria or urinary frequency Musculoskeletal Musculoskeletal: Denies arthralgias, back pain, myalgias or neck pain Integumentary Denies abscess, Abrasions or rash Neurologic Neurologic: Denies headache(s) or weakness Psychiatric Psychiatric: Denies anxiety, depression or suicidal thoughts Endocrine Endocrinology: Denies polydipsia, polyphagia or polyuria Hematologic/Lymphatic Hematologic/Lymphatic: Denies easy bleeding, easy bruising or lymphadenopathy Allergic/Immunologic Allergic/Immunologic ED: Denies mouth swelling, tongue swelling or urticaria EXAM Physical Exam Const Vital Signs: 01/20/23 01:57 Temperature 97.9 F Temperature Source Temporal Pulse Rate 90 Respiratory Rate 18 Blood Pressure 129/69 H Blood Pressure Mean 89 Pulse Ox 99 Oxygen Delivery Method Room Air Positive well nourished and well developed General Appearance ED: well developed and NAD HEENT Reports TM's clear and moist mucous membranes normocephalic and atraumatic; Negative for trauma or tenderness Tympanic Membrane ED: Yes TM's clear Eyes PERRL and EOMs intact bilaterally General Eye ED: Negative for pale conjunctiva or scleral icterus Neck no lymphadenopathy, supple and no JVD General: Negative for tenderness Chest Wall inspection of chest normal and palpation of chest normal Chest: Negative for tenderness Resp normal respiratory effort and clear to auscultation bilaterally Effort and Inspection: Negative for respiratory distress or pain with movement Auscultation: Negative for rhonchi, wheezes or diminished lung sounds Cardio regular rate, regular rhythm, S1 normal heart sound, S2 normal heart sound and no murmurs Peripheral Pulses: pulses 2+ throughout GI normal to inspection, nondistended, normoactive bowel sounds, soft to palpation, non-distended and no masses GI Narrative: Tenderness to palpation over left lower quadrant with some guarding. There is no rebound, rigidity, or peritoneal signs. No mass palpated. No CVA tenderness on the left. Back/Spine no CVA tenderness and no thoracic nor lumbar tenderness Extremity normal to inspection General Extremety ED: Negative for edema General Extremity: Negative for edema Neuro oriented x3, CN's II-XII intact bilaterally, no sensory deficits noted and gait normal Sensorium / Orientation: awake, alert, oriented to person, oriented to place and oriented to time Motor Exam: strength 5/5 throughout and strength abnormal Psych mental status grossly normal Skin no rashes or lesions noted and no wounds MDM MDM MDM Narrative Medical decision making narrative: Patient presents with left lower quadrant abdominal pain that started this evening. At rest not having much discomfort but pain worse with movement and coughing. In the differential would be diverticulitis versus kidney stone versus UTI or other intra-abdominal process. Less likely would be AAA or bowel obstruction. IV line established on arrival. CBC with differential obtained showed a normal white count of 5.3 with a hemoglobin of 13.4 and platelet count of 65. The thrombocytopenia is chronic. Urinalysis was unremarkable. CT scan of the abdomen pelvis without contrast showed no acute disease process without evidence of inflammatory process. He had diverticulosis but no evidence of diverticulitis. No evidence of kidney stone. No evidence of bowel obstruction or free air perforation. No evidence of abdominal aortic aneurysm. On repeat exam he states he feels pretty well other than he needs to sleep. He still has some mild tenderness over left lower quadrant. Etiology of his pain at this time unclear. Patient will be discharged back to custodial and advised to return if worsening pain, fever, vomiting, bloody stools, or condition should worsen anyway. Lab Data Labs: Laboratory Results - last 24 hr 01/20/23 01/20/23 01/20/23 02:05 02:15 02:50 WBC 5.3 RBC 4.00 L Hgb 13.4 Hct 40.5 MCV 101.3 H MCH 33.5 H MCHC 33.1 RDW Std Deviation 52.3 H RDW Coeff of [place] 14.2 Plt Count 65 L MPV 11.0 Immature Gran % (Auto) 0.900 Neut % (Auto) 59.6 Lymph % (Auto) 26.5 [place] % (Auto) 8.1 Eos % (Auto) 4.3 Baso % (Auto) 0.6 Absolute Neuts (auto) 3.2 Absolute Lymphs (auto) 1.41 Nucleated RBC % 0 Sodium 140 Potassium 5.2 H Chloride 108 H Carbon Dioxide 29.0 Anion Gap 3 L BUN 43 H Creatinine 2.06 H Estim Creat Clear Calc 29.05 Est GFR (MDRD) Af Amer 40 L Est GFR (MDRD) Non-Af 33 L BUN/Creatinine Ratio 20.9 H Glucose 115 H Lactic Acid 1.4 Calcium 8.8 Urine Color Yellow Urine Clarity Clear Urine pH 6.0 Ur Specific [place] 1.015 Urine Protein 30 H Urine Glucose (UA) Normal Urine Ketones Negative Urine Occult Blood Negative Urine Nitrite Negative Urine Bilirubin Negative Urine Urobilinogen Normal Ur Leukocyte Esterase Negative Urine RBC 0-5 SEEN Urine WBC 0 SEEN Ur Squamous Epith Cells 0 SEEN Urine Bacteria 0 SEEN Urine Mucus 0 SEEN Discharge Plan Triage Chief Complaint: Abd Pain ED Provider: Neftaly Garner Dx/Rx/DC Orders Clinical Impression: Abdominal pain Instructions: ED Abdominal Pain Unkn Cause Male... Prescriptions: No Action carbidopa-levodopa 25-100 mg tablet 2 tab PO .QID Qty: 240 4RF dicyclomine 10 mg capsule 10 mg PO DAILY PRN (Reason: ibs) trazodone 50 mg tablet 50 mg PO QHS Qty: 30 5RF donepezil 10 mg tablet 10 mg PO QHS Qty: 30 5RF Rx Instructions: Begin after completing one month of treatment of donepezil 5mg nightly Eliquis 2.5 mg tablet 2.5 mg PO BID terazosin 10 MG capsule 10 mg PO DAILY finasteride 5 MG tablet 5 mg PO DAILY cholecalciferol (vitamin D3) [Vitamin D3] 2,000 UNIT capsule 2,000 unit PO DAILY allopurinol 100 mg tablet 200 mg PO DAILY gabapentin 300 mg Capsule 300 mg PO QHS metoprolol tartrate 100 mg tablet 100 mg PO BID docusate sodium 100 mg Capsule 100 mg PO BID Qty: 0 0RF hydrocortisone 2.5 % Cream 1 applic topical TID PRN PRN (Reason: RASH/TOPICAL IRRITATION) Qty: 0 0RF Protocol: *Topical Application Instructions APPLICATION INSTRUCTIONS: Right inner foot. loratadine 10 mg Tablet 10 mg PO DAILY omeprazole 20 mg Tablet,Delayed Release (Dr/Ec) 20 mg PO DAILY bisacodyl 10 mg suppository 10 mg MD DAILY PRN (Reason: constipation) Qty: 12 0RF mineral oil Enema 118 ml MD DAILY PRN (Reason: constipation) Qty: 3192 0RF Rx Instructions: discard any unused portion magnesium hydroxide [Milk of Magnesia] 400 mg/5 mL suspension 30 ml PO QHS PRN (Reason: constipation) Qty: 355 0RF losartan 100 mg tablet 100 mg PO DAILY amlodipine 5 mg tablet 5 mg PO DAILY furosemide 40 mg tablet 40 mg PO BID spironolactone 25 mg tablet 25 mg PO DAILY Primary Care Provider: Michael Rodriguez Referrals: Michael Rodriguez MD [Primary Care Provider] - 1-2 Days if not improving Disposition Disposition: Home, Self Care
[2023-01-20 02:18] LABS: Absolute Lymphocyte Count 1.41 X10^3/uL (0.83-4.51); Absolute Neutrophil Count 3.2 X10^3/uL (2.0-7.7); Basophil# 0.03 X10^3/uL; Basophil% 0.6 % (0-1); Eosinophil# 0.23 X10^3/uL; Eosinophils% 4.3 % (0-5); Hematocrit 40.5 % (40-54); Hemoglobin 13.4 g/dL (13.0-16.5); Lymphocyte # 1.41 X10^3/ul (0.83-4.51); Lymphocyte % 26.5 % (19-41); Mean Corp Hgb Conc 33.1 g/dL (32-36); Mean Corpuscular Hgb 33.5 pg (27.0-32.0); Mean Corpuscular Volume 101.3 fL (80-94); Monocyte# 0.43 X10^3/uL; Monocyte% 8.1 % (0-10); NRBC Flagged by Analyzer 0 % (0-5); Neutrophil # 3.17 X10^3/uL (2.7-7.7); Neutrophil % 59.6 % (47-70); POSITIVE COUNT YES; Platelet Count 65 K/mm3 (150-450); RBC Distribution Width CV 14.2 % (11.6-14.6); RBC Distribution Width SD 52.3 fl (35.1-43.9); White Blood Count 5.3 K/mm3 (4.4-11.0)
[2023-01-20] MEDS: 0.9% Normal Saline 1,000 ML 125 ML IV (02:20)
[2023-01-20 02:35] LABS: Anion Gap 3 (5-15); BUN 43 mg/dL (7-18); BUN/Creat Ratio 20.9 RATIO (10-20); Calcium,Total 8.8 mg/dL (8.5-10.1); Chloride 108 mmol/L (98-107); Creatinine, Serum 2.06 mg/dL (0.70-1.30); EST Glomerular Filtration Rate 33 mL/min (>60); Est Glom Filt Rate - Afr Amer 40 mL/min (>60); Estimated Creatinine Clearance 29.05 ml/min; Glucose 115 mg/dL (74-106); Potassium 5.2 mmol/L (3.5-5.1); Sodium Level 140 mmol/L (136-145)
[2023-01-20 02:46] LABS: Lactic Acid 1.4 mmol/L (0.4-1.9)
[2023-01-20 02:58] LABS: Bacteria 0 SEEN /hpf (None Seen); Color, Urine Yellow (Yellow); Glucose, Dipstick Normal (Normal); Ketone-Dipstick Negative (Negative); Leukocyte Esterase-Dipstick Negative /ul (Negative); Mucous, Urine 0 SEEN /hpf (<or=2+); Nitrite-Dipstick Negative (Negative); Occult Blood-Urine Negative /ul (Negative); Protein-Dipstick 30 mg/dl (Negative); Specific Gravity, Urine 1.015 (1.002-1.030); Squamous Epithelial Cells - UA 0 SEEN /hpf (0-5); Urine Bilirubin Dipstick Negative (Negative); Urine Clarity Clear (Clear); Urine Urobilinogen Normal (Normal); White Blood Cells 0 SEEN /hpf (0-5)
[2023-01-20 03:25] LABS: Red Blood Cells-Urine 0-5 SEEN /hpf (0-5)
[2023-01-20 04:16] VITALS: BP 132/64; PULSE 71; RESP 18; O2SAT 97
== END 2023-01-20 05:00 | disposition home or self-care (01) ==
PROVIDERS: Emergency Provider Emergency Medicine; PCP Family Medicine; Visit Provider Emergency Medicine
DX: R10.32 Left lower quadrant pain (principal); D69.6 Thrombocytopenia, unspecified; I12.9 Hypertensive chronic kidney disease with stage 1 through stage 4 chronic kidney disease, or unspecified chronic kidney disease; N18.9 Chronic kidney disease, unspecified; K57.90 Diverticulosis of intestine, part unspecified, without perforation or abscess without bleeding
CPT/HCPCS: 74176; 80048; 81001; 83605; 85025; 96360; 96361; 99285; J7030; A4216

== ENCOUNTER 2023-02-06 22:48 | Emergency (ER) | payer MEDICARE, OTHER, SELFPAY ==
[2023-02-06 22:49] VITALS: PULSE 76; RESP 18; TEMP 36.6; O2SAT 96; BMI 35.2
[2023-02-06 23:02] VITALS: BP 146/87
[2023-02-06] MEDS: Ondansetron ODT 4 MG Tablet PO (23:48)
[2023-02-06] MEDS: Morphine 4 MG/ML Syringe IM (23:48)
[2023-02-06] MEDS: Orphenadrine 60 MG/2 ML Ampul IM (23:48)
--- NOTE | 2023-02-07 | RAD_ITS ---
INDICATION: Back pain EXAMINATION/TECHNIQUE: X-RAY - XR Spine Lumbar Min 4 Views COMPARISON: CT abdomen and pelvis from 01/20/2023 FINDINGS: VERTEBRAE: Chronic superior endplate compression fracture at L2 resulting in up to 30% loss of height anteriorly. Mild chronic lower thoracic vertebral endplate compression deformities also noted. Preserved lumbar lordosis. No spondylolisthesis. Lower lumbar degenerative facet arthropathy. DISCS: Moderate L5-S1 degenerative disc space narrowing and vacuum disc changes again noted. INCLUDED ABDOMEN: Included bowel gas pattern is non-obstructive. Vascular calcifications noted. RAD/L/S Spine Min 4 Views IMPRESSION: Lower lumbar spondylosis with chronic lower thoracic and upper lumbar vertebral endplate compression deformities. Electronically Signed: Brad Hackett MD at 0:35 EDT ,
--- NOTE | 2023-02-07 01:20 | EX.ED.DYSGE1 ---
HPI History of Present Illness Chief Complaint: Back Informant: patient Narrative Narrative: Patient is a 77[facility]-old [facility] with past medical history of Parkinson disease as well as congestive heart failure and paroxysmal atrial fibrillation currently on Eliquis. He states that he does not ambulate but on Wednesday did try to get up and move and lost his balance falling onto his buttocks. He denies striking his head or any loss of consciousness. He states that since that time he has noticed some pain in the right low back that is worse with motion. He has been taking medication prescribed from the [facility] without much symptom improvement and therefore comes in for evaluation. Patient denies any recent back surgeries and he denies any loss of bowel or bladder control or IV drug use PFSH [facility] Medical History Adequate anticoagulation on anticoagulant therapy Arthritis Atherosclerosis of both carotid arteries Atrial fibrillation Atrial fibrillation with RVR B12 deficiency BPH (benign prostatic hyperplasia) Bradycardia Breast mass in male Carpal tunnel syndrome Chronic a-fib Chronic anticoagulation Chronic hypokalemia CKD (chronic kidney disease) Compression fracture of L2 Contusion of flank COVID CPAP (continuous positive airway pressure) dependence Essential hypertension Facial basal cell cancer Fall Gastroesophageal reflux disease GERD (gastroesophageal reflux disease) History of pneumonia HTN (hypertension) Hypertension Hyperuricemia Hypokalemia Hypokalemia IBS (irritable bowel syndrome) IFG (impaired fasting glucose) Inflammatory arthritis (~2016) Kidney disease Migraine Nephrosclerosis Parkinsons disease Paroxysmal atrial fibrillation Proteinuria Renal insufficiency Rheumatoid arthritis Sleep apnea Splenomegaly Stroke (~07/2021) Thrombocythemia Venous stasis dermatitis Wears hearing aid in both ears Home Medications finasteride 5 mg tablet 5 mg PO DAILY BPH 01/11/17 [History Last Taken 02/10/22] terazosin 10 mg capsule 10 mg PO DAILY prostate 01/11/17 [History Last Taken 02/10/22] cholecalciferol (vitamin D3) 50 mcg (2,000 unit) capsule (Vitamin D3) 2,000 unit PO DAILY Supplement 07/12/17 [History Last Taken 02/10/22] dicyclomine 10 mg capsule 10 mg PO DAILY PRN ibs 11/21/21 [History Last Taken 02/10/22] allopurinol 100 mg tablet 200 mg PO DAILY gout 12/22/21 [History Last Taken 02/10/22] carbidopa 25 mg-levodopa 100 mg tablet 2 tab PO .QID PARKISON #240 tabs 02/23/22 [Rx Last Taken Unknown] gabapentin 300 mg capsule 300 mg PO QHS Nerve Pain 03/19/22 [History Last Taken Unknown] metoprolol tartrate 100 mg tablet 100 mg PO BID BP 03/19/22 [History Last Taken Unknown] docusate sodium 100 mg capsule 100 mg PO BID #0 caps 04/14/22 [Rx Last Taken Unknown] hydrocortisone 2.5 % topical cream 1 applic topical TID PRN PRN RASH/TOPICAL IRRITATION #0 grams 04/14/22 [Rx Last Taken Unknown] loratadine 10 mg tablet 10 mg PO DAILY 05/08/22 [History Last Taken Unknown] omeprazole 20 mg tablet,delayed release 20 mg PO DAILY 05/08/22 [History Last Taken Unknown] donepezil 10 mg tablet 10 mg PO QHS #30 tabs 07/09/22 [Rx Last Taken Unknown] bisacodyl 10 mg rectal suppository 10 mg OK DAILY PRN constipation #12 ea 07/17/22 [Rx Last Taken Unknown] magnesium hydroxide 400 mg/5 mL oral suspension (Milk of Magnesia) 30 ml PO QHS PRN constipation #355 mL 07/17/22 [Rx Last Taken Unknown] mineral oil 118 ml OK DAILY PRN constipation #3,192 mL 07/17/22 [Rx Last Taken Unknown] apixaban 2.5 mg tablet (Eliquis) 2.5 mg PO BID 09/02/22 [History Last Taken Unknown] losartan 100 mg tablet 100 mg PO DAILY 09/03/22 [History Last Taken Unknown] furosemide 40 mg tablet 40 mg PO BID Ord by Dr. Rodriguez 10/09/22 [History Last Taken Unknown] spironolactone 25 mg tablet 25 mg PO DAILY 10/13/22 [History Last Taken Unknown] trazodone 100 mg tablet 100 mg PO QHS #30 tabs 01/31/23 [Rx Last Taken Unknown] amlodipine 10 mg tablet 10 mg PO DAILY 02/06/23 [History Last Taken Unknown] potassium chloride 20 mEq tablet,extended release(part/cryst) 20 meq PO DAILY 02/06/23 [History Last Taken Unknown] prednisone 20 mg tablet 20 mg PO DAILY 02/06/23 [History Last Taken Unknown] methocarbamol 500 mg tablet 500 mg PO 4X/DAY PRN PRN Muscle pain/spasm #40 tabs 02/07/23 [Rx Last Taken Unknown] oxycodone-acetaminophen 5 mg-325 mg tablet (Percocet) 1 tab PO Q6H PRN pain 3 days #12 tabs 02/07/23 [Rx Last Taken Unknown] Allergy/AdvReac Type Severity Reaction Status Date / Time No Known Allergies Allergy Verified 02/06/23 22:57 Family History Father Myocardial infarction, Onset Age: 62 Brother Skin cancer Other Arthritis Heart disease Hypertension Thyroid disorder Surgical History Anal fissure History of ear surgery History of right breast biopsy (~02/2021) History of tonsillectomy Mohs defect (11/26/16) S/P carpal tunnel release S/P Mohs surgery for basal cell carcinoma Status post bilateral knee replacements Social History household members: none and other details: number of children: 1 current occupational status: retired Smoking Status: Never smoker alcohol intake: never substance use type: does not use caffeine: Yes eating out: other details: daily what type of physical activity do you participate in: none ROS ROS ED Constitutional Constitutional ED: Denies chills or fever(s) Eyes Eyes: Denies change in vision ENT ENT ED: Denies sore throat Cardiovascular Cardiovascular: Denies chest pain Respiratory/Chest Respiratory/Chest: Denies cough or dyspnea Gastrointestinal Gastrointestinal: Denies abdominal pain, diarrhea, nausea or vomiting Genitourinary Genitourinary ED: Denies dysuria Musculoskeletal Musculoskeletal: Reports back pain Integumentary Denies Abrasions or rash Neurologic Neurologic: Denies headache(s) or paresthesias Hematologic/Lymphatic Hematologic/Lymphatic: Reports easy bleeding and easy bruising EXAM Physical Exam Const Vital Signs: 02/06/23 22:49 02/06/23 23:02 02/07/23 01:57 Temperature 97.9 F Temperature Source Oral Pulse Rate 76 72 Respiratory Rate 18 18 Blood Pressure 146/87 H 118/74 Blood Pressure Mean 106 Pulse Ox 96 98 Oxygen Delivery Method Room Air Positive well nourished and well developed General Appearance ED: well developed HEENT HEENT Narrative: Normocephalic atraumatic Eyes PERRL and EOMs intact bilaterally General Eye ED: Negative for scleral icterus Neck supple Chest Wall palpation of chest normal Resp normal respiratory effort and clear to auscultation bilaterally Cardio regular rate and regular rhythm Rate: other Other Details: Radial and carotid pulses are equal and symmetric GI non-tender and non-distended GI Narrative: Abdomen is obese soft nontender and nondistended with hypoactive bowel sounds. No voluntary guarding or rigidity. No pulsatile mass or fluid wave Auscultation: hypoactive bowel sounds Palpation: soft Back/Spine Back/Spine Narrative: No bony deformity or step-off of the thoracic or lumbar spine no midline pain on palpation. Patient does have right-sided paralumbar tenderness and spasm that worsens with extension flexion and rotation. No saddle anesthesia. Negative straight leg raise. No clonus or Babinski. Patellar reflexes are plus 1 out of 4 bilaterally Extremity Extremity Narrative: Patient has +3-4 pitting edema that is equal and symmetric to the lower legs along with chronic stasis changes Neuro oriented x3 and CN's II-XII intact bilaterally Sensorium / Orientation: alert Psych mental status grossly normal Skin no rashes or lesions noted Skin Narrative: Chronic stasis changes to bilateral lower legs without secondary changes to suggest infection MDM MDM MDM Narrative Medical decision making narrative: Patient presented to the ER in no acute distress. He reported that his pain began after a recent fall from standing position. Differential diagnosis then includes compression fracture versus spinal thesis versus shingles/cellulitis versus cauda equina or epidural abscess. The patient denies loss of bowel or bladder control he denies IV drug use therefore concern for cauda equina or epidural abscess is low. Physical exam does not show any type of rash to suggest shingles formation or cellulitis. An x-ray was obtained because of the fall and it shows chronic changes without acute fracture. Patient was given IM morphine secondary to the pain and was able to fall asleep indicating pain had improved with medication. At this time the patient has had moderate improvement of his pain and x-ray shows no bony derangement and [facility] secondary to his Parkinson's disease and inability to ambulate. Therefore at this time as his work-up does not reveal acute bony injury signs of infection or neurovascular compromise I do not feel there is need for further work-up and he is otherwise safe for discharge History & Record Review Discussion w/independent historian: Patient Radiography Diagnostic Testing: Clinical Impression(s) from Imaging Studies Lumbar Spine X-Ray 02/07/23 00:00 IMPRESSION: Lower lumbar spondylosis with chronic lower thoracic and upper lumbar vertebral endplate compression deformities. Electronically Signed: Brad Hackett MD at 0:35 EDT , X-ray of the lumbosacral spine as interpreted by the emergency medicine physician reveals chronic findings without acute fracture or spondylolisthesis Discharge Plan Triage Chief Complaint: Back ED Provider: Meño Coello Dx/Rx/DC Orders Clinical Impression: Acute lumbosacral myofascial strain, CHF (congestive heart failure), Parkinsons disease, Debility Instructions: ED Back Sprain/Strain Prescriptions: New oxycodone-acetaminophen [Percocet] 5-325 mg tablet 1 tab PO Q6H PRN (Reason: pain) 3 Days Qty: 12 0RF methocarbamol 500 mg tablet 500 mg PO 4X/DAY PRN PRN (Reason: Muscle pain/spasm) Qty: 40 0RF No Action carbidopa-levodopa 25-100 mg tablet 2 tab PO .QID Qty: 240 4RF dicyclomine 10 mg capsule 10 mg PO DAILY PRN (Reason: ibs) donepezil 10 mg tablet 10 mg PO QHS Qty: 30 5RF Rx Instructions: Begin after completing one month of treatment of donepezil 5mg nightly trazodone 100 mg tablet 100 mg PO QHS Qty: 30 3RF Eliquis 2.5 mg tablet 2.5 mg PO BID terazosin 10 MG capsule 10 mg PO DAILY finasteride 5 MG tablet 5 mg PO DAILY cholecalciferol (vitamin D3) [Vitamin D3] 2,000 UNIT capsule 2,000 unit PO DAILY allopurinol 100 mg tablet 200 mg PO DAILY gabapentin 300 mg Capsule 300 mg PO QHS metoprolol tartrate 100 mg tablet 100 mg PO BID docusate sodium 100 mg Capsule 100 mg PO BID Qty: 0 0RF hydrocortisone 2.5 % Cream 1 applic topical TID PRN PRN (Reason: RASH/TOPICAL IRRITATION) Qty: 0 0RF Protocol: *Topical Application Instructions APPLICATION INSTRUCTIONS: Right inner foot. loratadine 10 mg Tablet 10 mg PO DAILY omeprazole 20 mg Tablet,Delayed Release (Dr/Ec) 20 mg PO DAILY prednisone 20 mg tablet 20 mg PO DAILY potassium chloride 20 mEq tablet,ER particles/crystals 20 meq PO DAILY amlodipine 10 mg tablet 10 mg PO DAILY bisacodyl 10 mg suppository 10 mg OK DAILY PRN (Reason: constipation) Qty: 12 0RF mineral oil Enema 118 ml OK DAILY PRN (Reason: constipation) Qty: 3192 0RF Rx Instructions: discard any unused portion magnesium hydroxide [Milk of Magnesia] 400 mg/5 mL suspension 30 ml PO QHS PRN (Reason: constipation) Qty: 355 0RF losartan 100 mg tablet 100 mg PO DAILY furosemide 40 mg tablet 40 mg PO BID spironolactone 25 mg tablet 25 mg PO DAILY Primary Care Provider: Michael Rodriguez Referrals: Michael Rodriguez MD [Primary Care Provider] - Activity Restrictions/Additional Instructions: Please stop the Ultram/tramadol and begin taking Percocet for improved pain control. Also begin taking the Robaxin/methocarbamol for muscle tension/spasm. Please keep the area to reduce pain and speed healing and try to stay active. Please return to the ER should you have any further concerns Disposition Disposition: Home, Self Care Discharge Date/Time: 02/07/23 03:08
[2023-02-07] MEDS: Oxycodone/Apap 5/325 Tablet PO (01:48)
[2023-02-07 01:57] VITALS: BP 118/74; PULSE 72; RESP 18; O2SAT 98
== END 2023-02-07 03:08 | disposition home or self-care (01) ==
PROVIDERS: Emergency Provider Emergency Medicine; PCP Family Medicine; Visit Provider Emergency Medicine
DX: S39.012A Strain of muscle, fascia and tendon of lower back, initial encounter (principal); G20 Parkinson's disease; I13.0 Hypertensive heart and chronic kidney disease with heart failure and stage 1 through stage 4 chronic kidney disease, or unspecified chronic kidney disease; I50.9 Heart failure, unspecified; I48.0 Paroxysmal atrial fibrillation; N18.9 Chronic kidney disease, unspecified; R53.81 Other malaise; Z79.01 Long term (current) use of anticoagulants; Z79.52 Long term (current) use of systemic steroids; Z79.899 Other long term (current) drug therapy; W19.XXXA Unspecified fall, initial encounter
CPT/HCPCS: 72110; 96372; 99284